=== PATIENT | male | born 1960 | race Two or more races ===

== ENCOUNTER 2017-07-26 06:03 | Inpatient (IN) | payer MEDICAID ==
[2017-07-26] VITALS (17 sets, daily range): BP systolic 112–167; BP diastolic 51–93
[~2017-07-26] VITALS: Ht 167.6 cm; Wt 72.2 kg
[2017-07-26 07:02] LABS: APPEARANCE,URINE CLEAR; BILIRUBIN, URINE NEGATIVE (NEGATIVE); COLOR,URINE PALE YELLOW; GLUCOSE, URINE (UA) NEGATIVE (NEGATIVE); KETONES,URINE NEGATIVE (NEGATIVE); LEUKOCYTE ESTERASE ,URINE NEGATIVE (NEGATIVE); NITRITE,URINE NEGATIVE (NEGATIVE); PH,URINE 5 (4.5-8.0); PROTEIN,URINE 3+ (NEGATIVE); UROBILINOGEN,URINE NORMAL MG/DL (0.0-1.0)
[2017-07-26 07:07] LABS: ANION GAP 13 mmol/L (5-15); BLOOD UREA NITROGEN 70 mg/dL (7-18); CALCIUM 8.2 MG/DL (8.5-10.1); CARBON DIOXIDE 22 MMOL/L (21-32); CHLORIDE 100 MMOL/L (98-107); CREATININE 2.9 MG/DL (0.55-1.30); INR 1.1 (0.9-1.1); POTASSIUM 3.5 MMOL/L (3.5-5.1); SODIUM 135 MMOL/L (136-145)
[2017-07-26 07:13] LABS: MEAN CORPUSCULAR VOLUME 89 FL (80-99); PLATELET COUNT 435 K/UL (150-450); RED BLOOD COUNT 2.36 M/UL (4.70-6.10); RED CELL DISTRIBUTION WIDTH 15.1 % (11.6-14.8); WHITE BLOOD COUNT 15.4 K/UL (4.8-10.8)
[2017-07-26 07:21] LABS: ALANINE AMINOTRANSFERASE 19 U/L (12-78); ALBUMIN 1.5 G/DL (3.4-5.0); ALBUMIN/GLOBULIN RATIO 0.2 (1.0-2.7); ALKALINE PHOSPHATASE 168 U/L (46-116); ASPARTATE AMINO TRANSFERASE 29 U/L (15-37); BILIRUBIN,TOTAL 0.2 MG/DL (0.2-1.0); CKMB 1.9 NG/ML (0.0-3.6); CREATINE KINASE 49 U/L (26-308)
--- NOTE | 2017-07-26 07:35 | Emergency Room Report ---
History of Present Illness General Chief Complaint: Altered Level of Consciousness Source: Patient, Medical Record Present Illness HPI This patient presents from a retirement facility. There was concern the patient was less responsive and more altered than usual. The patient has a history of CVA and is nonverbal at baseline. 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 The patient has a history of respiratory failure, diabetes, CVA, anemia, stage IV KD. There was a question this patient possibly had lost pulses prior to arrival. According to EMS, they were called to a retirement facility for no pulse. However, when he arrived the patient did have a pulse despite undergoing CPR. The patient here has had stable vital signs. There is no other history available. Allergies: Coded Allergies: No Known Allergies (Unverified , 07/26/17) Patient History Past Medical History: see triage record, DM, HTN, LA, CAD - , CVA/TIA, renal disease, other - Respiratory failure Past Surgical History: other - Trach, PEG Social History: Denies: smoking, alcohol use, drug use Reviewed Nursing Documentation: PMH: Agreed; PSxH: Agreed Nursing Documentation-PMH Past Medical History: No History, Except For Hx Hypertension: Yes Hx COPD: No - Chronic Resp. failure, Trach. dependent Hx Diabetes: Yes - Type 2 Hx Gastrointestinal Problems: Yes - Dysphagia, G-tube Hx Dialysis: No - Nephropathy, CKD Hx Cerebrovascular Accident: Yes - Left-sided deficit Review of Systems All Other Systems: limited Physical Exam Vital Signs Date Time Temp Pulse Resp B/P (MAP) Pulse Ox O2 Delivery O2 Flow Rate FiO2 07/26/17 05:58 97.3 79 25 112/93 100 Ambu-Bag 97.3 07/26/17 06:00 100 Sp02 EP Interpretation: reviewed, normal General Appearance: no apparent distress, alert, GCS 15, non-toxic Head: normocephalic, atraumatic Eyes: bilateral eye normal inspection ENT: no angioedema Neck: supple/symm/no masses, tracheotomy Respiratory: chest non-tender, lungs clear, normal breath sounds, no respiratory distress, other - On ventilator Cardiovascular #1: regular rate, rhythm, no edema Gastrointestinal: normal bowel sounds, non tender, soft, non-distended, no guarding, no rebound, other - PEG Rectal: deferred Genitourinary: penis normal Musculoskeletal: swelling - LLE 1+edema. At baseline Neurologic: sensory intact, other - Opens eyes. At baseline. Skin: warm/dry, well hydrated, other - See RN skin exam Medical Decision Making Diagnostic Impression: Primary Impression: CVA (cerebral vascular accident) Additional Impressions: Anemia Bilateral pulmonary contusion Renal insufficiency Hypoglycemia ER Course This patient has CT head findings consistent with acute CVA. He was given aspirin via GT. The patient had anemia dementia or the severity of this and this patient has never to this facility, however, the medical chart that accompanies the patient states that patient has 9 deficiency anemia. Patient also has chest x-ray findings consistent with pulmonary contusions. Per EMS, when they arrived at the [facility] the patient was undergoing CPR. I suspect any pulmonary contusions are secondary to receiving CPR prior to arrival. The patient had a normal blood pressure, heart rate and overall vital signs while here in the emergency department. The patient also became hypoglycemic with a critically low blood sugar. The patient is given D50. The patient was upgraded to the ICU. There is no evidence of arrhythmia or cardiac instability during the patient's ED course. The patient did undergo a CT of the head which shows findings consistent with an acute ischemic CVA. The patient is admitted to ICU. This patient is critically ill. This patient required complex medical decision- making, aggressive intervention, extensive laboratory workup and monitoring. Critical care time: 40 minutes. Laboratory Tests Test 07/26/17 06:20 White Blood Count 15.4 K/UL (4.8-10.8) H Red Blood Count 2.36 M/UL (4.70-6.10) L Hemoglobin 7.0 G/DL (14.2-18.0) L Hematocrit 21.0 % (42.0-52.0) L Mean Corpuscular Volume 89 FL (80-99) Mean Corpuscular Hemoglobin 29.8 PG (27.0-31.0) Mean Corpuscular Hemoglobin Concent 33.4 G/DL (32.0-36.0) Red Cell Distribution Width 15.1 % (11.6-14.8) H Platelet Count 435 K/UL (150-450) Mean Platelet Volume 5.6 FL (6.5-10.1) L Neutrophils (%) (Auto) % (45.0-75.0) Lymphocytes (%) (Auto) % (20.0-45.0) Monocytes (%) (Auto) % (1.0-10.0) Eosinophils (%) (Auto) % (0.0-3.0) Basophils (%) (Auto) % (0.0-2.0) Neutrophils % (Manual) Pending Lymphocytes % (Manual) Pending Platelet Estimate Pending Platelet Morphology Pending Prothrombin Time 11.5 SEC (9.30-11.50) Prothrombin Time INR 1.1 (0.9-1.1) PTT 35 SEC (23-33) H Urine Color Pale yellow Urine Appearance Clear Urine pH 5 (4.5-8.0) Urine Specific [place] 1.010 (1.005-1.035) Urine Protein 3+ (NEGATIVE) H Urine Glucose (UA) Negative (NEGATIVE) Urine Ketones Negative (NEGATIVE) Urine Occult Blood Negative (NEGATIVE) Urine Nitrite Negative (NEGATIVE) Urine Bilirubin Negative (NEGATIVE) Urine Urobilinogen Normal MG/DL (0.0-1.0) Urine Leukocyte Esterase Negative (NEGATIVE) Urine RBC 5-10 /HPF (0 - 0) H Urine WBC 5-10 /HPF (0 - 0) H Urine Squamous Epithelial Cells Occasional /LPF Urine Amorphous Sediment Few /LPF (NONE) H Urine Bacteria Few /HPF (NONE) Urine Fine Granular Casts 0-2 /LPF (NONE) H Sodium Level 135 MMOL/L (136-145) L Potassium Level 3.5 MMOL/L (3.5-5.1) Chloride Level 100 MMOL/L (98-107) Carbon Dioxide Level 22 MMOL/L (21-32) Anion Gap 13 mmol/L (5-15) Blood Urea Nitrogen 70 mg/dL (7-18) H Creatinine 2.9 MG/DL (0.55-1.30) H Estimate Glomerular Filtration Rate 22.6 mL/min (>60) Glucose Level 62 MG/DL (74-106) L Lactic Acid Level 3.70 mmol/L (0.4-2.0) H Calcium Level 8.2 MG/DL (8.5-10.1) L Total Bilirubin 0.2 MG/DL (0.2-1.0) Aspartate Amino Transferase (AST) 29 U/L (15-37) Alanine Aminotransferase (ALT) 19 U/L (12-78) Alkaline Phosphatase 168 U/L (46-116) H Total Creatine Kinase 49 U/L (26-308) Creatine Kinase MB 1.9 NG/ML (0.0-3.6) Creatine Kinase MB Relative Index 3.8 Troponin I 0.000 ng/mL (0.000-0.056) Total Protein 7.5 G/DL (6.4-8.2) Albumin 1.5 G/DL (3.4-5.0) L Globulin 6.0 g/dL Albumin/Globulin Ratio 0.2 (1.0-2.7) L EKG Diagnostic Results Rate: normal Rhythm: NSR ST Segments: no acute changes Rhythm Strip Diag. Results EP Interpretation: yes Rate: 70's Rhythm: NSR, no PVC's, no ectopy Chest X-Ray Diagnostic Results Chest X-Ray Diagnostic Results : Chest X-Ray Ordered: Yes # of Views/Limited/Complete: 1 View Indication: Other EP Interpretation: Yes Interpretation: other - Diffuse bilateral patchy opacities upper lungs. CT/MRI/US Diagnostic Results CT/MRI/US Diagnostic Results : Imaging Test Ordered: CT head Impression Findings concerning for an acute ischemic CVA. See official report. Last Vital Signs Date Time Temp Pulse Resp B/P (MAP) Pulse Ox O2 Delivery O2 Flow Rate FiO2 07/26/17 06:56 25 134/67 100 Ambu-Bag 100 07/26/17 06:05 97.3 97.3 07/26/17 06:00 77 Disposition: ADMITTED INPATIENT Condition: Critical Referrals: NICK MARCH (PCP) Heydi Estrada DO Jul 26, 2017 07:35
--- NOTE | 2017-07-26 08:07 | Diagnostic Imaging Report ---
Indication: Altered mental status Technique: Continuous helical CT scanning of the head was performed utilizing automated exposure control without intravenous contrast material. Axial and coronal reconstructions were obtained. Comparison: None CT dose: Total DLP 1449 mGycm; CTDI vol 70.5 mGy Findings: There is asymmetric hypoattenuation and loss of snadoval-white differentiation in the right insula and steen radiata concerning for infarct. No definite focus of parenchymal high attenuation is noted. There is thin high density in the interhemispheric fissure which is likely within the realm of normal. No definite extra-axial hemorrhage/collection identified. The ventricles are within normal limits for age; no evidence to suggest hydrocephalus. No cisternal effacement. Likely bilateral mastoid effusions although evaluation of the skull base is limited due to patient motion. There is air-fluid level in the right sphenoid sinus and mucoperiosteal thickening in some ethmoid air cells. IMPRESSION: Asymmetric densities involving the right insula, steen radiata and basal ganglia concerning suspicious for acute infarct. No evidence of midline shift or acute intracranial hemorrhage. Limited evaluation of the skull base to to patient motion. Likely bilateral mastoid effusions. Paranasal sinus disease. This corresponds with the statrad preliminary report. The CT scanner at [facility] is accredited by the [employer] and the scans are performed using protocols designed to limit radiation exposure to as low as reasonably achievable to attain images of sufficient resolution adequate for diagnostic evaluation.
[2017-07-26] MEDS ORDERED: HUMALOG100 UNIT/4 SUBQ (10:31)
[2017-07-26] MEDS ORDERED: FAMOTIDINE20 MG GT (10:31)
[2017-07-26] MEDS ORDERED: METFORMIN HCL850 M1 GT (10:31)
[2017-07-26] MEDS ORDERED: TRAMADOL HCL50 MG GT (10:31)
[2017-07-26] MEDS ORDERED: LOVENOX10 M4 SUBQ (10:31)
[2017-07-26] MEDS ORDERED: TRANSDERM-SCOP1.5 MG TD (10:31)
[2017-07-26] MEDS ORDERED: ACETAMINOP160 MG/51 GT (10:31)
[2017-07-26] MEDS ORDERED: HYDRALAZINE HC100 MG GT (10:31)
[2017-07-26] MEDS ORDERED: METOPROLOL TART50 M1 GT (10:31)
[2017-07-26] MEDS ORDERED: RENA-VITE TABL0.8 M1 GT (10:31)
[2017-07-26] MEDS ORDERED: NORVASC10 MG ORAL (10:31)
[2017-07-26] MEDS ORDERED: CATAPRES TTS-1 PATCH TDERMAL (10:31)
[2017-07-26] MEDS ORDERED: LANTUS SOL100 UNIT/1 SUBQ (10:31)
[2017-07-26] MEDS ORDERED: Miralax 17gm pkt ORAL PRN (10:45)
[2017-07-26] MEDS ORDERED: Morphine Sulfate 4mg/ml Inj IVP PRN (10:45)
[2017-07-26] MEDS ORDERED: Albuterol/Ipratropium 3ml neb HHN PRN (10:45)
[2017-07-26] MEDS ORDERED: LORazepam Inj 2mg/ml 1ml IV PRN (10:45)
--- NOTE | 2017-07-26 11:04 | Pulmonolgy Critical Care Note ---
Critical Care - Asmt/Plan Problems: (1) Pneumonia (2) Acute encephalopathy (3) Cardiac arrest (4) Acute and chronic respiratory failure (5) Diabetes mellitus (6) History of CVA (cerebrovascular accident) (7) CVA (cerebral vascular accident) Respiratory: monitor respiratory rate, adjust FIO2, CXR Cardiac: continue to monitor HR/BP Renal: F/U I&O Gastrointestinal: continue feedings/current rate, hold feedings Endocrine: check TSH Hematologic: monitor H/H Neurologic: PRN Morphine Affect: PRN ativan Prophylaxis: Protonix, Heparin Notes Reviewed: cardio Discussed with: nurses, consultants, case aideonline marketing manager - Objective Last 24 Hour Vital Signs Date Time Temp Pulse Resp B/P (MAP) Pulse Ox O2 Delivery O2 Flow Rate FiO2 07/26/17 10:16 100.0 07/26/17 10:14 98.7 67 17 142/70 100 Mechanical Ventilator 100 98.7 07/26/17 10:10 97.3 17 133/77 100 Ambu-Bag 100 97.3 07/26/17 09:45 97.3 17 133/77 100 Ambu-Bag 100 97.3 07/26/17 09:11 63 17 100 07/26/17 07:29 65 16 100 07/26/17 06:56 25 134/67 100 Ambu-Bag 100 07/26/17 06:05 97.3 25 112/93 100 Ambu-Bag 97.3 07/26/17 06:00 77 24 100 07/26/17 05:58 97.3 79 25 112/93 100 Ambu-Bag 97.3 Status: awake Condition: critical HEENT: atraumatic Lungs: clear Heart: HR/BP stable Abdomen: soft, non-tender, feeding tube Accucheck: 143 Critical Care - Subjective ROS Limited/Unobtainable: Yes ICU Day: 1 Interval Events: 56 year old male with hx of DM, HTN, DC, CAD, CVA/TIA, tracheostomy and ventilator dependent, renal disease presented from a detention facility. There was a question that he had lost pulses prior to arrival. However, when he arrived the patient did have a pulse despite undergoing CPR. Pt is admitted to ICu for further evaluation. FI02: 100 Vent Support Breath Rate: 16 Vent Support Mode: AC Vent Tidal Volume: 550 Sputum Amount: Small PEEP: 5.0 PIP: 26 I&O: Intake and Output 07/25/17 07/26/17 19:00 07:00 Output Total 600 ml Balance -600 ml Output Urine Total 600 ml # Voids 1 # Bowel Movements 1 CXR: extensive RUL infiltrate Labs: Laboratory Tests Test 07/26/17 06:20 07/26/17 07:55 07/26/17 10:45 White Blood Count 15.4 K/UL (4.8-10.8) H Red Blood Count 2.36 M/UL (4.70-6.10) L Hemoglobin 7.0 G/DL (14.2-18.0) L Hematocrit 21.0 % (42.0-52.0) L Mean Corpuscular Volume 89 FL (80-99) Mean Corpuscular Hemoglobin 29.8 PG (27.0-31.0) Mean Corpuscular Hemoglobin Concent 33.4 G/DL (32.0-36.0) Red Cell Distribution Width 15.1 % (11.6-14.8) H Platelet Count 435 K/UL (150-450) Mean Platelet Volume 5.6 FL (6.5-10.1) L Neutrophils (%) (Auto) % (45.0-75.0) Lymphocytes (%) (Auto) % (20.0-45.0) Monocytes (%) (Auto) % (1.0-10.0) Eosinophils (%) (Auto) % (0.0-3.0) Basophils (%) (Auto) % (0.0-2.0) Differential Total Cells Counted 100 Neutrophils % (Manual) 77 % (45-75) H Lymphocytes % (Manual) 12 % (20-45) L Monocytes % (Manual) 7 % (1-10) Eosinophils % (Manual) 1 % (0-3) Basophils % (Manual) 3 % (0-2) H Band Neutrophils 0 % (0-8) Platelet Estimate Adequate Platelet Morphology Normal Hypochromasia 3+ Anisocytosis 1+ Prothrombin Time 11.5 SEC (9.30-11.50) Prothromb Time International Ratio 1.1 (0.9-1.1) Activated Partial Thromboplast Time 35 SEC (23-33) H Urine Color Pale yellow Urine Appearance Clear Urine pH 5 (4.5-8.0) Urine Specific [place] 1.010 (1.005-1.035) Urine Protein 3+ (NEGATIVE) H Urine Glucose (UA) Negative (NEGATIVE) Urine Ketones Negative (NEGATIVE) Urine Occult Blood Negative (NEGATIVE) Urine Nitrite Negative (NEGATIVE) Urine Bilirubin Negative (NEGATIVE) Urine Urobilinogen Normal MG/DL (0.0-1.0) Urine Leukocyte Esterase Negative (NEGATIVE) Urine RBC 5-10 /HPF (0 - 0) H Urine WBC 5-10 /HPF (0 - 0) H Urine Squamous Epithelial Cells Occasional /LPF Urine Amorphous Sediment Few /LPF (NONE) H Urine Bacteria Few /HPF (NONE) Urine Fine Granular Casts 0-2 /LPF (NONE) H Sodium Level 135 MMOL/L (136-145) L Potassium Level 3.5 MMOL/L (3.5-5.1) Chloride Level 100 MMOL/L (98-107) Carbon Dioxide Level 22 MMOL/L (21-32) Anion Gap 13 mmol/L (5-15) Blood Urea Nitrogen 70 mg/dL (7-18) H Creatinine 2.9 MG/DL (0.55-1.30) H Estimat Glomerular Filtration Rate 22.6 mL/min (>60) Glucose Level 62 MG/DL (74-106) L Lactic Acid Level 3.70 mmol/L (0.4-2.0) H 1.80 mmol/L (0.66-2.22) Calcium Level 8.2 MG/DL (8.5-10.1) L Total Bilirubin 0.2 MG/DL (0.2-1.0) Aspartate Amino Transf (AST/SGOT) 29 U/L (15-37) Alanine Aminotransferase (ALT/SGPT) 19 U/L (12-78) Alkaline Phosphatase 168 U/L (46-116) H Total Creatine Kinase 49 U/L (26-308) Creatine Kinase MB 1.9 NG/ML (0.0-3.6) Creatine Kinase MB Relative Index 3.8 Troponin I 0.000 ng/mL (0.000-0.056) Total Protein 7.5 G/DL (6.4-8.2) Albumin 1.5 G/DL (3.4-5.0) L Globulin 6.0 g/dL Albumin/Globulin Ratio 0.2 (1.0-2.7) L Arterial Blood pH 7.460 (7.350-7.450) Arterial Blood Partial Pressure CO2 34.0 mmHg (35.0-45.0) L Arterial Blood Partial Pressure O2 447.3 mmHg (75.0-100.0) H Arterial Blood HCO3 23.6 mmol/L (22.0-26.0) Arterial Blood Oxygen Saturation 99.5 % (92.0-98.0) H Arterial Blood Base Excess -0.1 Jaquan Test Positive Siva Quinteros MD Jul 26, 2017 11:04
[2017-07-26 12:19] LABS: APPEARANCE,URINE SLIGHTLY CLOUDY; BILIRUBIN, URINE NEGATIVE (NEGATIVE); COLOR,URINE PALE YELLOW; GLUCOSE, URINE (UA) NEGATIVE (NEGATIVE); KETONES,URINE NEGATIVE (NEGATIVE); LEUKOCYTE ESTERASE ,URINE NEGATIVE (NEGATIVE); NITRITE,URINE NEGATIVE (NEGATIVE); PH,URINE 5 (4.5-8.0); PROTEIN,URINE 4+ (NEGATIVE); UROBILINOGEN,URINE NORMAL MG/DL (0.0-1.0)
--- NOTE | 2017-07-26 12:19 | History & Physical ---
History and Physical History & Physicial Dictated for Int Med[facility] ICU no. [id number]. Thaddeus Diaz MD Jul 26, 2017 12:19
--- NOTE | 2017-07-26 12:25 | Cardiology Report ---
APPROVED REPORT EKG Measurement Heart [id number] Normal sinus rhythm Possible Left atrial enlargement Junctional ST depression, probably normal Prolonged QT Abnormal ECG
[2017-07-26] MEDS: NovoLOG Insulin Flexpen SUBQ SCH ×3 (12:55→21:00)
[2017-07-26] MEDS ORDERED: Vancomycin 1.5 GM/D5W 250ML IVPB ONE (13:00)
--- NOTE | 2017-07-26 13:26 | Diagnostic Imaging Report ---
Indication: Altered mental status Technique: XRAY Chest 1v Comparison: None Findings: Gastrostomy tube in place. There is bilateral interstitial opacification/edema and patchy bilateral airspace opacities involving the right upper lung and left midlung. There is no pleural effusion. No pneumothorax. Heart is enlarged. Mediastinal contours appear sharp. There are degenerative changes in the spine. No acute osseous abnormality seen. Impression: Cardiomegaly with bilateral interstitial and patchy airspace opacities. Findings may be related to CHF/pulmonary edema however superimposed pneumonia not entirely excluded. Clinical correlation and follow-up exam recommended. Tracheostomy tube in place.
[2017-07-26] MEDS: Cefepime HCl 1 GM in D5W 110 ML IVPB SCH (16:09)
--- NOTE | 2017-07-26 17:15 | History and Physical Report ---
DATE OF ADMISSION: 07/26/2017 CHIEF COMPLAINT: The patient is a 56-year-old male with a history of chronic respiratory failure and vent dependence who presents with chief complaint of altered mental status. HISTORY OF PRESENT ILLNESS: The patient is a resident of [facility]. The patient is nonverbal at baseline. The patient has a history of cerebrovascular accident. According to staff at [facility], the patient became increasingly altered yesterday, 07/25/2017. The patient was transferred to [facility]. The patient is admitted for altered mental status to rule out acute cerebrovascular accident. REVIEW OF SYSTEMS: Unable to assess secondary to the patient's mental status. PAST MEDICAL HISTORY: Significant for, 1. Respiratory failure, chronic vent dependence. 2. Dysphagia. 3. Hypertension. 4. Type 2 diabetes number. 5. History of hemorrhagic stroke. 6. Diabetic nephropathy. 7. Left hemiparesis. 8. Chronic renal failure. 9. Iron deficiency anemia. PAST SURGICAL HISTORY: Significant for, 1. Tracheostomy. 2. Gastrostomy tube placement. CURRENT MEDICATIONS: 1. Amlodipine 10 mg per G-tube daily. 2. Hydralazine 100 mg per G-tube 3 times daily. 3. Metoprolol 50 mg per G-tube twice daily. 4. Multivitamin per G-tube daily. 5. Scopolamine patch applied every 72 hours. 6. Pepcid 20 mg per G-tube daily. 7. Metformin 850 mg per G-tube twice daily. 8. Lovenox 40 mg subcutaneously daily. 9. Clonidine patch 0.2 mg applied every 72 hours. 10. Tramadol 50 mg per G-tube q.4 hours as needed pain. 11. Humalog sliding scale. ALLERGIES: No known drug allergies. SOCIAL HISTORY: The patient is . The patient denies tobacco or alcohol use. PHYSICAL EXAMINATION: VITAL SIGNS: Temperature 97.3, respirations 17, pulse 67, blood pressure 133/77. GENERAL APPEARANCE: A well-developed, well-nourished, male, who was intubated and sedated. HEENT: Eyes, pupils are equal and responsive to light and accommodation. Extraocular movements are intact. NECK: Supple without lymphadenopathy. There is a tracheostomy tube present. CARDIOVASCULAR: Regular rhythm rate. S1, S2 normal without murmurs, rubs, or gallops. ABDOMEN: Soft, nontender, and nondistended. Positive bowel sounds. No evidence of hepatosplenomegaly. Currently, no rebound or guarding noted. There is presence of a G-tube placement noted. LUNGS: Coarse breath sounds bilaterally without wheezes or rales. RECTAL/GENITAL: Not performed. NEUROLOGIC: The patient has a left flaccid hemiparesis. LABORATORY STUDIES: WBC 15.4, hemoglobin 7.0, hematocrit 21.0, platelets 435,000. Sodium 135, potassium 3.5, chloride 100, CO2 22, BUN 70, creatinine 2.9, glucose 62. CT scan of the brain revealed asymmetric densities in the right insula, steen radiata, and basal ganglia concerning for acute infarct. ASSESSMENT: This is a 56-year-old male with, 1. Altered mental status. 2. Acute cerebrovascular accident. 3. Altered mental status. 4. Chronic respiratory failure. 5. Vent dependence. 6. Tracheostomy care number. 7. Dysphagia. 8. History of hemorrhagic stroke. 9. Hypertension. 10. Diabetes type 2. 11. Renal failure. 12. Left hemiparesis. 13. Anemia of iron deficiency. TREATMENT: 1. Altered mental status. This is probably secondary to acute stroke as above. A Neurology consultation has been obtained with Dr. Maldonado. We will follow recommendations of Neurology. 2. Chronic respiratory failure/vent dependence. A Pulmonary consultation has been obtained with Dr. Siva Quinteros. 3. Tracheostomy care. 4. Dysphagia. The patient is status post G-tube placement. Await tube feedings with Glucerna. 5. Hemorrhagic stroke, history of. 6. Hypertension. Continue amlodipine and hydralazine as above. 7. Diabetes type 2. A NovoLog sliding scale has been instituted. 8. Acute on chronic renal failure. A Nephrology consultation has been obtained with Dr. Huang. 9. Left hemiparesis. 10. Iron deficiency anemia. Thaddeus Diaz M.D. DR: DOLORES JOB#: [id number] CC:
--- NOTE | 2017-07-26 17:48 | Consultation ---
History of Present Illness General Date patient seen: Jul 26, 2017 Chief Complaint: Altered Level of Consciousness Present Illness HPI 56 y/o M with hx of DM2, HTN, PA, CAD, anemia, CVA/TIA/hemorrhagic stroke w/ L side hemiparesis, CKD IV, resp failure Trach/vent dependant, dysphagia s/p PEG, non verbal, SNF resident presents to ED on 07/26 with altered mental status ( less responsive than usual). There was question that patient had possibly lost pulses prior to arrival. Upon arrival EMS was found to have pulse. CT head showed new infarct Allergies: Coded Allergies: No Known Allergies (Unverified , 07/26/17) Medication History Scheduled Amlodipine Besylate (Norvasc), 10 MG ORAL DAILY, (Reported) Clonidine (Catapres-Tts 1), 1 PATCH TDERMAL ONCE A WEEK, (Reported) Enoxaparin* (Lovenox*), 40 MG SUBQ DAILY, (Reported) Famotidine (Famotidine), 20 MG GT DAILY, (Reported) Folic Acid/Vitamin B Comp W-C (Maribell-Chemo Tablet), 0.8 MG GT DAILY, (Reported) Hydralazine Hcl* (Hydralazine Hcl*), 100 MG GT EVERY 8 HOURS, (Reported) Insulin Glargine (Lantus), 15 SUBQ BEDTIME, (Reported) Insulin Lispro (Humalog), 0 SUBQ Q6HR, (Reported) Metformin Hcl* (Metformin Hcl*), 850 MG GT Q12HR, (Reported) Metoprolol Tartrate* (Metoprolol Tartrate*), 50 MG GT EVERY 12 HOURS, (Reported) Scopolamine (Transderm-Scop), 1.5 MG TD Q72H, (Reported) Scheduled PRN Acetaminophen* (Acetaminophen*), 320 MG GT Q4H PRN for Mild Pain/Temp > 100.5, ( Reported) Tramadol Hcl* (Ultram*), 50 MG GT Q4HR PRN for For Pain, (Reported) Patient History Healthcare decision maker Resuscitation status Full Code Advanced Directive on File Yes Patient History Narrative PMhx: as above Shx: The patient is . The patient denies tobacco or alcohol use. Fhx: non contributory Review of Systems All Other Systems: negative except mentioned in HPI Physical Exam Physical Exam Narrative GENERAL APPEARANCE: A well-developed, well-nourished, male, who was intubated and sedated. HEENT: Eyes, pupils are equal and responsive to light and accommodation. Extraocular movements are intact. NECK: Supple without lymphadenopathy. There is a tracheostomy tube present. CARDIOVASCULAR: Regular rhythm rate. S1, S2 normal without murmurs, rubs, or gallops. ABDOMEN: Soft, nontender, and nondistended. Positive bowel sounds. No evidence of hepatosplenomegaly. Currently, no rebound or guarding noted. There is presence of a G-tube placement noted. LUNGS: Coarse breath sounds bilaterally without wheezes or rales. NEUROLOGIC: The patient has a left flaccid hemiparesis. Last 24 Hour Vital Signs Date Time Temp Pulse Resp B/P (MAP) Pulse Ox O2 Delivery O2 Flow Rate FiO2 07/26/17 17:20 80 17 30 07/26/17 17:00 84 16 157/73 98 Mechanical Ventilator 30 07/26/17 16:00 73 07/26/17 16:00 97.5 76 17 146/67 100 Mechanical Ventilator 30 97.5 07/26/17 15:00 30 07/26/17 15:00 76 16 153/70 98 Mechanical Ventilator 30 07/26/17 14:36 72 15 30 07/26/17 14:00 79 16 167/74 98 Mechanical Ventilator 35 07/26/17 13:15 35 07/26/17 13:12 75 16 35 18 13:00 66 16 139/59 100 Mechanical Ventilator 50 07/26/17 12:00 67 07/26/17 12:00 98.0 66 17 132/56 100 Mechanical Ventilator 50 98.0 07/26/17 11:24 66 17 50 18 11:00 67 16 137/64 100 Mechanical Ventilator 50 07/26/17 10:50 50 18 10:16 100 18 10:14 98.7 67 17 142/70 100 Mechanical Ventilator 100 98.7 07/26/17 10:10 97.3 17 133/77 100 Ambu-Bag 100 97.3 07/26/17 10:03 74 18 09:45 97.3 17 133/77 100 Ambu-Bag 100 97.3 07/26/17 09:11 63 17 100 07/26/17 07:29 65 16 100 07/26/17 06:56 25 134/67 100 Ambu-Bag 100 07/26/17 06:05 97.3 25 112/93 100 Ambu-Bag 97.3 07/26/17 06:00 77 24 100 07/26/17 05:58 97.3 79 25 112/93 100 Ambu-Bag 97.3 Intake and Output 07/25/17 07/26/17 19:00 07:00 Output Total 600 ml Balance -600 ml Output Urine Total 600 ml # Voids 1 # Bowel Movements 1 Laboratory Tests Test 07/26/17 06:20 07/26/17 07:55 07/26/17 10:05 07/26/17 10:45 White Blood Count 15.4 K/UL (4.8-10.8) H Red Blood Count 2.36 M/UL (4.70-6.10) L Hemoglobin 7.0 G/DL (14.2-18.0) L Hematocrit 21.0 % (42.0-52.0) L Mean Corpuscular Volume 89 FL (80-99) Mean Corpuscular Hemoglobin 29.8 PG (27.0-31.0) Mean Corpuscular Hemoglobin Concent 33.4 G/DL (32.0-36.0) Red Cell Distribution Width 15.1 % (11.6-14.8) H Platelet Count 435 K/UL (150-450) Mean Platelet Volume 5.6 FL (6.5-10.1) L Neutrophils (%) (Auto) % (45.0-75.0) Lymphocytes (%) (Auto) % (20.0-45.0) Monocytes (%) (Auto) % (1.0-10.0) Eosinophils (%) (Auto) % (0.0-3.0) Basophils (%) (Auto) % (0.0-2.0) Differential Total Cells Counted 100 Neutrophils % (Manual) 77 % (45-75) H Lymphocytes % (Manual) 12 % (20-45) L Monocytes % (Manual) 7 % (1-10) Eosinophils % (Manual) 1 % (0-3) Basophils % (Manual) 3 % (0-2) H Band Neutrophils 0 % (0-8) Platelet Estimate Adequate Platelet Morphology Normal Hypochromasia 3+ Anisocytosis 1+ Prothrombin Time 11.5 SEC (9.30-11.50) Prothromb Time International Ratio 1.1 (0.9-1.1) Activated Partial Thromboplast Time 35 SEC (23-33) H Urine Color Pale yellow Pale yellow Urine Appearance Clear Slightly cloudy Urine pH 5 (4.5-8.0) 5 (4.5-8.0) Urine Specific [place] 1.010 (1.005-1.035) 1.010 (1.005-1.035) Urine Protein 3+ (NEGATIVE) H 4+ (NEGATIVE) H Urine Glucose (UA) Negative (NEGATIVE) Negative (NEGATIVE) Urine Ketones Negative (NEGATIVE) Negative (NEGATIVE) Urine Occult Blood Negative (NEGATIVE) 2+ (NEGATIVE) H Urine Nitrite Negative (NEGATIVE) Negative (NEGATIVE) Urine Bilirubin Negative (NEGATIVE) Negative (NEGATIVE) Urine Urobilinogen Normal MG/DL (0.0-1.0) Normal MG/DL (0.0-1.0) Urine Leukocyte Esterase Negative (NEGATIVE) Negative (NEGATIVE) Urine RBC 5-10 /HPF (0 - 0) H 2-4 /HPF (0 - 0) H Urine WBC 5-10 /HPF (0 - 0) H 2-4 /HPF (0 - 0) Urine Squamous Epithelial Cells Occasional /LPF Few /LPF (NONE/OCC) Urine Amorphous Sediment Few /LPF (NONE) H Few /LPF (NONE) H Urine Bacteria Few /HPF (NONE) Few /HPF (NONE) Urine Fine Granular Casts 0-2 /LPF (NONE) H Sodium Level 135 MMOL/L (136-145) L Potassium Level 3.5 MMOL/L (3.5-5.1) Chloride Level 100 MMOL/L (98-107) Carbon Dioxide Level 22 MMOL/L (21-32) Anion Gap 13 mmol/L (5-15) Blood Urea Nitrogen 70 mg/dL (7-18) H Creatinine 2.9 MG/DL (0.55-1.30) H Estimat Glomerular Filtration Rate 22.6 mL/min (>60) Glucose Level 62 MG/DL (74-106) L Lactic Acid Level 3.70 mmol/L (0.4-2.0) H 1.80 mmol/L (0.66-2.22) Uric Acid 9.5 MG/DL (2.6-7.2) H Calcium Level 8.2 MG/DL (8.5-10.1) L Total Bilirubin 0.2 MG/DL (0.2-1.0) Aspartate Amino Transf (AST/SGOT) 29 U/L (15-37) Alanine Aminotransferase (ALT/SGPT) 19 U/L (12-78) Alkaline Phosphatase 168 U/L (46-116) H Total Creatine Kinase 49 U/L (26-308) Creatine Kinase MB 1.9 NG/ML (0.0-3.6) Creatine Kinase MB Relative Index 3.8 Troponin I 0.000 ng/mL (0.000-0.056) Total Protein 7.5 G/DL (6.4-8.2) Albumin 1.5 G/DL (3.4-5.0) L Globulin 6.0 g/dL Albumin/Globulin Ratio 0.2 (1.0-2.7) L Urine Eosinophils None seen Urine Random Sodium 20 mmol/L (20-110) Urine Potassium Timed 10 mmol/L (12-62) L Stool Occult Blood Negative (NEGATIVE) Arterial Blood pH 7.460 (7.350-7.450) Arterial Blood Partial Pressure CO2 34.0 mmHg (35.0-45.0) L Arterial Blood Partial Pressure O2 447.3 mmHg (75.0-100.0) H Arterial Blood HCO3 23.6 mmol/L (22.0-26.0) Arterial Blood Oxygen Saturation 99.5 % (92.0-98.0) H Arterial Blood Base Excess -0.1 Jaquan Test Positive Height (Feet): 5 Height (Inches): 6.00 Weight (Pounds): 157 Medications Current Medications Medications (Trade) Dose Ordered Sig/Johnathan Route PRN Reason Start Time Stop Time Status Last Admin Dose Admin Acetaminophen (Tylenol) 650 mg Q4H PRN ORAL FEVER 07/26/17 10:45 08/25/17 10:44 Albuterol/ Ipratropium (Albuterol/ Ipratropium) 3 ml Q4H PRN HHN Shortness of Breath 07/26/17 10:45 07/31/17 10:44 Amlodipine Besylate (Norvasc) 10 mg DAILY ORAL 07/27/17 09:00 08/26/17 08:59 Cefepime HCl 1 gm/ Dextrose 110 ml @ 220 mls/hr Q24H IVPB 07/26/17 15:00 08/02/17 14:59 07/26/17 16:09 Clonidine HCl (Catapres TTS-1) 1 patch ONCE A WEEK TDERMAL 08/01/17 09:00 08/31/17 08:59 Dextrose (Dextrose 50%) 25 ml STAT PRN IV Hypoglycemia 07/26/17 10:45 08/25/17 10:44 Dextrose (Dextrose 50%) 50 ml STAT PRN IV Hypoglycemia 07/26/17 11:45 08/25/17 11:44 07/26/17 13:06 Heparin Sodium (Porcine) (Heparin 5000 units/ml) 5,000 units EVERY 12 HOURS SUBQ 07/26/17 21:00 08/25/17 20:59 Insulin Aspart (NovoLOG) BEFORE MEALS AND HS SUBQ 07/26/17 11:30 08/25/17 11:29 Lorazepam (Ativan 2mg/ml 1ml) 2 mg Q2H PRN IV For Anxiety 07/26/17 10:45 08/02/17 10:44 Metoprolol Tartrate (Lopressor) 50 mg EVERY 12 HOURS GT 07/26/17 21:00 08/25/17 20:59 Morphine Sulfate (Morphine Sulfate) 4 mg Q4H PRN IVP Severe Pain (Pain Scale 7-10) 07/26/17 10:45 08/02/17 10:44 Ondansetron HCl (Zofran) 4 mg Q6H PRN IVP Nausea & Vomiting 07/26/17 10:45 08/25/17 10:44 Pantoprazole (Protonix) 40 mg DAILY IV 07/27/17 09:00 08/26/17 08:59 Polyethylene Glycol (Miralax) 17 gm DAILYPRN PRN ORAL Constipation 07/26/17 10:45 08/25/17 10:44 Vancomycin HCl (Vanco rx to dose) 1 ea DAILY PRN MISC PER RX PROTOCOL 07/26/17 12:00 08/25/17 11:59 Assessment/Plan Assessment/Plan Abx: IV Vancomcin 07/26- Cefepime 07/26- Assessment: Acute CVA -CT head: asymmetric densities in the right insula, steen radiata, and basal ganglia concerning for acute infarct. Probable PNA -CXR: Cardiomegaly with bilateral interstitial and patchy airspace opacities.Findings may be related to CHF/pulmonary edema however superimposed pneumonia not entirely excluded. Leukocytosis -no fever -u/a wbc 5-10; repeat neg Lactic acidosis, SP DM2 HTN PA/CAD anemia CVA/TIA/hemorrhagic stroke w/ L side hemiparesis CKD IV resp failure Trach/vent dependant dysphagia s/p PEG non verbal SNF resident Plan: -Continue empiric IV Vancomycin and Cefepime pending cultures -f/u cx -Monitor CBC/BMP, temperatures -aspiration precautions -Trach/peg care Thank you for this consultation. Will continue to monitor off abx. Discussed with GABRIEL. Jessica Estrella M.D. Jul 26, 2017 17:48
--- NOTE | 2017-07-26 18:35 | Consultation ---
History of Present Illness General Chief Complaint: Altered Level of Consciousness Present Illness HPI Patient from [facility]. Pt was found by RNs unresponsive and w/out a pulse. Per EMS, RNs stated that the pt's level of consciousness had been less than his normal baseline. Compressions and BVM were initiated by RNs @ [facility]. EMS cont. Compressions and BVM and achieved ROSC. Patient is obtunded, flaccid extremities. No distress noted, placed on mechanical ventilator with setting of AC 16, TV:550, FiO2:100%, PEEP 5 He has a history of DM, HTN, RI, CAD, CVA/TIA, tracheostomy and ventilator dependent, renal disease chronic. Patient is non verbal. CT scan concerning for Asymmetric densities involving the right insula, steen radiata and basal ganglia concerning suspicious for acute infarct. No evidence of midline shift or acute intracranial hemorrhage. Allergies: Coded Allergies: No Known Allergies (Unverified , 07/26/17) Medication History Scheduled Amlodipine Besylate (Norvasc), 10 MG ORAL DAILY, (Reported) Clonidine (Catapres-Tts 1), 1 PATCH TDERMAL ONCE A WEEK, (Reported) Enoxaparin* (Lovenox*), 40 MG SUBQ DAILY, (Reported) Famotidine (Famotidine), 20 MG GT DAILY, (Reported) Folic Acid/Vitamin B Comp W-C (Maribell-Chemo Tablet), 0.8 MG GT DAILY, (Reported) Hydralazine Hcl* (Hydralazine Hcl*), 100 MG GT EVERY 8 HOURS, (Reported) Insulin Glargine (Lantus), 15 SUBQ BEDTIME, (Reported) Insulin Lispro (Humalog), 0 SUBQ Q6HR, (Reported) Metformin Hcl* (Metformin Hcl*), 850 MG GT Q12HR, (Reported) Metoprolol Tartrate* (Metoprolol Tartrate*), 50 MG GT EVERY 12 HOURS, (Reported) Scopolamine (Transderm-Scop), 1.5 MG TD Q72H, (Reported) Scheduled PRN Acetaminophen* (Acetaminophen*), 320 MG GT Q4H PRN for Mild Pain/Temp > 100.5, ( Reported) Tramadol Hcl* (Ultram*), 50 MG GT Q4HR PRN for For Pain, (Reported) Patient History Healthcare decision maker Resuscitation status Full Code Advanced Directive on File Yes Review of Systems Constitutional: Reports: weakness Eye: Reports: no symptoms Respiratory: Reports: shortness of breath Cardiovascular: Reports: no symptoms Gastrointestinal: Reports: no symptoms Musculoskeletal: Reports: muscle pain, muscle stiffness Skin: Reports: no symptoms Psychiatric: Reports: no symptoms Neurological: Reports: focal weakness, syncope, dizziness Endocrine: Reports: no symptoms Hematologic/Lymphatic: Reports: no symptoms Physical Exam General Appearance: mild distress Lines, tubes and drains: trach HEENT: normocephalic, atraumatic Neck: non-tender Respiratory/Chest: crackles/rales Cardiovascular/Chest: normal peripheral pulses Abdomen: normal bowel sounds Extremities: normal range of motion Skin Exam: normal pigmentation 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 normal Last 24 Hour Vital Signs Date Time Temp Pulse Resp B/P (MAP) Pulse Ox O2 Delivery O2 Flow Rate FiO2 07/26/17 17:20 80 17 30 07/26/17 17:00 84 16 157/73 98 Mechanical Ventilator 30 07/26/17 16:00 73 07/26/17 16:00 97.5 76 17 146/67 100 Mechanical Ventilator 30 97.5 07/26/17 15:00 30 07/26/17 15:00 76 16 153/70 98 Mechanical Ventilator 30 07/26/17 14:36 72 15 30 07/26/17 14:00 79 16 167/74 98 Mechanical Ventilator 35 07/26/17 13:15 35 07/26/17 13:12 75 16 35 07/26/17 13:00 66 16 139/59 100 Mechanical Ventilator 50 07/26/17 12:00 67 07/26/17 12:00 98.0 66 17 132/56 100 Mechanical Ventilator 50 98.0 07/26/17 11:24 66 17 50 07/26/17 11:00 67 16 137/64 100 Mechanical Ventilator 50 07/26/17 10:50 50 07/26/17 10:16 100 07/26/17 10:14 98.7 67 17 142/70 100 Mechanical Ventilator 100 98.7 07/26/17 10:10 97.3 17 133/77 100 Ambu-Bag 100 97.3 07/26/17 10:03 74 07/26/17 09:45 97.3 17 133/77 100 Ambu-Bag 100 97.3 07/26/17 09:11 63 17 100 07/26/17 07:29 65 16 100 07/26/17 06:56 25 134/67 100 Ambu-Bag 100 07/26/17 06:05 97.3 25 112/93 100 Ambu-Bag 97.3 07/26/17 06:00 77 24 100 07/26/17 05:58 97.3 79 25 112/93 100 Ambu-Bag 97.3 Intake and Output 07/25/17 07/26/17 19:00 07:00 Output Total 600 ml Balance -600 ml Output Urine Total 600 ml # Voids 1 # Bowel Movements 1 Laboratory Tests Test 07/26/17 06:20 07/26/17 07:55 07/26/17 10:05 07/26/17 10:45 White Blood Count 15.4 K/UL (4.8-10.8) H Red Blood Count 2.36 M/UL (4.70-6.10) L Hemoglobin 7.0 G/DL (14.2-18.0) L Hematocrit 21.0 % (42.0-52.0) L Mean Corpuscular Volume 89 FL (80-99) Mean Corpuscular Hemoglobin 29.8 PG (27.0-31.0) Mean Corpuscular Hemoglobin Concent 33.4 G/DL (32.0-36.0) Red Cell Distribution Width 15.1 % (11.6-14.8) H Platelet Count 435 K/UL (150-450) Mean Platelet Volume 5.6 FL (6.5-10.1) L Neutrophils (%) (Auto) % (45.0-75.0) Lymphocytes (%) (Auto) % (20.0-45.0) Monocytes (%) (Auto) % (1.0-10.0) Eosinophils (%) (Auto) % (0.0-3.0) Basophils (%) (Auto) % (0.0-2.0) Differential Total Cells Counted 100 Neutrophils % (Manual) 77 % (45-75) H Lymphocytes % (Manual) 12 % (20-45) L Monocytes % (Manual) 7 % (1-10) Eosinophils % (Manual) 1 % (0-3) Basophils % (Manual) 3 % (0-2) H Band Neutrophils 0 % (0-8) Platelet Estimate Adequate Platelet Morphology Normal Hypochromasia 3+ Anisocytosis 1+ Prothrombin Time 11.5 SEC (9.30-11.50) Prothromb Time International Ratio 1.1 (0.9-1.1) Activated Partial Thromboplast Time 35 SEC (23-33) H Urine Color Pale yellow Pale yellow Urine Appearance Clear Slightly cloudy Urine pH 5 (4.5-8.0) 5 (4.5-8.0) Urine Specific [place] 1.010 (1.005-1.035) 1.010 (1.005-1.035) Urine Protein 3+ (NEGATIVE) H 4+ (NEGATIVE) H Urine Glucose (UA) Negative (NEGATIVE) Negative (NEGATIVE) Urine Ketones Negative (NEGATIVE) Negative (NEGATIVE) Urine Occult Blood Negative (NEGATIVE) 2+ (NEGATIVE) H Urine Nitrite Negative (NEGATIVE) Negative (NEGATIVE) Urine Bilirubin Negative (NEGATIVE) Negative (NEGATIVE) Urine Urobilinogen Normal MG/DL (0.0-1.0) Normal MG/DL (0.0-1.0) Urine Leukocyte Esterase Negative (NEGATIVE) Negative (NEGATIVE) Urine RBC 5-10 /HPF (0 - 0) H 2-4 /HPF (0 - 0) H Urine WBC 5-10 /HPF (0 - 0) H 2-4 /HPF (0 - 0) Urine Squamous Epithelial Cells Occasional /LPF Few /LPF (NONE/OCC) Urine Amorphous Sediment Few /LPF (NONE) H Few /LPF (NONE) H Urine Bacteria Few /HPF (NONE) Few /HPF (NONE) Urine Fine Granular Casts 0-2 /LPF (NONE) H Sodium Level 135 MMOL/L (136-145) L Potassium Level 3.5 MMOL/L (3.5-5.1) Chloride Level 100 MMOL/L (98-107) Carbon Dioxide Level 22 MMOL/L (21-32) Anion Gap 13 mmol/L (5-15) Blood Urea Nitrogen 70 mg/dL (7-18) H Creatinine 2.9 MG/DL (0.55-1.30) H Estimat Glomerular Filtration Rate 22.6 mL/min (>60) Glucose Level 62 MG/DL (74-106) L Lactic Acid Level 3.70 mmol/L (0.4-2.0) H 1.80 mmol/L (0.66-2.22) Uric Acid 9.5 MG/DL (2.6-7.2) H Calcium Level 8.2 MG/DL (8.5-10.1) L Total Bilirubin 0.2 MG/DL (0.2-1.0) Aspartate Amino Transf (AST/SGOT) 29 U/L (15-37) Alanine Aminotransferase (ALT/SGPT) 19 U/L (12-78) Alkaline Phosphatase 168 U/L (46-116) H Total Creatine Kinase 49 U/L (26-308) Creatine Kinase MB 1.9 NG/ML (0.0-3.6) Creatine Kinase MB Relative Index 3.8 Troponin I 0.000 ng/mL (0.000-0.056) Total Protein 7.5 G/DL (6.4-8.2) Albumin 1.5 G/DL (3.4-5.0) L Globulin 6.0 g/dL Albumin/Globulin Ratio 0.2 (1.0-2.7) L Urine Eosinophils None seen Urine Random Sodium 20 mmol/L (20-110) Urine Potassium Timed 10 mmol/L (12-62) L Stool Occult Blood Negative (NEGATIVE) Arterial Blood pH 7.460 (7.350-7.450) Arterial Blood Partial Pressure CO2 34.0 mmHg (35.0-45.0) L Arterial Blood Partial Pressure O2 447.3 mmHg (75.0-100.0) H Arterial Blood HCO3 23.6 mmol/L (22.0-26.0) Arterial Blood Oxygen Saturation 99.5 % (92.0-98.0) H Arterial Blood Base Excess -0.1 Jaquan Test Positive Height (Feet): 5 Height (Inches): 6.00 Weight (Pounds): 157 Medications Current Medications Medications (Trade) Dose Ordered Sig/Johnathan Route PRN Reason Start Time Stop Time Status Last Admin Dose Admin Acetaminophen (Tylenol) 650 mg Q4H PRN ORAL FEVER 07/26/17 10:45 08/25/17 10:44 Albuterol/ Ipratropium (Albuterol/ Ipratropium) 3 ml Q4H PRN HHN Shortness of Breath 07/26/17 10:45 07/31/17 10:44 Amlodipine Besylate (Norvasc) 10 mg DAILY ORAL 07/27/17 09:00 08/26/17 08:59 Cefepime HCl 1 gm/ Dextrose 110 ml @ 220 mls/hr Q24H IVPB 07/26/17 15:00 08/02/17 14:59 07/26/17 16:09 Clonidine HCl (Catapres TTS-1) 1 patch ONCE A WEEK TDERMAL 08/01/17 09:00 08/31/17 08:59 Dextrose (Dextrose 50%) 25 ml STAT PRN IV Hypoglycemia 07/26/17 10:45 08/25/17 10:44 Dextrose (Dextrose 50%) 50 ml STAT PRN IV Hypoglycemia 07/26/17 11:45 08/25/17 11:44 07/26/17 13:06 Heparin Sodium (Porcine) (Heparin 5000 units/ml) 5,000 units EVERY 12 HOURS SUBQ 07/26/17 21:00 08/25/17 20:59 Insulin Aspart (NovoLOG) BEFORE MEALS AND HS SUBQ 07/26/17 11:30 08/25/17 11:29 Lorazepam (Ativan 2mg/ml 1ml) 2 mg Q2H PRN IV For Anxiety 07/26/17 10:45 08/02/17 10:44 Metoprolol Tartrate (Lopressor) 50 mg EVERY 12 HOURS GT 07/26/17 21:00 08/25/17 20:59 Morphine Sulfate (Morphine Sulfate) 4 mg Q4H PRN IVP Severe Pain (Pain Scale 7-10) 07/26/17 10:45 08/02/17 10:44 Ondansetron HCl (Zofran) 4 mg Q6H PRN IVP Nausea & Vomiting 07/26/17 10:45 08/25/17 10:44 Pantoprazole (Protonix) 40 mg DAILY IV 07/27/17 09:00 08/26/17 08:59 Polyethylene Glycol (Miralax) 17 gm DAILYPRN PRN ORAL Constipation 07/26/17 10:45 08/25/17 10:44 Vancomycin HCl (Vanco rx to dose) 1 ea DAILY PRN MISC PER RX PROTOCOL 07/26/17 12:00 08/25/17 11:59 Assessment/Plan Status: stable Assessment/Plan -TTE to evaluate LV function -IV abx due to pulmonary infiltrates vs CHF -Continue BP medications -Patient will need an ischemia evaluation due to multiple cardiac risk factors and possible VT/loss of pulses albeit less likely due to negative troponin -CTA with infarct, obtain carotid US -Plavix -Statin -Transfuse PRBC Renny Joy M.D. Jul 26, 2017 18:35
[2017-07-26] MEDS: Metoprolol Tartrate 50mg tab GT SCH (22:03)
[2017-07-26] MEDS: Heparin 5000 units/ml inj SUBQ SCH (22:04)
[2017-07-27] VITALS (24 sets, daily range): BP systolic 140–172; BP diastolic 66–81
[2017-07-27 06:31] LABS: HEMATOCRIT 22.9 % (42.0-52.0); HEMOGLOBIN 7.6 G/DL (14.2-18.0); MEAN CORPUSCULAR VOLUME 88 FL (80-99); PLATELET COUNT 422 K/UL (150-450); RED BLOOD COUNT 2.59 M/UL (4.70-6.10); RED CELL DISTRIBUTION WIDTH 14.8 % (11.6-14.8); WHITE BLOOD COUNT 13.8 K/UL (4.8-10.8)
[2017-07-27 06:37] LABS: ALBUMIN 1.3 G/DL (3.4-5.0); ANION GAP 10 mmol/L (5-15); BLOOD UREA NITROGEN 61 mg/dL (7-18); CARBON DIOXIDE 24 MMOL/L (21-32); CHLORIDE 104 MMOL/L (98-107); CREATININE 2.8 MG/DL (0.55-1.30); PHOSPHORUS 3.5 MG/DL (2.5-4.9); POTASSIUM 2.9 MMOL/L (3.5-5.1); SODIUM 138 MMOL/L (136-145)
[2017-07-27 06:39] LABS: LACTATE DEHYDROGENASE 231 U/L (81-234)
[2017-07-27 06:41] LABS: INR 1.1 (0.9-1.1)
[2017-07-27] MEDS: NovoLOG Insulin Flexpen SUBQ SCH ×4 (06:43→20:44)
[2017-07-27 07:23] LABS: % IRON SATURATION 75 % (15-50); IRON 63 ug/dL (50-175); TOTAL IRON BINDING CAPACITY 84 ug/dL (250-450)
[2017-07-27] MEDS: Pantoprazole Inj IV SCH (09:41)
[2017-07-27] MEDS: Metoprolol Tartrate 50mg tab GT SCH ×2 (09:41→20:43)
[2017-07-27] MEDS: Heparin 5000 units/ml inj SUBQ SCH ×2 (09:42→20:44)
--- NOTE | 2017-07-27 10:40 | Pulmonolgy Critical Care Note ---
Critical Care - Asmt/Plan Problems: (1) Pneumonia (2) Acute encephalopathy (3) Cardiac arrest (4) Acute and chronic respiratory failure (5) Diabetes mellitus (6) History of CVA (cerebrovascular accident) (7) CVA (cerebral vascular accident) Respiratory: monitor respiratory rate, adjust FIO2, CXR Cardiac: continue to monitor HR/BP Renal: F/U I&O, keep IV fluid, check electrolytes Infectious Disease: check cultures Gastrointestinal: continue feedings/current rate Endocrine: monitor blood sugar Hematologic: monitor H/H, transfuse if hgb<8.5 Neurologic: PRN Ativan, PRN Morphine, keep patient comfortable Disposition: keep in ICU Notes 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: 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, 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, ID Discussed with: nurses, consultants, bilingual case managerbiofuels operations manager - Objective Last 24 Hour Vital Signs Date Time Temp Pulse Resp B/P (MAP) Pulse Ox O2 Delivery O2 Flow Rate FiO2 07/27/17 10:00 99.9 75 18 158/73 99 Mechanical Ventilator 30 99.9 07/27/17 09:41 86 159/71 07/27/17 09:41 85 159/71 07/27/17 09:25 100 16 30 07/27/17 09:00 72 18 159/71 99 Mechanical Ventilator 30 07/27/17 08:00 100.2 84 18 152/72 100 Mechanical Ventilator 30 100.2 07/27/17 08:00 83 07/27/17 08:00 30 07/27/17 07:30 100 21 30 07/27/17 07:00 86 19 160/69 98 Mechanical Ventilator 30 07/27/17 06:00 82 18 159/68 99 Mechanical Ventilator 30 07/27/17 05:09 98 29 30 07/27/17 05:00 82 19 155/69 98 Mechanical Ventilator 30 07/27/17 04:00 84 07/27/17 04:00 98.8 84 20 159/67 99 Mechanical Ventilator 30 98.8 07/27/17 04:00 30 07/27/17 03:20 90 21 30 07/27/17 03:00 82 18 154/68 98 Mechanical Ventilator 30 07/27/17 02:00 82 19 154/66 98 Mechanical Ventilator 30 07/27/17 01:26 90 29 30 07/27/17 01:00 84 20 140/74 98 Mechanical Ventilator 30 07/27/17 00:00 30 6/19/18 00:00 85 07/27/17 00:00 97.9 85 19 157/68 98 Mechanical Ventilator 30 97.9 18 23:27 91 30 30 18 23:00 83 18 154/66 99 Mechanical Ventilator 30 18 22:03 94 154/70 07/26/17 22:00 89 19 154/70 99 Mechanical Ventilator 30 07/26/17 21:00 95 22 160/74 99 Mechanical Ventilator 30 07/26/17 20:53 87 20 30 07/26/17 20:00 98.2 85 19 162/72 98 Mechanical Ventilator 30 98.2 07/26/17 20:00 85 07/26/17 20:00 30 07/26/17 19:02 83 17 30 07/26/17 19:00 80 16 162/54 98 Mechanical Ventilator 30 07/26/17 18:00 81 16 164/51 98 Mechanical Ventilator 30 07/26/17 17:20 80 17 30 07/26/17 17:00 84 16 157/73 98 Mechanical Ventilator 30 07/26/17 16:00 73 07/26/17 16:00 97.5 76 17 146/67 100 Mechanical Ventilator 30 97.5 07/26/17 15:00 30 07/26/17 15:00 76 16 153/70 98 Mechanical Ventilator 30 07/26/17 14:36 72 15 30 07/26/17 14:00 79 16 167/74 98 Mechanical Ventilator 35 07/26/17 13:15 35 07/26/17 13:12 75 16 35 18 13:00 66 16 139/59 100 Mechanical Ventilator 50 07/26/17 12:00 67 07/26/17 12:00 98.0 66 17 132/56 100 Mechanical Ventilator 50 98.0 07/26/17 11:24 66 17 50 18 11:00 67 16 137/64 100 Mechanical Ventilator 50 07/26/17 10:50 50 Status: awake Condition: critical HEENT: atraumatic Neck: full ROM Lungs: rales, rhonchi Heart: HR/BP stable Abdomen: soft, non-tender, feeding tube Extremities: edema Micro: Microbiology Date/Time Source Procedure Growth Status 07/26/17 10:44 Bronchial Washings Not Specified Gram Stain Pending Resulted 07/26/17 10:44 Bronchial Aspirate Culture - Preliminary Gram Negative Bacillus 1 Resulted 07/26/17 10:05 Stool Clostridium difficile Toxin Assay - Final Complete 07/26/17 06:30 Rectum Unverified Accucheck: 123 Critical Care - Subjective ROS Limited/Unobtainable: Yes ICU Day: 2 Intubation Day: 2 Condition: critical EKG Rhythm: Sinus Rhythm FI02: 30 Vent Support Breath Rate: 16 Vent Support Mode: AC Vent Tidal Volume: 600 Sputum Amount: Small PEEP: 5.0 PIP: 25 Tube Feeding Amount: 30 I&O: Intake and Output 07/26/17 07/27/17 19:00 07:00 Intake Total 590 ml 410 ml Output Total 330 ml 445 ml Balance 260 ml -35 ml Intake Free Water 50 ml 50 ml IV Total 360 ml Tube Feeding 180 ml 360 ml Output Urine Total 330 ml 445 ml # Bowel Movements 1 2 CXR: extensive infiltrate, trach in good position Labs: Laboratory Tests Test 07/26/17 10:45 07/27/17 05:30 Arterial Blood pH 7.460 (7.350-7.450) Arterial Blood Partial Pressure CO2 34.0 mmHg (35.0-45.0) L Arterial Blood Partial Pressure O2 447.3 mmHg (75.0-100.0) H Arterial Blood HCO3 23.6 mmol/L (22.0-26.0) Arterial Blood Oxygen Saturation 99.5 % (92.0-98.0) H Arterial Blood Base Excess -0.1 Jaquan Test Positive White Blood Count 13.8 K/UL (4.8-10.8) H Red Blood Count 2.59 M/UL (4.70-6.10) L Hemoglobin 7.6 G/DL (14.2-18.0) L Hematocrit 22.9 % (42.0-52.0) L Mean Corpuscular Volume 88 FL (80-99) Mean Corpuscular Hemoglobin 29.4 PG (27.0-31.0) Mean Corpuscular Hemoglobin Concent 33.2 G/DL (32.0-36.0) Red Cell Distribution Width 14.8 % (11.6-14.8) Platelet Count 422 K/UL (150-450) Mean Platelet Volume 5.5 FL (6.5-10.1) L Neutrophils (%) (Auto) % (45.0-75.0) Lymphocytes (%) (Auto) % (20.0-45.0) Monocytes (%) (Auto) % (1.0-10.0) Eosinophils (%) (Auto) % (0.0-3.0) Basophils (%) (Auto) % (0.0-2.0) Differential Total Cells Counted 100 Neutrophils % (Manual) 79 % (45-75) H Lymphocytes % (Manual) 10 % (20-45) L Monocytes % (Manual) 6 % (1-10) Eosinophils % (Manual) 2 % (0-3) Basophils % (Manual) 0 % (0-2) Band Neutrophils 3 % (0-8) Platelet Estimate Increased H Platelet Morphology Normal Hypochromasia 1+ Anisocytosis 1+ Erythrocyte Sedimentation Rate 125 MM/HR (0-20) H Reticulocyte Count 2.4 % (0.0-2.0) H Prothrombin Time 11.8 SEC (9.30-11.50) H Prothromb Time International Ratio 1.1 (0.9-1.1) Activated Partial Thromboplast Time 34 SEC (23-33) H Sodium Level 138 MMOL/L (136-145) Potassium Level 2.9 MMOL/L (3.5-5.1) L Chloride Level 104 MMOL/L (98-107) Carbon Dioxide Level 24 MMOL/L (21-32) Anion Gap 10 mmol/L (5-15) Blood Urea Nitrogen 61 mg/dL (7-18) H Creatinine 2.8 MG/DL (0.55-1.30) H Estimat Glomerular Filtration Rate 23.6 mL/min (>60) Glucose Level 115 MG/DL (74-106) H Calcium Level 8.0 MG/DL (8.5-10.1) L Phosphorus Level 3.5 MG/DL (2.5-4.9) Iron Level 63 ug/dL (50-175) Total Iron Binding Capacity 84 ug/dL (250-450) L Percent Iron Saturation 75 % (15-50) H Unsaturated Iron Binding 21 ug/dL (112-346) L Lactate Dehydrogenase 231 U/L (81-234) Albumin 1.3 G/DL (3.4-5.0) L Carcinoembryonic Antigen Pending Vitamin B12 Level 622 PG/ML (193-986) Folate 37.5 NG/ML (8.6-58.9) Random Vancomycin Level 18.0 ug/mL Siva Quinteros MD Jul 27, 2017 10:40
--- NOTE | 2017-07-27 10:47 | Consultation ---
Consult Note Consult Note asked to eval for renal failure- This patient presents from a retirement facility. There was concern the patient was less responsive and more altered than usual. The patient has a history of CVA and is nonverbal at baseline. 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 The patient has a history of respiratory failure, diabetes, CVA, anemia, stage IV KD. There was a question this patient possibly had lost pulses prior to arrival. According to EMS, they were called to a retirement facility for no pulse. However, when he arrived the patient did have a pulse despite undergoing CPR. The patient here has had stable vital signs. There is no other history available. Past Medical History: see triage record, DM, HTN, CO, CAD - , CVA/TIA, renal disease, other - Respiratory failure Past Surgical History: other - Trach, PEG Past Medical History: No History, Except For Hx Hypertension: Yes Hx COPD: No - Chronic Resp. failure, Trach. dependent Hx Diabetes: Yes - Type 2 Hx Gastrointestinal Problems: Yes - Dysphagia, G-tube Hx Dialysis: No - Nephropathy, CKD Hx Cerebrovascular Accident: Yes - Left-sided deficit examined- discussed with RN data reviewed Assessment/Plan Renal failure likely Pre renal super imposed on renal Severe HypoAlbuminemia Sever Anemia Chronic vent / Trach. has PEG HypoKalemia 4+ Proteinuria Hypoglycemia HTN pulm support transfuse K IV Monitor renal parameters 24 H urine protein FRED VEGA Jul 27, 2017 10:47
--- NOTE | 2017-07-27 10:53 | Infectious Diseases Prog Note ---
Assessment/Plan Assessment/Plan Abx: IV Vancomcin 07/26- Cefepime 07/26- Assessment: Acute CVA -CT head: asymmetric densities in the right insula, steen radiata, and basal ganglia concerning for acute infarct. Probable PNA -CXR: Cardiomegaly with bilateral interstitial and patchy airspace opacities.Findings may be related to CHF/pulmonary edema however superimposed pneumonia not entirely excluded. -sp cx GNR Leukocytosis, improving -no fever -u/a wbc 5-10; repeat neg -Cdiff neg Lactic acidosis, SP DM2 HTN [place]/CAD anemia CVA/TIA/hemorrhagic stroke w/ L side hemiparesis CKD IV resp failure Trach/vent dependant dysphagia s/p PEG non verbal SNF resident Plan: -Continue empiric IV Vancomycin and Cefepime #2 pending cultures -may d/c IV Vancomycin in the next 24hrs if no gram positive isolated -f/u cx -Monitor CBC/BMP, temperatures -aspiration precautions -Trach/peg care Thank you for this consultation. Will continue to monitor off abx. Discussed with RN. Subjective Allergies: Coded Allergies: No Known Allergies (Unverified , 07/26/17) Subjective Tm 100.2 leukocytosis improving Fio2 30% Objective Vital Signs Last 24 Hour Vital Signs Date Time Temp Pulse Resp B/P (MAP) Pulse Ox O2 Delivery O2 Flow Rate FiO2 07/27/17 10:00 99.9 75 18 158/73 99 Mechanical Ventilator 30 99.9 07/27/17 09:41 86 159/71 07/27/17 09:41 85 159/71 07/27/17 09:25 100 16 30 07/27/17 09:00 72 18 159/71 99 Mechanical Ventilator 30 07/27/17 08:00 100.2 84 18 152/72 100 Mechanical Ventilator 30 100.2 07/27/17 08:00 83 07/27/17 08:00 30 07/27/17 07:30 100 21 30 07/27/17 07:00 86 19 160/69 98 Mechanical Ventilator 30 07/27/17 06:00 82 18 159/68 99 Mechanical Ventilator 30 07/27/17 05:09 98 29 30 07/27/17 05:00 82 19 155/69 98 Mechanical Ventilator 30 07/27/17 04:00 84 07/27/17 04:00 98.8 84 20 159/67 99 Mechanical Ventilator 30 98.8 6/19/18 04:00 30 6/19/18 03:20 90 21 30 6/19/18 03:00 82 18 154/68 98 Mechanical Ventilator 30 6/19/18 02:00 82 19 154/66 98 Mechanical Ventilator 30 6/19/18 01:26 90 29 30 6/19/18 01:00 84 20 140/74 98 Mechanical Ventilator 30 6/19/18 00:00 30 6/19/18 00:00 85 6/19/18 00:00 97.9 85 19 157/68 98 Mechanical Ventilator 30 97.9 6/18/18 23:27 91 30 30 6/18/18 23:00 83 18 154/66 99 Mechanical Ventilator 30 6/18/18 22:03 94 154/70 6/18/18 22:00 89 19 154/70 99 Mechanical Ventilator 30 6/18/18 21:00 95 22 160/74 99 Mechanical Ventilator 30 6/18/18 20:53 87 20 30 6/18/18 20:00 98.2 85 19 162/72 98 Mechanical Ventilator 30 98.2 6/18/18 20:00 85 6/18/18 20:00 30 6/18/18 19:02 83 17 30 6/18/18 19:00 80 16 162/54 98 Mechanical Ventilator 30 6/18/18 18:00 81 16 164/51 98 Mechanical Ventilator 30 6/18/18 17:20 80 17 30 6/18/18 17:00 84 16 157/73 98 Mechanical Ventilator 30 6/18/18 16:00 73 6/18/18 16:00 97.5 76 17 146/67 100 Mechanical Ventilator 30 97.5 6/18/18 15:00 30 6/18/18 15:00 76 16 153/70 98 Mechanical Ventilator 30 6/18/18 14:36 72 15 30 6/18/18 14:00 79 16 167/74 98 Mechanical Ventilator 35 6/18/18 13:15 35 6/18/18 13:12 75 16 35 6/18/18 13:00 66 16 139/59 100 Mechanical Ventilator 50 6/18/18 12:00 67 6/18/18 12:00 98.0 66 17 132/56 100 Mechanical Ventilator 50 98.0 6/18/18 11:24 66 17 50 6/18/18 11:00 67 16 137/64 100 Mechanical Ventilator 50 07/26/17 10:50 50 Height (Feet): 5 Height (Inches): 6.00 Weight (Pounds): 153 Objective GENERAL APPEARANCE: A well-developed, well-nourished, male, who was intubated and sedated. HEENT: Eyes, pupils are equal and responsive to light and accommodation. Extraocular movements are intact. NECK: Supple without lymphadenopathy. There is a tracheostomy tube present. CARDIOVASCULAR: Regular rhythm rate. S1, S2 normal without murmurs, rubs, or gallops. ABDOMEN: Soft, nontender, and nondistended. Positive bowel sounds. No evidence of hepatosplenomegaly. Currently, no rebound or guarding noted. There is presence of a G-tube placement noted. LUNGS: Coarse breath sounds bilaterally without wheezes or rales. NEUROLOGIC: The patient has a left flaccid hemiparesis. Microbiology Date/Time Source Procedure Growth Status 07/26/17 10:44 Bronchial Washings Not Specified Gram Stain Pending Resulted 07/26/17 10:44 Bronchial Aspirate Culture - Preliminary Gram Negative Bacillus 1 Resulted 07/26/17 10:05 Stool Clostridium difficile Toxin Assay - Final Complete 07/26/17 06:30 Rectum Unverified Laboratory Tests Test 07/27/17 05:30 White Blood Count 13.8 K/UL (4.8-10.8) H Red Blood Count 2.59 M/UL (4.70-6.10) L Hemoglobin 7.6 G/DL (14.2-18.0) L Hematocrit 22.9 % (42.0-52.0) L Mean Corpuscular Volume 88 FL (80-99) Mean Corpuscular Hemoglobin 29.4 PG (27.0-31.0) Mean Corpuscular Hemoglobin Concent 33.2 G/DL (32.0-36.0) Red Cell Distribution Width 14.8 % (11.6-14.8) Platelet Count 422 K/UL (150-450) Mean Platelet Volume 5.5 FL (6.5-10.1) L Neutrophils (%) (Auto) % (45.0-75.0) Lymphocytes (%) (Auto) % (20.0-45.0) Monocytes (%) (Auto) % (1.0-10.0) Eosinophils (%) (Auto) % (0.0-3.0) Basophils (%) (Auto) % (0.0-2.0) Differential Total Cells Counted 100 Neutrophils % (Manual) 79 % (45-75) H Lymphocytes % (Manual) 10 % (20-45) L Monocytes % (Manual) 6 % (1-10) Eosinophils % (Manual) 2 % (0-3) Basophils % (Manual) 0 % (0-2) Band Neutrophils 3 % (0-8) Platelet Estimate Increased H Platelet Morphology Normal Hypochromasia 1+ Anisocytosis 1+ Erythrocyte Sedimentation Rate 125 MM/HR (0-20) H Reticulocyte Count 2.4 % (0.0-2.0) H Prothrombin Time 11.8 SEC (9.30-11.50) H Prothromb Time International Ratio 1.1 (0.9-1.1) Activated Partial Thromboplast Time 34 SEC (23-33) H Sodium Level 138 MMOL/L (136-145) Potassium Level 2.9 MMOL/L (3.5-5.1) L Chloride Level 104 MMOL/L (98-107) Carbon Dioxide Level 24 MMOL/L (21-32) Anion Gap 10 mmol/L (5-15) Blood Urea Nitrogen 61 mg/dL (7-18) H Creatinine 2.8 MG/DL (0.55-1.30) H Estimat Glomerular Filtration Rate 23.6 mL/min (>60) Glucose Level 115 MG/DL (74-106) H Calcium Level 8.0 MG/DL (8.5-10.1) L Phosphorus Level 3.5 MG/DL (2.5-4.9) Iron Level 63 ug/dL (50-175) Total Iron Binding Capacity 84 ug/dL (250-450) L Percent Iron Saturation 75 % (15-50) H Unsaturated Iron Binding 21 ug/dL (112-346) L Lactate Dehydrogenase 231 U/L (81-234) C-Reactive Protein, Quantitative Pending Albumin 1.3 G/DL (3.4-5.0) L Carcinoembryonic Antigen Pending Vitamin B12 Level 622 PG/ML (193-986) Folate 37.5 NG/ML (8.6-58.9) Random Vancomycin Level 18.0 ug/mL Current Medications Medications (Trade) Dose Ordered Sig/Johnathan Route PRN Reason Start Time Stop Time Status Last Admin Dose Admin Acetaminophen (Tylenol) 650 mg Q4H PRN ORAL FEVER 07/26/17 10:45 08/25/17 10:44 Albuterol/ Ipratropium (Albuterol/ Ipratropium) 3 ml Q4H PRN HHN Shortness of Breath 07/26/17 10:45 07/31/17 10:44 Amlodipine Besylate (Norvasc) 10 mg DAILY GT 07/28/17 09:00 08/26/17 08:59 UNV Cefepime HCl 1 gm/ Dextrose 110 ml @ 220 mls/hr Q24H IVPB 07/26/17 15:00 08/02/17 14:59 07/26/17 16:09 Clonidine HCl (Catapres TTS-1) 1 patch ONCE A WEEK TDERMAL 08/01/17 09:00 08/31/17 08:59 Dextrose (Dextrose 50%) 25 ml STAT PRN IV Hypoglycemia 07/26/17 10:45 08/25/17 10:44 Dextrose (Dextrose 50%) 50 ml STAT PRN IV Hypoglycemia 07/26/17 11:45 08/25/17 11:44 07/26/17 13:06 Heparin Sodium (Porcine) (Heparin 5000 units/ml) 5,000 units EVERY 12 HOURS SUBQ 07/26/17 21:00 08/25/17 20:59 07/27/17 09:42 Insulin Aspart (NovoLOG) BEFORE MEALS AND HS SUBQ 07/26/17 11:30 08/25/17 11:29 07/27/17 06:43 Lorazepam (Ativan 2mg/ml 1ml) 2 mg Q2H PRN IV For Anxiety 07/26/17 10:45 08/02/17 10:44 Metoprolol Tartrate (Lopressor) 50 mg EVERY 12 HOURS GT 07/26/17 21:00 08/25/17 20:59 07/27/17 09:41 Morphine Sulfate (Morphine Sulfate) 4 mg Q4H PRN IVP Severe Pain (Pain Scale 7-10) 07/26/17 10:45 08/02/17 10:44 Ondansetron HCl (Zofran) 4 mg Q6H PRN IVP Nausea & Vomiting 6/18/18 10:45 08/25/17 10:44 Pantoprazole (Protonix) 40 mg DAILY IV 07/27/17 09:00 08/26/17 08:59 07/27/17 09:41 Polyethylene Glycol (Miralax) 17 gm DAILYPRN PRN ORAL Constipation 07/26/17 10:45 08/25/17 10:44 Potassium Chloride 100 ml @ 100 mls/hr Q1HR IVPB 07/27/17 11:00 07/27/17 14:59 UNV Vancomycin HCl (Vanco rx to dose) 1 ea DAILY PRN MISC PER RX PROTOCOL 07/26/17 12:00 08/25/17 11:59 Jessica Estrella M.D. Jul 27, 2017 10:53
--- NOTE | 2017-07-27 11:44 | Cardiology Progress Note ---
Assessment/Plan Status: stable Assessment/Plan -TTE reviewed, no wall motion abnormalities, normal LV function, moderate AR - stable -IV abx due to pulmonary infiltrates and positive culture -Continue BP medications - permissive hypertension -Defer cardiac cath at this time, patients conditions likely from pulmonary infection as opposed to pulseless v tachy -CTA with infarct - neuro consult, repeat CT in 1 week -Plavix -Statin Subjective Cardiovascular: Reports: no symptoms Respiratory: Reports: no symptoms Gastrointestinal/Abdominal: Reports: no symptoms Genitourinary: Reports: no symptoms Subjective No acute events, stable on vent, responsive to stimuli Vitals stable, feeds at goal, no residuals Blood culture positive for gram negative rods Objective Last 24 Hour Vital Signs Date Time Temp Pulse Resp B/P (MAP) Pulse Ox O2 Delivery O2 Flow Rate FiO2 07/27/17 11:00 76 18 157/80 99 Mechanical Ventilator 30 07/27/17 10:42 97 16 30 07/27/17 10:00 99.9 75 18 158/73 99 Mechanical Ventilator 30 99.9 07/27/17 09:41 86 159/71 07/27/17 09:41 85 159/71 07/27/17 09:25 100 16 30 07/27/17 09:00 72 18 159/71 99 Mechanical Ventilator 30 07/27/17 08:00 100.2 84 18 152/72 100 Mechanical Ventilator 30 100.2 07/27/17 08:00 83 07/27/17 08:00 30 07/27/17 07:30 100 21 30 07/27/17 07:00 86 19 160/69 98 Mechanical Ventilator 30 07/27/17 06:00 82 18 159/68 99 Mechanical Ventilator 30 07/27/17 05:09 98 29 30 07/27/17 05:00 82 19 155/69 98 Mechanical Ventilator 30 07/27/17 04:00 84 07/27/17 04:00 98.8 84 20 159/67 99 Mechanical Ventilator 30 98.8 07/27/17 04:00 30 07/27/17 03:20 90 21 30 07/27/17 03:00 82 18 154/68 98 Mechanical Ventilator 30 07/27/17 02:00 82 19 154/66 98 Mechanical Ventilator 30 07/27/17 01:26 90 29 30 07/27/17 01:00 84 20 140/74 98 Mechanical Ventilator 30 6/19/18 00:00 30 18 00:00 85 18 00:00 97.9 85 19 157/68 98 Mechanical Ventilator 30 97.9 18 23:27 91 30 30 18 23:00 83 18 154/66 99 Mechanical Ventilator 30 18 22:03 94 154/70 [id number] 22:00 89 19 154/70 99 Mechanical Ventilator 30 07/26/17 21:00 95 22 160/74 99 Mechanical Ventilator 30 18 20:53 87 20 30 07/26/17 20:00 98.2 85 19 162/72 98 Mechanical Ventilator 30 98.2 07/26/17 20:00 85 07/26/17 20:00 30 07/26/17 19:02 83 17 30 07/26/17 19:00 80 16 162/54 98 Mechanical Ventilator 30 07/26/17 18:00 81 16 164/51 98 Mechanical Ventilator 30 07/26/17 17:20 80 17 30 07/26/17 17:00 84 16 157/73 98 Mechanical Ventilator 30 07/26/17 16:00 73 07/26/17 16:00 97.5 76 17 146/67 100 Mechanical Ventilator 30 97.5 07/26/17 15:00 30 07/26/17 15:00 76 16 153/70 98 Mechanical Ventilator 30 07/26/17 14:36 72 15 30 07/26/17 14:00 79 16 167/74 98 Mechanical Ventilator 35 18 13:15 35 18 13:12 75 16 35 18 13:00 66 16 139/59 100 Mechanical Ventilator 50 07/26/17 12:00 67 18 12:00 98.0 66 17 132/56 100 Mechanical Ventilator 50 98.0 General Appearance: no apparent distress, on vent EENT: PERRL/EOMI Neck: non-tender Rhythm: NSR Cardiovascular: normal peripheral pulses Respiratory/Chest: decreased breath sounds Abdomen: normal bowel sounds Extremities: normal range of motion Neurologic: motor weakness Intake and Output 07/26/17 07/27/17 19:00 07:00 Intake Total 590 ml 410 ml Output Total 330 ml 445 ml Balance 260 ml -35 ml Intake Free Water 50 ml 50 ml IV Total 360 ml Tube Feeding 180 ml 360 ml Output Urine Total 330 ml 445 ml # Bowel Movements 1 2 Laboratory Tests Test 07/27/17 05:30 White Blood Count 13.8 K/UL (4.8-10.8) H Red Blood Count 2.59 M/UL (4.70-6.10) L Hemoglobin 7.6 G/DL (14.2-18.0) L Hematocrit 22.9 % (42.0-52.0) L Mean Corpuscular Volume 88 FL (80-99) Mean Corpuscular Hemoglobin 29.4 PG (27.0-31.0) Mean Corpuscular Hemoglobin Concent 33.2 G/DL (32.0-36.0) Red Cell Distribution Width 14.8 % (11.6-14.8) Platelet Count 422 K/UL (150-450) Mean Platelet Volume 5.5 FL (6.5-10.1) L Neutrophils (%) (Auto) % (45.0-75.0) Lymphocytes (%) (Auto) % (20.0-45.0) Monocytes (%) (Auto) % (1.0-10.0) Eosinophils (%) (Auto) % (0.0-3.0) Basophils (%) (Auto) % (0.0-2.0) Differential Total Cells Counted 100 Neutrophils % (Manual) 79 % (45-75) H Lymphocytes % (Manual) 10 % (20-45) L Monocytes % (Manual) 6 % (1-10) Eosinophils % (Manual) 2 % (0-3) Basophils % (Manual) 0 % (0-2) Band Neutrophils 3 % (0-8) Platelet Estimate Increased H Platelet Morphology Normal Hypochromasia 1+ Anisocytosis 1+ Erythrocyte Sedimentation Rate 125 MM/HR (0-20) H Reticulocyte Count 2.4 % (0.0-2.0) H Prothrombin Time 11.8 SEC (9.30-11.50) H Prothromb Time International Ratio 1.1 (0.9-1.1) Activated Partial Thromboplast Time 34 SEC (23-33) H Sodium Level 138 MMOL/L (136-145) Potassium Level 2.9 MMOL/L (3.5-5.1) L Chloride Level 104 MMOL/L (98-107) Carbon Dioxide Level 24 MMOL/L (21-32) Anion Gap 10 mmol/L (5-15) Blood Urea Nitrogen 61 mg/dL (7-18) H Creatinine 2.8 MG/DL (0.55-1.30) H Estimat Glomerular Filtration Rate 23.6 mL/min (>60) Glucose Level 115 MG/DL (74-106) H Calcium Level 8.0 MG/DL (8.5-10.1) L Phosphorus Level 3.5 MG/DL (2.5-4.9) Iron Level 63 ug/dL (50-175) Total Iron Binding Capacity 84 ug/dL (250-450) L Percent Iron Saturation 75 % (15-50) H Unsaturated Iron Binding 21 ug/dL (112-346) L Lactate Dehydrogenase 231 U/L (81-234) C-Reactive Protein, Quantitative 18.1 mg/dL (0.00-0.90) H Albumin 1.3 G/DL (3.4-5.0) L Carcinoembryonic Antigen Pending Vitamin B12 Level 622 PG/ML (193-986) Folate 37.5 NG/ML (8.6-58.9) Random Vancomycin Level 18.0 ug/mL Microbiology Date/Time Source Procedure Growth Status 07/26/17 10:44 Bronchial Washings Not Specified Gram Stain - Final Resulted 07/26/17 10:44 Bronchial Aspirate Culture - Preliminary Gram Negative Bacillus 1 Resulted 07/26/17 10:05 Stool Clostridium difficile Toxin Assay - Final Complete 07/26/17 06:30 Rectum Unverified Renny Joy M.D. Jul 27, 2017 11:44
[2017-07-27] MEDS ORDERED: Vancomycin 1gm/D5W 275ml IVPB ONE ×2 (15:30)
[2017-07-27] MEDS: Cefepime HCl 1 GM in D5W 110 ML IVPB SCH (15:34)
--- NOTE | 2017-07-27 17:07 | Internal Med Progress Note ---
Subjective Date of Service: Jul 27, 2017 Physician Name Thaddeus Diaz Attending Physician Timothy Hills MD Current Medications Medications (Trade) Dose Ordered Sig/Johnathan Route PRN Reason Start Time Stop Time Status Last Admin Dose Admin Acetaminophen (Tylenol) 650 mg Q4H PRN ORAL FEVER 07/26/17 10:45 08/25/17 10:44 Albuterol/ Ipratropium (Albuterol/ Ipratropium) 3 ml Q4H PRN HHN Shortness of Breath 07/26/17 10:45 07/31/17 10:44 Amlodipine Besylate (Norvasc) 10 mg DAILY GT 07/28/17 09:00 08/26/17 08:59 Cefepime HCl 1 gm/ Dextrose 110 ml @ 220 mls/hr Q24H IVPB 07/26/17 15:00 08/02/17 14:59 07/27/17 15:34 Clonidine HCl (Catapres TTS-1) 1 patch ONCE A WEEK TDERMAL 08/01/17 09:00 08/31/17 08:59 Dextrose (Dextrose 50%) 25 ml STAT PRN IV Hypoglycemia 07/26/17 10:45 08/25/17 10:44 Dextrose (Dextrose 50%) 50 ml STAT PRN IV Hypoglycemia 07/26/17 11:45 08/25/17 11:44 07/26/17 13:06 Heparin Sodium (Porcine) (Heparin 5000 units/ml) 5,000 units EVERY 12 HOURS SUBQ 07/26/17 21:00 08/25/17 20:59 07/27/17 09:42 Insulin Aspart (NovoLOG) BEFORE MEALS AND HS SUBQ 07/26/17 11:30 08/25/17 11:29 07/27/17 11:21 Lorazepam (Ativan 2mg/ml 1ml) 2 mg Q2H PRN IV For Anxiety 07/26/17 10:45 08/02/17 10:44 Metoprolol Tartrate (Lopressor) 50 mg EVERY 12 HOURS GT 07/26/17 21:00 08/25/17 20:59 07/27/17 09:41 Morphine Sulfate (Morphine Sulfate) 4 mg Q4H PRN IVP Severe Pain (Pain Scale 7-10) 07/26/17 10:45 08/02/17 10:44 Ondansetron HCl (Zofran) 4 mg Q6H PRN IVP Nausea & Vomiting 07/26/17 10:45 08/25/17 10:44 Pantoprazole (Protonix) 40 mg DAILY IV 07/27/17 09:00 08/26/17 08:59 07/27/17 09:41 Polyethylene Glycol (Miralax) 17 gm DAILYPRN PRN ORAL Constipation 07/26/17 10:45 08/25/17 10:44 Vancomycin HCl (Vanco rx to dose) 1 ea DAILY PRN MISC PER RX PROTOCOL 07/26/17 12:00 08/25/17 11:59 Vancomycin HCl 1 gm/Dextrose 275 ml @ 183.708 mls/hr ONCE ONCE IVPB 07/27/17 15:30 07/27/17 16:59 07/27/17 16:00 Allergies: Coded Allergies: No Known Allergies (Unverified , 07/26/17) ROS Limited/Unobtainable: Yes Subjective 56 YO M admitted with altered mental status. Now pneumonia and acute cerebral vascular accident. Cover for Int Med-Dr Hills. ICU Objective Last Vital Signs Date Time Temp Pulse Resp B/P (MAP) Pulse Ox O2 Delivery O2 Flow Rate FiO2 07/27/17 16:00 98.5 79 17 164/75 100 Mechanical Ventilator 30 98.5 07/26/17 10:16 General Appearance: WD/WN, alert, moderate distress EENT: PERRL/EOMI, normal ENT inspection Neck: non-tender, normal alignment, supple Cardiovascular: normal peripheral pulses, normal rate, regular rhythm, no gallop/murmur, no JVD Respiratory/Chest: respiratory distress, crackles/rales, rhonchi - bilaterally , expiratory wheezing Abdomen: normal bowel sounds, non tender, soft, no organomegaly, no mass Extremities: normal range of motion Neurologic: roll wrapper II-XII grossly normal, no motor/sensory deficits Skin: normal pigmentation, warm/dry Laboratory Tests Test 07/27/17 05:30 White Blood Count 13.8 K/UL (4.8-10.8) H Red Blood Count 2.59 M/UL (4.70-6.10) L Hemoglobin 7.6 G/DL (14.2-18.0) L Hematocrit 22.9 % (42.0-52.0) L Mean Corpuscular Volume 88 FL (80-99) Mean Corpuscular Hemoglobin 29.4 PG (27.0-31.0) Mean Corpuscular Hemoglobin Concent 33.2 G/DL (32.0-36.0) Red Cell Distribution Width 14.8 % (11.6-14.8) Platelet Count 422 K/UL (150-450) Mean Platelet Volume 5.5 FL (6.5-10.1) L Neutrophils (%) (Auto) % (45.0-75.0) Lymphocytes (%) (Auto) % (20.0-45.0) Monocytes (%) (Auto) % (1.0-10.0) Eosinophils (%) (Auto) % (0.0-3.0) Basophils (%) (Auto) % (0.0-2.0) Differential Total Cells Counted 100 Neutrophils % (Manual) 79 % (45-75) H Lymphocytes % (Manual) 10 % (20-45) L Monocytes % (Manual) 6 % (1-10) Eosinophils % (Manual) 2 % (0-3) Basophils % (Manual) 0 % (0-2) Band Neutrophils 3 % (0-8) Other Cell Type Platelet Estimate Increased H Platelet Morphology Normal Hypochromasia 1+ Anisocytosis 1+ Erythrocyte Sedimentation Rate 125 MM/HR (0-20) H Reticulocyte Count 2.4 % (0.0-2.0) H Prothrombin Time 11.8 SEC (9.30-11.50) H Prothromb Time International Ratio 1.1 (0.9-1.1) Activated Partial Thromboplast Time 34 SEC (23-33) H Sodium Level 138 MMOL/L (136-145) Potassium Level 2.9 MMOL/L (3.5-5.1) L Chloride Level 104 MMOL/L (98-107) Carbon Dioxide Level 24 MMOL/L (21-32) Anion Gap 10 mmol/L (5-15) Blood Urea Nitrogen 61 mg/dL (7-18) H Creatinine 2.8 MG/DL (0.55-1.30) H Estimat Glomerular Filtration Rate 23.6 mL/min (>60) Glucose Level 115 MG/DL (74-106) H Calcium Level 8.0 MG/DL (8.5-10.1) L Phosphorus Level 3.5 MG/DL (2.5-4.9) Iron Level 63 ug/dL (50-175) Total Iron Binding Capacity 84 ug/dL (250-450) L Percent Iron Saturation 75 % (15-50) H Unsaturated Iron Binding 21 ug/dL (112-346) L Lactate Dehydrogenase 231 U/L (81-234) C-Reactive Protein, Quantitative 18.1 mg/dL (0.00-0.90) H Albumin 1.3 G/DL (3.4-5.0) L Carcinoembryonic Antigen Pending Vitamin B12 Level 622 PG/ML (193-986) Folate 37.5 NG/ML (8.6-58.9) Random Vancomycin Level 18.0 ug/mL Microbiology Date/Time Source Procedure Growth Status 07/26/17 10:44 Bronchial Washings Not Specified Gram Stain - Final Resulted 07/26/17 10:44 Bronchial Aspirate Culture - Preliminary Gram Negative Bacillus 1 Resulted 07/26/17 10:05 Stool Clostridium difficile Toxin Assay - Final Complete 07/26/17 06:30 Rectum Unverified Intake and Output 07/26/17 07/27/17 19:00 07:00 Intake Total 590 ml 410 ml Output Total 330 ml 445 ml Balance 260 ml -35 ml Intake Free Water 50 ml 50 ml IV Total 360 ml Tube Feeding 180 ml 360 ml Output Urine Total 330 ml 445 ml # Bowel Movements 1 2 Assessment/Plan Problem List: (1) Tracheostomy care (2) Ventilator dependence Assessment & Plan: See pulmonary recs. (3) Dysphagia (4) Hemorrhagic stroke (5) HTN (hypertension) Assessment & Plan: Continue norvasc and lopressor (6) Diabetes mellitus type II, controlled Assessment & Plan: Continue novolog sliding scale. (7) Renal failure (8) Left hemiparesis (9) Iron deficiency anemia (10) Altered mental status (11) Pneumonia Assessment & Plan: Bilateral. Continue vanco and cefepime per ID (12) CVA (cerebral vascular accident) Assessment & Plan: Acute basal ganglia (13) Acute and chronic respiratory failure (14) Acute encephalopathy (15) Chronic respiratory failure Status: not improved Thaddeus Diaz MD Jul 27, 2017 17:07
--- NOTE | 2017-07-27 18:58 | Cardiology Report ---
APPROVED REPORT EXAM: Two-dimensional and M-mode echocardiogram with Doppler and color Doppler. INDICATION Left ventricular function M-Mode DIMENSIONS IVSd1.2 (0.7-1.1cm)Left Atrium (MM)4.1 (1.6-4.0cm) LVDd4.8 (3.5-5.6cm)Aortic Root3.0 (2.0-3.7cm) PWd1.2 (0.7-1.1cm)Aortic Cusp Exc.2.0 (1.5-2.0cm) LVDs3.1 (2.5-4.0cm) PWs1.9 cm Normal left ventricular chamber size, systolic function and wall motion. Left ventricular ejection fraction estimated to be 55-60%. Mild - moderate left ventricular hypertrophy. No evidence of pericardial or pleural effusion. Right cardiac chamber sizes are within normal limits. Mild left atrial enlargement by 2D. Focal aortic valve sclerosis with adequate cusp excursion. Thickened mitral valve leaflets with normal excursion. Mild mitral annulus and aortic root calcification. Pulmonic valve not well visualized. Normal tricuspid valve structure. IVC is not obtainable. A color flow and spectral Doppler study was performed and revealed: No aortic regurgitation. Moderate mitral regurgitation. Mitral inflow velocities indicates possible pseudo normalization pattern implying significant left ventricular diastolic dysfunction. Trace tricuspid regurgitation. Tricuspid systolic velocities suggests peak right ventricular systolic pressure of 36 mmHg Consistent with mild pulmonary hypertension. Pulmonic regurgitation present.
[2017-07-27] MEDS ORDERED: Vancomycin 1 GM in D5W 275 ML IV SCH (23:00)
[2017-07-28] VITALS (15 sets, daily range): BP systolic 136–177; BP diastolic 59–90
[2017-07-28 05:24] LABS: BASOPHILS % (AUTO) 0.6 % (0.0-2.0); HEMATOCRIT 24.1 % (42.0-52.0); LYMPHOCYTES % (AUTO) 13.4 % (20.0-45.0); MEAN CORPUSCULAR VOLUME 89 FL (80-99); MONOCYTES % (AUTO) 5.3 % (1.0-10.0); NEUTROPHILS % (AUTO) 76.7 % (45.0-75.0); PLATELET COUNT 451 K/UL (150-450); RED BLOOD COUNT 2.72 M/UL (4.70-6.10); RED CELL DISTRIBUTION WIDTH 15.2 % (11.6-14.8); WHITE BLOOD COUNT 14.5 K/UL (4.8-10.8)
[2017-07-28] MEDS: NovoLOG Insulin Flexpen SUBQ SCH ×4 (05:39→20:49)
[2017-07-28 05:52] LABS: CREATINE KINASE 24 U/L (26-308); GAMMA GLUTAMYL TRANSPEPTIDASE 142 U/L (5-85)
[2017-07-28 05:55] LABS: ALANINE AMINOTRANSFERASE 15 U/L (12-78); ALBUMIN 1.4 G/DL (3.4-5.0); ALBUMIN/GLOBULIN RATIO 0.2 (1.0-2.7); ALKALINE PHOSPHATASE 151 U/L (46-116); ANION GAP 8 mmol/L (5-15); ASPARTATE AMINO TRANSFERASE 18 U/L (15-37); BILIRUBIN,TOTAL 0.3 MG/DL (0.2-1.0); BLOOD UREA NITROGEN 53 mg/dL (7-18); CALCIUM 7.9 MG/DL (8.5-10.1); CARBON DIOXIDE 24 MMOL/L (21-32); CHLORIDE 106 MMOL/L (98-107); CHOLESTEROL 83 MG/DL (< 200); CREATININE 2.5 MG/DL (0.55-1.30); HDL CHOLESTEROL 20 MG/DL (40-60); PHOSPHORUS 3.4 MG/DL (2.5-4.9); POTASSIUM 3.5 MMOL/L (3.5-5.1); SODIUM 138 MMOL/L (136-145); TRIGLYCERIDES 136 MG/DL (30-150)
[2017-07-28] MEDS: Metoprolol Tartrate 50mg tab GT SCH ×2 (08:43→20:47)
[2017-07-28] MEDS: Pantoprazole Inj IV SCH (08:44)
[2017-07-28] MEDS: Heparin 5000 units/ml inj SUBQ SCH ×2 (08:50→20:51)
--- NOTE | 2017-07-28 10:23 | Diagnostic Imaging Report ---
Indication: Dyspnea Technique: One view of the chest Comparison: 07/26/2017 Findings: Stable satisfactory position of tracheostomy. Extensive bilateral diffuse interstitial and airspace disease persists, appears slightly worse, with denser consolidation on the left and more widespread consolidation on the right. The heart remains enlarged. Impression: Over 2 days, interim worsening of bilateral diffuse interstitial and airspace infiltrates versus edema
--- NOTE | 2017-07-28 10:56 | Pulmonolgy Critical Care Note ---
Critical Care - Asmt/Plan Problems: (1) Pneumonia (2) Acute encephalopathy (3) Cardiac arrest (4) Acute and chronic respiratory failure (5) Diabetes mellitus (6) History of CVA (cerebrovascular accident) (7) CVA (cerebral vascular accident) Respiratory: monitor respiratory rate, adjust FIO2, CXR Cardiac: continue pressors, continue to monitor HR/BP Renal: F/U I&O Infectious Disease: continue antibiotics Gastrointestinal: continue feedings/current rate Endocrine: monitor blood sugar, check HgA1C, continue sliding scale insulin Hematologic: transfuse if hgb<8.5 Neurologic: PRN Ativan, PRN Morphine, keep patient comfortable Affect: PRN ativan Prophylaxis: Protonix Notes Reviewed: cardio, 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, consultants, family service caseworkernetwork operations manager - Objective Last 24 Hour Vital Signs Date Time Temp Pulse Resp B/P (MAP) Pulse Ox O2 Delivery O2 Flow Rate FiO2 07/28/17 10:00 72 20 148/70 99 Mechanical Ventilator 30 07/28/17 09:09 82 16 30 07/28/17 09:00 75 20 166/75 99 Mechanical Ventilator 30 07/28/17 08:44 75 166/75 07/28/17 08:43 75 166/75 07/28/17 08:00 82 07/28/17 08:00 82 19 165/76 99 Mechanical Ventilator 30 07/28/17 08:00 30 07/28/17 07:30 98.5 81 19 160/76 99 Mechanical Ventilator 30 98.5 07/28/17 06:31 79 16 30 07/28/17 06:00 80 19 160/73 99 Mechanical Ventilator 30 07/28/17 05:10 81 18 30 07/28/17 05:00 81 18 173/79 100 Mechanical Ventilator 30 07/28/17 04:00 30 07/28/17 04:00 77 07/28/17 04:00 98.7 77 19 166/79 99 Mechanical Ventilator 30 98.7 07/28/17 03:25 76 19 30 07/28/17 03:00 77 19 166/75 98 Mechanical Ventilator 30 07/28/17 02:00 68 17 155/66 98 Mechanical Ventilator 30 07/28/17 01:06 73 18 30 07/28/17 01:00 73 18 167/73 97 Mechanical Ventilator 30 07/28/17 00:00 66 6/20/18 00:00 98.8 66 16 136/90 98 Mechanical Ventilator 30 98.8 07/28/17 00:00 30 18 23:25 66 16 30 07/27/17 23:00 66 16 145/68 97 Mechanical Ventilator 30 07/27/17 22:00 74 20 157/77 97 Mechanical Ventilator 30 07/27/17 21:19 77 20 30 18 21:00 82 20 167/78 98 Mechanical Ventilator 30 07/27/17 20:43 83 168/79 07/27/17 20:00 99.0 83 19 168/79 98 Mechanical Ventilator 30 99.0 07/27/17 20:00 83 07/27/17 20:00 30 07/27/17 19:27 81 22 30 07/27/17 19:00 82 22 165/77 96 Mechanical Ventilator 30 07/27/17 18:00 82 22 156/78 97 Mechanical Ventilator 30 07/27/17 17:00 82 17 172/81 100 Mechanical Ventilator 30 07/27/17 16:33 83 20 30 07/27/17 16:00 98.5 79 17 164/75 100 Mechanical Ventilator 30 98.5 07/27/17 16:00 30 07/27/17 16:00 79 07/27/17 15:00 80 17 162/77 100 Mechanical Ventilator 30 07/27/17 14:31 77 19 30 07/27/17 14:00 76 17 155/76 97 Mechanical Ventilator 30 07/27/17 13:00 80 18 154/71 97 Mechanical Ventilator 30 07/27/17 12:44 78 16 30 07/27/17 12:00 98.2 74 18 156/75 99 Mechanical Ventilator 30 98.2 07/27/17 12:00 30 07/27/17 12:00 75 07/27/17 11:00 76 18 157/80 99 Mechanical Ventilator 30 Status: awake Condition: critical HEENT: atraumatic, normocephalic Neck: full ROM Lungs: clear Heart: HR/BP stable Abdomen: soft, non-tender Extremities: no C/C/E Micro: Microbiology Date/Time Source Procedure Growth Status 07/26/17 06:20 Blood Blood Culture - Preliminary NO GROWTH AFTER 24 HOURS Resulted 07/26/17 06:05 Blood Blood Culture - Preliminary NO GROWTH AFTER 24 HOURS Resulted 07/26/17 10:44 Bronchial Washings Not Specified Gram Stain - Final Resulted 07/26/17 10:44 Bronchial Aspirate Culture - Preliminary Gram Negative Bacillus 1 Gram Negative Bacillus 2 Resulted 07/26/17 06:30 Nasal Nares MRSA Culture - Final NO METHICILLIN RESISTANT STAPH AUREUS... Complete 07/26/17 10:05 Stool Clostridium difficile Toxin Assay - Final Complete 07/26/17 06:30 Rectum VRE Culture - Final Enterococcus Faecium - Vre Complete Accucheck: 135 Critical Care - Subjective ROS Limited/Unobtainable: Yes Condition: critical EKG Rhythm: Sinus Rhythm FI02: 30 Vent Support Breath Rate: 16 Vent Support Mode: AC Vent Tidal Volume: 600 Sputum Amount: Small PEEP: 5.0 PIP: 26 Tube Feeding Amount: 40 I&O: Intake and Output 07/27/17 07/28/17 19:00 07:00 Intake Total 1223.708 ml 330 ml Output Total 845 ml 790 ml Balance 378.708 ml -460 ml Intake Free Water 100 ml IV Total 703.708 ml Tube Feeding 360 ml 330 ml Other 60 ml Output Urine Total 845 ml 790 ml # Bowel Movements 1 CXR: extensive infiltrate Labs: Laboratory Tests Test 07/28/17 03:56 07/28/17 07:00 White Blood Count 14.5 K/UL (4.8-10.8) H Red Blood Count 2.72 M/UL (4.70-6.10) L Hemoglobin 8.0 G/DL (14.2-18.0) L Hematocrit 24.1 % (42.0-52.0) L Mean Corpuscular Volume 89 FL (80-99) Mean Corpuscular Hemoglobin 29.5 PG (27.0-31.0) Mean Corpuscular Hemoglobin Concent 33.3 G/DL (32.0-36.0) Red Cell Distribution Width 15.2 % (11.6-14.8) H Platelet Count 451 K/UL (150-450) H Mean Platelet Volume 5.8 FL (6.5-10.1) L Neutrophils (%) (Auto) 76.7 % (45.0-75.0) H Lymphocytes (%) (Auto) 13.4 % (20.0-45.0) L Monocytes (%) (Auto) 5.3 % (1.0-10.0) Eosinophils (%) (Auto) 4.0 % (0.0-3.0) H Basophils (%) (Auto) 0.6 % (0.0-2.0) Sodium Level 138 MMOL/L (136-145) Potassium Level 3.5 MMOL/L (3.5-5.1) Chloride Level 106 MMOL/L (98-107) Carbon Dioxide Level 24 MMOL/L (21-32) Anion Gap 8 mmol/L (5-15) Blood Urea Nitrogen 53 mg/dL (7-18) H Creatinine 2.5 MG/DL (0.55-1.30) H Estimat Glomerular Filtration Rate 26.8 mL/min (>60) Glucose Level 115 MG/DL (74-106) H Hemoglobin A1c 5.2 % (4.3-6.0) Lactic Acid Level 0.90 mmol/L (0.4-2.0) Uric Acid 8.1 MG/DL (2.6-7.2) H Calcium Level 7.9 MG/DL (8.5-10.1) L Phosphorus Level 3.4 MG/DL (2.5-4.9) Magnesium Level 2.5 MG/DL (1.8-2.4) H Total Bilirubin 0.3 MG/DL (0.2-1.0) Gamma Glutamyl Transpeptidase 142 U/L (5-85) H Aspartate Amino Transf (AST/SGOT) 18 U/L (15-37) Alanine Aminotransferase (ALT/SGPT) 15 U/L (12-78) Alkaline Phosphatase 151 U/L (46-116) H Total Creatine Kinase 24 U/L (26-308) L Troponin I 0.000 ng/mL (0.000-0.056) Pro-B-Type Natriuretic Peptide 04373 pg/mL (0-125) H Total Protein 7.2 G/DL (6.4-8.2) Albumin 1.4 G/DL (3.4-5.0) L Globulin 5.8 g/dL Albumin/Globulin Ratio 0.2 (1.0-2.7) L Triglycerides Level 136 MG/DL (30-150) Cholesterol Level 83 MG/DL (< 200) LDL Cholesterol 51 mg/dL (<100) HDL Cholesterol 20 MG/DL (40-60) L Cholesterol/HDL Ratio 4.2 (3.3-4.4) Lipase 172 U/L (73-393) Thyroid Stimulating Hormone (TSH) 1.102 uiU/mL (0.358-3.740) Arterial Blood pH 7.573 (7.350-7.450) Arterial Blood Partial Pressure CO2 26.7 mmHg (35.0-45.0) L Arterial Blood Partial Pressure O2 69.1 mmHg (75.0-100.0) L Arterial Blood HCO3 24.1 mmol/L (22.0-26.0) Arterial Blood Oxygen Saturation 95.4 % (92.0-98.0) Arterial Blood Base Excess 2.4 Jaquan Test Positive Siva Quinteros MD Jul 28, 2017 10:56
[2017-07-28] MEDS ORDERED: Albuterol/Ipratropium 3ml neb HHN PRN (12:30)
[2017-07-28] MEDS ORDERED: Miralax 17gm pkt ORAL PRN (12:30)
--- NOTE | 2017-07-28 12:33 | Internal Med Progress Note ---
Subjective Date of Service: Jul 28, 2017 Physician Name EmilyThaddeus Attending Physician Timothy Hills MD Current Medications Medications (Trade) Dose Ordered Sig/Johnathan Route PRN Reason Start Time Stop Time Status Last Admin Dose Admin Acetaminophen (Tylenol) 650 mg Q4H PRN ORAL FEVER 07/28/17 12:30 08/25/17 12:29 Albuterol/ Ipratropium (Albuterol/ Ipratropium) 3 ml Q4H PRN HHN Shortness of Breath 07/28/17 12:30 07/31/17 12:29 Amlodipine Besylate (Norvasc) 10 mg DAILY GT 07/29/17 09:00 08/27/17 08:59 Cefepime HCl 1 gm/ Dextrose 110 ml @ 220 mls/hr Q24H IVPB 07/28/17 15:00 08/02/17 14:59 Clonidine HCl (Catapres TTS-1) 1 patch ONCE A WEEK TDERMAL 08/01/17 09:00 08/31/17 08:59 Dextrose (Dextrose 50%) 25 ml STAT PRN IV Hypoglycemia 07/28/17 12:30 08/27/17 12:29 Dextrose (Dextrose 50%) 50 ml STAT PRN IV Hypoglycemia 07/28/17 12:30 08/27/17 12:29 Heparin Sodium (Porcine) (Heparin 5000 units/ml) 5,000 units EVERY 12 HOURS SUBQ 07/28/17 21:00 08/25/17 20:59 Insulin Aspart (NovoLOG) BEFORE MEALS AND HS SUBQ 07/28/17 16:30 08/25/17 11:29 Lorazepam (Ativan 2mg/ml 1ml) 2 mg Q2H PRN IV For Anxiety 07/28/17 12:45 08/02/17 10:44 Metoprolol Tartrate (Lopressor) 50 mg EVERY 12 HOURS GT 07/28/17 21:00 08/25/17 20:59 Morphine Sulfate (Morphine Sulfate) 4 mg Q4H PRN IVP Severe Pain (Pain Scale 7-10) 07/28/17 14:45 08/02/17 10:44 Ondansetron HCl (Zofran) 4 mg Q6H PRN IVP Nausea & Vomiting 07/28/17 12:30 08/25/17 12:29 Pantoprazole (Protonix) 40 mg DAILY IV 07/29/17 09:00 08/26/17 08:59 Polyethylene Glycol (Miralax) 17 gm DAILYPRN PRN ORAL Constipation 07/28/17 12:30 08/27/17 12:29 Vancomycin HCl (Vanco rx to dose) 1 ea DAILY PRN MISC PER RX PROTOCOL 07/29/17 09:00 08/25/17 11:59 Allergies: Coded Allergies: No Known Allergies (Unverified , 07/26/17) ROS Limited/Unobtainable: Yes Subjective 56 YO M admitted with altered mental status. Now pneumonia and acute cerebral vascular accident. Cover for Int Med-Dr Hills. ICU Objective Last Vital Signs Date Time Temp Pulse Resp B/P (MAP) Pulse Ox O2 Delivery O2 Flow Rate FiO2 07/28/17 11:26 80 16 30 07/28/17 11:00 156/74 99 Mechanical Ventilator 07/28/17 07:30 98.5 98.5 07/26/17 10:16 Laboratory Tests Test 07/28/17 03:56 07/28/17 07:00 White Blood Count 14.5 K/UL (4.8-10.8) H Red Blood Count 2.72 M/UL (4.70-6.10) L Hemoglobin 8.0 G/DL (14.2-18.0) L Hematocrit 24.1 % (42.0-52.0) L Mean Corpuscular Volume 89 FL (80-99) Mean Corpuscular Hemoglobin 29.5 PG (27.0-31.0) Mean Corpuscular Hemoglobin Concent 33.3 G/DL (32.0-36.0) Red Cell Distribution Width 15.2 % (11.6-14.8) H Platelet Count 451 K/UL (150-450) H Mean Platelet Volume 5.8 FL (6.5-10.1) L Neutrophils (%) (Auto) 76.7 % (45.0-75.0) H Lymphocytes (%) (Auto) 13.4 % (20.0-45.0) L Monocytes (%) (Auto) 5.3 % (1.0-10.0) Eosinophils (%) (Auto) 4.0 % (0.0-3.0) H Basophils (%) (Auto) 0.6 % (0.0-2.0) Sodium Level 138 MMOL/L (136-145) Potassium Level 3.5 MMOL/L (3.5-5.1) Chloride Level 106 MMOL/L (98-107) Carbon Dioxide Level 24 MMOL/L (21-32) Anion Gap 8 mmol/L (5-15) Blood Urea Nitrogen 53 mg/dL (7-18) H Creatinine 2.5 MG/DL (0.55-1.30) H Estimat Glomerular Filtration Rate 26.8 mL/min (>60) Glucose Level 115 MG/DL (74-106) H Hemoglobin A1c 5.2 % (4.3-6.0) Lactic Acid Level 0.90 mmol/L (0.4-2.0) Uric Acid 8.1 MG/DL (2.6-7.2) H Calcium Level 7.9 MG/DL (8.5-10.1) L Phosphorus Level 3.4 MG/DL (2.5-4.9) Magnesium Level 2.5 MG/DL (1.8-2.4) H Total Bilirubin 0.3 MG/DL (0.2-1.0) Gamma Glutamyl Transpeptidase 142 U/L (5-85) H Aspartate Amino Transf (AST/SGOT) 18 U/L (15-37) Alanine Aminotransferase (ALT/SGPT) 15 U/L (12-78) Alkaline Phosphatase 151 U/L (46-116) H Total Creatine Kinase 24 U/L (26-308) L Troponin I 0.000 ng/mL (0.000-0.056) Pro-B-Type Natriuretic Peptide 37487 pg/mL (0-125) H Total Protein 7.2 G/DL (6.4-8.2) Albumin 1.4 G/DL (3.4-5.0) L Globulin 5.8 g/dL Albumin/Globulin Ratio 0.2 (1.0-2.7) L Triglycerides Level 136 MG/DL (30-150) Cholesterol Level 83 MG/DL (< 200) LDL Cholesterol 51 mg/dL (<100) HDL Cholesterol 20 MG/DL (40-60) L Cholesterol/HDL Ratio 4.2 (3.3-4.4) Lipase 172 U/L (73-393) Thyroid Stimulating Hormone (TSH) 1.102 uiU/mL (0.358-3.740) Arterial Blood pH 7.573 (7.350-7.450) Arterial Blood Partial Pressure CO2 26.7 mmHg (35.0-45.0) L Arterial Blood Partial Pressure O2 69.1 mmHg (75.0-100.0) L Arterial Blood HCO3 24.1 mmol/L (22.0-26.0) Arterial Blood Oxygen Saturation 95.4 % (92.0-98.0) Arterial Blood Base Excess 2.4 Jaquan Test Positive Microbiology Date/Time Source Procedure Growth Status 07/26/17 06:20 Blood Blood Culture - Preliminary NO GROWTH AFTER 24 HOURS Resulted 07/26/17 06:05 Blood Blood Culture - Preliminary NO GROWTH AFTER 24 HOURS Resulted 07/26/17 10:44 Bronchial Washings Not Specified Gram Stain - Final Resulted 07/26/17 10:44 Bronchial Aspirate Culture - Preliminary Gram Negative Bacillus 1 Gram Negative Bacillus 2 Resulted 07/26/17 06:30 Nasal Nares MRSA Culture - Final NO METHICILLIN RESISTANT STAPH AUREUS... Complete 07/26/17 10:05 Stool Clostridium difficile Toxin Assay - Final Complete 07/26/17 06:30 Rectum VRE Culture - Final Enterococcus Faecium - Vre Complete Intake and Output 07/27/17 07/28/17 19:00 07:00 Intake Total 1223.708 ml 330 ml Output Total 845 ml 790 ml Balance 378.708 ml -460 ml Intake Free Water 100 ml IV Total 703.708 ml Tube Feeding 360 ml 330 ml Other 60 ml Output Urine Total 845 ml 790 ml # Bowel Movements 1 Objective General Appearance: WD/WN, alert, moderate distress EENT: PERRL/EOMI, normal ENT inspection Neck: non-tender, normal alignment, supple Cardiovascular: normal peripheral pulses, normal rate, regular rhythm, no gallop/murmur, no JVD Respiratory/Chest: Tracheostomy; mech vent; respiratory distress, crackles/ rales, rhonchi - bilaterally, expiratory wheezing Abdomen: normal bowel sounds, non tender, soft, no organomegaly, no mass Extremities: normal range of motion Neurologic: solar project manager II-XII grossly normal, no motor/sensory deficits Skin: normal pigmentation, warm/dry Assessment/Plan Problem List: (1) Tracheostomy care (2) Ventilator dependence Assessment & Plan: See pulmonary recs. (3) Dysphagia (4) Hemorrhagic stroke (5) HTN (hypertension) Assessment & Plan: Continue norvasc and lopressor (6) Diabetes mellitus type II, controlled Assessment & Plan: Continue novolog sliding scale. (7) Renal failure (8) Left hemiparesis (9) Iron deficiency anemia (10) Altered mental status (11) Pneumonia Assessment & Plan: Bilateral. Continue vanco and cefepime per ID (12) CVA (cerebral vascular accident) Assessment & Plan: Acute basal ganglia (13) Acute and chronic respiratory failure (14) Acute encephalopathy (15) Chronic respiratory failure Status: not improved Thaddeus Diaz MD Jul 28, 2017 12:33
--- NOTE | 2017-07-28 13:31 | Cardiology Progress Note ---
Assessment/Plan Status: stable, progressing, tolerating diet Assessment/Plan -TTE reviewed, no wall motion abnormalities, normal LV function, moderate AR - stable -IV abx due to pulmonary infiltrates and positive culture - concerning for worsening CXR albeit clinically stable -Continue BP medications - permissive hypertension -Defer cardiac cath at this time, patients conditions likely from pulmonary infection as opposed to pulseless v tachy -CTA with infarct - neuro consult, repeat CT in 1 week -Plavix -Statin Subjective Cardiovascular: Reports: no symptoms Respiratory: Reports: no symptoms Gastrointestinal/Abdominal: Reports: no symptoms Subjective No acute events, stable on vent, responsive to stimuli Vitals stable, feeds at goal, no residuals Blood culture positive for gram negative rods patient transferred to [facility] c/o abdominal pain, KUB pending CXR Over 2 days, interim worsening of bilateral diffuse interstitial and airspace infiltrates versus edema Objective Last 24 Hour Vital Signs Date Time Temp Pulse Resp B/P (MAP) Pulse Ox O2 Delivery O2 Flow Rate FiO2 07/28/17 13:24 84 20 30 07/28/17 12:00 68 07/28/17 12:00 30 07/28/17 12:00 98.7 69 20 164/72 99 Mechanical Ventilator 30 98.7 07/28/17 11:26 80 16 30 07/28/17 11:00 67 20 156/74 99 Mechanical Ventilator 30 07/28/17 10:00 72 20 148/70 99 Mechanical Ventilator 30 07/28/17 09:09 82 16 30 07/28/17 09:00 75 20 166/75 99 Mechanical Ventilator 30 07/28/17 08:44 75 166/75 07/28/17 08:43 75 166/75 07/28/17 08:00 82 07/28/17 08:00 82 19 165/76 99 Mechanical Ventilator 30 07/28/17 08:00 30 07/28/17 07:30 98.5 81 19 160/76 99 Mechanical Ventilator 30 98.5 07/28/17 06:31 79 16 30 07/28/17 06:00 80 19 160/73 99 Mechanical Ventilator 30 07/28/17 05:10 81 18 30 07/28/17 05:00 81 18 173/79 100 Mechanical Ventilator 30 07/28/17 04:00 30 07/28/17 04:00 77 07/28/17 04:00 98.7 77 19 166/79 99 Mechanical Ventilator 30 98.7 18 03:25 76 19 30 18 03:00 77 19 166/75 98 Mechanical Ventilator 30 18 02:00 68 17 155/66 98 Mechanical Ventilator 30 18 01:06 73 18 30 18 01:00 73 18 167/73 97 Mechanical Ventilator 30 07/28/17 00:00 66 07/28/17 00:00 98.8 66 16 136/90 98 Mechanical Ventilator 30 98.8 07/28/17 00:00 30 18 23:25 66 16 30 07/27/17 23:00 66 16 145/68 97 Mechanical Ventilator 30 07/27/17 22:00 74 20 157/77 97 Mechanical Ventilator 30 07/27/17 21:19 77 20 30 07/27/17 21:00 82 20 167/78 98 Mechanical Ventilator 30 07/27/17 20:43 83 168/79 07/27/17 20:00 99.0 83 19 168/79 98 Mechanical Ventilator 30 99.0 07/27/17 20:00 83 07/27/17 20:00 30 07/27/17 19:27 81 22 30 07/27/17 19:00 82 22 165/77 96 Mechanical Ventilator 30 07/27/17 18:00 82 22 156/78 97 Mechanical Ventilator 30 07/27/17 17:00 82 17 172/81 100 Mechanical Ventilator 30 07/27/17 16:33 83 20 30 07/27/17 16:00 98.5 79 17 164/75 100 Mechanical Ventilator 30 98.5 07/27/17 16:00 30 07/27/17 16:00 79 07/27/17 15:00 80 17 162/77 100 Mechanical Ventilator 30 07/27/17 14:31 77 19 30 18 14:00 76 17 155/76 97 Mechanical Ventilator 30 General Appearance: no apparent distress, on vent EENT: PERRL/EOMI Neck: non-tender Rhythm: NSR Cardiovascular: normal rate Respiratory/Chest: lungs clear Abdomen: normal bowel sounds, distended, tender Extremities: normal range of motion Neurologic: alert Intake and Output 18 07/28/17 19:00 07:00 Intake Total 1223.708 ml 330 ml Output Total 845 ml 790 ml Balance 378.708 ml -460 ml Intake Free Water 100 ml IV Total 703.708 ml Tube Feeding 360 ml 330 ml Other 60 ml Output Urine Total 845 ml 790 ml # Bowel Movements 1 Laboratory Tests Test 07/28/17 03:56 07/28/17 07:00 07/28/17 12:00 White Blood Count 14.5 K/UL (4.8-10.8) H Red Blood Count 2.72 M/UL (4.70-6.10) L Hemoglobin 8.0 G/DL (14.2-18.0) L Hematocrit 24.1 % (42.0-52.0) L Mean Corpuscular Volume 89 FL (80-99) Mean Corpuscular Hemoglobin 29.5 PG (27.0-31.0) Mean Corpuscular Hemoglobin Concent 33.3 G/DL (32.0-36.0) Red Cell Distribution Width 15.2 % (11.6-14.8) H Platelet Count 451 K/UL (150-450) H Mean Platelet Volume 5.8 FL (6.5-10.1) L Neutrophils (%) (Auto) 76.7 % (45.0-75.0) H Lymphocytes (%) (Auto) 13.4 % (20.0-45.0) L Monocytes (%) (Auto) 5.3 % (1.0-10.0) Eosinophils (%) (Auto) 4.0 % (0.0-3.0) H Basophils (%) (Auto) 0.6 % (0.0-2.0) Sodium Level 138 MMOL/L (136-145) Potassium Level 3.5 MMOL/L (3.5-5.1) Chloride Level 106 MMOL/L (98-107) Carbon Dioxide Level 24 MMOL/L (21-32) Anion Gap 8 mmol/L (5-15) Blood Urea Nitrogen 53 mg/dL (7-18) H Creatinine 2.5 MG/DL (0.55-1.30) H Estimat Glomerular Filtration Rate 26.8 mL/min (>60) Glucose Level 115 MG/DL (74-106) H Hemoglobin A1c 5.2 % (4.3-6.0) Lactic Acid Level 0.90 mmol/L (0.4-2.0) Uric Acid 8.1 MG/DL (2.6-7.2) H Calcium Level 7.9 MG/DL (8.5-10.1) L Phosphorus Level 3.4 MG/DL (2.5-4.9) Magnesium Level 2.5 MG/DL (1.8-2.4) H Total Bilirubin 0.3 MG/DL (0.2-1.0) Gamma Glutamyl Transpeptidase 142 U/L (5-85) H Aspartate Amino Transf (AST/SGOT) 18 U/L (15-37) Alanine Aminotransferase (ALT/SGPT) 15 U/L (12-78) Alkaline Phosphatase 151 U/L (46-116) H Total Creatine Kinase 24 U/L (26-308) L Troponin I 0.000 ng/mL (0.000-0.056) Pro-B-Type Natriuretic Peptide 32520 pg/mL (0-125) H Total Protein 7.2 G/DL (6.4-8.2) Albumin 1.4 G/DL (3.4-5.0) L Globulin 5.8 g/dL Albumin/Globulin Ratio 0.2 (1.0-2.7) L Triglycerides Level 136 MG/DL (30-150) Cholesterol Level 83 MG/DL (< 200) LDL Cholesterol 51 mg/dL (<100) HDL Cholesterol 20 MG/DL (40-60) L Cholesterol/HDL Ratio 4.2 (3.3-4.4) Lipase 172 U/L (73-393) Thyroid Stimulating Hormone (TSH) 1.102 uiU/mL (0.358-3.740) Arterial Blood pH 7.573 (7.350-7.450) Arterial Blood Partial Pressure CO2 26.7 mmHg (35.0-45.0) L Arterial Blood Partial Pressure O2 69.1 mmHg (75.0-100.0) L Arterial Blood HCO3 24.1 mmol/L (22.0-26.0) Arterial Blood Oxygen Saturation 95.4 % (92.0-98.0) Arterial Blood Base Excess 2.4 Jaquan Test Positive Urine Collection Time 24 HRS Urine Total Volume 2000 ML Urine Total Protein mg/dL 273 mg/dL Urine Total Protein 24 Hour 5460.0 mg/24hr (< 150) H Microbiology Date/Time Source Procedure Growth Status 07/26/17 06:20 Blood Blood Culture - Preliminary NO GROWTH AFTER 24 HOURS Resulted 07/26/17 06:05 Blood Blood Culture - Preliminary NO GROWTH AFTER 24 HOURS Resulted 07/26/17 10:44 Bronchial Washings Not Specified Gram Stain - Final Resulted 07/26/17 10:44 Bronchial Aspirate Culture - Preliminary Gram Negative Bacillus 1 Gram Negative Bacillus 2 Resulted 07/26/17 06:30 Nasal Nares MRSA Culture - Final NO METHICILLIN RESISTANT STAPH AUREUS... Complete 07/26/17 10:05 Stool Clostridium difficile Toxin Assay - Final Complete 07/26/17 06:30 Rectum VRE Culture - Final Enterococcus Faecium - Vre Complete Renny Joy M.D. Jul 28, 2017 13:31
--- NOTE | 2017-07-28 13:45 | Nephrology Progress Note ---
Assessment/Plan Problem List: (1) Acute on chronic renal failure (2) Anemia (3) Hypoglycemia (4) Chronic respiratory failure (5) History of CVA (cerebrovascular accident) Assessment Renal failure likely Pre renal super imposed on renal Severe HypoAlbuminemia Sever Anemia Chronic vent / Trach. has PEG HypoKalemia 4+ Proteinuria Hypoglycemia HTN Plan pulm support transfuse K IV Monitor renal parameters 24 H urine protein Subjective ROS Limited/Unobtainable: Yes Objective Objective Last 24 Hour Vital Signs Date Time Temp Pulse Resp B/P (MAP) Pulse Ox O2 Delivery O2 Flow Rate FiO2 07/28/17 13:24 84 20 30 07/28/17 12:00 68 07/28/17 12:00 30 07/28/17 12:00 98.7 69 20 164/72 99 Mechanical Ventilator 30 98.7 07/28/17 11:26 80 16 30 07/28/17 11:00 67 20 156/74 99 Mechanical Ventilator 30 07/28/17 10:00 72 20 148/70 99 Mechanical Ventilator 30 07/28/17 09:09 82 16 30 07/28/17 09:00 75 20 166/75 99 Mechanical Ventilator 30 07/28/17 08:44 75 166/75 07/28/17 08:43 75 166/75 07/28/17 08:00 82 07/28/17 08:00 82 19 165/76 99 Mechanical Ventilator 30 07/28/17 08:00 30 07/28/17 07:30 98.5 81 19 160/76 99 Mechanical Ventilator 30 98.5 07/28/17 06:31 79 16 30 07/28/17 06:00 80 19 160/73 99 Mechanical Ventilator 30 07/28/17 05:10 81 18 30 07/28/17 05:00 81 18 173/79 100 Mechanical Ventilator 30 07/28/17 04:00 30 07/28/17 04:00 77 07/28/17 04:00 98.7 77 19 166/79 99 Mechanical Ventilator 30 98.7 07/28/17 03:25 76 19 30 07/28/17 03:00 77 19 166/75 98 Mechanical Ventilator 30 07/28/17 02:00 68 17 155/66 98 Mechanical Ventilator 30 07/28/17 01:06 73 18 30 07/28/17 01:00 73 18 167/73 97 Mechanical Ventilator 30 07/28/17 00:00 66 6/20/18 00:00 98.8 66 16 136/90 98 Mechanical Ventilator 30 98.8 07/28/17 00:00 30 07/27/17 23:25 66 16 30 07/27/17 23:00 66 16 145/68 97 Mechanical Ventilator 30 07/27/17 22:00 74 20 157/77 97 Mechanical Ventilator 30 07/27/17 21:19 77 20 30 07/27/17 21:00 82 20 167/78 98 Mechanical Ventilator 30 07/27/17 20:43 83 168/79 07/27/17 20:00 99.0 83 19 168/79 98 Mechanical Ventilator 30 99.0 07/27/17 20:00 83 07/27/17 20:00 30 07/27/17 19:27 81 22 30 07/27/17 19:00 82 22 165/77 96 Mechanical Ventilator 30 07/27/17 18:00 82 22 156/78 97 Mechanical Ventilator 30 07/27/17 17:00 82 17 172/81 100 Mechanical Ventilator 30 07/27/17 16:33 83 20 30 07/27/17 16:00 98.5 79 17 164/75 100 Mechanical Ventilator 30 98.5 07/27/17 16:00 30 07/27/17 16:00 79 07/27/17 15:00 80 17 162/77 100 Mechanical Ventilator 30 07/27/17 14:31 77 19 30 07/27/17 14:00 76 17 155/76 97 Mechanical Ventilator 30 Intake and Output 07/27/17 07/28/17 19:00 07:00 Intake Total 1223.708 ml 330 ml Output Total 845 ml 790 ml Balance 378.708 ml -460 ml Intake Free Water 100 ml IV Total 703.708 ml Tube Feeding 360 ml 330 ml Other 60 ml Output Urine Total 845 ml 790 ml # Bowel Movements 1 Laboratory Tests 07/28/17 03:56: White Blood Count 14.5H, Red Blood Count 2.72L, Hemoglobin 8.0L, Hematocrit 24.1L, Mean Corpuscular Volume 89, Mean Corpuscular Hemoglobin 29.5, Mean Corpuscular Hemoglobin Concent 33.3, Red Cell Distribution Width 15.2H, Platelet Count 451H, Mean Platelet Volume 5.8L, Neutrophils (%) (Auto) 76.7H, Lymphocytes (%) (Auto) 13.4L, Monocytes (%) (Auto) 5.3, Eosinophils (%) (Auto) 4.0H, Basophils (%) (Auto) 0.6, Sodium Level 138, Potassium Level 3.5, Chloride Level 106, Carbon Dioxide Level 24, Anion Gap 8, Blood Urea Nitrogen 53H, Creatinine 2.5H, Estimat Glomerular Filtration Rate 26.8, Glucose Level 115H, Hemoglobin A1c 5.2, Lactic Acid Level 0.90, Uric Acid 8.1H, Calcium Level 7.9L, Phosphorus Level 3.4, Magnesium Level 2.5H, Total Bilirubin 0.3, Gamma Glutamyl Transpeptidase 142H, Aspartate Amino Transf (AST/SGOT) 18, Alanine Aminotransferase (ALT/SGPT) 15, Alkaline Phosphatase 151H, Total Creatine Kinase 24L, Troponin I 0.000, Pro-B-Type Natriuretic Peptide 92290E, Total Protein 7.2, Albumin 1.4L, Globulin 5.8, Albumin/Globulin Ratio 0.2L, Triglycerides Level 136, Cholesterol Level 83, LDL Cholesterol 51, HDL Cholesterol 20L, Cholesterol/HDL Ratio 4.2, Lipase 172, Thyroid Stimulating Hormone (TSH) 1.102 07/28/17 07:00: Arterial Blood pH 7.573*H, Arterial Blood Partial Pressure CO2 26.7L, Arterial Blood Partial Pressure O2 69.1L, Arterial Blood HCO3 24.1, Arterial Blood Oxygen Saturation 95.4, Arterial Blood Base Excess 2.4, Jaquan Test Positive 07/28/17 12:00: Urine Collection Time 24, Urine Total Volume 2000, Urine Total Protein mg/dL 273 , Urine Total Protein 24 Hour 5460.0H Height (Feet): 5 Height (Inches): 6.00 Weight (Pounds): 154 General Appearance: no apparent distress, lethargic Cardiovascular: normal rate Respiratory/Chest: decreased breath sounds Abdomen: distended FRED VEGA Jul 28, 2017 13:45
--- NOTE | 2017-07-28 14:48 | Diagnostic Imaging Report ---
Indication: Abdominal pain Technique: Supine view of the abdomen Comparison: none Findings: There is a gastrostomy. Bowel gas pattern is unremarkable. No unusual masses or calcifications Impression: No acute process
[2017-07-28] MEDS ORDERED: Cefepime HCl 1 GM in D5W 110 ML IVPB SCH (15:00)
--- NOTE | 2017-07-28 15:36 | Infectious Diseases Prog Note ---
Assessment/Plan Assessment/Plan Assessment: Acute CVA -CT head: asymmetric densities in the right insula, steen radiata, and basal ganglia concerning for acute infarct. Probable PNA- worsening- r/o MDRO, r/o legionella, r/o S. maltophila -CXR 07/28: Over 2 days, interim worsening of bilateral diffuse interstitial and airspace infiltrates versus edema -CXR: Cardiomegaly with bilateral interstitial and patchy airspace opacities.Findings may be related to CHF/pulmonary edema however superimposed pneumonia not entirely excluded. -sp cx GNR #1, #2 Leukocytosis, persistent -no fever -u/a wbc 5-10; repeat neg -Cdiff neg Lactic acidosis, SP DM2 HTN UT/CAD anemia CVA/TIA/hemorrhagic stroke w/ L side hemiparesis CKD IV resp failure Trach/vent dependant dysphagia s/p PEG non verbal SNF resident Plan: -d/c empiric IV Vancomycin #3 -Switch Cefepime #3 to Meropenem and Levaquin pending cultures -f/u cx -Monitor CBC/BMP, temperatures -aspiration precautions -Trach/peg care -legionella ag urine Thank you for this consultation. Will continue to monitor off abx. Discussed with RN. Subjective Allergies: Coded Allergies: No Known Allergies (Unverified , 07/26/17) Subjective afebrile in 24hrs leukocytosis persists Fio2 30% sp cx GNR 1,2 Objective Vital Signs Last 24 Hour Vital Signs Date Time Temp Pulse Resp B/P (MAP) Pulse Ox O2 Delivery O2 Flow Rate FiO2 07/28/17 13:24 84 20 30 07/28/17 12:00 68 07/28/17 12:00 30 07/28/17 12:00 98.7 69 20 164/72 99 Mechanical Ventilator 30 98.7 07/28/17 11:26 80 16 30 07/28/17 11:00 67 20 156/74 99 Mechanical Ventilator 30 07/28/17 10:00 72 20 148/70 99 Mechanical Ventilator 30 07/28/17 09:09 82 16 30 07/28/17 09:00 75 20 166/75 99 Mechanical Ventilator 30 07/28/17 08:44 75 166/75 07/28/17 08:43 75 166/75 07/28/17 08:00 82 07/28/17 08:00 82 19 165/76 99 Mechanical Ventilator 30 07/28/17 08:00 30 07/28/17 07:30 98.5 81 19 160/76 99 Mechanical Ventilator 30 98.5 07/28/17 06:31 79 16 30 07/28/17 06:00 80 19 160/73 99 Mechanical Ventilator 30 18 05:10 81 18 30 07/28/17 05:00 81 18 173/79 100 Mechanical Ventilator 30 07/28/17 04:00 30 07/28/17 04:00 77 07/28/17 04:00 98.7 77 19 166/79 99 Mechanical Ventilator 30 98.7 07/28/17 03:25 76 19 30 07/28/17 03:00 77 19 166/75 98 Mechanical Ventilator 30 07/28/17 02:00 68 17 155/66 98 Mechanical Ventilator 30 07/28/17 01:06 73 18 30 07/28/17 01:00 73 18 167/73 97 Mechanical Ventilator 30 07/28/17 00:00 66 07/28/17 00:00 98.8 66 16 136/90 98 Mechanical Ventilator 30 98.8 07/28/17 00:00 30 07/27/17 23:25 66 16 30 07/27/17 23:00 66 16 145/68 97 Mechanical Ventilator 30 07/27/17 22:00 74 20 157/77 97 Mechanical Ventilator 30 07/27/17 21:19 77 20 30 07/27/17 21:00 82 20 167/78 98 Mechanical Ventilator 30 18 20:43 83 168/79 18 20:00 99.0 83 19 168/79 98 Mechanical Ventilator 30 99.0 07/27/17 20:00 83 1918 20:00 30 18 19:27 81 22 30 18 19:00 82 22 165/77 96 Mechanical Ventilator 30 18 18:00 82 22 156/78 97 Mechanical Ventilator 30 18 17:00 82 17 172/81 100 Mechanical Ventilator 30 18 16:33 83 20 30 618 16:00 98.5 79 17 164/75 100 Mechanical Ventilator 30 98.5 18 16:00 30 18 16:00 79 Height (Feet): 5 Height (Inches): 6.00 Weight (Pounds): 154 Objective GENERAL APPEARANCE: A well-developed, well-nourished, male, who was intubated and sedated. HEENT: Eyes, pupils are equal and responsive to light and accommodation. Extraocular movements are intact. NECK: Supple without lymphadenopathy. There is a tracheostomy tube present. CARDIOVASCULAR: Regular rhythm rate. S1, S2 normal without murmurs, rubs, or gallops. ABDOMEN: Soft, nontender, and nondistended. Positive bowel sounds. No evidence of hepatosplenomegaly. Currently, no rebound or guarding noted. There is presence of a G-tube placement noted. LUNGS: Coarse breath sounds bilaterally without wheezes or rales. NEUROLOGIC: The patient has a left flaccid hemiparesis. Microbiology Date/Time Source Procedure Growth Status 07/26/17 06:20 Blood Blood Culture - Preliminary NO GROWTH AFTER 24 HOURS Resulted 07/26/17 06:05 Blood Blood Culture - Preliminary NO GROWTH AFTER 24 HOURS Resulted 07/26/17 10:44 Bronchial Washings Not Specified Gram Stain - Final Resulted 07/26/17 10:44 Bronchial Aspirate Culture - Preliminary Gram Negative Bacillus 1 Gram Negative Bacillus 2 Resulted 07/26/17 06:30 Nasal Nares MRSA Culture - Final NO METHICILLIN RESISTANT STAPH AUREUS... Complete 07/26/17 10:05 Stool Clostridium difficile Toxin Assay - Final Complete 07/26/17 06:30 Rectum VRE Culture - Final Enterococcus Faecium - Vre Complete Laboratory Tests Test 07/28/17 03:56 07/28/17 07:00 07/28/17 12:00 White Blood Count 14.5 K/UL (4.8-10.8) H Red Blood Count 2.72 M/UL (4.70-6.10) L Hemoglobin 8.0 G/DL (14.2-18.0) L Hematocrit 24.1 % (42.0-52.0) L Mean Corpuscular Volume 89 FL (80-99) Mean Corpuscular Hemoglobin 29.5 PG (27.0-31.0) Mean Corpuscular Hemoglobin Concent 33.3 G/DL (32.0-36.0) Red Cell Distribution Width 15.2 % (11.6-14.8) H Platelet Count 451 K/UL (150-450) H Mean Platelet Volume 5.8 FL (6.5-10.1) L Neutrophils (%) (Auto) 76.7 % (45.0-75.0) H Lymphocytes (%) (Auto) 13.4 % (20.0-45.0) L Monocytes (%) (Auto) 5.3 % (1.0-10.0) Eosinophils (%) (Auto) 4.0 % (0.0-3.0) H Basophils (%) (Auto) 0.6 % (0.0-2.0) Sodium Level 138 MMOL/L (136-145) Potassium Level 3.5 MMOL/L (3.5-5.1) Chloride Level 106 MMOL/L (98-107) Carbon Dioxide Level 24 MMOL/L (21-32) Anion Gap 8 mmol/L (5-15) Blood Urea Nitrogen 53 mg/dL (7-18) H Creatinine 2.5 MG/DL (0.55-1.30) H Estimat Glomerular Filtration Rate 26.8 mL/min (>60) Glucose Level 115 MG/DL (74-106) H Hemoglobin A1c 5.2 % (4.3-6.0) Lactic Acid Level 0.90 mmol/L (0.4-2.0) Uric Acid 8.1 MG/DL (2.6-7.2) H Calcium Level 7.9 MG/DL (8.5-10.1) L Phosphorus Level 3.4 MG/DL (2.5-4.9) Magnesium Level 2.5 MG/DL (1.8-2.4) H Total Bilirubin 0.3 MG/DL (0.2-1.0) Gamma Glutamyl Transpeptidase 142 U/L (5-85) H Aspartate Amino Transf (AST/SGOT) 18 U/L (15-37) Alanine Aminotransferase (ALT/SGPT) 15 U/L (12-78) Alkaline Phosphatase 151 U/L (46-116) H Total Creatine Kinase 24 U/L (26-308) L Troponin I 0.000 ng/mL (0.000-0.056) Pro-B-Type Natriuretic Peptide 84492 pg/mL (0-125) H Total Protein 7.2 G/DL (6.4-8.2) Albumin 1.4 G/DL (3.4-5.0) L Globulin 5.8 g/dL Albumin/Globulin Ratio 0.2 (1.0-2.7) L Triglycerides Level 136 MG/DL (30-150) Cholesterol Level 83 MG/DL (< 200) LDL Cholesterol 51 mg/dL (<100) HDL Cholesterol 20 MG/DL (40-60) L Cholesterol/HDL Ratio 4.2 (3.3-4.4) Lipase 172 U/L (73-393) Thyroid Stimulating Hormone (TSH) 1.102 uiU/mL (0.358-3.740) Arterial Blood pH 7.573 (7.350-7.450) Arterial Blood Partial Pressure CO2 26.7 mmHg (35.0-45.0) L Arterial Blood Partial Pressure O2 69.1 mmHg (75.0-100.0) L Arterial Blood HCO3 24.1 mmol/L (22.0-26.0) Arterial Blood Oxygen Saturation 95.4 % (92.0-98.0) Arterial Blood Base Excess 2.4 Jaquan Test Positive Urine Collection Time 24 HRS Urine Total Volume 2000 ML Urine Total Protein mg/dL 273 mg/dL Urine Total Protein 24 Hour 5460.0 mg/24hr (< 150) H Current Medications Medications (Trade) Dose Ordered Sig/Johnathan Route PRN Reason Start Time Stop Time Status Last Admin Dose Admin Acetaminophen (Tylenol) 650 mg Q4H PRN ORAL FEVER 07/28/17 12:30 08/25/17 12:29 Albuterol/ Ipratropium (Albuterol/ Ipratropium) 3 ml Q4H PRN HHN Shortness of Breath 07/28/17 12:30 07/31/17 12:29 Amlodipine Besylate (Norvasc) 10 mg DAILY GT 07/29/17 09:00 08/27/17 08:59 Cefepime HCl 1 gm/ Dextrose 110 ml @ 220 mls/hr Q24H IVPB 07/28/17 15:00 08/02/17 14:59 07/28/17 14:35 Clonidine HCl (Catapres TTS-1) 1 patch ONCE A WEEK TDERMAL 08/01/17 09:00 08/31/17 08:59 Clonidine HCl (Catapres Tab) 0.1 mg Q4H PRN ORAL For High Blood Pressure 07/28/17 12:45 08/27/17 12:44 Dextrose (Dextrose 50%) 25 ml STAT PRN IV Hypoglycemia 07/28/17 12:30 08/27/17 12:29 Dextrose (Dextrose 50%) 50 ml STAT PRN IV Hypoglycemia 07/28/17 12:30 08/27/17 12:29 Heparin Sodium (Porcine) (Heparin 5000 units/ml) 5,000 units EVERY 12 HOURS SUBQ 07/28/17 21:00 08/25/17 20:59 Insulin Aspart (NovoLOG) BEFORE MEALS AND HS SUBQ 07/28/17 16:30 08/25/17 11:29 Lorazepam (Ativan 2mg/ml 1ml) 2 mg Q2H PRN IV For Anxiety 07/28/17 12:45 08/02/17 10:44 Metoprolol Tartrate (Lopressor) 50 mg EVERY 12 HOURS GT 07/28/17 21:00 08/25/17 20:59 Morphine Sulfate (Morphine Sulfate) 4 mg Q4H PRN IVP Severe Pain (Pain Scale 7-10) 07/28/17 14:45 08/02/17 10:44 Ondansetron HCl (Zofran) 4 mg Q6H PRN IVP Nausea & Vomiting 07/28/17 12:30 08/25/17 12:29 Pantoprazole (Protonix) 40 mg DAILY IV 07/29/17 09:00 08/26/17 08:59 Polyethylene Glycol (Miralax) 17 gm DAILYPRN PRN ORAL Constipation 07/28/17 12:30 08/27/17 12:29 Vancomycin HCl (Vanco rx to dose) 1 ea DAILY PRN MISC PER RX PROTOCOL 07/29/17 09:00 08/25/17 11:59 Jessica Estrella M.D. Jul 28, 2017 15:36
--- NOTE | 2017-07-28 15:57 | GI Initial Consult Note ---
History of Present Illness General Date patient seen: Jul 28, 2017 Time patient seen: 15:51 Reason for Hospitalization: Altered Level of Consciousness Referring physician: ZEKE YUN Reason for Consultation: ABDOMINAL PAIN Present Illness HPI This patient presents from a custodial facility. There was concern the patient was less responsive and more altered than usual. The patient has a history of CVA and is nonverbal at baseline. 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 The patient has a history of respiratory failure, diabetes, CVA, anemia, stage IV KD. There was a question this patient possibly had lost pulses prior to arrival. According to EMS, they were called to a custodial facility for no pulse. However, when he arrived the patient did have a pulse despite undergoing CPR. The patient here has had stable vital signs. There is no other history available. GI consulted for abdominal pain. ROS limited, non verbal, seen awake alert NAD with no active s/sx of N/V/D. Family at bedside. Denied any abdominal pain at this time. KUB reviewed shows no acute process. GT assessed, C/D/I with no noted leakage or erythema. Labs show normocytic normochromic anemia, renal insufficiency leukocytosis and hypoalbuminemia. No reports of diarrhea at this time. Home Meds Reported Medications Insulin Lispro (HUMALOG) 100 Unit/1 Ml Cartridge, 0 SUBQ Q6HR, #1 UNITS 0 Refills 07/26/17 Insulin Glargine (LANTUS) 100 Unit/1 Ml Insuln.pen, 15 SUBQ BEDTIME, #1 EA 0 Refills 07/26/17 Acetaminophen* (ACETAMINOPHEN*) 160 Mg/5 Ml Liquid, 320 MG GT Q4H PRN for Mild Pain/Temp > 100.5, ML 07/26/17 Tramadol Hcl* (ULTRAM*) 50 Mg Tablet, 50 MG GT Q4HR PRN for For Pain, #30 TAB 0 Refills 07/26/17 Clonidine (Catapres-Tts 1) 1 Each Patch.tdwk, 1 PATCH TDERMAL ONCE A WEEK, PATCH 07/26/17 Enoxaparin* (LOVENOX*) 40 Mg/0.4 Ml Inj, 40 MG SUBQ DAILY 07/26/17 Metformin Hcl* (METFORMIN HCL*) 850 Mg Tablet, 850 MG GT Q12HR, TAB 07/26/17 Famotidine (FAMOTIDINE) 20 Mg Tablet, 20 MG GT DAILY, #30 TAB 0 Refills 07/26/17 Scopolamine (Transderm-Scop) 1 Each Patch.td.3, 1.5 MG TD Q72H, PATCH 07/26/17 Folic Acid/Vitamin B Comp W-C (RAFA-MONICA TABLET) 0.8 Mg Tablet, 0.8 MG GT DAILY , TAB 07/26/17 Metoprolol Tartrate* (METOPROLOL TARTRATE*) 50 Mg Tablet, 50 MG GT EVERY 12 HOURS, TAB 07/26/17 Hydralazine Hcl* (HYDRALAZINE HCL*) 100 Mg Tablet, 100 MG GT EVERY 8 HOURS, TAB 07/26/17 Amlodipine Besylate (Norvasc) 10 Mg Tablet, 10 MG ORAL DAILY, TAB 07/26/17 Med list reviewed/reconciled: Yes Allergies: Coded Allergies: No Known Allergies (Unverified , 07/26/17) Patient History Limited by: medical condition History Provided By: Family Member, Medical Record PMH Narrative Past Medical History: see triage record, DM, HTN, [place], CAD - , CVA/TIA, renal disease, other - Respiratory failure Past Surgical History: other - Trach, PEG Social History: Denies: smoking, alcohol use, drug use Reviewed Nursing Documentation: PMH: Agreed; PSxH: Agreed Nursing Documentation-PM Past Medical History: No History, Except For Hx Hypertension: Yes Hx COPD: No - Chronic Resp. failure, Trach. dependent Hx Diabetes: Yes - Type 2 Hx Gastrointestinal Problems: Yes - Dysphagia, G-tube Hx Dialysis: No - Nephropathy, CKD Hx Cerebrovascular Accident: Yes - Left-sided deficit Social History: Denies: smoking, alcohol use, drug use, other Review of Systems All Other Systems: limited Physical Exam Vital Signs Date Time Temp Pulse Resp B/P (MAP) Pulse Ox O2 Delivery O2 Flow Rate FiO2 07/26/17 05:58 97.3 79 25 112/93 100 Ambu-Bag 97.3 07/26/17 06:00 100 07/26/17 10:16 Sp02 EP Interpretation: reviewed, normal Labs Laboratory Tests Test 07/28/17 03:56 07/28/17 07:00 07/28/17 12:00 White Blood Count 14.5 K/UL (4.8-10.8) H Red Blood Count 2.72 M/UL (4.70-6.10) L Hemoglobin 8.0 G/DL (14.2-18.0) L Hematocrit 24.1 % (42.0-52.0) L Mean Corpuscular Volume 89 FL (80-99) Mean Corpuscular Hemoglobin 29.5 PG (27.0-31.0) Mean Corpuscular Hemoglobin Concent 33.3 G/DL (32.0-36.0) Red Cell Distribution Width 15.2 % (11.6-14.8) H Platelet Count 451 K/UL (150-450) H Mean Platelet Volume 5.8 FL (6.5-10.1) L Neutrophils (%) (Auto) 76.7 % (45.0-75.0) H Lymphocytes (%) (Auto) 13.4 % (20.0-45.0) L Monocytes (%) (Auto) 5.3 % (1.0-10.0) Eosinophils (%) (Auto) 4.0 % (0.0-3.0) H Basophils (%) (Auto) 0.6 % (0.0-2.0) Sodium Level 138 MMOL/L (136-145) Potassium Level 3.5 MMOL/L (3.5-5.1) Chloride Level 106 MMOL/L (98-107) Carbon Dioxide Level 24 MMOL/L (21-32) Anion Gap 8 mmol/L (5-15) Blood Urea Nitrogen 53 mg/dL (7-18) H Creatinine 2.5 MG/DL (0.55-1.30) H Estimat Glomerular Filtration Rate 26.8 mL/min (>60) Glucose Level 115 MG/DL (74-106) H Hemoglobin A1c 5.2 % (4.3-6.0) Lactic Acid Level 0.90 mmol/L (0.4-2.0) Uric Acid 8.1 MG/DL (2.6-7.2) H Calcium Level 7.9 MG/DL (8.5-10.1) L Phosphorus Level 3.4 MG/DL (2.5-4.9) Magnesium Level 2.5 MG/DL (1.8-2.4) H Total Bilirubin 0.3 MG/DL (0.2-1.0) Gamma Glutamyl Transpeptidase 142 U/L (5-85) H Aspartate Amino Transf (AST/SGOT) 18 U/L (15-37) Alanine Aminotransferase (ALT/SGPT) 15 U/L (12-78) Alkaline Phosphatase 151 U/L (46-116) H Total Creatine Kinase 24 U/L (26-308) L Troponin I 0.000 ng/mL (0.000-0.056) Pro-B-Type Natriuretic Peptide 14951 pg/mL (0-125) H Total Protein 7.2 G/DL (6.4-8.2) Albumin 1.4 G/DL (3.4-5.0) L Globulin 5.8 g/dL Albumin/Globulin Ratio 0.2 (1.0-2.7) L Triglycerides Level 136 MG/DL (30-150) Cholesterol Level 83 MG/DL (< 200) LDL Cholesterol 51 mg/dL (<100) HDL Cholesterol 20 MG/DL (40-60) L Cholesterol/HDL Ratio 4.2 (3.3-4.4) Lipase 172 U/L (73-393) Thyroid Stimulating Hormone (TSH) 1.102 uiU/mL (0.358-3.740) Arterial Blood pH 7.573 (7.350-7.450) Arterial Blood Partial Pressure CO2 26.7 mmHg (35.0-45.0) L Arterial Blood Partial Pressure O2 69.1 mmHg (75.0-100.0) L Arterial Blood HCO3 24.1 mmol/L (22.0-26.0) Arterial Blood Oxygen Saturation 95.4 % (92.0-98.0) Arterial Blood Base Excess 2.4 Jaquan Test Positive Urine Collection Time 24 HRS Urine Total Volume 2000 ML Urine Total Protein mg/dL 273 mg/dL Urine Total Protein 24 Hour 5460.0 mg/24hr (< 150) H General Appearance: well appearing, no apparent distress, alert, other - non verbal Head: normocephalic EENT: PERRL/EOMI, normal ENT inspection Neck: supple Respiratory: normal breath sounds, no respiratory distress, other - trach to vent Cardiovascular: normal rate Gastrointestinal: normal inspection, non tender, soft, normal bowel sounds, non -distended, gt - c/d/i Rectal: deferred Genitourinary: deferred Musculoskeletal: normal inspection, back normal Neurologic: alert, responsive Skin: normal inspection, normal color, no rash, warm/dry, palpation normal, well hydrated Lymphatic: normal inspection, no adenopathy Current Medications Current Medications Medications (Trade) Dose Ordered Sig/Johnathan Route PRN Reason Start Time Stop Time Status Last Admin Dose Admin Acetaminophen (Tylenol) 650 mg Q4H PRN ORAL FEVER 07/28/17 12:30 08/25/17 12:29 Albuterol/ Ipratropium (Albuterol/ Ipratropium) 3 ml Q4H PRN HHN Shortness of Breath 07/28/17 12:30 07/31/17 12:29 Amlodipine Besylate (Norvasc) 10 mg DAILY GT 07/29/17 09:00 08/27/17 08:59 Clonidine HCl (Catapres TTS-1) 1 patch ONCE A WEEK TDERMAL 08/01/17 09:00 08/31/17 08:59 Clonidine HCl (Catapres Tab) 0.1 mg Q4H PRN ORAL For High Blood Pressure 07/28/17 12:45 08/27/17 12:44 Dextrose (Dextrose 50%) 25 ml STAT PRN IV Hypoglycemia 07/28/17 12:30 08/27/17 12:29 Dextrose (Dextrose 50%) 50 ml STAT PRN IV Hypoglycemia 07/28/17 12:30 08/27/17 12:29 Heparin Sodium (Porcine) (Heparin 5000 units/ml) 5,000 units EVERY 12 HOURS SUBQ 07/28/17 21:00 08/25/17 20:59 Insulin Aspart (NovoLOG) BEFORE MEALS AND HS SUBQ 07/28/17 16:30 08/25/17 11:29 Levofloxacin (Levaquin) 750 mg EVERY OTHER DAY ONCE ORAL 07/28/17 15:30 07/28/17 15:31 UNV Lorazepam (Ativan 2mg/ml 1ml) 2 mg Q2H PRN IV For Anxiety 07/28/17 12:45 08/02/17 10:44 Meropenem 1000 mg/ Sodium Chloride 55 ml @ 110 mls/hr EVERY 12 HOURS IVPB 07/28/17 15:30 08/02/17 15:29 UNV Metoprolol Tartrate (Lopressor) 50 mg EVERY 12 HOURS GT 07/28/17 21:00 08/25/17 20:59 Morphine Sulfate (Morphine Sulfate) 4 mg Q4H PRN IVP Severe Pain (Pain Scale 7-10) 07/28/17 14:45 08/02/17 10:44 Ondansetron HCl (Zofran) 4 mg Q6H PRN IVP Nausea & Vomiting 07/28/17 12:30 08/25/17 12:29 Pantoprazole (Protonix) 40 mg DAILY IV 07/29/17 09:00 08/26/17 08:59 Polyethylene Glycol (Miralax) 17 gm DAILYPRN PRN ORAL Constipation 07/28/17 12:30 08/27/17 12:29 GI: Plan Problems: (1) Abdominal pain (2) Anemia (3) Iron deficiency anemia (4) Renal failure (5) Dysphagia Plan KUB reviewed >> no acute process anemia work up reviewed >> most likely 2/2 to chronic disease OB stool negative GT dependent >> fu GTFs per RD some abdominal bloating supportive care at this time simethicone prn for abdominal gas pain turn q2 hours to promote GI motility prn transfusions bowel regime ppi abx per ID fu labs Discussed with Dr. Edouard. Thank you for this patient referral, we will follow. The patient was seen and examined at bedside and all new and available data was reviewed in the patients chart. I agree with the above findings, impression and plan. (Patient seen earlier today. Signature stamp does not reflect patient encounter time.). - MD Muna PhoenixBanner Desert Medical CenterViviPrudencio ROTATIONAL MOULDING OPERATOR Jul 28, 2017 15:57
[2017-07-28] MEDS ORDERED: Simethicone 80mg tab GT PRN (16:00)
[2017-07-28] MEDS: Meropenem 1 GM in NS 55 ML IVPB SCH (17:24)
[2017-07-28] MEDS: Docusate 100mg/10ml Liq GT SCH (17:24)
[2017-07-28] MEDS: Vancomycin oral 125mg/2.5ml ORAL SCH (20:46)
[2017-07-28] MEDS: Miralax 17gm pkt ORAL SCH (20:47)
[2017-07-28] MEDS: LORazepam Inj 2mg/ml 1ml IV PRN (21:20)
[2017-07-29] VITALS: BP 208/89
[2017-07-29] MEDS: LORazepam Inj 2mg/ml 1ml IV PRN ×3 (00:32→21:44)
[2017-07-29 04:00] VITALS: BP 181/97
[2017-07-29 04:17] LABS: BASOPHILS % (AUTO) 0.6 % (0.0-2.0); EOSINOPHILS % (AUTO) 3.8 % (0.0-3.0); HEMATOCRIT 24.5 % (42.0-52.0); HEMOGLOBIN 8.2 G/DL (14.2-18.0); LYMPHOCYTES % (AUTO) 8.7 % (20.0-45.0); MEAN CORPUSCULAR VOLUME 89 FL (80-99); MONOCYTES % (AUTO) 5.6 % (1.0-10.0); NEUTROPHILS % (AUTO) 81.3 % (45.0-75.0); PLATELET COUNT 471 K/UL (150-450); RED BLOOD COUNT 2.75 M/UL (4.70-6.10); RED CELL DISTRIBUTION WIDTH 15.4 % (11.6-14.8); WHITE BLOOD COUNT 15.3 K/UL (4.8-10.8)
[2017-07-29 04:42] LABS: ALANINE AMINOTRANSFERASE 16 U/L (12-78); ALBUMIN 1.5 G/DL (3.4-5.0); ALBUMIN/GLOBULIN RATIO 0.3 (1.0-2.7); ALKALINE PHOSPHATASE 148 U/L (46-116); ANION GAP 9 mmol/L (5-15); ASPARTATE AMINO TRANSFERASE 17 U/L (15-37); BILIRUBIN,TOTAL 0.3 MG/DL (0.2-1.0); BLOOD UREA NITROGEN 41 mg/dL (7-18); CALCIUM 7.9 MG/DL (8.5-10.1); CARBON DIOXIDE 24 MMOL/L (21-32); CHLORIDE 107 MMOL/L (98-107); CREATININE 2.3 MG/DL (0.55-1.30); PHOSPHORUS 3.4 MG/DL (2.5-4.9); POTASSIUM 4.1 MMOL/L (3.5-5.1); SODIUM 140 MMOL/L (136-145)
[2017-07-29] MEDS: Meropenem 1 GM in NS 55 ML IVPB SCH ×2 (05:55→16:54)
[2017-07-29] MEDS: NovoLOG Insulin Flexpen SUBQ SCH ×4 (05:58→21:53)
[2017-07-29 08:00] VITALS: BP 178/97
[2017-07-29] MEDS: Pantoprazole Inj IV SCH (08:29)
[2017-07-29] MEDS: Vancomycin oral 125mg/2.5ml ORAL SCH ×2 (08:29→12:49)
[2017-07-29] MEDS: Metoprolol Tartrate 50mg tab GT SCH ×2 (08:29→21:45)
[2017-07-29] MEDS: Docusate 100mg/10ml Liq GT SCH ×2 (08:29→17:02)
[2017-07-29] MEDS: Heparin 5000 units/ml inj SUBQ SCH ×2 (08:31→21:53)
--- NOTE | 2017-07-29 10:01 | Pulmonolgy Critical Care Note ---
Critical Care - Asmt/Plan Problems: (1) MDR Acinetobacter baumannii infection (2) Pneumonia (3) Acute encephalopathy (4) Cardiac arrest (5) Acute and chronic respiratory failure (6) Diabetes mellitus (7) History of CVA (cerebrovascular accident) (8) CVA (cerebral vascular accident) Respiratory: monitor respiratory rate, adjust FIO2, CXR Cardiac: continue to monitor HR/BP Renal: F/U I&O, keep IV fluid, check electrolytes Infectious Disease: check cultures Gastrointestinal: continue feedings/current rate, hold feedings Hematologic: monitor H/H, transfuse if hgb<8.5 Neurologic: PRN Ativan, PRN Morphine, keep patient comfortable Prophylaxis: Protonix Notes Reviewed: cardio, renal, ID Discussed with: nurses, consultants, case briefermanager mechanical maintenance - Objective Last 24 Hour Vital Signs Date Time Temp Pulse Resp B/P (MAP) Pulse Ox O2 Delivery O2 Flow Rate FiO2 07/29/17 08:29 83 178/97 07/29/17 08:29 83 178/97 07/29/17 08:00 30 07/29/17 08:00 80 07/29/17 08:00 98.4 83 16 178/97 99 Mechanical Ventilator 30 98.4 07/29/17 06:35 80 23 30 07/29/17 05:55 181/97 07/29/17 05:13 82 21 30 07/29/17 04:00 30 07/29/17 04:00 76 07/29/17 04:00 98.4 80 20 181/97 98 Mechanical Ventilator 30 98.4 07/29/17 03:23 77 20 30 07/29/17 01:25 75 23 30 07/29/17 00:32 208/89 07/29/17 00:00 78 07/29/17 00:00 98.9 80 32 208/89 96 Mechanical Ventilator 30 98.9 07/29/17 00:00 30 07/28/17 23:03 75 26 30 07/28/17 20:47 79 177/59 07/28/17 20:37 79 20 30 07/28/17 20:00 82 07/28/17 20:00 30 07/28/17 20:00 97.9 79 21 177/59 100 Mechanical Ventilator 30 97.9 07/28/17 19:25 77 24 30 07/28/17 16:34 82 16 30 07/28/17 16:30 98.7 81 20 142/72 99 Mechanical Ventilator 30 98.7 07/28/17 16:00 30 07/28/17 16:00 79 07/28/17 15:12 81 18 30 07/28/17 13:24 84 20 30 07/28/17 12:00 68 07/28/17 12:00 30 07/28/17 12:00 98.7 69 20 164/72 99 Mechanical Ventilator 30 98.7 07/28/17 11:26 80 16 30 07/28/17 11:00 67 20 156/74 99 Mechanical Ventilator 30 07/28/17 10:00 72 20 148/70 99 Mechanical Ventilator 30 Status: obtunded Condition: critical HEENT: atraumatic Lungs: chest wall tender Heart: HR/BP stable Abdomen: feeding tube Extremities: no C/C/E, edema Micro: Microbiology Date/Time Source Procedure Growth Status 07/26/17 10:44 Bronchial Washings Not Specified Gram Stain - Final Resulted 07/26/17 10:44 Bronchial Aspirate Culture - Preliminary A.baumanii Complx - Mdr Enterobacter Aerogenes Resulted 07/26/17 10:05 Stool Clostridium difficile Toxin Assay - Final Complete Accucheck: 165 Critical Care - Subjective ROS Limited/Unobtainable: Yes Condition: critical FI02: 30 Vent Support Breath Rate: 16 Vent Support Mode: AC Vent Tidal Volume: 600 Sputum Amount: Moderate PEEP: 5.0 PIP: 26 Tube Feeding Amount: 50 I&O: Intake and Output 07/28/17 07/29/17 19:00 07:00 Intake Total 1100 ml 700 ml Output Total 830 ml 1250 ml Balance 270 ml -550 ml Intake Free Water 150 ml 150 ml IV Total 330 ml Tube Feeding 620 ml 550 ml Output Urine Total 830 ml 1250 ml # Bowel Movements 5 2 CXR: extensive infiltrate Labs: Laboratory Tests Test 07/28/17 12:00 07/29/17 03:40 Urine Collection Time 24 HRS Urine Total Volume 2000 ML Urine Total Protein mg/dL 273 mg/dL Urine Total Protein 24 Hour 5460.0 mg/24hr (< 150) H White Blood Count 15.3 K/UL (4.8-10.8) H Red Blood Count 2.75 M/UL (4.70-6.10) L Hemoglobin 8.2 G/DL (14.2-18.0) L Hematocrit 24.5 % (42.0-52.0) L Mean Corpuscular Volume 89 FL (80-99) Mean Corpuscular Hemoglobin 30.0 PG (27.0-31.0) Mean Corpuscular Hemoglobin Concent 33.6 G/DL (32.0-36.0) Red Cell Distribution Width 15.4 % (11.6-14.8) H Platelet Count 471 K/UL (150-450) H Mean Platelet Volume 5.2 FL (6.5-10.1) L Neutrophils (%) (Auto) 81.3 % (45.0-75.0) H Lymphocytes (%) (Auto) 8.7 % (20.0-45.0) L Monocytes (%) (Auto) 5.6 % (1.0-10.0) Eosinophils (%) (Auto) 3.8 % (0.0-3.0) H Basophils (%) (Auto) 0.6 % (0.0-2.0) Sodium Level 140 MMOL/L (136-145) Potassium Level 4.1 MMOL/L (3.5-5.1) Chloride Level 107 MMOL/L (98-107) Carbon Dioxide Level 24 MMOL/L (21-32) Anion Gap 9 mmol/L (5-15) Blood Urea Nitrogen 41 mg/dL (7-18) H Creatinine 2.3 MG/DL (0.55-1.30) H Estimat Glomerular Filtration Rate 29.6 mL/min (>60) Glucose Level 166 MG/DL (74-106) H Calcium Level 7.9 MG/DL (8.5-10.1) L Phosphorus Level 3.4 MG/DL (2.5-4.9) Magnesium Level 2.4 MG/DL (1.8-2.4) Total Bilirubin 0.3 MG/DL (0.2-1.0) Aspartate Amino Transf (AST/SGOT) 17 U/L (15-37) Alanine Aminotransferase (ALT/SGPT) 16 U/L (12-78) Alkaline Phosphatase 148 U/L (46-116) H Total Protein 7.3 G/DL (6.4-8.2) Albumin 1.5 G/DL (3.4-5.0) L Globulin 5.8 g/dL Albumin/Globulin Ratio 0.3 (1.0-2.7) L Siva Quinteros MD Jul 29, 2017 10:01
--- NOTE | 2017-07-29 10:59 | GI Progress Note ---
Assessment/Plan Problems: (1) Abdominal pain ICD Codes: R10.9 - Unspecified abdominal pain SNOMED: 49951965 (2) Hypoglycemia ICD Codes: E16.2 - Hypoglycemia, unspecified SNOMED: 535994664 (3) Anemia ICD Codes: D64.9 - Anemia, unspecified SNOMED: 289552941 (4) Dysphagia ICD Codes: R13.10 - Dysphagia, unspecified SNOMED: 63717900, 659782026 (5) Diabetes mellitus ICD Codes: E11.9 - Type 2 diabetes mellitus without complications SNOMED: 61917713 Status: unchanged Status Narrative Discussed with Dr. Edouard. Assessment/Plan KUB reviewed >> no acute process anemia work up reviewed >> most likely 2/2 to chronic disease OB stool negative GT dependent some abdominal bloating supportive care at this time simethicone prn for abdominal gas pain GTFs per RD turn q2 hours to promote GI motility prn transfusions bowel regime ppi abx per ID fu labs The patient was seen and examined at bedside and all new and available data was reviewed in the patients chart. I agree with the above findings, impression and plan. (Patient seen earlier today. Signature stamp does not reflect patient encounter time.). - David Edouard MD Subjective Subjective limited Objective Last 24 Hour Vital Signs Date Time Temp Pulse Resp B/P (MAP) Pulse Ox O2 Delivery O2 Flow Rate FiO2 07/29/17 08:29 83 178/97 07/29/17 08:29 83 178/97 07/29/17 08:00 30 07/29/17 08:00 80 07/29/17 08:00 98.4 83 16 178/97 99 Mechanical Ventilator 30 98.4 07/29/17 06:35 80 23 30 07/29/17 05:55 181/97 07/29/17 05:13 82 21 30 07/29/17 04:00 30 07/29/17 04:00 76 07/29/17 04:00 98.4 80 20 181/97 98 Mechanical Ventilator 30 98.4 07/29/17 03:23 77 20 30 07/29/17 01:25 75 23 30 07/29/17 00:32 208/89 07/29/17 00:00 78 07/29/17 00:00 98.9 80 32 208/89 96 Mechanical Ventilator 30 98.9 07/29/17 00:00 30 07/28/17 23:03 75 26 30 07/28/17 20:47 79 177/59 07/28/17 20:37 79 20 30 07/28/17 20:00 82 07/28/17 20:00 30 07/28/17 20:00 97.9 79 21 177/59 100 Mechanical Ventilator 30 97.9 07/28/17 19:25 77 24 30 07/28/17 16:34 82 16 30 07/28/17 16:30 98.7 81 20 142/72 99 Mechanical Ventilator 30 98.7 07/28/17 16:00 30 07/28/17 16:00 79 07/28/17 15:12 81 18 30 07/28/17 13:24 84 20 30 07/28/17 12:00 68 07/28/17 12:00 30 07/28/17 12:00 98.7 69 20 164/72 99 Mechanical Ventilator 30 98.7 07/28/17 11:26 80 16 30 07/28/17 11:00 67 20 156/74 99 Mechanical Ventilator 30 Intake and Output 07/28/17 07/29/17 19:00 07:00 Intake Total 1100 ml 700 ml Output Total 830 ml 1250 ml Balance 270 ml -550 ml Intake Free Water 150 ml 150 ml IV Total 330 ml Tube Feeding 620 ml 550 ml Output Urine Total 830 ml 1250 ml # Bowel Movements 5 2 Laboratory Tests Test 07/28/17 12:00 07/29/17 03:40 Urine Collection Time 24 HRS Urine Total Volume 2000 ML Urine Total Protein mg/dL 273 mg/dL Urine Total Protein 24 Hour 5460.0 mg/24hr (< 150) H White Blood Count 15.3 K/UL (4.8-10.8) H Red Blood Count 2.75 M/UL (4.70-6.10) L Hemoglobin 8.2 G/DL (14.2-18.0) L Hematocrit 24.5 % (42.0-52.0) L Mean Corpuscular Volume 89 FL (80-99) Mean Corpuscular Hemoglobin 30.0 PG (27.0-31.0) Mean Corpuscular Hemoglobin Concent 33.6 G/DL (32.0-36.0) Red Cell Distribution Width 15.4 % (11.6-14.8) H Platelet Count 471 K/UL (150-450) H Mean Platelet Volume 5.2 FL (6.5-10.1) L Neutrophils (%) (Auto) 81.3 % (45.0-75.0) H Lymphocytes (%) (Auto) 8.7 % (20.0-45.0) L Monocytes (%) (Auto) 5.6 % (1.0-10.0) Eosinophils (%) (Auto) 3.8 % (0.0-3.0) H Basophils (%) (Auto) 0.6 % (0.0-2.0) Sodium Level 140 MMOL/L (136-145) Potassium Level 4.1 MMOL/L (3.5-5.1) Chloride Level 107 MMOL/L (98-107) Carbon Dioxide Level 24 MMOL/L (21-32) Anion Gap 9 mmol/L (5-15) Blood Urea Nitrogen 41 mg/dL (7-18) H Creatinine 2.3 MG/DL (0.55-1.30) H Estimat Glomerular Filtration Rate 29.6 mL/min (>60) Glucose Level 166 MG/DL (74-106) H Calcium Level 7.9 MG/DL (8.5-10.1) L Phosphorus Level 3.4 MG/DL (2.5-4.9) Magnesium Level 2.4 MG/DL (1.8-2.4) Total Bilirubin 0.3 MG/DL (0.2-1.0) Aspartate Amino Transf (AST/SGOT) 17 U/L (15-37) Alanine Aminotransferase (ALT/SGPT) 16 U/L (12-78) Alkaline Phosphatase 148 U/L (46-116) H Total Protein 7.3 G/DL (6.4-8.2) Albumin 1.5 G/DL (3.4-5.0) L Globulin 5.8 g/dL Albumin/Globulin Ratio 0.3 (1.0-2.7) L Height (Feet): 5 Height (Inches): 6.00 Weight (Pounds): 164 General Appearance: WD/WN, no apparent distress, alert Cardiovascular: normal rate Respiratory/Chest: normal breath sounds, no respiratory distress Abdominal Exam: normal bowel sounds, non tender, soft, GT site - c/d/i Extremities: non-tender Erasto Toro NP Jul 29, 2017 10:59
--- NOTE | 2017-07-29 11:39 | Infectious Diseases Prog Note ---
Assessment/Plan Assessment/Plan Assessment: Acute CVA -CT head: asymmetric densities in the right insula, steen radiata, and basal ganglia concerning for acute infarct. Probable MDRO PNA- worsening- r/o legionella -CXR 07/28: Over 2 days, interim worsening of bilateral diffuse interstitial and airspace infiltrates versus edema -CXR: Cardiomegaly with bilateral interstitial and patchy airspace opacities.Findings may be related to CHF/pulmonary edema however superimposed pneumonia not entirely excluded. -sp cx GNR MDR A. baumanni (I Levo, otherwise R); E. aerogenes probable AMP c (S cefepime, Meropenem, Genta) Leukocytosis, persistent -no fever -u/a wbc 5-10; repeat neg -Cdiff neg Lactic acidosis, SP DM2 HTN CA/CAD anemia CVA/TIA/hemorrhagic stroke w/ L side hemiparesis CKD IV resp failure Trach/vent dependant dysphagia s/p PEG non verbal SNF resident Plan: -Continue empiric Meropenem and Levaquin #2 (abx d#4) for PNA, and add INH Colistin for MDR ABC -set up sensi for Tigecyline, Colistin, Polymixin B and Minocycline for MDR ABC -07/28 SP IV Vancomycin #3, Cefepime #3 -f/u cx -Monitor CBC/BMP, temperatures -aspiration precautions -Trach/peg care -f/u legionella ag urine Thank you for this consultation. Will continue to monitor off abx. Discussed with RN. Subjective Allergies: Coded Allergies: No Known Allergies (Unverified , 07/26/17) Subjective afebrile in 48hrs leukocytosis persists Fio2 30% Objective Vital Signs Last 24 Hour Vital Signs Date Time Temp Pulse Resp B/P (MAP) Pulse Ox O2 Delivery O2 Flow Rate FiO2 07/29/17 08:29 83 178/97 07/29/17 08:29 83 178/97 07/29/17 08:00 30 07/29/17 08:00 80 07/29/17 08:00 98.4 83 16 178/97 99 Mechanical Ventilator 30 98.4 07/29/17 06:35 80 23 30 07/29/17 05:55 181/97 07/29/17 05:13 82 21 30 07/29/17 04:00 30 07/29/17 04:00 76 07/29/17 04:00 98.4 80 20 181/97 98 Mechanical Ventilator 30 98.4 07/29/17 03:23 77 20 30 07/29/17 01:25 75 23 30 07/29/17 00:32 208/89 07/29/17 00:00 78 07/29/17 00:00 98.9 80 32 208/89 96 Mechanical Ventilator 30 98.9 07/29/17 00:00 30 07/28/17 23:03 75 26 30 07/28/17 20:47 79 177/59 07/28/17 20:37 79 20 30 07/28/17 20:00 82 07/28/17 20:00 30 07/28/17 20:00 97.9 79 21 177/59 100 Mechanical Ventilator 30 97.9 07/28/17 19:25 77 24 30 07/28/17 16:34 82 16 30 07/28/17 16:30 98.7 81 20 142/72 99 Mechanical Ventilator 30 98.7 07/28/17 16:00 30 07/28/17 16:00 79 07/28/17 15:12 81 18 30 07/28/17 13:24 84 20 30 07/28/17 12:00 68 07/28/17 12:00 30 07/28/17 12:00 98.7 69 20 164/72 99 Mechanical Ventilator 30 98.7 Height (Feet): 5 Height (Inches): 6.00 Weight (Pounds): 164 Objective GENERAL APPEARANCE: A well-developed, well-nourished, male, who was intubated and sedated. HEENT: Eyes, pupils are equal and responsive to light and accommodation. Extraocular movements are intact. NECK: Supple without lymphadenopathy. There is a tracheostomy tube present. CARDIOVASCULAR: Regular rhythm rate. S1, S2 normal without murmurs, rubs, or gallops. ABDOMEN: Soft, nontender, and nondistended. Positive bowel sounds. No evidence of hepatosplenomegaly. Currently, no rebound or guarding noted. There is presence of a G-tube placement noted. LUNGS: Coarse breath sounds bilaterally without wheezes or rales. NEUROLOGIC: The patient has a left flaccid hemiparesis. Laboratory Tests Test 07/28/17 12:00 07/29/17 03:40 Urine Collection Time 24 HRS Urine Total Volume 2000 ML Urine Total Protein mg/dL 273 mg/dL Urine Total Protein 24 Hour 5460.0 mg/24hr (< 150) H White Blood Count 15.3 K/UL (4.8-10.8) H Red Blood Count 2.75 M/UL (4.70-6.10) L Hemoglobin 8.2 G/DL (14.2-18.0) L Hematocrit 24.5 % (42.0-52.0) L Mean Corpuscular Volume 89 FL (80-99) Mean Corpuscular Hemoglobin 30.0 PG (27.0-31.0) Mean Corpuscular Hemoglobin Concent 33.6 G/DL (32.0-36.0) Red Cell Distribution Width 15.4 % (11.6-14.8) H Platelet Count 471 K/UL (150-450) H Mean Platelet Volume 5.2 FL (6.5-10.1) L Neutrophils (%) (Auto) 81.3 % (45.0-75.0) H Lymphocytes (%) (Auto) 8.7 % (20.0-45.0) L Monocytes (%) (Auto) 5.6 % (1.0-10.0) Eosinophils (%) (Auto) 3.8 % (0.0-3.0) H Basophils (%) (Auto) 0.6 % (0.0-2.0) Sodium Level 140 MMOL/L (136-145) Potassium Level 4.1 MMOL/L (3.5-5.1) Chloride Level 107 MMOL/L (98-107) Carbon Dioxide Level 24 MMOL/L (21-32) Anion Gap 9 mmol/L (5-15) Blood Urea Nitrogen 41 mg/dL (7-18) H Creatinine 2.3 MG/DL (0.55-1.30) H Estimat Glomerular Filtration Rate 29.6 mL/min (>60) Glucose Level 166 MG/DL (74-106) H Calcium Level 7.9 MG/DL (8.5-10.1) L Phosphorus Level 3.4 MG/DL (2.5-4.9) Magnesium Level 2.4 MG/DL (1.8-2.4) Total Bilirubin 0.3 MG/DL (0.2-1.0) Aspartate Amino Transf (AST/SGOT) 17 U/L (15-37) Alanine Aminotransferase (ALT/SGPT) 16 U/L (12-78) Alkaline Phosphatase 148 U/L (46-116) H Total Protein 7.3 G/DL (6.4-8.2) Albumin 1.5 G/DL (3.4-5.0) L Globulin 5.8 g/dL Albumin/Globulin Ratio 0.3 (1.0-2.7) L Current Medications Medications (Trade) Dose Ordered Sig/Johnathan Route PRN Reason Start Time Stop Time Status Last Admin Dose Admin Acetaminophen (Tylenol) 650 mg Q4H PRN ORAL FEVER 07/28/17 12:30 08/25/17 12:29 Albuterol/ Ipratropium (Albuterol/ Ipratropium) 3 ml Q4H PRN HHN Shortness of Breath 07/28/17 12:30 07/31/17 12:29 Amlodipine Besylate (Norvasc) 10 mg DAILY GT 07/29/17 09:00 08/27/17 08:59 07/29/17 08:29 Clonidine HCl (Catapres TTS-1) 1 patch ONCE A WEEK TDERMAL 08/01/17 09:00 08/31/17 08:59 Clonidine HCl (Catapres Tab) 0.1 mg Q4H PRN ORAL For High Blood Pressure 07/28/17 12:45 08/27/17 12:44 07/29/17 05:55 Dextrose (Dextrose 50%) 25 ml STAT PRN IV Hypoglycemia 07/28/17 12:30 08/27/17 12:29 Dextrose (Dextrose 50%) 50 ml STAT PRN IV Hypoglycemia 07/28/17 12:30 08/27/17 12:29 Docusate Sodium (Colace) 100 mg TWICE A DAY GT 07/28/17 18:00 08/27/17 17:59 Heparin Sodium (Porcine) (Heparin 5000 units/ml) 5,000 units EVERY 12 HOURS SUBQ 07/28/17 21:00 08/25/17 20:59 07/29/17 08:31 Insulin Aspart (NovoLOG) BEFORE MEALS AND HS SUBQ 07/28/17 16:30 08/25/17 11:29 07/29/17 05:58 Levofloxacin (Levaquin) 750 mg Q48H ORAL 07/28/17 17:00 08/04/17 16:59 07/28/17 17:24 Lorazepam (Ativan 2mg/ml 1ml) 2 mg Q2H PRN IV For Anxiety 07/28/17 12:45 08/02/17 10:44 07/29/17 00:32 Meropenem 1 gm/ Sodium Chloride 55 ml @ 110 mls/hr Q12H IVPB 07/28/17 17:00 08/02/17 16:59 07/29/17 05:55 Metoprolol Tartrate (Lopressor) 50 mg EVERY 12 HOURS GT 07/28/17 21:00 08/25/17 20:59 07/29/17 08:29 Morphine Sulfate (Morphine Sulfate) 4 mg Q4H PRN IVP Severe Pain (Pain Scale 7-10) 07/28/17 14:45 08/02/17 10:44 Ondansetron HCl (Zofran) 4 mg Q6H PRN IVP Nausea & Vomiting 07/28/17 12:30 08/25/17 12:29 Pantoprazole (Protonix) 40 mg DAILY IV 07/29/17 09:00 08/26/17 08:59 07/29/17 08:29 Polyethylene Glycol (Miralax) 17 gm BEDTIME ORAL 07/28/17 21:00 08/27/17 20:59 Polyethylene Glycol (Miralax) 17 gm DAILYPRN PRN ORAL Constipation 07/28/17 12:30 08/27/17 12:29 Simethicone (Mylicon) 80 mg QIDPRN PRN GT GAS PAIN 07/28/17 16:00 08/27/17 15:59 Vancomycin HCl (Vancomycin) 125 mg FOUR TIMES A DAY ORAL 07/28/17 21:00 08/04/17 20:59 07/29/17 08:29 Jessica Estrella M.D. Jul 29, 2017 11:39
[2017-07-29 12:00] VITALS: BP 160/89
[2017-07-29 16:00] VITALS: BP 158/87
[2017-07-29] MEDS ORDERED: HydrALAZINE 25mg tab GT SCH (16:17)
--- NOTE | 2017-07-29 16:18 | Nephrology Progress Note ---
Assessment/Plan Problem List: (1) Acute on chronic renal failure (2) Anemia (3) Hypoglycemia (4) Chronic respiratory failure (5) History of CVA (cerebrovascular accident) (6) Accelerated hypertension (7) Nephrotic syndrome Assessment Renal failure Cr lower 2.9 to 2.3 Nephrotic syndrom likely Pre renal super imposed on renal Severe HypoAlbuminemia Sever Anemia Chronic vent / Trach. has PEG HypoKalemia 4+ Proteinuria Hypoglycemia HTN Plan add epogen Add Hydralazine pulm support transfuse K IV Monitor renal parameters 24 H urine protein 5.4 gr protein Subjective ROS Limited/Unobtainable: Yes Constitutional: Reports: malaise, weakness Objective Objective Last 24 Hour Vital Signs Date Time Temp Pulse Resp B/P (MAP) Pulse Ox O2 Delivery O2 Flow Rate FiO2 07/29/17 14:50 74 17 30 07/29/17 12:35 76 21 30 07/29/17 12:00 30 07/29/17 12:00 98.5 84 18 160/89 100 Mechanical Ventilator 30 98.5 07/29/17 12:00 84 07/29/17 10:35 77 22 30 07/29/17 09:00 79 18 30 07/29/17 08:29 83 178/97 07/29/17 08:29 83 178/97 07/29/17 08:00 30 07/29/17 08:00 80 07/29/17 08:00 98.4 83 16 178/97 99 Mechanical Ventilator 30 98.4 07/29/17 06:35 80 23 30 07/29/17 05:55 181/97 07/29/17 05:13 82 21 30 07/29/17 04:00 30 07/29/17 04:00 76 07/29/17 04:00 98.4 80 20 181/97 98 Mechanical Ventilator 30 98.4 07/29/17 03:23 77 20 30 07/29/17 01:25 75 23 30 07/29/17 00:32 208/89 07/29/17 00:00 78 07/29/17 00:00 98.9 80 32 208/89 96 Mechanical Ventilator 30 98.9 07/29/17 00:00 30 07/28/17 23:03 75 26 30 07/28/17 20:47 79 177/59 07/28/17 20:37 79 20 30 07/28/17 20:00 82 6/20/18 20:00 30 07/28/17 20:00 97.9 79 21 177/59 100 Mechanical Ventilator 30 97.9 07/28/17 19:25 77 24 30 07/28/17 16:34 82 16 30 07/28/17 16:30 98.7 81 20 142/72 99 Mechanical Ventilator 30 98.7 Intake and Output 07/28/17 07/29/17 19:00 07:00 Intake Total 1100 ml 700 ml Output Total 830 ml 1250 ml Balance 270 ml -550 ml Intake Free Water 150 ml 150 ml IV Total 330 ml Tube Feeding 620 ml 550 ml Output Urine Total 830 ml 1250 ml # Bowel Movements 5 2 Laboratory Tests 07/29/17 03:40: White Blood Count 15.3H, Red Blood Count 2.75L, Hemoglobin 8.2L, Hematocrit 24.5L, Mean Corpuscular Volume 89, Mean Corpuscular Hemoglobin 30.0, Mean Corpuscular Hemoglobin Concent 33.6, Red Cell Distribution Width 15.4H, Platelet Count 471H, Mean Platelet Volume 5.2L, Neutrophils (%) (Auto) 81.3H, Lymphocytes (%) (Auto) 8.7L, Monocytes (%) (Auto) 5.6, Eosinophils (%) (Auto) 3.8H, Basophils (%) (Auto) 0.6, Sodium Level 140, Potassium Level 4.1, Chloride Level 107, Carbon Dioxide Level 24, Anion Gap 9, Blood Urea Nitrogen 41H, Creatinine 2.3H, Estimat Glomerular Filtration Rate 29.6, Glucose Level 166H, Calcium Level 7.9L, Phosphorus Level 3.4, Magnesium Level 2.4, Total Bilirubin 0.3, Aspartate Amino Transf (AST/SGOT) 17, Alanine Aminotransferase (ALT/SGPT) 16, Alkaline Phosphatase 148H, Total Protein 7.3, Albumin 1.5L, Globulin 5.8, Albumin/Globulin Ratio 0.3L Height (Feet): 5 Height (Inches): 6.00 Weight (Pounds): 164 EENT: other - trach Neck: limited range of motion Respiratory/Chest: decreased breath sounds Abdomen: distended FRED VEGA Jul 29, 2017 16:18
--- NOTE | 2017-07-29 16:20 | Internal Med Progress Note ---
Subjective Date of Service: Jul 29, 2017 Physician Name Diaz,Thaddeus Attending Physician Timothy Hills MD Current Medications Medications (Trade) Dose Ordered Sig/Johnathan Route PRN Reason Start Time Stop Time Status Last Admin Dose Admin Acetaminophen (Tylenol) 650 mg Q4H PRN ORAL FEVER 07/28/17 12:30 08/25/17 12:29 Albuterol/ Ipratropium (Albuterol/ Ipratropium) 3 ml Q4H PRN HHN Shortness of Breath 07/28/17 12:30 07/31/17 12:29 Amlodipine Besylate (Norvasc) 10 mg DAILY GT 07/29/17 09:00 08/27/17 08:59 07/29/17 08:29 Clonidine HCl (Catapres TTS-1) 1 patch ONCE A WEEK TDERMAL 08/01/17 09:00 08/31/17 08:59 Clonidine HCl (Catapres Tab) 0.1 mg Q4H PRN ORAL For High Blood Pressure 07/28/17 12:45 08/27/17 12:44 07/29/17 05:55 Colistimethate Sodium (Colistin *inhalation use only*) 150 mg Q12HR@10,22 INH 07/29/17 22:00 08/05/17 21:59 Dextrose (Dextrose 50%) 25 ml STAT PRN IV Hypoglycemia 07/28/17 12:30 08/27/17 12:29 Dextrose (Dextrose 50%) 50 ml STAT PRN IV Hypoglycemia 07/28/17 12:30 08/27/17 12:29 Docusate Sodium (Colace) 100 mg TWICE A DAY GT 07/28/17 18:00 08/27/17 17:59 Epoetin Kaiden (Procrit (for non ESRD use)) 5,000 units MON-WED-WED SUBQ 07/30/17 21:00 08/29/17 20:59 Heparin Sodium (Porcine) (Heparin 5000 units/ml) 5,000 units EVERY 12 HOURS SUBQ 07/28/17 21:00 08/25/17 20:59 07/29/17 08:31 Hydralazine HCl (Apresoline) 25 mg ONCE GT 07/29/17 16:17 07/29/17 17:30 Hydralazine HCl (Apresoline) 25 mg Q8HR GT 07/29/17 22:00 08/28/17 21:59 Insulin Aspart (NovoLOG) BEFORE MEALS AND HS SUBQ 07/28/17 16:30 08/25/17 11:29 07/29/17 11:36 Levofloxacin (Levaquin) 750 mg Q48H ORAL 07/28/17 17:00 08/04/17 16:59 07/28/17 17:24 Lorazepam (Ativan 2mg/ml 1ml) 2 mg Q2H PRN IV For Anxiety 07/28/17 12:45 08/02/17 10:44 07/29/17 12:49 Meropenem 1 gm/ Sodium Chloride 55 ml @ 110 mls/hr Q12H IVPB 07/28/17 17:00 08/02/17 16:59 07/29/17 05:55 Metoprolol Tartrate (Lopressor) 50 mg EVERY 12 HOURS GT 07/28/17 21:00 08/25/17 20:59 07/29/17 08:29 Morphine Sulfate (Morphine Sulfate) 4 mg Q4H PRN IVP Severe Pain (Pain Scale 7-10) 07/28/17 14:45 08/02/17 10:44 Ondansetron HCl (Zofran) 4 mg Q6H PRN IVP Nausea & Vomiting 07/28/17 12:30 08/25/17 12:29 Pantoprazole (Protonix) 40 mg DAILY IV 07/29/17 09:00 08/26/17 08:59 07/29/17 08:29 Polyethylene Glycol (Miralax) 17 gm BEDTIME ORAL 07/28/17 21:00 08/27/17 20:59 Polyethylene Glycol (Miralax) 17 gm DAILYPRN PRN ORAL Constipation 07/28/17 12:30 08/27/17 12:29 Simethicone (Mylicon) 80 mg QIDPRN PRN GT GAS PAIN 07/28/17 16:00 08/27/17 15:59 Allergies: Coded Allergies: No Known Allergies (Unverified , 07/26/17) ROS Limited/Unobtainable: Yes Subjective 56 YO M admitted with altered mental status. Now pneumonia and acute cerebral vascular accident. Cover for Int Med-Dr Hills. KENDY Objective Last Vital Signs Date Time Temp Pulse Resp B/P (MAP) Pulse Ox O2 Delivery O2 Flow Rate FiO2 6/21/18 14:50 74 17 30 07/29/17 12:00 98.5 160/89 100 Mechanical Ventilator 98.5 07/26/17 10:16 Laboratory Tests Test 07/29/17 03:40 White Blood Count 15.3 K/UL (4.8-10.8) H Red Blood Count 2.75 M/UL (4.70-6.10) L Hemoglobin 8.2 G/DL (14.2-18.0) L Hematocrit 24.5 % (42.0-52.0) L Mean Corpuscular Volume 89 FL (80-99) Mean Corpuscular Hemoglobin 30.0 PG (27.0-31.0) Mean Corpuscular Hemoglobin Concent 33.6 G/DL (32.0-36.0) Red Cell Distribution Width 15.4 % (11.6-14.8) H Platelet Count 471 K/UL (150-450) H Mean Platelet Volume 5.2 FL (6.5-10.1) L Neutrophils (%) (Auto) 81.3 % (45.0-75.0) H Lymphocytes (%) (Auto) 8.7 % (20.0-45.0) L Monocytes (%) (Auto) 5.6 % (1.0-10.0) Eosinophils (%) (Auto) 3.8 % (0.0-3.0) H Basophils (%) (Auto) 0.6 % (0.0-2.0) Sodium Level 140 MMOL/L (136-145) Potassium Level 4.1 MMOL/L (3.5-5.1) Chloride Level 107 MMOL/L (98-107) Carbon Dioxide Level 24 MMOL/L (21-32) Anion Gap 9 mmol/L (5-15) Blood Urea Nitrogen 41 mg/dL (7-18) H Creatinine 2.3 MG/DL (0.55-1.30) H Estimat Glomerular Filtration Rate 29.6 mL/min (>60) Glucose Level 166 MG/DL (74-106) H Calcium Level 7.9 MG/DL (8.5-10.1) L Phosphorus Level 3.4 MG/DL (2.5-4.9) Magnesium Level 2.4 MG/DL (1.8-2.4) Total Bilirubin 0.3 MG/DL (0.2-1.0) Aspartate Amino Transf (AST/SGOT) 17 U/L (15-37) Alanine Aminotransferase (ALT/SGPT) 16 U/L (12-78) Alkaline Phosphatase 148 U/L (46-116) H Total Protein 7.3 G/DL (6.4-8.2) Albumin 1.5 G/DL (3.4-5.0) L Globulin 5.8 g/dL Albumin/Globulin Ratio 0.3 (1.0-2.7) L Intake and Output 07/28/17 07/29/17 19:00 07:00 Intake Total 1100 ml 700 ml Output Total 830 ml 1250 ml Balance 270 ml -550 ml Intake Free Water 150 ml 150 ml IV Total 330 ml Tube Feeding 620 ml 550 ml Output Urine Total 830 ml 1250 ml # Bowel Movements 5 2 Objective General Appearance: WD/WN, alert, moderate distress EENT: PERRL/EOMI, normal ENT inspection Neck: non-tender, normal alignment, supple Cardiovascular: normal peripheral pulses, normal rate, regular rhythm, no gallop/murmur, no JVD Respiratory/Chest: Tracheostomy; mech vent; respiratory distress, crackles/ rales, rhonchi - bilaterally, expiratory wheezing Abdomen: normal bowel sounds, non tender, soft, no organomegaly, no mass Extremities: normal range of motion Neurologic: mold clamper II-XII grossly normal, no motor/sensory deficits Skin: normal pigmentation, warm/dry Assessment/Plan Problem List: (1) Tracheostomy care (2) Ventilator dependence Assessment & Plan: See pulmonary recs. (3) Dysphagia (4) Hemorrhagic stroke (5) HTN (hypertension) Assessment & Plan: Continue norvasc and lopressor (6) Diabetes mellitus type II, controlled Assessment & Plan: Continue novolog sliding scale. (7) Renal failure (8) Left hemiparesis (9) Iron deficiency anemia (10) Altered mental status (11) Pneumonia Assessment & Plan: Bilateral. Continue vanco and cefepime per ID (12) CVA (cerebral vascular accident) Assessment & Plan: Acute basal ganglia (13) Acute and chronic respiratory failure (14) Acute encephalopathy (15) Chronic respiratory failure Status: not improved Thaddeus Diaz MD Jul 29, 2017 16:20
--- NOTE | 2017-07-29 17:57 | Cardiology Progress Note ---
Assessment/Plan Status: progressing Assessment/Plan -TTE reviewed, no wall motion abnormalities, normal LV function, moderate AR - stable -IV abx due to pulmonary infiltrates and positive culture - concerning for worsening CXR albeit clinically stable, wbc persistently elevated -Continue BP medications - hydralazine added -Defer cardiac cath at this time, patients conditions likely from pulmonary infection as opposed to pulseless v tachy -CTA with infarct - neuro consult, repeat CT in 1 week -Plavix -Statin Subjective Cardiovascular: Reports: no symptoms Respiratory: Reports: no symptoms Gastrointestinal/Abdominal: Reports: no symptoms Genitourinary: Reports: no symptoms Subjective No acute events, stable on vent, responsive to stimuli Mild abdominal bloating Vitals stable, feeds at goal, no residuals Blood culture positive for gram negative rods, WBC still elevated Objective Last 24 Hour Vital Signs Date Time Temp Pulse Resp B/P (MAP) Pulse Ox O2 Delivery O2 Flow Rate FiO2 07/29/17 17:00 77 20 30 07/29/17 16:53 158/87 07/29/17 16:00 73 07/29/17 16:00 30 07/29/17 16:00 97.7 76 20 158/87 99 Mechanical Ventilator 30 97.7 07/29/17 14:50 74 17 30 07/29/17 12:35 76 21 30 07/29/17 12:00 30 07/29/17 12:00 98.5 84 18 160/89 100 Mechanical Ventilator 30 98.5 07/29/17 12:00 84 07/29/17 10:35 77 22 30 07/29/17 09:00 79 18 30 07/29/17 08:29 83 178/97 07/29/17 08:29 83 178/97 07/29/17 08:00 30 07/29/17 08:00 80 07/29/17 08:00 98.4 83 16 178/97 99 Mechanical Ventilator 30 98.4 07/29/17 06:35 80 23 30 07/29/17 05:55 181/97 07/29/17 05:13 82 21 30 07/29/17 04:00 30 07/29/17 04:00 76 07/29/17 04:00 98.4 80 20 181/97 98 Mechanical Ventilator 30 98.4 07/29/17 03:23 77 20 30 07/29/17 01:25 75 23 30 07/29/17 00:32 208/89 07/29/17 00:00 78 07/29/17 00:00 98.9 80 32 208/89 96 Mechanical Ventilator 30 98.9 07/29/17 00:00 30 07/28/17 23:03 75 26 30 07/28/17 20:47 79 177/59 07/28/17 20:37 79 20 30 07/28/17 20:00 82 07/28/17 20:00 30 07/28/17 20:00 97.9 79 21 177/59 100 Mechanical Ventilator 30 97.9 07/28/17 19:25 77 24 30 General Appearance: no apparent distress EENT: PERRL/EOMI Neck: normal alignment Rhythm: SB Cardiovascular: normal peripheral pulses Respiratory/Chest: lungs clear Abdomen: non tender Extremities: normal range of motion Neurologic: worksite wellness practitioner II-XII grossly normal Intake and Output 07/28/17 07/29/17 19:00 07:00 Intake Total 1100 ml 750 ml Output Total 830 ml 1250 ml Balance 270 ml -500 ml Intake Free Water 150 ml 150 ml IV Total 330 ml Tube Feeding 620 ml 600 ml Output Urine Total 830 ml 1250 ml # Bowel Movements 5 2 Laboratory Tests Test 07/29/17 03:40 White Blood Count 15.3 K/UL (4.8-10.8) H Red Blood Count 2.75 M/UL (4.70-6.10) L Hemoglobin 8.2 G/DL (14.2-18.0) L Hematocrit 24.5 % (42.0-52.0) L Mean Corpuscular Volume 89 FL (80-99) Mean Corpuscular Hemoglobin 30.0 PG (27.0-31.0) Mean Corpuscular Hemoglobin Concent 33.6 G/DL (32.0-36.0) Red Cell Distribution Width 15.4 % (11.6-14.8) H Platelet Count 471 K/UL (150-450) H Mean Platelet Volume 5.2 FL (6.5-10.1) L Neutrophils (%) (Auto) 81.3 % (45.0-75.0) H Lymphocytes (%) (Auto) 8.7 % (20.0-45.0) L Monocytes (%) (Auto) 5.6 % (1.0-10.0) Eosinophils (%) (Auto) 3.8 % (0.0-3.0) H Basophils (%) (Auto) 0.6 % (0.0-2.0) Sodium Level 140 MMOL/L (136-145) Potassium Level 4.1 MMOL/L (3.5-5.1) Chloride Level 107 MMOL/L (98-107) Carbon Dioxide Level 24 MMOL/L (21-32) Anion Gap 9 mmol/L (5-15) Blood Urea Nitrogen 41 mg/dL (7-18) H Creatinine 2.3 MG/DL (0.55-1.30) H Estimat Glomerular Filtration Rate 29.6 mL/min (>60) Glucose Level 166 MG/DL (74-106) H Calcium Level 7.9 MG/DL (8.5-10.1) L Phosphorus Level 3.4 MG/DL (2.5-4.9) Magnesium Level 2.4 MG/DL (1.8-2.4) Total Bilirubin 0.3 MG/DL (0.2-1.0) Aspartate Amino Transf (AST/SGOT) 17 U/L (15-37) Alanine Aminotransferase (ALT/SGPT) 16 U/L (12-78) Alkaline Phosphatase 148 U/L (46-116) H Total Protein 7.3 G/DL (6.4-8.2) Albumin 1.5 G/DL (3.4-5.0) L Globulin 5.8 g/dL Albumin/Globulin Ratio 0.3 (1.0-2.7) L Renny Joy M.D. Jul 29, 2017 17:57
[2017-07-29 20:00] VITALS: BP 164/95
[2017-07-29] MEDS: Miralax 17gm pkt ORAL SCH (21:00)
[2017-07-29] MEDS: HydrALAZINE 25mg tab GT SCH (21:45)
[2017-07-30] VITALS: BP 145/72
[2017-07-30] MEDS: Colistin for inhalation INH SCH ×3 (00:50→21:12)
[2017-07-30] MEDS: LORazepam Inj 2mg/ml 1ml IV PRN (01:54)
[2017-07-30 04:41] VITALS: BP 187/88
[2017-07-30] MEDS: Meropenem 1 GM in NS 55 ML IVPB SCH ×2 (04:54→17:53)
[2017-07-30] MEDS: Morphine Sulfate 4mg/ml Inj IVP PRN ×2 (04:55→23:52)
[2017-07-30] MEDS: HydrALAZINE 25mg tab GT SCH ×3 (05:30→21:35)
[2017-07-30 05:32] LABS: BASOPHILS % (AUTO) 0.4 % (0.0-2.0); EOSINOPHILS % (AUTO) 3.6 % (0.0-3.0); HEMATOCRIT 25.9 % (42.0-52.0); HEMOGLOBIN 8.4 G/DL (14.2-18.0); LYMPHOCYTES % (AUTO) 10.2 % (20.0-45.0); MEAN CORPUSCULAR VOLUME 89 FL (80-99); MONOCYTES % (AUTO) 4.6 % (1.0-10.0); NEUTROPHILS % (AUTO) 81.3 % (45.0-75.0); PLATELET COUNT 494 K/UL (150-450); RED CELL DISTRIBUTION WIDTH 15.2 % (11.6-14.8); WHITE BLOOD COUNT 16.2 K/UL (4.8-10.8)
[2017-07-30 05:56] LABS: ALANINE AMINOTRANSFERASE 11 U/L (12-78); ALBUMIN 1.5 G/DL (3.4-5.0); ALBUMIN/GLOBULIN RATIO 0.3 (1.0-2.7); ALKALINE PHOSPHATASE 133 U/L (46-116); ANION GAP 8 mmol/L (5-15); ASPARTATE AMINO TRANSFERASE 15 U/L (15-37); BILIRUBIN,TOTAL 0.4 MG/DL (0.2-1.0); BLOOD UREA NITROGEN 35 mg/dL (7-18); CARBON DIOXIDE 25 MMOL/L (21-32); CHLORIDE 110 MMOL/L (98-107); CREATININE 2.1 MG/DL (0.55-1.30); PHOSPHORUS 3.7 MG/DL (2.5-4.9); POTASSIUM 4.2 MMOL/L (3.5-5.1); SODIUM 143 MMOL/L (136-145)
[2017-07-30] MEDS: NovoLOG Insulin Flexpen SUBQ SCH ×4 (06:30→23:56)
[2017-07-30 08:00] VITALS: BP 176/90
[2017-07-30] MEDS: Pantoprazole Inj IV SCH (09:19)
[2017-07-30] MEDS: Docusate 100mg/10ml Liq GT SCH ×2 (09:19→17:53)
[2017-07-30] MEDS: Heparin 5000 units/ml inj SUBQ SCH ×2 (09:25→21:44)
[2017-07-30] MEDS: Metoprolol Tartrate 50mg tab GT SCH ×2 (09:26→21:34)
--- NOTE | 2017-07-30 09:57 | Diagnostic Imaging Report ---
Indication: Dyspnea Technique: One view of the chest Comparison: 07/28/2017 Findings: Previously demonstrated diffuse interstitial and airspace consolidation appears somewhat improved although still extensive. Tracheostomy remains. The heart is enlarged. Impression: Improved but still extensive bilateral diffuse interstitial and airspace infiltrates versus edema, over 2 days
--- NOTE | 2017-07-30 10:29 | Pulmonolgy Critical Care Note ---
Critical Care - Asmt/Plan Problems: (1) MDR Acinetobacter baumannii infection (2) Pneumonia (3) Acute encephalopathy (4) Cardiac arrest (5) Acute and chronic respiratory failure (6) Diabetes mellitus (7) History of CVA (cerebrovascular accident) (8) CVA (cerebral vascular accident) Respiratory: monitor respiratory rate, adjust FIO2, CXR Cardiac: continue to monitor HR/BP Renal: F/U I&O Infectious Disease: check cultures Gastrointestinal: continue feedings/current rate, hold feedings Endocrine: check TSH Hematologic: transfuse if hgb<8.5 Neurologic: PRN Morphine, keep patient comfortable Prophylaxis: Protonix 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, 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 Discussed with: consultants, case management specialistmanager family - Objective Last 24 Hour Vital Signs Date Time Temp Pulse Resp B/P (MAP) Pulse Ox O2 Delivery O2 Flow Rate FiO2 07/30/17 09:27 72 176/90 07/30/17 09:26 72 176/90 07/30/17 09:11 66 21 30 07/30/17 08:00 98.0 72 20 176/90 98 Mechanical Ventilator 30 98.0 07/30/17 06:52 68 18 30 07/30/17 05:30 155/72 07/30/17 05:25 98.0 07/30/17 05:03 72 18 30 07/30/17 04:55 98.0 07/30/17 04:54 187/88 07/30/17 04:41 98.0 80 21 187/88 100 Mechanical Ventilator 30 98.0 07/30/17 04:00 78 07/30/17 04:00 30 07/30/17 02:34 80 22 30 07/30/17 01:09 72 16 100 Mechanical Ventilator 30 07/30/17 00:51 74 20 98 Mechanical Ventilator 30 07/30/17 00:50 74 20 30 07/30/17 00:00 30 07/30/17 00:00 98.0 75 19 145/72 100 Mechanical Ventilator 30 98.0 07/29/17 23:20 73 28 30 07/29/17 21:45 164/95 07/29/17 21:45 89 164/95 07/29/17 20:38 78 18 30 07/29/17 20:00 78 07/29/17 20:00 98.0 89 18 164/95 99 Mechanical Ventilator 30 98.0 07/29/17 19:23 80 19 30 07/29/17 17:00 77 20 30 07/29/17 16:53 158/87 07/29/17 16:00 73 07/29/17 16:00 30 07/29/17 16:00 97.7 76 20 158/87 99 Mechanical Ventilator 30 97.7 07/29/17 14:50 74 17 30 07/29/17 12:35 76 21 30 07/29/17 12:00 30 07/29/17 12:00 98.5 84 18 160/89 100 Mechanical Ventilator 30 98.5 07/29/17 12:00 84 07/29/17 10:35 77 22 30 Status: sedated Condition: critical HEENT: atraumatic Neck: full ROM Lungs: clear Heart: HR/BP stable Abdomen: soft, non-tender, feeding tube Extremities: no C/C/E Micro: Microbiology Date/Time Source Procedure Growth Status 07/29/17 03:00 Stool Stool Culture - Preliminary NORMAL FECAL SHERON. Resulted Accucheck: 110 Critical Care - Subjective ROS Limited/Unobtainable: Yes Condition: critical EKG Rhythm: Sinus Rhythm FI02: 30 Vent Support Breath Rate: 16 Vent Support Mode: AC Vent Tidal Volume: 600 Sputum Amount: Small PEEP: 5.0 PIP: 34 Tube Feeding Amount: 50 I&O: Intake and Output 07/29/17 07/30/17 19:00 07:00 Intake Total 730 ml 875 ml Output Total 900 ml 1100 ml Balance -170 ml -225 ml Intake Free Water 150 ml IV Total 55 ml 55 ml Tube Feeding 600 ml 550 ml Other 75 ml 120 ml Output Urine Total 900 ml 1100 ml # Bowel Movements 2 4 Labs: Laboratory Tests Test 07/30/17 04:24 White Blood Count 16.2 K/UL (4.8-10.8) H Red Blood Count 2.90 M/UL (4.70-6.10) L Hemoglobin 8.4 G/DL (14.2-18.0) L Hematocrit 25.9 % (42.0-52.0) L Mean Corpuscular Volume 89 FL (80-99) Mean Corpuscular Hemoglobin 29.1 PG (27.0-31.0) Mean Corpuscular Hemoglobin Concent 32.5 G/DL (32.0-36.0) Red Cell Distribution Width 15.2 % (11.6-14.8) H Platelet Count 494 K/UL (150-450) H Mean Platelet Volume 5.4 FL (6.5-10.1) L Neutrophils (%) (Auto) 81.3 % (45.0-75.0) H Lymphocytes (%) (Auto) 10.2 % (20.0-45.0) L Monocytes (%) (Auto) 4.6 % (1.0-10.0) Eosinophils (%) (Auto) 3.6 % (0.0-3.0) H Basophils (%) (Auto) 0.4 % (0.0-2.0) Sodium Level 143 MMOL/L (136-145) Potassium Level 4.2 MMOL/L (3.5-5.1) Chloride Level 110 MMOL/L (98-107) H Carbon Dioxide Level 25 MMOL/L (21-32) Anion Gap 8 mmol/L (5-15) Blood Urea Nitrogen 35 mg/dL (7-18) H Creatinine 2.1 MG/DL (0.55-1.30) H Estimat Glomerular Filtration Rate 32.8 mL/min (>60) Glucose Level 118 MG/DL (74-106) H Calcium Level 8.0 MG/DL (8.5-10.1) L Phosphorus Level 3.7 MG/DL (2.5-4.9) Magnesium Level 2.2 MG/DL (1.8-2.4) Total Bilirubin 0.4 MG/DL (0.2-1.0) Aspartate Amino Transf (AST/SGOT) 15 U/L (15-37) Alanine Aminotransferase (ALT/SGPT) 11 U/L (12-78) L Alkaline Phosphatase 133 U/L (46-116) H Total Protein 7.3 G/DL (6.4-8.2) Albumin 1.5 G/DL (3.4-5.0) L Globulin 5.8 g/dL Albumin/Globulin Ratio 0.3 (1.0-2.7) L Siva Quinteros MD Jul 30, 2017 10:29
--- NOTE | 2017-07-30 10:45 | GI Progress Note ---
Assessment/Plan Problems: (1) Abdominal pain ICD Codes: R10.9 - Unspecified abdominal pain SNOMED: 89880467 (2) Hypoglycemia ICD Codes: E16.2 - Hypoglycemia, unspecified SNOMED: 981624735 (3) Anemia ICD Codes: D64.9 - Anemia, unspecified SNOMED: 331917234 (4) Dysphagia ICD Codes: R13.10 - Dysphagia, unspecified SNOMED: 54149560, 824343989 (5) Diabetes mellitus ICD Codes: E11.9 - Type 2 diabetes mellitus without complications SNOMED: 06117763 Status: unchanged Status Narrative Discussed with Dr. Edouard. Assessment/Plan KUB reviewed >> no acute process anemia work up reviewed >> most likely 2/2 to chronic disease OB stool negative GT dependent some abdominal bloating cdiff negative stool culture supportive care at this time simethicone prn for abdominal gas pain GTFs per RD turn q2 hours to promote GI motility prn transfusions bowel regime ppi abx per ID fu labs The patient was seen and examined at bedside and all new and available data was reviewed in the patients chart. I agree with the above findings, impression and plan. (Patient seen earlier today. Signature stamp does not reflect patient encounter time.). - David Edouard MD Subjective Subjective limited Objective Last 24 Hour Vital Signs Date Time Temp Pulse Resp B/P (MAP) Pulse Ox O2 Delivery O2 Flow Rate FiO2 07/30/17 09:27 72 176/90 07/30/17 09:26 72 176/90 07/30/17 09:11 66 21 30 07/30/17 08:00 98.0 72 20 176/90 98 Mechanical Ventilator 30 98.0 07/30/17 06:52 68 18 30 07/30/17 05:30 155/72 07/30/17 05:25 98.0 07/30/17 05:03 72 18 30 07/30/17 04:55 98.0 07/30/17 04:54 187/88 07/30/17 04:41 98.0 80 21 187/88 100 Mechanical Ventilator 30 98.0 07/30/17 04:00 78 07/30/17 04:00 30 07/30/17 02:34 80 22 30 07/30/17 01:09 72 16 100 Mechanical Ventilator 30 07/30/17 00:51 74 20 98 Mechanical Ventilator 30 07/30/17 00:50 74 20 30 07/30/17 00:00 30 07/30/17 00:00 98.0 75 19 145/72 100 Mechanical Ventilator 30 98.0 07/29/17 23:20 73 28 30 07/29/17 21:45 164/95 07/29/17 21:45 89 164/95 07/29/17 20:38 78 18 30 07/29/17 20:00 78 07/29/17 20:00 98.0 89 18 164/95 99 Mechanical Ventilator 30 98.0 07/29/17 19:23 80 19 30 07/29/17 17:00 77 20 30 07/29/17 16:53 158/87 07/29/17 16:00 73 07/29/17 16:00 30 07/29/17 16:00 97.7 76 20 158/87 99 Mechanical Ventilator 30 97.7 07/29/17 14:50 74 17 30 07/29/17 12:35 76 21 30 07/29/17 12:00 30 07/29/17 12:00 98.5 84 18 160/89 100 Mechanical Ventilator 30 98.5 07/29/17 12:00 84 Intake and Output 07/29/17 07/30/17 19:00 07:00 Intake Total 730 ml 875 ml Output Total 900 ml 1100 ml Balance -170 ml -225 ml Intake Free Water 150 ml IV Total 55 ml 55 ml Tube Feeding 600 ml 550 ml Other 75 ml 120 ml Output Urine Total 900 ml 1100 ml # Bowel Movements 2 4 Laboratory Tests Test 07/30/17 04:24 White Blood Count 16.2 K/UL (4.8-10.8) H Red Blood Count 2.90 M/UL (4.70-6.10) L Hemoglobin 8.4 G/DL (14.2-18.0) L Hematocrit 25.9 % (42.0-52.0) L Mean Corpuscular Volume 89 FL (80-99) Mean Corpuscular Hemoglobin 29.1 PG (27.0-31.0) Mean Corpuscular Hemoglobin Concent 32.5 G/DL (32.0-36.0) Red Cell Distribution Width 15.2 % (11.6-14.8) H Platelet Count 494 K/UL (150-450) H Mean Platelet Volume 5.4 FL (6.5-10.1) L Neutrophils (%) (Auto) 81.3 % (45.0-75.0) H Lymphocytes (%) (Auto) 10.2 % (20.0-45.0) L Monocytes (%) (Auto) 4.6 % (1.0-10.0) Eosinophils (%) (Auto) 3.6 % (0.0-3.0) H Basophils (%) (Auto) 0.4 % (0.0-2.0) Sodium Level 143 MMOL/L (136-145) Potassium Level 4.2 MMOL/L (3.5-5.1) Chloride Level 110 MMOL/L (98-107) H Carbon Dioxide Level 25 MMOL/L (21-32) Anion Gap 8 mmol/L (5-15) Blood Urea Nitrogen 35 mg/dL (7-18) H Creatinine 2.1 MG/DL (0.55-1.30) H Estimat Glomerular Filtration Rate 32.8 mL/min (>60) Glucose Level 118 MG/DL (74-106) H Calcium Level 8.0 MG/DL (8.5-10.1) L Phosphorus Level 3.7 MG/DL (2.5-4.9) Magnesium Level 2.2 MG/DL (1.8-2.4) Total Bilirubin 0.4 MG/DL (0.2-1.0) Aspartate Amino Transf (AST/SGOT) 15 U/L (15-37) Alanine Aminotransferase (ALT/SGPT) 11 U/L (12-78) L Alkaline Phosphatase 133 U/L (46-116) H Total Protein 7.3 G/DL (6.4-8.2) Albumin 1.5 G/DL (3.4-5.0) L Globulin 5.8 g/dL Albumin/Globulin Ratio 0.3 (1.0-2.7) L Height (Feet): 5 Height (Inches): 6.00 Weight (Pounds): 164 General Appearance: no apparent distress Cardiovascular: normal rate Respiratory/Chest: normal breath sounds, no respiratory distress Abdominal Exam: normal bowel sounds, non tender, soft, GT site Extremities: non-tender Erasto Toro SOFTWARE CONFIGURATION ENGINEER Jul 30, 2017 10:45
--- NOTE | 2017-07-30 11:58 | Nephrology Progress Note ---
Assessment/Plan Problem List: (1) Acute on chronic renal failure (2) Anemia (3) Hypoglycemia (4) Chronic respiratory failure (5) History of CVA (cerebrovascular accident) (6) Accelerated hypertension (7) Nephrotic syndrome Assessment Renal failure Cr lower 2.9 to 2.1 Nephrotic syndrom likely Pre renal super imposed on renal Severe HypoAlbuminemia Sever Anemia Chronic vent / Trach. has PEG HypoKalemia 4+ Proteinuria Hypoglycemia HTN Plan add epogen Add Hydralazine pulm support transfuse K IV Monitor renal parameters 24 H urine protein 5.4 gr protein Subjective ROS Limited/Unobtainable: Yes Objective Objective Last 24 Hour Vital Signs Date Time Temp Pulse Resp B/P (MAP) Pulse Ox O2 Delivery O2 Flow Rate FiO2 07/30/17 10:49 66 17 98 Mechanical Ventilator 30 07/30/17 10:47 66 17 30 07/30/17 09:27 72 176/90 07/30/17 09:26 72 176/90 07/30/17 09:11 66 21 30 07/30/17 08:00 68 07/30/17 08:00 98.0 72 20 176/90 98 Mechanical Ventilator 30 98.0 07/30/17 08:00 30 07/30/17 06:52 68 18 30 07/30/17 05:30 155/72 07/30/17 05:25 98.0 07/30/17 05:03 72 18 30 07/30/17 04:55 98.0 07/30/17 04:54 187/88 07/30/17 04:41 98.0 80 21 187/88 100 Mechanical Ventilator 30 98.0 07/30/17 04:00 78 07/30/17 04:00 30 07/30/17 02:34 80 22 30 07/30/17 01:09 72 16 100 Mechanical Ventilator 30 07/30/17 00:51 74 20 98 Mechanical Ventilator 30 07/30/17 00:50 74 20 30 07/30/17 00:00 30 07/30/17 00:00 98.0 75 19 145/72 100 Mechanical Ventilator 30 98.0 07/29/17 23:20 73 28 30 07/29/17 21:45 164/95 07/29/17 21:45 89 164/95 07/29/17 20:38 78 18 30 07/29/17 20:00 78 07/29/17 20:00 98.0 89 18 164/95 99 Mechanical Ventilator 30 98.0 07/29/17 19:23 80 19 30 07/29/17 17:00 77 20 30 07/29/17 16:53 158/87 07/29/17 16:00 73 07/29/17 16:00 30 07/29/17 16:00 97.7 76 20 158/87 99 Mechanical Ventilator 30 97.7 07/29/17 14:50 74 17 30 07/29/17 12:35 76 21 30 07/29/17 12:00 30 07/29/17 12:00 98.5 84 18 160/89 100 Mechanical Ventilator 30 98.5 07/29/17 12:00 84 Intake and Output 07/29/17 07/30/17 19:00 07:00 Intake Total 730 ml 875 ml Output Total 900 ml 1100 ml Balance -170 ml -225 ml Intake Free Water 150 ml IV Total 55 ml 55 ml Tube Feeding 600 ml 550 ml Other 75 ml 120 ml Output Urine Total 900 ml 1100 ml # Bowel Movements 2 4 Laboratory Tests 07/30/17 04:24: White Blood Count 16.2H, Red Blood Count 2.90L, Hemoglobin 8.4L, Hematocrit 25.9L, Mean Corpuscular Volume 89, Mean Corpuscular Hemoglobin 29.1, Mean Corpuscular Hemoglobin Concent 32.5, Red Cell Distribution Width 15.2H, Platelet Count 494H, Mean Platelet Volume 5.4L, Neutrophils (%) (Auto) 81.3H, Lymphocytes (%) (Auto) 10.2L, Monocytes (%) (Auto) 4.6, Eosinophils (%) (Auto) 3.6H, Basophils (%) (Auto) 0.4, Sodium Level 143, Potassium Level 4.2, Chloride Level 110H, Carbon Dioxide Level 25, Anion Gap 8, Blood Urea Nitrogen 35H, Creatinine 2.1H, Estimat Glomerular Filtration Rate 32.8, Glucose Level 118H, Calcium Level 8.0L, Phosphorus Level 3.7, Magnesium Level 2.2, Total Bilirubin 0.4, Aspartate Amino Transf (AST/SGOT) 15, Alanine Aminotransferase (ALT/SGPT) 11L, Alkaline Phosphatase 133H, Total Protein 7.3, Albumin 1.5L, Globulin 5.8, Albumin/Globulin Ratio 0.3L Height (Feet): 5 Height (Inches): 6.00 Weight (Pounds): 164 General Appearance: no apparent distress Respiratory/Chest: decreased breath sounds Abdomen: distended FRED VEGA Jul 30, 2017 11:58
[2017-07-30 12:00] VITALS: BP 162/84
--- NOTE | 2017-07-30 12:40 | Infectious Diseases Prog Note ---
Assessment/Plan Assessment/Plan Assessment: Acute CVA -CT head: asymmetric densities in the right insula, steen radiata, and basal ganglia concerning for acute infarct. Probable MDRO PNA- worsening- r/o legionella -CXR 07/30:Improved but still extensive bilateral diffuse interstitial and airspace infiltrates versus edema, over 2 days -CXR 07/28: Over 2 days, interim worsening of bilateral diffuse interstitial and airspace infiltrates versus edema -CXR: Cardiomegaly with bilateral interstitial and patchy airspace opacities.Findings may be related to CHF/pulmonary edema however superimposed pneumonia not entirely excluded. -sp cx GNR MDR A. baumanni (I Levo, Minocycline; S Colistin, Polymixin B and Tygeclcine); E. aerogenes probable AMP c (S cefepime, Meropenem, Genta) Leukocytosis, worsening likely 2ry to MDRO -no fever -u/a wbc 5-10; repeat neg -Cdiff neg Lactic acidosis, SP DM2 HTN PA/CAD anemia CVA/TIA/hemorrhagic stroke w/ L side hemiparesis CKD IV resp failure Trach/vent dependant dysphagia s/p PEG non verbal SNF resident Plan: -Continue empiric Meropenem and Levaquin #3 (abx d#6) for PNA, INH Colistin # 2 and add IV Tigecycline for MDR ABC -07/28 SP IV Vancomycin #3, Cefepime #3 -u/a w/ reflex -f/u cx -Monitor CBC/BMP, temperatures -aspiration precautions -Trach/peg care -f/u legionella ag urine (has not been collected yet) Thank you for this consultation. Will continue to monitor along with you. Discussed with RN and lab staff. Subjective Allergies: Coded Allergies: No Known Allergies (Unverified , 07/26/17) Subjective afebrile in 72 hrs leukocytosis increasing Fio2 30% Objective Vital Signs Last 24 Hour Vital Signs Date Time Temp Pulse Resp B/P (MAP) Pulse Ox O2 Delivery O2 Flow Rate FiO2 07/30/17 12:00 98.6 68 20 162/84 98 Mechanical Ventilator 30 98.6 07/30/17 12:00 30 07/30/17 10:59 66 17 100 Mechanical Ventilator 30 07/30/17 10:49 66 17 98 Mechanical Ventilator 30 07/30/17 10:47 66 17 30 07/30/17 09:27 72 176/90 07/30/17 09:26 72 176/90 07/30/17 09:11 66 21 30 07/30/17 08:00 68 07/30/17 08:00 98.0 72 20 176/90 98 Mechanical Ventilator 30 98.0 07/30/17 08:00 30 07/30/17 06:52 68 18 30 07/30/17 05:30 155/72 07/30/17 05:25 98.0 07/30/17 05:03 72 18 30 07/30/17 04:55 98.0 07/30/17 04:54 187/88 07/30/17 04:41 98.0 80 21 187/88 100 Mechanical Ventilator 30 98.0 07/30/17 04:00 78 07/30/17 04:00 30 07/30/17 02:34 80 22 30 07/30/17 01:09 72 16 100 Mechanical Ventilator 30 07/30/17 00:51 74 20 98 Mechanical Ventilator 30 07/30/17 00:50 74 20 30 07/30/17 00:00 30 07/30/17 00:00 98.0 75 19 145/72 100 Mechanical Ventilator 30 98.0 07/29/17 23:20 73 28 30 07/29/17 21:45 164/95 07/29/17 21:45 89 164/95 07/29/17 20:38 78 18 30 07/29/17 20:00 78 07/29/17 20:00 98.0 89 18 164/95 99 Mechanical Ventilator 30 98.0 07/29/17 19:23 80 19 30 07/29/17 17:00 77 20 30 07/29/17 16:53 158/87 07/29/17 16:00 73 07/29/17 16:00 30 07/29/17 16:00 97.7 76 20 158/87 99 Mechanical Ventilator 30 97.7 07/29/17 14:50 74 17 30 07/29/17 12:35 76 21 30 Height (Feet): 5 Height (Inches): 6.00 Weight (Pounds): 164 Objective GENERAL APPEARANCE: A well-developed, well-nourished, male, who was intubated and sedated. HEENT: Eyes, pupils are equal and responsive to light and accommodation. Extraocular movements are intact. NECK: Supple without lymphadenopathy. There is a tracheostomy tube present. CARDIOVASCULAR: Regular rhythm rate. S1, S2 normal without murmurs, rubs, or gallops. ABDOMEN: Soft, nontender, and nondistended. Positive bowel sounds. No evidence of hepatosplenomegaly. Currently, no rebound or guarding noted. There is presence of a G-tube placement noted. LUNGS: Coarse breath sounds bilaterally without wheezes or rales. NEUROLOGIC: The patient has a left flaccid hemiparesis. Microbiology Date/Time Source Procedure Growth Status 07/29/17 03:00 Stool Stool Culture - Preliminary NORMAL FECAL SHERON. Resulted Laboratory Tests Test 07/30/17 04:24 White Blood Count 16.2 K/UL (4.8-10.8) H Red Blood Count 2.90 M/UL (4.70-6.10) L Hemoglobin 8.4 G/DL (14.2-18.0) L Hematocrit 25.9 % (42.0-52.0) L Mean Corpuscular Volume 89 FL (80-99) Mean Corpuscular Hemoglobin 29.1 PG (27.0-31.0) Mean Corpuscular Hemoglobin Concent 32.5 G/DL (32.0-36.0) Red Cell Distribution Width 15.2 % (11.6-14.8) H Platelet Count 494 K/UL (150-450) H Mean Platelet Volume 5.4 FL (6.5-10.1) L Neutrophils (%) (Auto) 81.3 % (45.0-75.0) H Lymphocytes (%) (Auto) 10.2 % (20.0-45.0) L Monocytes (%) (Auto) 4.6 % (1.0-10.0) Eosinophils (%) (Auto) 3.6 % (0.0-3.0) H Basophils (%) (Auto) 0.4 % (0.0-2.0) Sodium Level 143 MMOL/L (136-145) Potassium Level 4.2 MMOL/L (3.5-5.1) Chloride Level 110 MMOL/L (98-107) H Carbon Dioxide Level 25 MMOL/L (21-32) Anion Gap 8 mmol/L (5-15) Blood Urea Nitrogen 35 mg/dL (7-18) H Creatinine 2.1 MG/DL (0.55-1.30) H Estimat Glomerular Filtration Rate 32.8 mL/min (>60) Glucose Level 118 MG/DL (74-106) H Calcium Level 8.0 MG/DL (8.5-10.1) L Phosphorus Level 3.7 MG/DL (2.5-4.9) Magnesium Level 2.2 MG/DL (1.8-2.4) Total Bilirubin 0.4 MG/DL (0.2-1.0) Aspartate Amino Transf (AST/SGOT) 15 U/L (15-37) Alanine Aminotransferase (ALT/SGPT) 11 U/L (12-78) L Alkaline Phosphatase 133 U/L (46-116) H Total Protein 7.3 G/DL (6.4-8.2) Albumin 1.5 G/DL (3.4-5.0) L Globulin 5.8 g/dL Albumin/Globulin Ratio 0.3 (1.0-2.7) L Current Medications Medications (Trade) Dose Ordered Sig/Johnathan Route PRN Reason Start Time Stop Time Status Last Admin Dose Admin Acetaminophen (Tylenol) 650 mg Q4H PRN ORAL FEVER 07/28/17 12:30 08/25/17 12:29 Albuterol/ Ipratropium (Albuterol/ Ipratropium) 3 ml Q4H PRN HHN Shortness of Breath 07/28/17 12:30 07/31/17 12:29 Amlodipine Besylate (Norvasc) 10 mg DAILY GT 07/29/17 09:00 08/27/17 08:59 07/30/17 09:27 Clonidine HCl (Catapres TTS-1) 1 patch ONCE A WEEK TDERMAL 08/01/17 09:00 08/31/17 08:59 Clonidine HCl (Catapres Tab) 0.1 mg Q4H PRN ORAL For High Blood Pressure 07/28/17 12:45 08/27/17 12:44 07/30/17 04:54 Colistimethate Sodium (Colistin *inhalation use only*) 150 mg Q12HR@10,22 INH 07/29/17 22:00 08/05/17 21:59 07/30/17 10:47 Dextrose (Dextrose 50%) 25 ml STAT PRN IV Hypoglycemia 07/28/17 12:30 08/27/17 12:29 Dextrose (Dextrose 50%) 50 ml STAT PRN IV Hypoglycemia 07/28/17 12:30 08/27/17 12:29 Docusate Sodium (Colace) 100 mg TWICE A DAY GT 07/28/17 18:00 08/27/17 17:59 07/30/17 09:19 Epoetin Kaiden (Procrit (for non ESRD use)) 5,000 units WED-WED-WED SUBQ 07/30/17 21:00 08/29/17 20:59 Heparin Sodium (Porcine) (Heparin 5000 units/ml) 5,000 units EVERY 12 HOURS SUBQ 07/28/17 21:00 08/25/17 20:59 07/30/17 09:25 Hydralazine HCl (Apresoline) 25 mg Q8HR GT 07/29/17 22:00 08/28/17 21:59 07/30/17 05:30 Insulin Aspart (NovoLOG) BEFORE MEALS AND HS SUBQ 07/28/17 16:30 08/25/17 11:29 07/30/17 12:20 Levofloxacin (Levaquin) 750 mg Q48H ORAL 07/28/17 17:00 08/04/17 16:59 07/28/17 17:24 Lorazepam (Ativan 2mg/ml 1ml) 2 mg Q2H PRN IV For Anxiety 07/28/17 12:45 08/02/17 10:44 07/30/17 01:54 Meropenem 1 gm/ Sodium Chloride 55 ml @ 110 mls/hr Q12H IVPB 07/28/17 17:00 08/02/17 16:59 07/30/17 04:54 Metoprolol Tartrate (Lopressor) 50 mg EVERY 12 HOURS GT 07/28/17 21:00 08/25/17 20:59 07/30/17 09:26 Morphine Sulfate (Morphine Sulfate) 4 mg Q4H PRN IVP Severe Pain (Pain Scale 7-10) 07/28/17 14:45 08/02/17 10:44 07/30/17 04:55 Ondansetron HCl (Zofran) 4 mg Q6H PRN IVP Nausea & Vomiting 07/28/17 12:30 08/25/17 12:29 Pantoprazole (Protonix) 40 mg DAILY IV 07/29/17 09:00 08/26/17 08:59 07/30/17 09:19 Polyethylene Glycol (Miralax) 17 gm BEDTIME ORAL 07/28/17 21:00 08/27/17 20:59 Polyethylene Glycol (Miralax) 17 gm DAILYPRN PRN ORAL Constipation 07/28/17 12:30 08/27/17 12:29 Simethicone (Mylicon) 80 mg QIDPRN PRN GT GAS PAIN 07/28/17 16:00 08/27/17 15:59 Jessica Estrella M.D. Jul 30, 2017 12:40
[2017-07-30] MEDS ORDERED: Tigecycline 100 MG in D5W 110 ML IVPB ONE (14:00)
[2017-07-30 16:00] VITALS: BP 155/80
--- NOTE | 2017-07-30 16:40 | Cardiology Progress Note ---
Assessment/Plan Assessment/Plan -TTE reviewed, no wall motion abnormalities, normal LV function, moderate AR - stable -IV abx due to pulmonary infiltrates and positive culture - concerning for worsening CXR albeit clinically stable, wbc persistently elevated -Continue BP medications - hydralazine added -Defer cardiac cath at this time, patients conditions likely from pulmonary infection as opposed to pulseless v tachy -CTA with infarct - neuro consult, repeat CT in 1 week -Plavix -Statin Subjective Cardiovascular: Reports: no symptoms Respiratory: Reports: no symptoms Gastrointestinal/Abdominal: Reports: no symptoms Genitourinary: Reports: no symptoms Subjective No acute events, stable on vent, responsive to stimuli Vitals stable, feeds at goal, no residuals Blood culture positive for gram negative rods, WBC still elevated Mild anemia Creatinine improved Objective Last 24 Hour Vital Signs Date Time Temp Pulse Resp B/P (MAP) Pulse Ox O2 Delivery O2 Flow Rate FiO2 07/30/17 16:04 30 07/30/17 14:56 75 19 30 07/30/17 14:14 162/84 07/30/17 13:24 74 22 30 07/30/17 12:00 66 07/30/17 12:00 98.6 68 20 162/84 98 Mechanical Ventilator 30 98.6 07/30/17 12:00 30 07/30/17 10:59 66 17 100 Mechanical Ventilator 30 07/30/17 10:49 66 17 98 Mechanical Ventilator 30 07/30/17 10:47 66 17 30 07/30/17 09:27 72 176/90 07/30/17 09:26 72 176/90 07/30/17 09:11 66 21 30 07/30/17 08:00 68 07/30/17 08:00 98.0 72 20 176/90 98 Mechanical Ventilator 30 98.0 07/30/17 08:00 30 07/30/17 06:52 68 18 30 07/30/17 05:30 155/72 07/30/17 05:25 98.0 07/30/17 05:03 72 18 30 07/30/17 04:55 98.0 07/30/17 04:54 187/88 07/30/17 04:41 98.0 80 21 187/88 100 Mechanical Ventilator 30 98.0 07/30/17 04:00 78 07/30/17 04:00 30 6/22/18 02:34 80 22 30 07/30/17 01:09 72 16 100 Mechanical Ventilator 30 07/30/17 00:51 74 20 98 Mechanical Ventilator 30 07/30/17 00:50 74 20 30 07/30/17 00:00 30 07/30/17 00:00 98.0 75 19 145/72 100 Mechanical Ventilator 30 98.0 07/29/17 23:20 73 28 30 07/29/17 21:45 164/95 07/29/17 21:45 89 164/95 07/29/17 20:38 78 18 30 07/29/17 20:00 78 07/29/17 20:00 98.0 89 18 164/95 99 Mechanical Ventilator 30 98.0 07/29/17 19:23 80 19 30 07/29/17 17:00 77 20 30 07/29/17 16:53 158/87 General Appearance: no apparent distress EENT: PERRL/EOMI Neck: non-tender Rhythm: NSR Cardiovascular: normal rate Respiratory/Chest: chest wall non-tender Abdomen: normal bowel sounds Extremities: normal range of motion 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 Intake and Output 07/29/17 07/30/17 19:00 07:00 Intake Total 730 ml 905 ml Output Total 900 ml 1100 ml Balance -170 ml -195 ml Intake Free Water 150 ml IV Total 55 ml 55 ml Tube Feeding 600 ml 580 ml Other 75 ml 120 ml Output Urine Total 900 ml 1100 ml # Bowel Movements 2 4 Laboratory Tests Test 07/30/17 04:24 White Blood Count 16.2 K/UL (4.8-10.8) H Red Blood Count 2.90 M/UL (4.70-6.10) L Hemoglobin 8.4 G/DL (14.2-18.0) L Hematocrit 25.9 % (42.0-52.0) L Mean Corpuscular Volume 89 FL (80-99) Mean Corpuscular Hemoglobin 29.1 PG (27.0-31.0) Mean Corpuscular Hemoglobin Concent 32.5 G/DL (32.0-36.0) Red Cell Distribution Width 15.2 % (11.6-14.8) H Platelet Count 494 K/UL (150-450) H Mean Platelet Volume 5.4 FL (6.5-10.1) L Neutrophils (%) (Auto) 81.3 % (45.0-75.0) H Lymphocytes (%) (Auto) 10.2 % (20.0-45.0) L Monocytes (%) (Auto) 4.6 % (1.0-10.0) Eosinophils (%) (Auto) 3.6 % (0.0-3.0) H Basophils (%) (Auto) 0.4 % (0.0-2.0) Sodium Level 143 MMOL/L (136-145) Potassium Level 4.2 MMOL/L (3.5-5.1) Chloride Level 110 MMOL/L (98-107) H Carbon Dioxide Level 25 MMOL/L (21-32) Anion Gap 8 mmol/L (5-15) Blood Urea Nitrogen 35 mg/dL (7-18) H Creatinine 2.1 MG/DL (0.55-1.30) H Estimat Glomerular Filtration Rate 32.8 mL/min (>60) Glucose Level 118 MG/DL (74-106) H Calcium Level 8.0 MG/DL (8.5-10.1) L Phosphorus Level 3.7 MG/DL (2.5-4.9) Magnesium Level 2.2 MG/DL (1.8-2.4) Total Bilirubin 0.4 MG/DL (0.2-1.0) Aspartate Amino Transf (AST/SGOT) 15 U/L (15-37) Alanine Aminotransferase (ALT/SGPT) 11 U/L (12-78) L Alkaline Phosphatase 133 U/L (46-116) H Total Protein 7.3 G/DL (6.4-8.2) Albumin 1.5 G/DL (3.4-5.0) L Globulin 5.8 g/dL Albumin/Globulin Ratio 0.3 (1.0-2.7) L Microbiology Date/Time Source Procedure Growth Status 07/29/17 12:40 Sputum Gram Stain - Final Resulted 07/29/17 12:40 Sputum Sputum Culture Pending Resulted 07/29/17 03:00 Stool Stool Culture - Preliminary NORMAL FECAL SHERON. Resulted Renny Joy M.D. Jul 30, 2017 16:40
--- NOTE | 2017-07-30 19:06 | Internal Med Progress Note ---
Subjective Date of Service: Jul 30, 2017 Physician Name Thaddeus Diaz Attending Physician Timothy Hills MD Current Medications Medications (Trade) Dose Ordered Sig/Johnathan Route PRN Reason Start Time Stop Time Status Last Admin Dose Admin Acetaminophen (Tylenol) 650 mg Q4H PRN ORAL FEVER 07/28/17 12:30 08/25/17 12:29 Albuterol/ Ipratropium (Albuterol/ Ipratropium) 3 ml Q4H PRN HHN Shortness of Breath 07/28/17 12:30 07/31/17 12:29 Amlodipine Besylate (Norvasc) 10 mg DAILY GT 07/29/17 09:00 08/27/17 08:59 07/30/17 09:27 Clonidine HCl (Catapres TTS-1) 1 patch ONCE A WEEK TDERMAL 08/01/17 09:00 08/31/17 08:59 Clonidine HCl (Catapres Tab) 0.1 mg Q4H PRN ORAL For High Blood Pressure 07/28/17 12:45 08/27/17 12:44 07/30/17 04:54 Colistimethate Sodium (Colistin *inhalation use only*) 150 mg Q12HR@10,22 INH 07/29/17 22:00 08/05/17 21:59 07/30/17 10:47 Dextrose (Dextrose 50%) 25 ml STAT PRN IV Hypoglycemia 07/28/17 12:30 08/27/17 12:29 Dextrose (Dextrose 50%) 50 ml STAT PRN IV Hypoglycemia 07/28/17 12:30 08/27/17 12:29 Docusate Sodium (Colace) 100 mg TWICE A DAY GT 07/28/17 18:00 08/27/17 17:59 07/30/17 17:53 Epoetin Kaiden (Procrit (for non ESRD use)) 5,000 units MON-WED-FRI SUBQ 07/30/17 21:00 08/29/17 20:59 Heparin Sodium (Porcine) (Heparin 5000 units/ml) 5,000 units EVERY 12 HOURS SUBQ 07/28/17 21:00 08/25/17 20:59 07/30/17 09:25 Hydralazine HCl (Apresoline) 25 mg Q8HR GT 07/29/17 22:00 08/28/17 21:59 07/30/17 14:14 Insulin Aspart (NovoLOG) BEFORE MEALS AND HS SUBQ 07/28/17 16:30 08/25/17 11:29 07/30/17 17:55 Levofloxacin (Levaquin) 750 mg Q48H ORAL 07/28/17 17:00 08/04/17 16:59 07/30/17 17:53 Lorazepam (Ativan 2mg/ml 1ml) 2 mg Q2H PRN IV For Anxiety 07/28/17 12:45 08/02/17 10:44 07/30/17 01:54 Meropenem 1 gm/ Sodium Chloride 55 ml @ 110 mls/hr Q12H IVPB 07/28/17 17:00 08/02/17 16:59 07/30/17 17:53 Metoprolol Tartrate (Lopressor) 50 mg EVERY 12 HOURS GT 07/28/17 21:00 08/25/17 20:59 07/30/17 09:26 Morphine Sulfate (Morphine Sulfate) 4 mg Q4H PRN IVP Severe Pain (Pain Scale 7-10) 07/28/17 14:45 08/02/17 10:44 07/30/17 04:55 Ondansetron HCl (Zofran) 4 mg Q6H PRN IVP Nausea & Vomiting 07/28/17 12:30 08/25/17 12:29 Pantoprazole (Protonix) 40 mg DAILY IV 07/29/17 09:00 08/26/17 08:59 07/30/17 09:19 Polyethylene Glycol (Miralax) 17 gm BEDTIME ORAL 07/28/17 21:00 08/27/17 20:59 Polyethylene Glycol (Miralax) 17 gm DAILYPRN PRN ORAL Constipation 07/28/17 12:30 08/27/17 12:29 Simethicone (Mylicon) 80 mg QIDPRN PRN GT GAS PAIN 07/28/17 16:00 08/27/17 15:59 Tigecycline 50 mg/ Dextrose 110 ml @ 220 mls/hr Q12H IVPB 07/31/17 02:00 08/07/17 01:59 Allergies: Coded Allergies: No Known Allergies (Unverified , 07/26/17) ROS Limited/Unobtainable: Yes Subjective 56 YO M admitted with altered mental status. Now pneumonia and acute cerebral vascular accident. Cover for Int Med-Dr Hills. KENDY Objective Last Vital Signs Date Time Temp Pulse Resp B/P (MAP) Pulse Ox O2 Delivery O2 Flow Rate FiO2 07/30/17 17:24 71 16 30 07/30/17 16:00 98.2 155/80 98 Mechanical Ventilator 98.2 07/26/17 10:16 Laboratory Tests Test 07/30/17 04:24 White Blood Count 16.2 K/UL (4.8-10.8) H Red Blood Count 2.90 M/UL (4.70-6.10) L Hemoglobin 8.4 G/DL (14.2-18.0) L Hematocrit 25.9 % (42.0-52.0) L Mean Corpuscular Volume 89 FL (80-99) Mean Corpuscular Hemoglobin 29.1 PG (27.0-31.0) Mean Corpuscular Hemoglobin Concent 32.5 G/DL (32.0-36.0) Red Cell Distribution Width 15.2 % (11.6-14.8) H Platelet Count 494 K/UL (150-450) H Mean Platelet Volume 5.4 FL (6.5-10.1) L Neutrophils (%) (Auto) 81.3 % (45.0-75.0) H Lymphocytes (%) (Auto) 10.2 % (20.0-45.0) L Monocytes (%) (Auto) 4.6 % (1.0-10.0) Eosinophils (%) (Auto) 3.6 % (0.0-3.0) H Basophils (%) (Auto) 0.4 % (0.0-2.0) Sodium Level 143 MMOL/L (136-145) Potassium Level 4.2 MMOL/L (3.5-5.1) Chloride Level 110 MMOL/L (98-107) H Carbon Dioxide Level 25 MMOL/L (21-32) Anion Gap 8 mmol/L (5-15) Blood Urea Nitrogen 35 mg/dL (7-18) H Creatinine 2.1 MG/DL (0.55-1.30) H Estimat Glomerular Filtration Rate 32.8 mL/min (>60) Glucose Level 118 MG/DL (74-106) H Calcium Level 8.0 MG/DL (8.5-10.1) L Phosphorus Level 3.7 MG/DL (2.5-4.9) Magnesium Level 2.2 MG/DL (1.8-2.4) Total Bilirubin 0.4 MG/DL (0.2-1.0) Aspartate Amino Transf (AST/SGOT) 15 U/L (15-37) Alanine Aminotransferase (ALT/SGPT) 11 U/L (12-78) L Alkaline Phosphatase 133 U/L (46-116) H Total Protein 7.3 G/DL (6.4-8.2) Albumin 1.5 G/DL (3.4-5.0) L Globulin 5.8 g/dL Albumin/Globulin Ratio 0.3 (1.0-2.7) L Microbiology Date/Time Source Procedure Growth Status 07/29/17 12:40 Sputum Gram Stain - Final Resulted 07/29/17 12:40 Sputum Sputum Culture Pending Resulted 07/29/17 03:00 Stool Stool Culture - Preliminary NORMAL FECAL SHERON. Resulted Intake and Output 07/29/17 07/30/17 19:00 07:00 Intake Total 730 ml 905 ml Output Total 900 ml 1100 ml Balance -170 ml -195 ml Intake Free Water 150 ml IV Total 55 ml 55 ml Tube Feeding 600 ml 580 ml Other 75 ml 120 ml Output Urine Total 900 ml 1100 ml # Bowel Movements 2 4 Objective General Appearance: WD/WN, alert, moderate distress EENT: PERRL/EOMI, normal ENT inspection Neck: non-tender, normal alignment, supple Cardiovascular: normal peripheral pulses, normal rate, regular rhythm, no gallop/murmur, no JVD Respiratory/Chest: Tracheostomy; mech vent; respiratory distress, crackles/ rales, rhonchi - bilaterally, expiratory wheezing Abdomen: normal bowel sounds, non tender, soft, no organomegaly, no mass Extremities: normal range of motion 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 (3) Dysphagia (4) Hemorrhagic stroke (5) HTN (hypertension) Assessment & Plan: Continue norvasc and lopressor (6) Diabetes mellitus type II, controlled Assessment & Plan: Continue novolog sliding scale. (7) Renal failure (8) Left hemiparesis (9) Iron deficiency anemia (10) Altered mental status (11) Pneumonia Assessment & Plan: Bilateral. Continue vanco, meropenem and inh colistin per ID (12) CVA (cerebral vascular accident) Assessment & Plan: Acute basal ganglia (13) Acute and chronic respiratory failure (14) Acute encephalopathy (15) Chronic respiratory failure Status: not improved Thaddeus Diaz MD Jul 30, 2017 19:06
[2017-07-30 20:00] VITALS: BP 154/90
[2017-07-30] MEDS: Miralax 17gm pkt ORAL SCH (21:00)
[2017-07-30] MEDS: Epogen (for non ESRD use) SUBQ SCH (21:35)
[2017-07-31] VITALS (7 sets, daily range): BP systolic 151–182; BP diastolic 79–104
[2017-07-31] MEDS: Tigecycline 50 MG in D5W 110 ML IVPB SCH ×2 (02:28→14:45)
[2017-07-31] MEDS: Morphine Sulfate 4mg/ml Inj IVP PRN ×2 (04:12→20:12)
[2017-07-31 04:28] LABS: ANION GAP 8 mmol/L (5-15); BLOOD UREA NITROGEN 39 mg/dL (7-18); CALCIUM 8.1 MG/DL (8.5-10.1); CARBON DIOXIDE 24 MMOL/L (21-32); CHLORIDE 109 MMOL/L (98-107); CREATININE 2.1 MG/DL (0.55-1.30); POTASSIUM 5.1 MMOL/L (3.5-5.1); SODIUM 141 MMOL/L (136-145)
[2017-07-31 04:29] LABS: BASOPHILS % (AUTO) 0.6 % (0.0-2.0); EOSINOPHILS % (AUTO) 4.1 % (0.0-3.0); HEMATOCRIT 26.4 % (42.0-52.0); HEMOGLOBIN 8.6 G/DL (14.2-18.0); LYMPHOCYTES % (AUTO) 13.8 % (20.0-45.0); MEAN CORPUSCULAR VOLUME 91 FL (80-99); MONOCYTES % (AUTO) 4.9 % (1.0-10.0); NEUTROPHILS % (AUTO) 76.7 % (45.0-75.0); PLATELET COUNT 494 K/UL (150-450); RED CELL DISTRIBUTION WIDTH 16.1 % (11.6-14.8); WHITE BLOOD COUNT 13.2 K/UL (4.8-10.8)
[2017-07-31] MEDS: Meropenem 1 GM in NS 55 ML IVPB SCH ×2 (05:00→17:14)
[2017-07-31] MEDS: NovoLOG Insulin Flexpen SUBQ SCH ×3 (06:00→17:14)
[2017-07-31] MEDS: HydrALAZINE 25mg tab GT SCH ×3 (06:02→21:50)
[2017-07-31] MEDS: Metoprolol Tartrate 50mg tab GT SCH ×2 (09:07→20:11)
[2017-07-31] MEDS: Docusate 100mg/10ml Liq GT SCH ×2 (09:08→17:13)
[2017-07-31] MEDS: Pantoprazole Inj IV SCH (09:08)
[2017-07-31] MEDS: Heparin 5000 units/ml inj SUBQ SCH ×2 (09:09→20:13)
--- NOTE | 2017-07-31 09:41 | General Progress Note ---
Assessment/Plan Problem List: (1) Abdominal pain ICD Codes: R10.9 - Unspecified abdominal pain SNOMED: 65118425 (2) Anemia ICD Codes: D64.9 - Anemia, unspecified SNOMED: 773778280 (3) Tracheostomy care ICD Codes: Z43.0 - Encounter for attention to tracheostomy SNOMED: 581486262 (4) Left hemiparesis ICD Codes: G81.94 - Hemiplegia, unspecified affecting left nondominant side SNOMED: 090527790 (5) Diabetes mellitus type II, controlled ICD Codes: E11.9 - Type 2 diabetes mellitus without complications SNOMED: 33251037 (6) HTN (hypertension) ICD Codes: I10 - Essential (primary) hypertension SNOMED: 92107590 (7) Iron deficiency anemia ICD Codes: D50.9 - Iron deficiency anemia, unspecified SNOMED: 49729630 Assessment/Plan KUB reviewed >> no acute process anemia work up reviewed >> most likely 2/2 to chronic disease OB stool negative GT dependent some abdominal bloating cdiff negative stool culture supportive care at this time simethicone prn for abdominal gas pain GTFs per RD turn q2 hours to promote GI motility prn transfusions bowel regime ppi abx per ID fu labs Subjective ROS Limited/Unobtainable: No Allergies: Coded Allergies: No Known Allergies (Unverified , 07/26/17) Objective Last 24 Hour Vital Signs Date Time Temp Pulse Resp B/P (MAP) Pulse Ox O2 Delivery O2 Flow Rate FiO2 07/31/17 09:07 80 154/84 07/31/17 09:07 80 154/84 07/31/17 08:55 68 17 30 07/31/17 08:00 69 07/31/17 08:00 97.9 80 18 154/84 100 Mechanical Ventilator 30 97.9 07/31/17 08:00 30 07/31/17 07:20 66 18 30 07/31/17 06:02 156/87 07/31/17 04:55 78 16 30 07/31/17 04:00 30 07/31/17 04:00 99.1 72 18 156/87 98 Mechanical Ventilator 30 99.1 07/31/17 04:00 73 07/31/17 02:45 78 16 30 07/31/17 01:00 76 16 30 07/31/17 00:05 30 07/31/17 00:00 98.2 77 23 157/104 99 Mechanical Ventilator 30 98.2 07/31/17 00:00 77 07/30/17 22:55 78 16 30 07/30/17 21:35 154/90 07/30/17 21:34 79 17 100 Mechanical Ventilator 30 07/30/17 21:34 76 154/90 07/30/17 21:14 80 16 98 Mechanical Ventilator 30 07/30/17 21:14 76 16 30 07/30/17 20:00 98.1 80 21 154/90 99 Mechanical Ventilator 30 98.1 07/30/17 20:00 73 07/30/17 20:00 30 07/30/17 18:45 73 16 30 07/30/17 17:24 71 16 30 07/30/17 16:04 30 07/30/17 16:00 98.2 75 20 155/80 98 Mechanical Ventilator 30 98.2 07/30/17 16:00 67 07/30/17 14:56 75 19 30 07/30/17 14:14 162/84 07/30/17 13:24 74 22 30 07/30/17 12:00 66 07/30/17 12:00 98.6 68 20 162/84 98 Mechanical Ventilator 30 98.6 07/30/17 12:00 30 07/30/17 10:59 66 17 100 Mechanical Ventilator 30 07/30/17 10:49 66 17 98 Mechanical Ventilator 30 07/30/17 10:47 66 17 30 Intake and Output 07/30/17 07/31/17 19:00 07:00 Intake Total 770 ml 750 ml Output Total 101 ml 1100 ml Balance 669 ml -350 ml Intake Free Water 200 ml 200 ml IV Total 220 ml Tube Feeding 330 ml 330 ml Other 240 ml Output Urine Total 100 ml 1100 ml Stool Total 1 ml # Bowel Movements 1 Laboratory Tests 07/30/17 13:00: Urine Legionella Antigen [Pending] 07/31/17 03:50: White Blood Count 13.2H, Red Blood Count 2.90L, Hemoglobin 8.6L, Hematocrit 26.4L, Mean Corpuscular Volume 91, Mean Corpuscular Hemoglobin 29.6, Mean Corpuscular Hemoglobin Concent 32.4, Red Cell Distribution Width 16.1H, Platelet Count 494H, Mean Platelet Volume 5.4L, Neutrophils (%) (Auto) 76.7H, Lymphocytes (%) (Auto) 13.8L, Monocytes (%) (Auto) 4.9, Eosinophils (%) (Auto) 4.1H, Basophils (%) (Auto) 0.6, Sodium Level 141, Potassium Level 5.1, Chloride Level 109H, Carbon Dioxide Level 24, Anion Gap 8, Blood Urea Nitrogen 39H, Creatinine 2.1H, Estimat Glomerular Filtration Rate 32.8, Glucose Level 106, Calcium Level 8.1L Height (Feet): 5 Height (Inches): 6.00 Weight (Pounds): 164 General Appearance: no apparent distress EENT: normal ENT inspection Neck: supple Cardiovascular: normal rate Respiratory/Chest: decreased breath sounds Abdomen: normal bowel sounds, non tender, soft Extremities: non-tender David Edouard MD Jul 31, 2017 09:41
--- NOTE | 2017-07-31 09:56 | Nephrology Progress Note ---
Assessment/Plan Problem List: (1) Acute on chronic renal failure (2) Anemia (3) Hypoglycemia (4) Chronic respiratory failure (5) History of CVA (cerebrovascular accident) (6) Accelerated hypertension (7) Nephrotic syndrome Assessment WBCs lowering Renal failure Cr lower 2.9 to 2.1 Nephrotic syndrom likely Pre renal super imposed on renal Severe HypoAlbuminemia Sever Anemia Chronic vent / Trach. has PEG HypoKalemia 4+ Proteinuria Hypoglycemia HTN Plan add epogen Add Hydralazine pulm support transfuse K IV Monitor renal parameters 24 H urine protein 5.4 gr protein Subjective ROS Limited/Unobtainable: Yes Objective Objective Last 24 Hour Vital Signs Date Time Temp Pulse Resp B/P (MAP) Pulse Ox O2 Delivery O2 Flow Rate FiO2 07/31/17 09:07 80 154/84 07/31/17 09:07 80 154/84 07/31/17 08:55 68 17 30 07/31/17 08:00 69 07/31/17 08:00 97.9 80 18 154/84 100 Mechanical Ventilator 30 97.9 07/31/17 08:00 30 07/31/17 07:20 66 18 30 07/31/17 06:02 156/87 07/31/17 04:55 78 16 30 07/31/17 04:00 30 07/31/17 04:00 99.1 72 18 156/87 98 Mechanical Ventilator 30 99.1 07/31/17 04:00 73 07/31/17 02:45 78 16 30 07/31/17 01:00 76 16 30 07/31/17 00:05 30 07/31/17 00:00 98.2 77 23 157/104 99 Mechanical Ventilator 30 98.2 07/31/17 00:00 77 07/30/17 22:55 78 16 30 07/30/17 21:35 154/90 07/30/17 21:34 79 17 100 Mechanical Ventilator 30 07/30/17 21:34 76 154/90 07/30/17 21:14 80 16 98 Mechanical Ventilator 30 07/30/17 21:14 76 16 30 07/30/17 20:00 98.1 80 21 154/90 99 Mechanical Ventilator 30 98.1 07/30/17 20:00 73 07/30/17 20:00 30 07/30/17 18:45 73 16 30 07/30/17 17:24 71 16 30 07/30/17 16:04 30 07/30/17 16:00 98.2 75 20 155/80 98 Mechanical Ventilator 30 98.2 07/30/17 16:00 67 07/30/17 14:56 75 19 30 07/30/17 14:14 162/84 07/30/17 13:24 74 22 30 07/30/17 12:00 66 07/30/17 12:00 98.6 68 20 162/84 98 Mechanical Ventilator 30 98.6 07/30/17 12:00 30 07/30/17 10:59 66 17 100 Mechanical Ventilator 30 07/30/17 10:49 66 17 98 Mechanical Ventilator 30 07/30/17 10:47 66 17 30 Intake and Output 07/30/17 07/31/17 19:00 07:00 Intake Total 770 ml 750 ml Output Total 101 ml 1100 ml Balance 669 ml -350 ml Intake Free Water 200 ml 200 ml IV Total 220 ml Tube Feeding 330 ml 330 ml Other 240 ml Output Urine Total 100 ml 1100 ml Stool Total 1 ml # Bowel Movements 1 Laboratory Tests 07/30/17 13:00: Urine Legionella Antigen [Pending] 07/31/17 03:50: White Blood Count 13.2H, Red Blood Count 2.90L, Hemoglobin 8.6L, Hematocrit 26.4L, Mean Corpuscular Volume 91, Mean Corpuscular Hemoglobin 29.6, Mean Corpuscular Hemoglobin Concent 32.4, Red Cell Distribution Width 16.1H, Platelet Count 494H, Mean Platelet Volume 5.4L, Neutrophils (%) (Auto) 76.7H, Lymphocytes (%) (Auto) 13.8L, Monocytes (%) (Auto) 4.9, Eosinophils (%) (Auto) 4.1H, Basophils (%) (Auto) 0.6, Sodium Level 141, Potassium Level 5.1, Chloride Level 109H, Carbon Dioxide Level 24, Anion Gap 8, Blood Urea Nitrogen 39H, Creatinine 2.1H, Estimat Glomerular Filtration Rate 32.8, Glucose Level 106, Calcium Level 8.1L Height (Feet): 5 Height (Inches): 6.00 Weight (Pounds): 164 General Appearance: no apparent distress Cardiovascular: normal rate Respiratory/Chest: decreased breath sounds Abdomen: distended FRED VEGA 23, 2018 09:56
[2017-07-31] MEDS: Colistin for inhalation INH SCH ×2 (10:06→21:20)
[2017-07-31] MEDS ORDERED: Tubing IV Secondary IV ONE ×2 (10:52→11:21)
[2017-07-31] MEDS ORDERED: NS 275ml ONE (11:21)
--- NOTE | 2017-07-31 12:26 | Pulmonolgy Critical Care Note ---
Critical Care - Asmt/Plan Problems: (1) MDR Acinetobacter baumannii infection (2) Pneumonia (3) Acute encephalopathy (4) Cardiac arrest (5) Acute and chronic respiratory failure (6) Diabetes mellitus (7) History of CVA (cerebrovascular accident) (8) CVA (cerebral vascular accident) Respiratory: monitor respiratory rate, adjust FIO2, CXR Cardiac: continue to monitor HR/BP Renal: F/U I&O Infectious Disease: check cultures Gastrointestinal: continue feedings/current rate Endocrine: monitor blood sugar, check HgA1C Hematologic: monitor H/H Neurologic: PRN Ativan Disposition: keep in ICU Notes Reviewed: cardio, renal Discussed with: consultants, 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 - Objective Last 24 Hour Vital Signs Date Time Temp Pulse Resp B/P (MAP) Pulse Ox O2 Delivery O2 Flow Rate FiO2 07/31/17 12:00 30 07/31/17 11:52 97.8 67 16 151/79 98 Mechanical Ventilator 30 97.8 07/31/17 10:47 65 16 30 07/31/17 10:20 65 17 98 Mechanical Ventilator 30 07/31/17 10:07 68 22 97 Mechanical Ventilator 30 07/31/17 09:07 80 154/84 07/31/17 09:07 80 154/84 07/31/17 08:55 68 17 30 07/31/17 08:00 69 07/31/17 08:00 97.9 80 18 154/84 100 Mechanical Ventilator 30 97.9 07/31/17 08:00 30 07/31/17 07:20 66 18 30 07/31/17 06:02 156/87 07/31/17 04:55 78 16 30 07/31/17 04:00 30 07/31/17 04:00 99.1 72 18 156/87 98 Mechanical Ventilator 30 99.1 07/31/17 04:00 73 07/31/17 02:45 78 16 30 07/31/17 01:00 76 16 30 07/31/17 00:05 30 07/31/17 00:00 98.2 77 23 157/104 99 Mechanical Ventilator 30 98.2 07/31/17 00:00 77 07/30/17 22:55 78 16 30 07/30/17 21:35 154/90 07/30/17 21:34 79 17 100 Mechanical Ventilator 30 07/30/17 21:34 76 154/90 07/30/17 21:14 80 16 98 Mechanical Ventilator 30 07/30/17 21:14 76 16 30 07/30/17 20:00 98.1 80 21 154/90 99 Mechanical Ventilator 30 98.1 07/30/17 20:00 73 07/30/17 20:00 30 07/30/17 18:45 73 16 30 07/30/17 17:24 71 16 30 07/30/17 16:04 30 07/30/17 16:00 98.2 75 20 155/80 98 Mechanical Ventilator 30 98.2 07/30/17 16:00 67 07/30/17 14:56 75 19 30 07/30/17 14:14 162/84 07/30/17 13:24 74 22 30 Status: somnolent Condition: critical HEENT: atraumatic Neck: full ROM Lungs: clear Heart: HR/BP stable Abdomen: soft, non-tender, feeding tube Extremities: no C/C/E Micro: Microbiology Date/Time Source Procedure Growth Status 07/29/17 12:40 Sputum Gram Stain - Final Resulted 07/29/17 12:40 Sputum Culture - Preliminary Gram Negative Leon Resulted 07/29/17 03:00 Stool Stool Culture - Final NO SALMONELLA,SHIGELLA,OR CAMPYLOBACT... Complete Accucheck: 106 Critical Care - Subjective ROS Limited/Unobtainable: Yes Condition: critical EKG Rhythm: Sinus Bradycardia FI02: 30 Vent Support Breath Rate: 16 Vent Support Mode: AC Vent Tidal Volume: 600 Sputum Amount: Scant PEEP: 5.0 PIP: 29 Tube Feeding Amount: 45 I&O: Intake and Output 07/30/17 07/31/17 19:00 07:00 Intake Total 770 ml 750 ml Output Total 101 ml 1100 ml Balance 669 ml -350 ml Intake Free Water 200 ml 200 ml IV Total 220 ml Tube Feeding 330 ml 330 ml Other 240 ml Output Urine Total 100 ml 1100 ml Stool Total 1 ml # Bowel Movements 1 Labs: Laboratory Tests Test 07/30/17 13:00 07/31/17 03:50 Urine Legionella Antigen Pending White Blood Count 13.2 K/UL (4.8-10.8) H Red Blood Count 2.90 M/UL (4.70-6.10) L Hemoglobin 8.6 G/DL (14.2-18.0) L Hematocrit 26.4 % (42.0-52.0) L Mean Corpuscular Volume 91 FL (80-99) Mean Corpuscular Hemoglobin 29.6 PG (27.0-31.0) Mean Corpuscular Hemoglobin Concent 32.4 G/DL (32.0-36.0) Red Cell Distribution Width 16.1 % (11.6-14.8) H Platelet Count 494 K/UL (150-450) H Mean Platelet Volume 5.4 FL (6.5-10.1) L Neutrophils (%) (Auto) 76.7 % (45.0-75.0) H Lymphocytes (%) (Auto) 13.8 % (20.0-45.0) L Monocytes (%) (Auto) 4.9 % (1.0-10.0) Eosinophils (%) (Auto) 4.1 % (0.0-3.0) H Basophils (%) (Auto) 0.6 % (0.0-2.0) Sodium Level 141 MMOL/L (136-145) Potassium Level 5.1 MMOL/L (3.5-5.1) Chloride Level 109 MMOL/L (98-107) H Carbon Dioxide Level 24 MMOL/L (21-32) Anion Gap 8 mmol/L (5-15) Blood Urea Nitrogen 39 mg/dL (7-18) H Creatinine 2.1 MG/DL (0.55-1.30) H Estimat Glomerular Filtration Rate 32.8 mL/min (>60) Glucose Level 106 MG/DL (74-106) Calcium Level 8.1 MG/DL (8.5-10.1) L Siva Quinteros MD Jul 31, 2017 12:26
--- NOTE | 2017-07-31 13:20 | Cardiology Progress Note ---
Assessment/Plan Status: doing well, stable Assessment/Plan -TTE reviewed, no wall motion abnormalities, normal LV function, moderate AR - stable -IV abx due to pulmonary infiltrates and positive culture - concerning for worsening CXR albeit clinically stable, wbc persistently elevated -Continue BP medications - hydralazine added -Defer cardiac cath at this time, patients conditions likely from pulmonary infection as opposed to pulseless v tachy -CTA with infarct - neuro consult, repeat CT in 1 week -Plavix -Statin -Placement Subjective Cardiovascular: Reports: no symptoms Respiratory: Reports: no symptoms Gastrointestinal/Abdominal: Reports: no symptoms Genitourinary: Reports: no symptoms Subjective No acute events, stable on vent, responsive to stimuli Vitals stable, feeds at goal, no residuals Blood culture positive for gram negative rods, WBC coming down Mild anemia Creatinine improved Objective Last 24 Hour Vital Signs Date Time Temp Pulse Resp B/P (MAP) Pulse Ox O2 Delivery O2 Flow Rate FiO2 07/31/17 13:01 70 18 30 07/31/17 12:00 30 07/31/17 12:00 68 07/31/17 11:52 97.8 67 16 151/79 98 Mechanical Ventilator 30 97.8 07/31/17 10:47 65 16 30 07/31/17 10:20 65 17 98 Mechanical Ventilator 30 07/31/17 10:07 68 22 97 Mechanical Ventilator 30 07/31/17 09:07 80 154/84 07/31/17 09:07 80 154/84 07/31/17 08:55 68 17 30 07/31/17 08:00 69 07/31/17 08:00 97.9 80 18 154/84 100 Mechanical Ventilator 30 97.9 07/31/17 08:00 30 07/31/17 07:20 66 18 30 07/31/17 06:02 156/87 07/31/17 04:55 78 16 30 07/31/17 04:00 30 07/31/17 04:00 99.1 72 18 156/87 98 Mechanical Ventilator 30 99.1 07/31/17 04:00 73 07/31/17 02:45 78 16 30 07/31/17 01:00 76 16 30 07/31/17 00:05 30 07/31/17 00:00 98.2 77 23 157/104 99 Mechanical Ventilator 30 98.2 07/31/17 00:00 77 07/30/17 22:55 78 16 30 07/30/17 21:35 154/90 07/30/17 21:34 79 17 100 Mechanical Ventilator 30 07/30/17 21:34 76 154/90 07/30/17 21:14 80 16 98 Mechanical Ventilator 30 07/30/17 21:14 76 16 30 07/30/17 20:00 98.1 80 21 154/90 99 Mechanical Ventilator 30 98.1 07/30/17 20:00 73 07/30/17 20:00 30 07/30/17 18:45 73 16 30 07/30/17 17:24 71 16 30 07/30/17 16:04 30 07/30/17 16:00 98.2 75 20 155/80 98 Mechanical Ventilator 30 98.2 07/30/17 16:00 67 07/30/17 14:56 75 19 30 07/30/17 14:14 162/84 07/30/17 13:24 74 22 30 General Appearance: no apparent distress EENT: PERRL/EOMI Neck: non-tender Rhythm: NSR Cardiovascular: normal peripheral pulses Respiratory/Chest: chest wall non-tender Abdomen: normal bowel sounds Extremities: normal range of motion 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 Intake and Output 07/30/17 07/31/17 19:00 07:00 Intake Total 770 ml 750 ml Output Total 101 ml 1100 ml Balance 669 ml -350 ml Intake Free Water 200 ml 200 ml IV Total 220 ml Tube Feeding 330 ml 330 ml Other 240 ml Output Urine Total 100 ml 1100 ml Stool Total 1 ml # Bowel Movements 1 Laboratory Tests Test 07/31/17 03:50 White Blood Count 13.2 K/UL (4.8-10.8) H Red Blood Count 2.90 M/UL (4.70-6.10) L Hemoglobin 8.6 G/DL (14.2-18.0) L Hematocrit 26.4 % (42.0-52.0) L Mean Corpuscular Volume 91 FL (80-99) Mean Corpuscular Hemoglobin 29.6 PG (27.0-31.0) Mean Corpuscular Hemoglobin Concent 32.4 G/DL (32.0-36.0) Red Cell Distribution Width 16.1 % (11.6-14.8) H Platelet Count 494 K/UL (150-450) H Mean Platelet Volume 5.4 FL (6.5-10.1) L Neutrophils (%) (Auto) 76.7 % (45.0-75.0) H Lymphocytes (%) (Auto) 13.8 % (20.0-45.0) L Monocytes (%) (Auto) 4.9 % (1.0-10.0) Eosinophils (%) (Auto) 4.1 % (0.0-3.0) H Basophils (%) (Auto) 0.6 % (0.0-2.0) Sodium Level 141 MMOL/L (136-145) Potassium Level 5.1 MMOL/L (3.5-5.1) Chloride Level 109 MMOL/L (98-107) H Carbon Dioxide Level 24 MMOL/L (21-32) Anion Gap 8 mmol/L (5-15) Blood Urea Nitrogen 39 mg/dL (7-18) H Creatinine 2.1 MG/DL (0.55-1.30) H Estimat Glomerular Filtration Rate 32.8 mL/min (>60) Glucose Level 106 MG/DL (74-106) Calcium Level 8.1 MG/DL (8.5-10.1) L Microbiology Date/Time Source Procedure Growth Status 07/29/17 12:40 Sputum Gram Stain - Final Resulted 07/29/17 12:40 Sputum Culture - Preliminary Gram Negative Leon Resulted 07/29/17 03:00 Stool Stool Culture - Final NO SALMONELLA,SHIGELLA,OR CAMPYLOBACT... Complete FilsoRenny todd M.D. Jul 31, 2017 13:20
--- NOTE | 2017-07-31 15:42 | Infectious Diseases Prog Note ---
Assessment/Plan Assessment/Plan Assessment: Probable MDRO PNA- worsening- r/o legionella 07/29 Scx: GNR -CXR 07/30:Improved but still extensive bilateral diffuse interstitial and airspace infiltrates versus edema, over 2 days -CXR 07/28: Over 2 days, interim worsening of bilateral diffuse interstitial and airspace infiltrates versus edema -CXR: Cardiomegaly with bilateral interstitial and patchy airspace opacities.Findings may be related to CHF/pulmonary edema however superimposed pneumonia not entirely excluded. -sp cx GNR MDR A. baumanni (I Levo, Minocycline; S Colistin, Polymixin B and Tygeclcine); E. aerogenes probable AMP c (S cefepime, Meropenem, Genta) Leukocytosis, improving -no fever -u/a wbc 5-10; repeat neg -Cdiff neg Lactic acidosis, SP Acute CVA -CT head: asymmetric densities in the right insula, steen radiata, and basal ganglia concerning for acute infarct. DM2 HTN WI/CAD anemia CVA/TIA/hemorrhagic stroke w/ L side hemiparesis CKD IV, Cr imprivng resp failure Trach/vent dependant dysphagia s/p PEG non verbal SNF resident Plan: -Continue empiric Meropenem and Levaquin # 4 (abx d# 7 ) for PNA, INH Colistin # 3 and IV Tigecycline d # 2 for MDR ABC -07/28 SP IV Vancomycin #3, Cefepime #3 -u/a w/ reflex -f/u cx -Monitor CBC/BMP, temperatures -aspiration precautions -Trach/peg care -f/u legionella ag urine (has not been collected yet) Subjective Allergies: Coded Allergies: No Known Allergies (Unverified , 07/26/17) Subjective Aferbile Objective Vital Signs Last 24 Hour Vital Signs Date Time Temp Pulse Resp B/P (MAP) Pulse Ox O2 Delivery O2 Flow Rate FiO2 07/31/17 14:44 151/79 07/31/17 14:38 67 16 30 07/31/17 13:01 70 18 30 07/31/17 12:00 30 07/31/17 12:00 68 07/31/17 11:52 97.8 67 16 151/79 98 Mechanical Ventilator 30 97.8 07/31/17 10:47 65 16 30 07/31/17 10:20 65 17 98 Mechanical Ventilator 30 07/31/17 10:07 68 22 97 Mechanical Ventilator 30 07/31/17 09:07 80 154/84 07/31/17 09:07 80 154/84 07/31/17 08:55 68 17 30 07/31/17 08:00 69 07/31/17 08:00 97.9 80 18 154/84 100 Mechanical Ventilator 30 97.9 07/31/17 08:00 30 07/31/17 07:20 66 18 30 07/31/17 06:02 156/87 07/31/17 04:55 78 16 30 07/31/17 04:00 30 07/31/17 04:00 99.1 72 18 156/87 98 Mechanical Ventilator 30 99.1 07/31/17 04:00 73 07/31/17 02:45 78 16 30 07/31/17 01:00 76 16 30 07/31/17 00:05 30 07/31/17 00:00 98.2 77 23 157/104 99 Mechanical Ventilator 30 98.2 07/31/17 00:00 77 07/30/17 22:55 78 16 30 07/30/17 21:35 154/90 07/30/17 21:34 79 17 100 Mechanical Ventilator 30 07/30/17 21:34 76 154/90 07/30/17 21:14 80 16 98 Mechanical Ventilator 30 07/30/17 21:14 76 16 30 07/30/17 20:00 98.1 80 21 154/90 99 Mechanical Ventilator 30 98.1 07/30/17 20:00 73 07/30/17 20:00 30 07/30/17 18:45 73 16 30 07/30/17 17:24 71 16 30 07/30/17 16:04 30 07/30/17 16:00 98.2 75 20 155/80 98 Mechanical Ventilator 30 98.2 07/30/17 16:00 67 Height (Feet): 5 Height (Inches): 6.00 Weight (Pounds): 164 HEENT: anicteric Respiratory/Chest: normal breath sounds Cardiovascular: regularly irregular Abdomen: no organomegaly Microbiology Date/Time Source Procedure Growth Status 07/29/17 12:40 Sputum Gram Stain - Final Resulted 07/29/17 12:40 Sputum Culture - Preliminary Gram Negative Leon Resulted 07/29/17 03:00 Stool Stool Culture - Final NO SALMONELLA,SHIGELLA,OR CAMPYLOBACT... Complete Laboratory Tests Test 07/31/17 03:50 White Blood Count 13.2 K/UL (4.8-10.8) H Red Blood Count 2.90 M/UL (4.70-6.10) L Hemoglobin 8.6 G/DL (14.2-18.0) L Hematocrit 26.4 % (42.0-52.0) L Mean Corpuscular Volume 91 FL (80-99) Mean Corpuscular Hemoglobin 29.6 PG (27.0-31.0) Mean Corpuscular Hemoglobin Concent 32.4 G/DL (32.0-36.0) Red Cell Distribution Width 16.1 % (11.6-14.8) H Platelet Count 494 K/UL (150-450) H Mean Platelet Volume 5.4 FL (6.5-10.1) L Neutrophils (%) (Auto) 76.7 % (45.0-75.0) H Lymphocytes (%) (Auto) 13.8 % (20.0-45.0) L Monocytes (%) (Auto) 4.9 % (1.0-10.0) Eosinophils (%) (Auto) 4.1 % (0.0-3.0) H Basophils (%) (Auto) 0.6 % (0.0-2.0) Sodium Level 141 MMOL/L (136-145) Potassium Level 5.1 MMOL/L (3.5-5.1) Chloride Level 109 MMOL/L (98-107) H Carbon Dioxide Level 24 MMOL/L (21-32) Anion Gap 8 mmol/L (5-15) Blood Urea Nitrogen 39 mg/dL (7-18) H Creatinine 2.1 MG/DL (0.55-1.30) H Estimat Glomerular Filtration Rate 32.8 mL/min (>60) Glucose Level 106 MG/DL (74-106) Calcium Level 8.1 MG/DL (8.5-10.1) L Current Medications Medications (Trade) Dose Ordered Sig/Johnathan Route PRN Reason Start Time Stop Time Status Last Admin Dose Admin Acetaminophen (Tylenol) 650 mg Q4H PRN ORAL FEVER 07/28/17 12:30 08/25/17 12:29 Amlodipine Besylate (Norvasc) 10 mg DAILY GT 07/29/17 09:00 08/27/17 08:59 07/31/17 09:07 Clonidine HCl (Catapres TTS-1) 1 patch ONCE A WEEK TDERMAL 08/01/17 09:00 08/31/17 08:59 Clonidine HCl (Catapres Tab) 0.1 mg Q4H PRN ORAL For High Blood Pressure 07/28/17 12:45 08/27/17 12:44 07/30/17 04:54 Colistimethate Sodium (Colistin *inhalation use only*) 150 mg Q12HR@, INH 07/29/17 22:00 08/05/17 21:59 07/31/17 10:06 Dextrose (Dextrose 50%) 25 ml STAT PRN IV Hypoglycemia 07/28/17 12:30 08/27/17 12:29 Dextrose (Dextrose 50%) 50 ml STAT PRN IV Hypoglycemia 07/28/17 12:30 08/27/17 12:29 Docusate Sodium (Colace) 100 mg TWICE A DAY GT 07/28/17 18:00 08/27/17 17:59 07/31/17 09:08 Epoetin Kaiden (Procrit (for non ESRD use)) 5,000 units WED-WED-WED SUBQ 07/30/17 21:00 08/29/17 20:59 07/30/17 21:35 Heparin Sodium (Porcine) (Heparin 5000 units/ml) 5,000 units EVERY 12 HOURS SUBQ 07/28/17 21:00 08/25/17 20:59 07/31/17 09:09 Hydralazine HCl (Apresoline) 25 mg Q8HR GT 07/29/17 22:00 08/28/17 21:59 07/31/17 14:44 Insulin Aspart (NovoLOG) EVERY 6 HOURS SUBQ 07/31/17 00:00 08/30/17 00:00 Levofloxacin (Levaquin) 750 mg Q48H ORAL 07/28/17 17:00 08/04/17 16:59 07/30/17 17:53 Lorazepam (Ativan 2mg/ml 1ml) 2 mg Q2H PRN IV For Anxiety 07/28/17 12:45 08/02/17 10:44 07/30/17 01:54 Meropenem 1 gm/ Sodium Chloride 55 ml @ 110 mls/hr Q12H IVPB 07/28/17 17:00 08/02/17 16:59 07/31/17 05:00 Metoprolol Tartrate (Lopressor) 50 mg EVERY 12 HOURS GT 07/28/17 21:00 08/25/17 20:59 07/31/17 09:07 Morphine Sulfate (Morphine Sulfate) 4 mg Q4H PRN IVP Severe Pain (Pain Scale 7-10) 07/28/17 14:45 08/02/17 10:44 07/31/17 04:12 Ondansetron HCl (Zofran) 4 mg Q6H PRN IVP Nausea & Vomiting 07/28/17 12:30 08/25/17 12:29 Pantoprazole (Protonix) 40 mg DAILY IV 07/29/17 09:00 08/26/17 08:59 07/31/17 09:08 Polyethylene Glycol (Miralax) 17 gm BEDTIME ORAL 07/28/17 21:00 08/27/17 20:59 Polyethylene Glycol (Miralax) 17 gm DAILYPRN PRN ORAL Constipation 07/28/17 12:30 08/27/17 12:29 Simethicone (Mylicon) 80 mg QIDPRN PRN GT GAS PAIN 07/28/17 16:00 08/27/17 15:59 Tigecycline 50 mg/ Dextrose 110 ml @ 220 mls/hr Q12H IVPB 07/31/17 02:00 08/07/17 01:59 07/31/17 14:45 Doe Burt MD Jul 31, 2017 15:42
--- NOTE | 2017-07-31 16:58 | Internal Med Progress Note ---
Subjective Date of Service: Jul 31, 2017 Physician Name Diaz,Thaddeus Attending Physician Timothy Hills MD Current Medications Medications (Trade) Dose Ordered Sig/Johnathan Route PRN Reason Start Time Stop Time Status Last Admin Dose Admin Acetaminophen (Tylenol) 650 mg Q4H PRN ORAL FEVER 07/28/17 12:30 08/25/17 12:29 Amlodipine Besylate (Norvasc) 10 mg DAILY GT 07/29/17 09:00 08/27/17 08:59 07/31/17 09:07 Clonidine HCl (Catapres TTS-1) 1 patch ONCE A WEEK TDERMAL 08/01/17 09:00 08/31/17 08:59 Clonidine HCl (Catapres Tab) 0.1 mg Q4H PRN ORAL For High Blood Pressure 07/28/17 12:45 08/27/17 12:44 07/30/17 04:54 Colistimethate Sodium (Colistin *inhalation use only*) 150 mg Q12HR@, INH 07/29/17 22:00 08/05/17 21:59 07/31/17 10:06 Dextrose (Dextrose 50%) 25 ml STAT PRN IV Hypoglycemia 07/28/17 12:30 08/27/17 12:29 Dextrose (Dextrose 50%) 50 ml STAT PRN IV Hypoglycemia 07/28/17 12:30 08/27/17 12:29 Docusate Sodium (Colace) 100 mg TWICE A DAY GT 07/28/17 18:00 08/27/17 17:59 07/31/17 09:08 Epoetin Kaiden (Procrit (for non ESRD use)) 5,000 units WED-WED-WED SUBQ 07/30/17 21:00 08/29/17 20:59 07/30/17 21:35 Heparin Sodium (Porcine) (Heparin 5000 units/ml) 5,000 units EVERY 12 HOURS SUBQ 07/28/17 21:00 08/25/17 20:59 07/31/17 09:09 Hydralazine HCl (Apresoline) 25 mg Q8HR GT 07/29/17 22:00 08/28/17 21:59 07/31/17 14:44 Insulin Aspart (NovoLOG) EVERY 6 HOURS SUBQ 07/31/17 00:00 08/30/17 00:00 Levofloxacin (Levaquin) 750 mg Q48H ORAL 07/28/17 17:00 08/04/17 16:59 07/30/17 17:53 Lorazepam (Ativan 2mg/ml 1ml) 2 mg Q2H PRN IV For Anxiety 07/28/17 12:45 08/02/17 10:44 07/30/17 01:54 Meropenem 1 gm/ Sodium Chloride 55 ml @ 110 mls/hr Q12H IVPB 07/28/17 17:00 08/02/17 16:59 07/31/17 05:00 Metoprolol Tartrate (Lopressor) 50 mg EVERY 12 HOURS GT 07/28/17 21:00 08/25/17 20:59 07/31/17 09:07 Morphine Sulfate (Morphine Sulfate) 4 mg Q4H PRN IVP Severe Pain (Pain Scale 7-10) 07/28/17 14:45 08/02/17 10:44 07/31/17 04:12 Ondansetron HCl (Zofran) 4 mg Q6H PRN IVP Nausea & Vomiting 07/28/17 12:30 08/25/17 12:29 Pantoprazole (Protonix) 40 mg DAILY IV 07/29/17 09:00 08/26/17 08:59 07/31/17 09:08 Polyethylene Glycol (Miralax) 17 gm BEDTIME ORAL 07/28/17 21:00 08/27/17 20:59 Polyethylene Glycol (Miralax) 17 gm DAILYPRN PRN ORAL Constipation 07/28/17 12:30 08/27/17 12:29 Simethicone (Mylicon) 80 mg QIDPRN PRN GT GAS PAIN 07/28/17 16:00 08/27/17 15:59 Tigecycline 50 mg/ Dextrose 110 ml @ 220 mls/hr Q12H IVPB 07/31/17 02:00 08/07/17 01:59 07/31/17 14:45 Allergies: Coded Allergies: No Known Allergies (Unverified , 07/26/17) ROS Limited/Unobtainable: Yes Subjective 56 YO M admitted with altered mental status. Now pneumonia and acute cerebral vascular accident. Cover for Int Med-Dr Hills. KENDY Objective Last Vital Signs Date Time Temp Pulse Resp B/P (MAP) Pulse Ox O2 Delivery O2 Flow Rate FiO2 07/31/17 16:00 30 07/31/17 16:00 97.7 70 18 153/84 98 Mechanical Ventilator 97.7 07/26/17 10:16 Laboratory Tests Test 07/31/17 03:50 White Blood Count 13.2 K/UL (4.8-10.8) H Red Blood Count 2.90 M/UL (4.70-6.10) L Hemoglobin 8.6 G/DL (14.2-18.0) L Hematocrit 26.4 % (42.0-52.0) L Mean Corpuscular Volume 91 FL (80-99) Mean Corpuscular Hemoglobin 29.6 PG (27.0-31.0) Mean Corpuscular Hemoglobin Concent 32.4 G/DL (32.0-36.0) Red Cell Distribution Width 16.1 % (11.6-14.8) H Platelet Count 494 K/UL (150-450) H Mean Platelet Volume 5.4 FL (6.5-10.1) L Neutrophils (%) (Auto) 76.7 % (45.0-75.0) H Lymphocytes (%) (Auto) 13.8 % (20.0-45.0) L Monocytes (%) (Auto) 4.9 % (1.0-10.0) Eosinophils (%) (Auto) 4.1 % (0.0-3.0) H Basophils (%) (Auto) 0.6 % (0.0-2.0) Sodium Level 141 MMOL/L (136-145) Potassium Level 5.1 MMOL/L (3.5-5.1) Chloride Level 109 MMOL/L (98-107) H Carbon Dioxide Level 24 MMOL/L (21-32) Anion Gap 8 mmol/L (5-15) Blood Urea Nitrogen 39 mg/dL (7-18) H Creatinine 2.1 MG/DL (0.55-1.30) H Estimat Glomerular Filtration Rate 32.8 mL/min (>60) Glucose Level 106 MG/DL (74-106) Calcium Level 8.1 MG/DL (8.5-10.1) L Microbiology Date/Time Source Procedure Growth Status 07/29/17 12:40 Sputum Gram Stain - Final Resulted 07/29/17 12:40 Sputum Culture - Preliminary Gram Negative Leon Resulted 07/29/17 03:00 Stool Stool Culture - Final NO SALMONELLA,SHIGELLA,OR CAMPYLOBACT... Complete Intake and Output 07/30/17 07/31/17 19:00 07:00 Intake Total 770 ml 750 ml Output Total 101 ml 1100 ml Balance 669 ml -350 ml Intake Free Water 200 ml 200 ml IV Total 220 ml Tube Feeding 330 ml 330 ml Other 240 ml Output Urine Total 100 ml 1100 ml Stool Total 1 ml # Bowel Movements 1 Objective General Appearance: WD/WN, alert, moderate distress EENT: PERRL/EOMI, normal ENT inspection Neck: non-tender, normal alignment, supple Cardiovascular: normal peripheral pulses, normal rate, regular rhythm, no gallop/murmur, no JVD Respiratory/Chest: Tracheostomy; mech vent; respiratory distress, crackles/ rales, rhonchi - bilaterally, expiratory wheezing Abdomen: normal bowel sounds, non tender, soft, no organomegaly, no mass Extremities: normal range of motion Neurologic: compounding scaler II-XII grossly normal, no motor/sensory deficits Skin: normal pigmentation, warm/dry Assessment/Plan Problem List: (1) Tracheostomy care (2) Ventilator dependence Assessment & Plan: See pulmonary recs. (3) Dysphagia (4) Hemorrhagic stroke (5) HTN (hypertension) Assessment & Plan: Continue norvasc and lopressor (6) Diabetes mellitus type II, controlled Assessment & Plan: Continue novolog sliding scale. (7) Renal failure (8) Left hemiparesis (9) Iron deficiency anemia (10) Altered mental status (11) Pneumonia Assessment & Plan: Bilateral. Continue vanco, meropenem and inh colistin per ID (12) CVA (cerebral vascular accident) Assessment & Plan: Acute basal ganglia (13) Acute and chronic respiratory failure (14) Acute encephalopathy (15) Chronic respiratory failure Status: not improved Thaddeus Diaz MD Jul 31, 2017 16:58
[2017-07-31] MEDS: Miralax 17gm pkt ORAL SCH ×2 (21:00→21:50)
[2017-08-01] VITALS: BP 182/93
[2017-08-01] MEDS: LORazepam Inj 2mg/ml 1ml IV PRN (00:03)
[2017-08-01] MEDS: Tigecycline 50 MG in D5W 110 ML IVPB SCH ×2 (02:00→14:21)
[2017-08-01 04:00] VITALS: BP 159/93
[2017-08-01 04:20] LABS: BASOPHILS % (AUTO) 0.5 % (0.0-2.0); EOSINOPHILS % (AUTO) 5.2 % (0.0-3.0); HEMATOCRIT 25.8 % (42.0-52.0); HEMOGLOBIN 8.4 G/DL (14.2-18.0); LYMPHOCYTES % (AUTO) 15.6 % (20.0-45.0); MEAN CORPUSCULAR VOLUME 92 FL (80-99); MONOCYTES % (AUTO) 6.3 % (1.0-10.0); NEUTROPHILS % (AUTO) 72.4 % (45.0-75.0); PLATELET COUNT 461 K/UL (150-450); RED BLOOD COUNT 2.81 M/UL (4.70-6.10); RED CELL DISTRIBUTION WIDTH 15.8 % (11.6-14.8); WHITE BLOOD COUNT 11.6 K/UL (4.8-10.8)
[2017-08-01 04:46] LABS: ALANINE AMINOTRANSFERASE 15 U/L (12-78); ALBUMIN 1.5 G/DL (3.4-5.0); ALBUMIN/GLOBULIN RATIO 0.3 (1.0-2.7); ALKALINE PHOSPHATASE 130 U/L (46-116); ANION GAP 7 mmol/L (5-15); ASPARTATE AMINO TRANSFERASE 16 U/L (15-37); BILIRUBIN,TOTAL 0.2 MG/DL (0.2-1.0); BLOOD UREA NITROGEN 48 mg/dL (7-18); CARBON DIOXIDE 23 MMOL/L (21-32); CHLORIDE 110 MMOL/L (98-107); CREATININE 2.2 MG/DL (0.55-1.30); PHOSPHORUS 5.1 MG/DL (2.5-4.9); SODIUM 140 MMOL/L (136-145)
[2017-08-01] MEDS: Meropenem 1 GM in NS 55 ML IVPB SCH ×2 (05:00→17:42)
[2017-08-01] MEDS: NovoLOG Insulin Flexpen SUBQ SCH ×4 (05:14→17:49)
[2017-08-01] MEDS: HydrALAZINE 25mg tab GT SCH (06:16)
[2017-08-01 08:00] VITALS: BP 160/77
[2017-08-01] MEDS: Colistin for inhalation INH SCH ×2 (08:34→21:28)
[2017-08-01] MEDS: Docusate 100mg/10ml Liq GT SCH ×2 (09:00→17:42)
[2017-08-01] MEDS: Metoprolol Tartrate 50mg tab GT SCH ×2 (09:07→20:58)
[2017-08-01] MEDS: Pantoprazole Inj IV SCH (09:07)
[2017-08-01] MEDS: Heparin 5000 units/ml inj SUBQ SCH ×2 (09:08→21:00)
--- NOTE | 2017-08-01 09:48 | General Progress Note ---
Assessment/Plan Problem List: (1) Abdominal pain ICD Codes: R10.9 - Unspecified abdominal pain SNOMED: 46701408 (2) Anemia ICD Codes: D64.9 - Anemia, unspecified SNOMED: 696901994 (3) Tracheostomy care ICD Codes: Z43.0 - Encounter for attention to tracheostomy SNOMED: 063774438 (4) Left hemiparesis ICD Codes: G81.94 - Hemiplegia, unspecified affecting left nondominant side SNOMED: 988732463 (5) Diabetes mellitus type II, controlled ICD Codes: E11.9 - Type 2 diabetes mellitus without complications SNOMED: 10095373 (6) HTN (hypertension) ICD Codes: I10 - Essential (primary) hypertension SNOMED: 98934904 (7) Iron deficiency anemia ICD Codes: D50.9 - Iron deficiency anemia, unspecified SNOMED: 43140221 Assessment/Plan KUB reviewed >> no acute process anemia work up reviewed >> most likely 2/2 to chronic disease OB stool negative GT dependent some abdominal bloating cdiff negative stool culture supportive care at this time simethicone prn for abdominal gas pain GTFs per RD turn q2 hours to promote GI motility prn transfusions bowel regime ppi abx per ID fu labs Subjective ROS Limited/Unobtainable: No Allergies: Coded Allergies: No Known Allergies (Unverified , 07/26/17) Objective Last 24 Hour Vital Signs Date Time Temp Pulse Resp B/P (MAP) Pulse Ox O2 Delivery O2 Flow Rate FiO2 08/01/17 09:07 63 160/77 08/01/17 09:07 63 160/77 08/01/17 09:06 160/77 08/01/17 08:42 63 17 100 Mechanical Ventilator 30 08/01/17 08:35 59 18 100 Mechanical Ventilator 30 08/01/17 08:33 58 18 30 08/01/17 08:00 60 08/01/17 08:00 97.5 60 16 160/77 100 Mechanical Ventilator 30 97.5 08/01/17 06:35 60 17 30 08/01/17 06:16 166/92 08/01/17 04:56 64 20 30 08/01/17 04:00 98.0 63 18 159/93 100 Mechanical Ventilator 30 98.0 08/01/17 04:00 30 08/01/17 03:36 59 08/01/17 02:56 57 18 30 08/01/17 00:42 63 17 30 08/01/17 00:03 182/93 08/01/17 00:00 72 08/01/17 00:00 98.6 68 18 182/93 100 Mechanical Ventilator 30 98.6 08/01/17 00:00 30 07/31/17 22:40 69 22 30 07/31/17 21:50 153/88 07/31/17 21:26 69 16 99 Mechanical Ventilator 30 07/31/17 21:18 67 19 99 Mechanical Ventilator 30 07/31/17 21:16 67 18 30 07/31/17 20:42 97.7 07/31/17 20:12 97.7 07/31/17 20:11 74 153/88 07/31/17 20:00 71 07/31/17 20:00 99.0 73 18 153/88 100 Mechanical Ventilator 30 99.0 07/31/17 20:00 30 07/31/17 18:40 74 22 30 07/31/17 17:05 70 20 30 07/31/17 16:00 30 07/31/17 16:00 97.7 70 18 153/84 98 Mechanical Ventilator 30 97.7 07/31/17 16:00 66 07/31/17 14:44 151/79 07/31/17 14:38 67 16 30 07/31/17 13:01 70 18 30 07/31/17 12:00 30 07/31/17 12:00 68 07/31/17 11:52 97.8 67 16 151/79 98 Mechanical Ventilator 30 97.8 07/31/17 10:47 65 16 30 07/31/17 10:20 65 17 98 Mechanical Ventilator 30 07/31/17 10:07 68 22 97 Mechanical Ventilator 30 Intake and Output 07/31/17 08/01/17 19:00 07:00 Intake Total 855 ml 655 ml Output Total 1000 ml 1300 ml Balance -145 ml -645 ml Intake Free Water 150 ml 100 ml IV Total 165 ml Tube Feeding 540 ml 495 ml Other 60 ml Output Urine Total 1000 ml 1300 ml # Bowel Movements 2 5 Laboratory Tests 08/01/17 03:35: White Blood Count 11.6H, Red Blood Count 2.81L, Hemoglobin 8.4L, Hematocrit 25.8L, Mean Corpuscular Volume 92, Mean Corpuscular Hemoglobin 29.9, Mean Corpuscular Hemoglobin Concent 32.6, Red Cell Distribution Width 15.8H, Platelet Count 461H, Mean Platelet Volume 5.2L, Neutrophils (%) (Auto) 72.4, Lymphocytes (%) (Auto) 15.6L, Monocytes (%) (Auto) 6.3, Eosinophils (%) (Auto) 5.2H, Basophils (%) (Auto) 0.5, Erythrocyte Sedimentation Rate 126H, Sodium Level 140, Potassium Level 6.0*H, Chloride Level 110H, Carbon Dioxide Level 23, Anion Gap 7, Blood Urea Nitrogen 48H, Creatinine 2.2H, Estimat Glomerular Filtration Rate 31.1, Glucose Level 93, Calcium Level 8.0L, Phosphorus Level 5.1H, Magnesium Level 2.2, Total Bilirubin 0.2, Aspartate Amino Transf (AST/SGOT ) 16, Alanine Aminotransferase (ALT/SGPT) 15, Alkaline Phosphatase 130H, C- Reactive Protein, Quantitative 6.7H, Total Protein 7.3, Albumin 1.5L, Globulin 5.8, Albumin/Globulin Ratio 0.3L 08/01/17 08:45: Potassium Level 6.2*H Height (Feet): 5 Height (Inches): 6.00 Weight (Pounds): 164 General Appearance: no apparent distress EENT: normal ENT inspection Neck: supple Cardiovascular: normal rate Respiratory/Chest: decreased breath sounds Abdomen: normal bowel sounds, non tender, soft Extremities: non-tender David Edouard MD Aug 01, 2017 09:48
[2017-08-01] MEDS ORDERED: Sodium Polystyrene Sulfonate 15gm Powder GT SCH (10:00)
--- NOTE | 2017-08-01 10:54 | Cardiology Progress Note ---
Assessment/Plan Status: stable Assessment/Plan -TTE reviewed, no wall motion abnormalities, normal LV function, moderate AR - stable -IV abx due to pulmonary infiltrates and positive culture - concerning for worsening CXR albeit clinically stable, wbc persistently elevated -Continue BP medications - hydralazine added -Defer cardiac cath at this time, patients conditions likely from pulmonary infection as opposed to pulseless v tachy -CTA with infarct - neuro consult, repeat CT in 1 week -Plavix -Statin -Placement Subjective Cardiovascular: Reports: no symptoms Respiratory: Reports: no symptoms Gastrointestinal/Abdominal: Reports: no symptoms Genitourinary: Reports: no symptoms Subjective No acute events, stable on vent, responsive to stimuli Vitals stable, feeds at goal, no residuals Blood culture positive for gram negative rods, WBC coming down Mild anemia Creatinine improved K elevated today Objective Last 24 Hour Vital Signs Date Time Temp Pulse Resp B/P (MAP) Pulse Ox O2 Delivery O2 Flow Rate FiO2 08/01/17 10:51 68 19 30 08/01/17 09:07 63 160/77 08/01/17 09:07 63 160/77 08/01/17 09:06 160/77 08/01/17 08:42 63 17 100 Mechanical Ventilator 30 08/01/17 08:35 59 18 100 Mechanical Ventilator 30 08/01/17 08:33 58 18 30 08/01/17 08:00 60 08/01/17 08:00 97.5 60 16 160/77 100 Mechanical Ventilator 30 97.5 08/01/17 06:35 60 17 30 08/01/17 06:16 166/92 08/01/17 04:56 64 20 30 08/01/17 04:00 98.0 63 18 159/93 100 Mechanical Ventilator 30 98.0 08/01/17 04:00 30 08/01/17 03:36 59 08/01/17 02:56 57 18 30 08/01/17 00:42 63 17 30 08/01/17 00:03 182/93 08/01/17 00:00 72 08/01/17 00:00 98.6 68 18 182/93 100 Mechanical Ventilator 30 98.6 08/01/17 00:00 30 07/31/17 22:40 69 22 30 07/31/17 21:50 153/88 07/31/17 21:26 69 16 99 Mechanical Ventilator 30 07/31/17 21:18 67 19 99 Mechanical Ventilator 30 07/31/17 21:16 67 18 30 07/31/17 20:42 97.7 07/31/17 20:12 97.7 07/31/17 20:11 74 153/88 07/31/17 20:00 71 07/31/17 20:00 99.0 73 18 153/88 100 Mechanical Ventilator 30 99.0 07/31/17 20:00 30 07/31/17 18:40 74 22 30 07/31/17 17:05 70 20 30 07/31/17 16:00 30 07/31/17 16:00 97.7 70 18 153/84 98 Mechanical Ventilator 30 97.7 07/31/17 16:00 66 07/31/17 14:44 151/79 07/31/17 14:38 67 16 30 07/31/17 13:01 70 18 30 07/31/17 12:00 30 07/31/17 12:00 68 07/31/17 11:52 97.8 67 16 151/79 98 Mechanical Ventilator 30 97.8 General Appearance: no apparent distress EENT: PERRL/EOMI Neck: non-tender Rhythm: NSR Cardiovascular: normal peripheral pulses Respiratory/Chest: chest wall non-tender Abdomen: normal bowel sounds 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 Intake and Output 07/31/17 08/01/17 19:00 07:00 Intake Total 855 ml 655 ml Output Total 1000 ml 1300 ml Balance -145 ml -645 ml Intake Free Water 150 ml 100 ml IV Total 165 ml Tube Feeding 540 ml 495 ml Other 60 ml Output Urine Total 1000 ml 1300 ml # Bowel Movements 2 5 Laboratory Tests Test 08/01/17 03:35 08/01/17 08:45 White Blood Count 11.6 K/UL (4.8-10.8) H Red Blood Count 2.81 M/UL (4.70-6.10) L Hemoglobin 8.4 G/DL (14.2-18.0) L Hematocrit 25.8 % (42.0-52.0) L Mean Corpuscular Volume 92 FL (80-99) Mean Corpuscular Hemoglobin 29.9 PG (27.0-31.0) Mean Corpuscular Hemoglobin Concent 32.6 G/DL (32.0-36.0) Red Cell Distribution Width 15.8 % (11.6-14.8) H Platelet Count 461 K/UL (150-450) H Mean Platelet Volume 5.2 FL (6.5-10.1) L Neutrophils (%) (Auto) 72.4 % (45.0-75.0) Lymphocytes (%) (Auto) 15.6 % (20.0-45.0) L Monocytes (%) (Auto) 6.3 % (1.0-10.0) Eosinophils (%) (Auto) 5.2 % (0.0-3.0) H Basophils (%) (Auto) 0.5 % (0.0-2.0) Erythrocyte Sedimentation Rate 126 MM/HR (0-20) H Sodium Level 140 MMOL/L (136-145) Potassium Level 6.0 MMOL/L (3.5-5.1) *H 6.2 MMOL/L (3.5-5.1) *H Chloride Level 110 MMOL/L (98-107) H Carbon Dioxide Level 23 MMOL/L (21-32) Anion Gap 7 mmol/L (5-15) Blood Urea Nitrogen 48 mg/dL (7-18) H Creatinine 2.2 MG/DL (0.55-1.30) H Estimat Glomerular Filtration Rate 31.1 mL/min (>60) Glucose Level 93 MG/DL (74-106) Calcium Level 8.0 MG/DL (8.5-10.1) L Phosphorus Level 5.1 MG/DL (2.5-4.9) H Magnesium Level 2.2 MG/DL (1.8-2.4) Total Bilirubin 0.2 MG/DL (0.2-1.0) Aspartate Amino Transf (AST/SGOT) 16 U/L (15-37) Alanine Aminotransferase (ALT/SGPT) 15 U/L (12-78) Alkaline Phosphatase 130 U/L (46-116) H C-Reactive Protein, Quantitative 6.7 mg/dL (0.00-0.90) H Total Protein 7.3 G/DL (6.4-8.2) Albumin 1.5 G/DL (3.4-5.0) L Globulin 5.8 g/dL Albumin/Globulin Ratio 0.3 (1.0-2.7) L Microbiology Date/Time Source Procedure Growth Status 07/29/17 12:40 Sputum Gram Stain - Final Resulted 07/29/17 12:40 Sputum Culture - Preliminary [email or web address] Complx - Mdr Resulted Renny Joy M.D. Aug 01, 2017 10:54
[2017-08-01 12:00] VITALS: BP 176/89
--- NOTE | 2017-08-01 12:58 | Nephrology Progress Note ---
Assessment/Plan Problem List: (1) Acute on chronic renal failure (2) Anemia (3) Hypoglycemia (4) Chronic respiratory failure (5) History of CVA (cerebrovascular accident) (6) Accelerated hypertension (7) Nephrotic syndrome Assessment WBCs lowering Renal failure Cr lower 2.9 to 2.1 Nephrotic syndrom likely Pre renal super imposed on renal Severe HypoAlbuminemia Sever Anemia Chronic vent / Trach. has PEG HypoKalemia 4+ Proteinuria Hypoglycemia HTN Plan kayexelate for high K change feeding to nepro add epogen Add Hydralazine pulm support transfuse K IV Monitor renal parameters 24 H urine protein 5.4 gr protein Subjective ROS Limited/Unobtainable: Yes Objective Objective Last 24 Hour Vital Signs Date Time Temp Pulse Resp B/P (MAP) Pulse Ox O2 Delivery O2 Flow Rate FiO2 08/01/17 12:46 65 16 30 08/01/17 12:00 30 08/01/17 12:00 65 08/01/17 10:51 68 19 30 08/01/17 09:07 63 160/77 08/01/17 09:07 63 160/77 08/01/17 09:06 160/77 08/01/17 08:42 63 17 100 Mechanical Ventilator 30 08/01/17 08:35 59 18 100 Mechanical Ventilator 30 08/01/17 08:33 58 18 30 08/01/17 08:00 60 08/01/17 08:00 97.5 60 16 160/77 100 Mechanical Ventilator 30 97.5 08/01/17 08:00 30 08/01/17 06:35 60 17 30 08/01/17 06:16 166/92 08/01/17 04:56 64 20 30 08/01/17 04:00 98.0 63 18 159/93 100 Mechanical Ventilator 30 98.0 08/01/17 04:00 30 08/01/17 03:36 59 08/01/17 02:56 57 18 30 08/01/17 00:42 63 17 30 08/01/17 00:03 182/93 08/01/17 00:00 72 08/01/17 00:00 98.6 68 18 182/93 100 Mechanical Ventilator 30 98.6 08/01/17 00:00 30 07/31/17 22:40 69 22 30 07/31/17 21:50 153/88 07/31/17 21:26 69 16 99 Mechanical Ventilator 30 07/31/17 21:18 67 19 99 Mechanical Ventilator 30 07/31/17 21:16 67 18 30 07/31/17 20:42 97.7 07/31/17 20:12 97.7 07/31/17 20:11 74 153/88 07/31/17 20:00 71 07/31/17 20:00 99.0 73 18 153/88 100 Mechanical Ventilator 30 99.0 07/31/17 20:00 30 07/31/17 18:40 74 22 30 07/31/17 17:05 70 20 30 07/31/17 16:00 30 07/31/17 16:00 97.7 70 18 153/84 98 Mechanical Ventilator 30 97.7 07/31/17 16:00 66 07/31/17 14:44 151/79 07/31/17 14:38 67 16 30 07/31/17 13:01 70 18 30 Intake and Output 07/31/17 08/01/17 19:00 07:00 Intake Total 855 ml 655 ml Output Total 1000 ml 1300 ml Balance -145 ml -645 ml Intake Free Water 150 ml 100 ml IV Total 165 ml Tube Feeding 540 ml 495 ml Other 60 ml Output Urine Total 1000 ml 1300 ml # Bowel Movements 2 5 Laboratory Tests 08/01/17 03:35: White Blood Count 11.6H, Red Blood Count 2.81L, Hemoglobin 8.4L, Hematocrit 25.8L, Mean Corpuscular Volume 92, Mean Corpuscular Hemoglobin 29.9, Mean Corpuscular Hemoglobin Concent 32.6, Red Cell Distribution Width 15.8H, Platelet Count 461H, Mean Platelet Volume 5.2L, Neutrophils (%) (Auto) 72.4, Lymphocytes (%) (Auto) 15.6L, Monocytes (%) (Auto) 6.3, Eosinophils (%) (Auto) 5.2H, Basophils (%) (Auto) 0.5, Erythrocyte Sedimentation Rate 126H, Sodium Level 140, Potassium Level 6.0*H, Chloride Level 110H, Carbon Dioxide Level 23, Anion Gap 7, Blood Urea Nitrogen 48H, Creatinine 2.2H, Estimat Glomerular Filtration Rate 31.1, Glucose Level 93, Calcium Level 8.0L, Phosphorus Level 5.1H, Magnesium Level 2.2, Total Bilirubin 0.2, Aspartate Amino Transf (AST/SGOT ) 16, Alanine Aminotransferase (ALT/SGPT) 15, Alkaline Phosphatase 130H, C- Reactive Protein, Quantitative 6.7H, Total Protein 7.3, Albumin 1.5L, Globulin 5.8, Albumin/Globulin Ratio 0.3L 08/01/17 08:45: Potassium Level 6.2*H Height (Feet): 5 Height (Inches): 6.00 Weight (Pounds): 164 General Appearance: no apparent distress Objective no change FRED VEGA Aug 01, 2017 12:58
--- NOTE | 2017-08-01 13:41 | Pulmonology Progress Note ---
Assessment/Plan Problems: (1) Acute and chronic respiratory failure (2) MDR Acinetobacter baumannii infection (3) Acute on chronic renal failure (4) Diabetes mellitus (5) HTN (hypertension) (6) History of CVA (cerebrovascular accident) Respiratory: monitor respiratory rate, adjust FIO2, CXR Cardiac: continue pressors, continue to monitor HR/BP Renal: F/U I&O Infectious Disease: check cultures Gastrointestinal: continue feedings/current rate Endocrine: check HgA1C, continue sliding scale insulin Hematologic: monitor H/H, transfuse if hgb<8.5 Neurologic: PRN Ativan, PRN Morphine, keep patient comfortable Affect: PRN ativan Prophylaxis: Heparin 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, 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, 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, 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 Subjective ROS Limited/Unobtainable: No Constitutional: Reports: no symptoms HEENT: Repors: no symptoms Respiratory: Reports: no symptoms Allergies: Coded Allergies: No Known Allergies (Unverified , 07/26/17) Objective Last 24 Hour Vital Signs Date Time Temp Pulse Resp B/P (MAP) Pulse Ox O2 Delivery O2 Flow Rate FiO2 08/01/17 13:03 176/89 08/01/17 12:46 65 16 30 08/01/17 12:00 30 08/01/17 12:00 98.1 68 20 176/89 99 Mechanical Ventilator 30 98.1 08/01/17 12:00 65 08/01/17 10:51 68 19 30 08/01/17 09:07 63 160/77 08/01/17 09:07 63 160/77 08/01/17 09:06 160/77 08/01/17 08:42 63 17 100 Mechanical Ventilator 30 08/01/17 08:35 59 18 100 Mechanical Ventilator 30 08/01/17 08:33 58 18 30 08/01/17 08:00 60 08/01/17 08:00 97.5 60 16 160/77 100 Mechanical Ventilator 30 97.5 08/01/17 08:00 30 08/01/17 06:35 60 17 30 08/01/17 06:16 166/92 08/01/17 04:56 64 20 30 08/01/17 04:00 98.0 63 18 159/93 100 Mechanical Ventilator 30 98.0 08/01/17 04:00 30 08/01/17 03:36 59 08/01/17 02:56 57 18 30 08/01/17 00:42 63 17 30 08/01/17 00:03 182/93 08/01/17 00:00 72 08/01/17 00:00 98.6 68 18 182/93 100 Mechanical Ventilator 30 98.6 08/01/17 00:00 30 07/31/17 22:40 69 22 30 07/31/17 21:50 153/88 07/31/17 21:26 69 16 99 Mechanical Ventilator 30 07/31/17 21:18 67 19 99 Mechanical Ventilator 30 07/31/17 21:16 67 18 30 07/31/17 20:42 97.7 07/31/17 20:12 97.7 07/31/17 20:11 74 153/88 07/31/17 20:00 71 07/31/17 20:00 99.0 73 18 153/88 100 Mechanical Ventilator 30 99.0 07/31/17 20:00 30 07/31/17 18:40 74 22 30 07/31/17 17:05 70 20 30 07/31/17 16:00 30 07/31/17 16:00 97.7 70 18 153/84 98 Mechanical Ventilator 30 97.7 07/31/17 16:00 66 07/31/17 14:44 151/79 07/31/17 14:38 67 16 30 Intake and Output 07/31/17 08/01/17 19:00 07:00 Intake Total 855 ml 655 ml Output Total 1000 ml 1300 ml Balance -145 ml -645 ml Intake Free Water 150 ml 100 ml IV Total 165 ml Tube Feeding 540 ml 495 ml Other 60 ml Output Urine Total 1000 ml 1300 ml # Bowel Movements 2 5 General Appearance: WD/WN HEENT: normocephalic, atraumatic Respiratory/Chest: chest wall non-tender, lungs clear Cardiovascular: normal peripheral pulses, regular rhythm Genitourinary: normal external genitalia Extremities: no cyanosis 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 Laboratory Tests 08/01/17 03:35: White Blood Count 11.6H, Red Blood Count 2.81L, Hemoglobin 8.4L, Hematocrit 25.8L, Mean Corpuscular Volume 92, Mean Corpuscular Hemoglobin 29.9, Mean Corpuscular Hemoglobin Concent 32.6, Red Cell Distribution Width 15.8H, Platelet Count 461H, Mean Platelet Volume 5.2L, Neutrophils (%) (Auto) 72.4, Lymphocytes (%) (Auto) 15.6L, Monocytes (%) (Auto) 6.3, Eosinophils (%) (Auto) 5.2H, Basophils (%) (Auto) 0.5, Erythrocyte Sedimentation Rate 126H, Sodium Level 140, Potassium Level 6.0*H, Chloride Level 110H, Carbon Dioxide Level 23, Anion Gap 7, Blood Urea Nitrogen 48H, Creatinine 2.2H, Estimat Glomerular Filtration Rate 31.1, Glucose Level 93, Calcium Level 8.0L, Phosphorus Level 5.1H, Magnesium Level 2.2, Total Bilirubin 0.2, Aspartate Amino Transf (AST/SGOT ) 16, Alanine Aminotransferase (ALT/SGPT) 15, Alkaline Phosphatase 130H, C- Reactive Protein, Quantitative 6.7H, Total Protein 7.3, Albumin 1.5L, Globulin 5.8, Albumin/Globulin Ratio 0.3L 08/01/17 08:45: Potassium Level 6.2*H Current Medications Medications (Trade) Dose Ordered Sig/Johnathan Route PRN Reason Start Time Stop Time Status Last Admin Dose Admin Acetaminophen (Tylenol) 650 mg Q4H PRN ORAL FEVER 07/28/17 12:30 08/25/17 12:29 Amlodipine Besylate (Norvasc) 10 mg DAILY GT 07/29/17 09:00 08/27/17 08:59 08/01/17 09:07 Clonidine HCl (Catapres TTS-1) 1 patch ONCE A WEEK TDERMAL 08/01/17 09:00 08/31/17 08:59 08/01/17 09:06 Clonidine HCl (Catapres Tab) 0.1 mg Q4H PRN ORAL For High Blood Pressure 07/28/17 12:45 08/27/17 12:44 08/01/17 13:03 Colistimethate Sodium (Colistin *inhalation use only*) 150 mg Q12HR@10,22 INH 07/29/17 22:00 08/05/17 21:59 08/01/17 08:34 Dextrose (Dextrose 50%) 25 ml STAT PRN IV Hypoglycemia 07/28/17 12:30 08/27/17 12:29 Dextrose (Dextrose 50%) 50 ml STAT PRN IV Hypoglycemia 07/28/17 12:30 08/27/17 12:29 Docusate Sodium (Colace) 100 mg TWICE A DAY GT 07/28/17 18:00 08/27/17 17:59 07/31/17 17:13 Epoetin Kaiden (Procrit (for non ESRD use)) 5,000 units WED-WED-WED SUBQ 07/30/17 21:00 08/29/17 20:59 07/30/17 21:35 Heparin Sodium (Porcine) (Heparin 5000 units/ml) 5,000 units EVERY 12 HOURS SUBQ 07/28/17 21:00 08/25/17 20:59 08/01/17 09:08 Hydralazine HCl (Apresoline) 50 mg Q8HR GT 08/01/17 14:00 08/31/17 13:59 Insulin Aspart (NovoLOG) EVERY 6 HOURS SUBQ 07/31/17 00:00 08/30/17 00:00 07/31/17 17:14 Levofloxacin (Levaquin) 750 mg Q48H ORAL 07/28/17 17:00 08/04/17 16:59 07/30/17 17:53 Lorazepam (Ativan 2mg/ml 1ml) 2 mg Q2H PRN IV For Anxiety 07/28/17 12:45 08/02/17 10:44 08/01/17 00:03 Meropenem 1 gm/ Sodium Chloride 55 ml @ 110 mls/hr Q12H IVPB 07/28/17 17:00 08/02/17 16:59 08/01/17 05:00 Metoprolol Tartrate (Lopressor) 50 mg EVERY 12 HOURS GT 07/28/17 21:00 08/25/17 20:59 08/01/17 09:07 Morphine Sulfate (Morphine Sulfate) 4 mg Q4H PRN IVP Severe Pain (Pain Scale 7-10) 07/28/17 14:45 08/02/17 10:44 07/31/17 20:12 Ondansetron HCl (Zofran) 4 mg Q6H PRN IVP Nausea & Vomiting 07/28/17 12:30 08/25/17 12:29 Pantoprazole (Protonix) 40 mg DAILY IV 07/29/17 09:00 08/26/17 08:59 08/01/17 09:07 Polyethylene Glycol (Miralax) 17 gm BEDTIME ORAL 07/28/17 21:00 08/27/17 20:59 07/31/17 21:50 Polyethylene Glycol (Miralax) 17 gm DAILYPRN PRN ORAL Constipation 07/28/17 12:30 08/27/17 12:29 Tigecycline 50 mg/ Dextrose 110 ml @ 220 mls/hr Q12H IVPB 07/31/17 02:00 08/07/17 01:59 08/01/17 02:00 Siva Quinteros MD Aug 01, 2017 13:41
[2017-08-01] MEDS: HydrALAZINE 50mg tab GT SCH ×2 (14:24→21:00)
[2017-08-01 16:00] VITALS: BP 156/80
--- NOTE | 2017-08-01 17:53 | Internal Med Progress Note ---
Subjective Date of Service: Aug 01, 2017 Physician Name Diaz,Thaddeus Attending Physician Timothy Hills MD Current Medications Medications (Trade) Dose Ordered Sig/Johnathan Route PRN Reason Start Time Stop Time Status Last Admin Dose Admin Acetaminophen (Tylenol) 650 mg Q4H PRN ORAL FEVER 07/28/17 12:30 08/25/17 12:29 Amlodipine Besylate (Norvasc) 10 mg DAILY GT 07/29/17 09:00 08/27/17 08:59 08/01/17 09:07 Clonidine HCl (Catapres TTS-1) 1 patch ONCE A WEEK TDERMAL 08/01/17 09:00 08/31/17 08:59 08/01/17 09:06 Clonidine HCl (Catapres Tab) 0.1 mg Q4H PRN ORAL For High Blood Pressure 07/28/17 12:45 08/27/17 12:44 08/01/17 13:03 Colistimethate Sodium (Colistin *inhalation use only*) 150 mg Q12HR@, INH 07/29/17 22:00 08/05/17 21:59 08/01/17 08:34 Dextrose (Dextrose 50%) 25 ml STAT PRN IV Hypoglycemia 07/28/17 12:30 08/27/17 12:29 Dextrose (Dextrose 50%) 50 ml STAT PRN IV Hypoglycemia 07/28/17 12:30 08/27/17 12:29 Docusate Sodium (Colace) 100 mg TWICE A DAY GT 07/28/17 18:00 08/27/17 17:59 07/31/17 17:13 Epoetin Kaiden (Procrit (for non ESRD use)) 5,000 units WED-WED-WED SUBQ 07/30/17 21:00 08/29/17 20:59 07/30/17 21:35 Heparin Sodium (Porcine) (Heparin 5000 units/ml) 5,000 units EVERY 12 HOURS SUBQ 07/28/17 21:00 08/25/17 20:59 08/01/17 09:08 Hydralazine HCl (Apresoline) 50 mg Q8HR GT 08/01/17 14:00 08/31/17 13:59 08/01/17 14:24 Insulin Aspart (NovoLOG) EVERY 6 HOURS SUBQ 07/31/17 00:00 08/30/17 00:00 07/31/17 17:14 Levofloxacin (Levaquin) 750 mg Q48H ORAL 07/28/17 17:00 08/04/17 16:59 08/01/17 17:42 Lorazepam (Ativan 2mg/ml 1ml) 2 mg Q2H PRN IV For Anxiety 07/28/17 12:45 08/02/17 10:44 08/01/17 00:03 Meropenem 1 gm/ Sodium Chloride 55 ml @ 110 mls/hr Q12H IVPB 07/28/17 17:00 08/02/17 16:59 08/01/17 17:42 Metoprolol Tartrate (Lopressor) 50 mg EVERY 12 HOURS GT 07/28/17 21:00 08/25/17 20:59 08/01/17 09:07 Morphine Sulfate (Morphine Sulfate) 4 mg Q4H PRN IVP Severe Pain (Pain Scale 7-10) 07/28/17 14:45 08/02/17 10:44 07/31/17 20:12 Ondansetron HCl (Zofran) 4 mg Q6H PRN IVP Nausea & Vomiting 07/28/17 12:30 08/25/17 12:29 Pantoprazole (Protonix) 40 mg DAILY IV 07/29/17 09:00 08/26/17 08:59 08/01/17 09:07 Polyethylene Glycol (Miralax) 17 gm BEDTIME ORAL 07/28/17 21:00 08/27/17 20:59 07/31/17 21:50 Polyethylene Glycol (Miralax) 17 gm DAILYPRN PRN ORAL Constipation 07/28/17 12:30 08/27/17 12:29 Tigecycline 50 mg/ Dextrose 110 ml @ 220 mls/hr Q12H IVPB 07/31/17 02:00 08/07/17 01:59 08/01/17 14:21 Allergies: Coded Allergies: No Known Allergies (Unverified , 07/26/17) ROS Limited/Unobtainable: Yes Subjective 56 YO M admitted with altered mental status. Now pneumonia and acute cerebral vascular accident. Cover for Int Ayden-Dr Hills. KENDY Objective Last Vital Signs Date Time Temp Pulse Resp B/P (MAP) Pulse Ox O2 Delivery O2 Flow Rate FiO2 08/01/17 16:37 64 16 30 08/01/17 16:00 98.9 156/80 100 Mechanical Ventilator 98.9 07/26/17 10:16 Laboratory Tests Test 08/01/17 03:35 08/01/17 08:45 White Blood Count 11.6 K/UL (4.8-10.8) H Red Blood Count 2.81 M/UL (4.70-6.10) L Hemoglobin 8.4 G/DL (14.2-18.0) L Hematocrit 25.8 % (42.0-52.0) L Mean Corpuscular Volume 92 FL (80-99) Mean Corpuscular Hemoglobin 29.9 PG (27.0-31.0) Mean Corpuscular Hemoglobin Concent 32.6 G/DL (32.0-36.0) Red Cell Distribution Width 15.8 % (11.6-14.8) H Platelet Count 461 K/UL (150-450) H Mean Platelet Volume 5.2 FL (6.5-10.1) L Neutrophils (%) (Auto) 72.4 % (45.0-75.0) Lymphocytes (%) (Auto) 15.6 % (20.0-45.0) L Monocytes (%) (Auto) 6.3 % (1.0-10.0) Eosinophils (%) (Auto) 5.2 % (0.0-3.0) H Basophils (%) (Auto) 0.5 % (0.0-2.0) Erythrocyte Sedimentation Rate 126 MM/HR (0-20) H Sodium Level 140 MMOL/L (136-145) Potassium Level 6.0 MMOL/L (3.5-5.1) *H 6.2 MMOL/L (3.5-5.1) *H Chloride Level 110 MMOL/L (98-107) H Carbon Dioxide Level 23 MMOL/L (21-32) Anion Gap 7 mmol/L (5-15) Blood Urea Nitrogen 48 mg/dL (7-18) H Creatinine 2.2 MG/DL (0.55-1.30) H Estimat Glomerular Filtration Rate 31.1 mL/min (>60) Glucose Level 93 MG/DL (74-106) Calcium Level 8.0 MG/DL (8.5-10.1) L Phosphorus Level 5.1 MG/DL (2.5-4.9) H Magnesium Level 2.2 MG/DL (1.8-2.4) Total Bilirubin 0.2 MG/DL (0.2-1.0) Aspartate Amino Transf (AST/SGOT) 16 U/L (15-37) Alanine Aminotransferase (ALT/SGPT) 15 U/L (12-78) Alkaline Phosphatase 130 U/L (46-116) H C-Reactive Protein, Quantitative 6.7 mg/dL (0.00-0.90) H Total Protein 7.3 G/DL (6.4-8.2) Albumin 1.5 G/DL (3.4-5.0) L Globulin 5.8 g/dL Albumin/Globulin Ratio 0.3 (1.0-2.7) L Intake and Output 07/31/17 08/01/17 19:00 07:00 Intake Total 855 ml 655 ml Output Total 1000 ml 1300 ml Balance -145 ml -645 ml Intake Free Water 150 ml 100 ml IV Total 165 ml Tube Feeding 540 ml 495 ml Other 60 ml Output Urine Total 1000 ml 1300 ml # Bowel Movements 2 5 Objective General Appearance: WD/WN, alert, moderate distress EENT: PERRL/EOMI, normal ENT inspection Neck: non-tender, normal alignment, supple Cardiovascular: normal peripheral pulses, normal rate, regular rhythm, no gallop/murmur, no JVD Respiratory/Chest: Tracheostomy; mech vent; respiratory distress, crackles/ rales, rhonchi - bilaterally, expiratory wheezing Abdomen: normal bowel sounds, non tender, soft, no organomegaly, no mass Extremities: normal range of motion 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 (3) Dysphagia (4) Hemorrhagic stroke (5) HTN (hypertension) Assessment & Plan: Continue norvasc and lopressor (6) Diabetes mellitus type II, controlled Assessment & Plan: Continue novolog sliding scale. (7) Renal failure (8) Left hemiparesis (9) Iron deficiency anemia (10) Altered mental status (11) Pneumonia Assessment & Plan: Bilateral. Continue vanco, meropenem and inh colistin per ID (12) CVA (cerebral vascular accident) Assessment & Plan: Acute basal ganglia (13) Acute and chronic respiratory failure (14) Acute encephalopathy (15) Chronic respiratory failure (16) Hyperkalemia Assessment & Plan: PRN Kayexalate-see nephrology note. Status: not improved Thaddeus Diaz MD Aug 01, 2017 17:53
[2017-08-01 20:00] VITALS: BP 109/58
[2017-08-01] MEDS: Miralax 17gm pkt ORAL SCH (20:58)
--- NOTE | 2017-08-01 22:18 | Diagnostic Imaging Report ---
APPROVED REPORT CPT Code: 54899 Present Symptoms Upper Extremity Edema: Left LEFT UPPER EXTREMITY: Venous imaging reveals patency of the internal jugular, subclavian, axillary and brachial veins. The cephalic and basilic veins are also patent. Doppler indicates normal spontaneous flow within these venous segments.
--- NOTE | 2017-08-01 22:18 | Diagnostic Imaging Report ---
APPROVED REPORT CPT Code: 70239 Present Symptoms Lower Extremity Edema: Left RIGHT LEG: Venous imaging reveals a patent deep venous system. There is no evidence of thrombus within the femoral, popliteal or tibial segments. The greater saphenous vein is also within normal limits. Doppler indicates normal spontaneous flow within these segments. LEFT LEG: Venous imaging reveals recanalized chronic thrombus in the superficial femoral vein. Large collateral vein noted anterior to the superficial femoral artery. The remainder of the deep venous system is within normal limits. There is no evidence of thrombus in the common femoral, popliteal or calf veins. The greater saphenous vein is also within normal limits. Doppler indicates normal spontaneous flow within these segments. There is no evidence of acute deep vein thrombosis.
[2017-08-02] VITALS: BP 126/75
[2017-08-02] MEDS: Tigecycline 50 MG in D5W 110 ML IVPB SCH ×2 (02:44→14:22)
[2017-08-02 04:00] VITALS: BP 134/88
[2017-08-02] MEDS: Meropenem 1 GM in NS 55 ML IVPB SCH ×2 (04:47→16:22)
[2017-08-02] MEDS: LORazepam Inj 2mg/ml 1ml IV PRN (04:47)
[2017-08-02] MEDS: HydrALAZINE 50mg tab GT SCH ×3 (05:35→22:10)
[2017-08-02 05:55] LABS: BASOPHILS % (AUTO) 0.7 % (0.0-2.0); EOSINOPHILS % (AUTO) 3.3 % (0.0-3.0); HEMOGLOBIN 9.2 G/DL (14.2-18.0); LYMPHOCYTES % (AUTO) 12.4 % (20.0-45.0); MEAN CORPUSCULAR VOLUME 91 FL (80-99); MONOCYTES % (AUTO) 5.2 % (1.0-10.0); NEUTROPHILS % (AUTO) 78.3 % (45.0-75.0); PLATELET COUNT 512 K/UL (150-450); RED BLOOD COUNT 3.09 M/UL (4.70-6.10); RED CELL DISTRIBUTION WIDTH 15.1 % (11.6-14.8)
[2017-08-02] MEDS: NovoLOG Insulin Flexpen SUBQ SCH ×4 (06:00→18:50)
[2017-08-02 06:12] LABS: ALANINE AMINOTRANSFERASE 18 U/L (12-78); ALBUMIN 1.8 G/DL (3.4-5.0); ALBUMIN/GLOBULIN RATIO 0.3 (1.0-2.7); ALKALINE PHOSPHATASE 143 U/L (46-116); ANION GAP 7 mmol/L (5-15); ASPARTATE AMINO TRANSFERASE 18 U/L (15-37); BILIRUBIN,TOTAL 0.3 MG/DL (0.2-1.0); BLOOD UREA NITROGEN 58 mg/dL (7-18); CALCIUM 8.3 MG/DL (8.5-10.1); CARBON DIOXIDE 22 MMOL/L (21-32); CHLORIDE 109 MMOL/L (98-107); CREATININE 2.3 MG/DL (0.55-1.30); SODIUM 140 MMOL/L (136-145)
[2017-08-02 08:00] VITALS: BP 125/86
[2017-08-02] MEDS ORDERED: Sodium Polystyrene Sulfonate 15gm Powder ORAL SCH (08:00)
[2017-08-02] MEDS ORDERED: Sodium Polystyrene Sulfonate 15gm Powder GT SCH (08:45)
[2017-08-02] MEDS: Colistin for inhalation INH SCH ×2 (09:14→21:07)
[2017-08-02] MEDS: Docusate 100mg/10ml Liq GT SCH ×2 (09:33→17:22)
[2017-08-02] MEDS: Metoprolol Tartrate 50mg tab GT SCH ×2 (09:34→20:23)
[2017-08-02] MEDS: Pantoprazole Inj IV SCH (09:35)
[2017-08-02] MEDS: Heparin 5000 units/ml inj SUBQ SCH ×2 (09:42→20:25)
--- NOTE | 2017-08-02 09:51 | Nephrology Progress Note ---
Assessment/Plan Problem List: (1) Acute on chronic renal failure (2) Anemia (3) Hypoglycemia (4) Chronic respiratory failure (5) History of CVA (cerebrovascular accident) (6) Accelerated hypertension (7) Nephrotic syndrome Assessment WBCs lowering Renal failure Cr lower 2.9 to 2.1 Nephrotic syndrom likely Pre renal super imposed on renal Severe HypoAlbuminemia Sever Anemia Chronic vent / Trach. has PEG HypoKalemia 4+ Proteinuria Hypoglycemia HTN Plan kayexelate for high K change feeding to nepro add epogen Add Hydralazine pulm support transfuse K IV Monitor renal parameters 24 H urine protein 5.4 gr protein Subjective ROS Limited/Unobtainable: No Constitutional: Reports: malaise Objective Objective Last 24 Hour Vital Signs Date Time Temp Pulse Resp B/P (MAP) Pulse Ox O2 Delivery O2 Flow Rate FiO2 08/02/17 09:35 67 125/86 08/02/17 09:34 67 125/86 08/02/17 09:24 66 17 100 Mechanical Ventilator 30 08/02/17 09:17 62 16 30 08/02/17 09:16 61 16 100 Mechanical Ventilator 30 08/02/17 07:25 81 23 30 08/02/17 05:35 134/88 08/02/17 05:03 79 20 30 08/02/17 04:00 30 08/02/17 04:00 98.8 85 27 134/88 100 Mechanical Ventilator 30 98.8 08/02/17 03:32 86 08/02/17 03:14 77 28 30 08/02/17 01:27 81 30 30 08/02/17 00:00 99.0 82 25 126/75 100 Mechanical Ventilator 30 99.0 08/01/17 23:54 83 08/01/17 23:27 86 26 30 08/01/17 21:29 68 17 100 Mechanical Ventilator 30 08/01/17 21:24 68 17 100 Mechanical Ventilator 30 08/01/17 21:20 69 17 30 08/01/17 21:00 109/58 08/01/17 20:58 96 109/58 08/01/17 20:01 69 08/01/17 20:00 98.1 96 24 109/58 96 Mechanical Ventilator 30 98.1 08/01/17 20:00 30 08/01/17 19:27 73 20 30 08/01/17 16:37 64 16 30 08/01/17 16:01 69 08/01/17 16:00 30 08/01/17 16:00 98.9 69 31 156/80 100 Mechanical Ventilator 30 98.9 08/01/17 14:24 174/93 08/01/17 13:03 176/89 08/01/17 12:46 65 16 30 08/01/17 12:00 30 08/01/17 12:00 98.1 68 20 176/89 99 Mechanical Ventilator 30 98.1 08/01/17 12:00 65 08/01/17 10:51 68 19 30 Intake and Output 08/01/17 08/02/17 19:00 07:00 Intake Total 925 ml 725 ml Output Total 1450 ml 1200 ml Balance -525 ml -475 ml Intake Free Water 100 ml IV Total 165 ml 165 ml Tube Feeding 440 ml 430 ml Other 320 ml 30 ml Output Urine Total 1450 ml 1200 ml # Bowel Movements 2 3 Laboratory Tests 08/02/17 04:47: White Blood Count 13.0H, Red Blood Count 3.09L, Hemoglobin 9.2L, Hematocrit 28.0L, Mean Corpuscular Volume 91, Mean Corpuscular Hemoglobin 29.9, Mean Corpuscular Hemoglobin Concent 33.0, Red Cell Distribution Width 15.1H, Platelet Count 512H, Mean Platelet Volume 5.5L, Neutrophils (%) (Auto) 78.3H, Lymphocytes (%) (Auto) 12.4L, Monocytes (%) (Auto) 5.2, Eosinophils (%) (Auto) 3.3H, Basophils (%) (Auto) 0.7, Sodium Level 140, Potassium Level 6.0*H, Chloride Level 109H, Carbon Dioxide Level 22, Anion Gap 7, Blood Urea Nitrogen 58H, Creatinine 2.3H, Estimat Glomerular Filtration Rate 29.6, Glucose Level 104 , Calcium Level 8.3L, Phosphorus Level 6.6H, Total Bilirubin 0.3, Aspartate Amino Transf (AST/SGOT) 18, Alanine Aminotransferase (ALT/SGPT) 18, Alkaline Phosphatase 143H, Pro-B-Type Natriuretic Peptide 16573P, Total Protein 7.9, Albumin 1.8L, Globulin 6.1, Albumin/Globulin Ratio 0.3L Height (Feet): 5 Height (Inches): 6.00 Weight (Pounds): 164 General Appearance: no apparent distress Objective no change FRED VEGA Aug 02, 2017 09:51
--- NOTE | 2017-08-02 10:15 | GI Progress Note ---
Assessment/Plan Problems: (1) Abdominal pain ICD Codes: R10.9 - Unspecified abdominal pain SNOMED: 01560711 (2) Hypoglycemia ICD Codes: E16.2 - Hypoglycemia, unspecified SNOMED: 702921297 (3) Anemia ICD Codes: D64.9 - Anemia, unspecified SNOMED: 488007408 (4) Dysphagia ICD Codes: R13.10 - Dysphagia, unspecified SNOMED: 25962941, 602236326 (5) Diabetes mellitus ICD Codes: E11.9 - Type 2 diabetes mellitus without complications SNOMED: 71052248 Status: unchanged Status Narrative Discussed with Dr. Edouard. Assessment/Plan KUB reviewed >> no acute process anemia work up reviewed >> most likely 2/2 to chronic disease OB stool negative GT dependent some abdominal bloating cdiff negative stool culture supportive care at this time simethicone prn for abdominal gas pain GTFs per RD turn q2 hours to promote GI motility prn transfusions bowel regime ppi abx per ID fu labs The patient was seen and examined at bedside and all new and available data was reviewed in the patients chart. I agree with the above findings, impression and plan. (Patient seen earlier today. Signature stamp does not reflect patient encounter time.). - David Edouard MD Subjective Subjective limited Objective Last 24 Hour Vital Signs Date Time Temp Pulse Resp B/P (MAP) Pulse Ox O2 Delivery O2 Flow Rate FiO2 08/02/17 09:35 67 125/86 08/02/17 09:34 67 125/86 08/02/17 09:24 66 17 100 Mechanical Ventilator 30 08/02/17 09:17 62 16 30 08/02/17 09:16 61 16 100 Mechanical Ventilator 30 08/02/17 07:25 81 23 30 08/02/17 05:35 134/88 08/02/17 05:03 79 20 30 08/02/17 04:00 30 08/02/17 04:00 98.8 85 27 134/88 100 Mechanical Ventilator 30 98.8 08/02/17 03:32 86 08/02/17 03:14 77 28 30 08/02/17 01:27 81 30 30 08/02/17 00:00 99.0 82 25 126/75 100 Mechanical Ventilator 30 99.0 08/01/17 23:54 83 6/24/18 23:27 86 26 30 08/01/17 21:29 68 17 100 Mechanical Ventilator 30 08/01/17 21:24 68 17 100 Mechanical Ventilator 30 08/01/17 21:20 69 17 30 08/01/17 21:00 109/58 08/01/17 20:58 96 109/58 08/01/17 20:01 69 08/01/17 20:00 98.1 96 24 109/58 96 Mechanical Ventilator 30 98.1 08/01/17 20:00 30 08/01/17 19:27 73 20 30 08/01/17 16:37 64 16 30 08/01/17 16:01 69 08/01/17 16:00 30 08/01/17 16:00 98.9 69 31 156/80 100 Mechanical Ventilator 30 98.9 08/01/17 14:24 174/93 08/01/17 13:03 176/89 08/01/17 12:46 65 16 30 08/01/17 12:00 30 08/01/17 12:00 98.1 68 20 176/89 99 Mechanical Ventilator 30 98.1 08/01/17 12:00 65 08/01/17 10:51 68 19 30 Intake and Output 08/01/17 08/02/17 19:00 07:00 Intake Total 925 ml 725 ml Output Total 1450 ml 1200 ml Balance -525 ml -475 ml Intake Free Water 100 ml IV Total 165 ml 165 ml Tube Feeding 440 ml 430 ml Other 320 ml 30 ml Output Urine Total 1450 ml 1200 ml # Bowel Movements 2 3 Laboratory Tests Test 08/02/17 04:47 White Blood Count 13.0 K/UL (4.8-10.8) H Red Blood Count 3.09 M/UL (4.70-6.10) L Hemoglobin 9.2 G/DL (14.2-18.0) L Hematocrit 28.0 % (42.0-52.0) L Mean Corpuscular Volume 91 FL (80-99) Mean Corpuscular Hemoglobin 29.9 PG (27.0-31.0) Mean Corpuscular Hemoglobin Concent 33.0 G/DL (32.0-36.0) Red Cell Distribution Width 15.1 % (11.6-14.8) H Platelet Count 512 K/UL (150-450) H Mean Platelet Volume 5.5 FL (6.5-10.1) L Neutrophils (%) (Auto) 78.3 % (45.0-75.0) H Lymphocytes (%) (Auto) 12.4 % (20.0-45.0) L Monocytes (%) (Auto) 5.2 % (1.0-10.0) Eosinophils (%) (Auto) 3.3 % (0.0-3.0) H Basophils (%) (Auto) 0.7 % (0.0-2.0) Sodium Level 140 MMOL/L (136-145) Potassium Level 6.0 MMOL/L (3.5-5.1) *H Chloride Level 109 MMOL/L (98-107) H Carbon Dioxide Level 22 MMOL/L (21-32) Anion Gap 7 mmol/L (5-15) Blood Urea Nitrogen 58 mg/dL (7-18) H Creatinine 2.3 MG/DL (0.55-1.30) H Estimat Glomerular Filtration Rate 29.6 mL/min (>60) Glucose Level 104 MG/DL (74-106) Calcium Level 8.3 MG/DL (8.5-10.1) L Phosphorus Level 6.6 MG/DL (2.5-4.9) H Total Bilirubin 0.3 MG/DL (0.2-1.0) Aspartate Amino Transf (AST/SGOT) 18 U/L (15-37) Alanine Aminotransferase (ALT/SGPT) 18 U/L (12-78) Alkaline Phosphatase 143 U/L (46-116) H Pro-B-Type Natriuretic Peptide 99552 pg/mL (0-125) H Total Protein 7.9 G/DL (6.4-8.2) Albumin 1.8 G/DL (3.4-5.0) L Globulin 6.1 g/dL Albumin/Globulin Ratio 0.3 (1.0-2.7) L Height (Feet): 5 Height (Inches): 6.00 Weight (Pounds): 164 General Appearance: WD/WN, no apparent distress, alert Cardiovascular: normal rate Respiratory/Chest: normal breath sounds, no respiratory distress Abdominal Exam: normal bowel sounds, non tender, soft, GT site - c/d/i Extremities: non-tender Erasto Toro LACQUER POLISHER Aug 02, 2017 10:15
--- NOTE | 2017-08-02 10:33 | Diagnostic Imaging Report ---
Indication: Dyspnea Technique: One view of the chest Comparison: 07/30/2017 Findings: There is a tracheostomy again demonstrated. There is considerable interval improvement of previously demonstrated interstitial and airspace disease, although considerable mostly interstitial disease persists. The heart is enlarged Impression: Improved but persistent bilateral infiltrates persistent edema, over 3 days
--- NOTE | 2017-08-02 11:00 | Pulmonolgy Critical Care Note ---
Critical Care - Asmt/Plan Problems: (1) MDR Acinetobacter baumannii infection (2) Pneumonia (3) Acute encephalopathy (4) Cardiac arrest (5) Acute and chronic respiratory failure (6) Diabetes mellitus (7) History of CVA (cerebrovascular accident) (8) CVA (cerebral vascular accident) Respiratory: adjust tidal volume, monitor respiratory rate, adjust FIO2, CXR Cardiac: continue to monitor HR/BP Renal: F/U I&O Infectious Disease: check cultures Gastrointestinal: continue feedings/current rate Hematologic: monitor H/H, transfuse if hgb<8.5 Neurologic: PRN Ativan, PRN Morphine, keep patient comfortable Disposition: keep in ICU 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, 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 Discussed with: nurses, consultants, manager of caseassistant branch manager - Objective Last 24 Hour Vital Signs Date Time Temp Pulse Resp B/P (MAP) Pulse Ox O2 Delivery O2 Flow Rate FiO2 08/02/17 09:35 67 125/86 08/02/17 09:34 67 125/86 08/02/17 09:24 66 17 100 Mechanical Ventilator 30 08/02/17 09:17 62 16 30 08/02/17 09:16 61 16 100 Mechanical Ventilator 30 08/02/17 07:25 81 23 30 08/02/17 05:35 134/88 08/02/17 05:03 79 20 30 08/02/17 04:00 30 08/02/17 04:00 98.8 85 27 134/88 100 Mechanical Ventilator 30 98.8 08/02/17 03:32 86 08/02/17 03:14 77 28 30 08/02/17 01:27 81 30 30 08/02/17 00:00 99.0 82 25 126/75 100 Mechanical Ventilator 30 99.0 08/01/17 23:54 83 08/01/17 23:27 86 26 30 08/01/17 21:29 68 17 100 Mechanical Ventilator 30 08/01/17 21:24 68 17 100 Mechanical Ventilator 30 08/01/17 21:20 69 17 30 08/01/17 21:00 109/58 08/01/17 20:58 96 109/58 08/01/17 20:01 69 08/01/17 20:00 98.1 96 24 109/58 96 Mechanical Ventilator 30 98.1 08/01/17 20:00 30 08/01/17 19:27 73 20 30 08/01/17 16:37 64 16 30 08/01/17 16:01 69 08/01/17 16:00 30 08/01/17 16:00 98.9 69 31 156/80 100 Mechanical Ventilator 30 98.9 08/01/17 14:24 174/93 08/01/17 13:03 176/89 08/01/17 12:46 65 16 30 08/01/17 12:00 30 08/01/17 12:00 98.1 68 20 176/89 99 Mechanical Ventilator 30 98.1 08/01/17 12:00 65 Status: awake Condition: improving HEENT: atraumatic Neck: full ROM Lungs: rales, rhonchi Heart: HR/BP stable Abdomen: soft, non-tender Extremities: no C/C/E, edema Accucheck: 93 Critical Care - Subjective ROS Limited/Unobtainable: Yes Condition: critical EKG Rhythm: Sinus Rhythm FI02: 30 Vent Support Breath Rate: 16 Vent Support Mode: AC Vent Tidal Volume: 600 Sputum Amount: Moderate PEEP: 5.0 PIP: 24 Tube Feeding Amount: 40 I&O: Intake and Output 08/01/17 08/02/17 19:00 07:00 Intake Total 925 ml 725 ml Output Total 1450 ml 1200 ml Balance -525 ml -475 ml Intake Free Water 100 ml IV Total 165 ml 165 ml Tube Feeding 440 ml 430 ml Other 320 ml 30 ml Output Urine Total 1450 ml 1200 ml # Bowel Movements 2 3 CXR: improved Labs: Laboratory Tests Test 08/02/17 04:47 White Blood Count 13.0 K/UL (4.8-10.8) H Red Blood Count 3.09 M/UL (4.70-6.10) L Hemoglobin 9.2 G/DL (14.2-18.0) L Hematocrit 28.0 % (42.0-52.0) L Mean Corpuscular Volume 91 FL (80-99) Mean Corpuscular Hemoglobin 29.9 PG (27.0-31.0) Mean Corpuscular Hemoglobin Concent 33.0 G/DL (32.0-36.0) Red Cell Distribution Width 15.1 % (11.6-14.8) H Platelet Count 512 K/UL (150-450) H Mean Platelet Volume 5.5 FL (6.5-10.1) L Neutrophils (%) (Auto) 78.3 % (45.0-75.0) H Lymphocytes (%) (Auto) 12.4 % (20.0-45.0) L Monocytes (%) (Auto) 5.2 % (1.0-10.0) Eosinophils (%) (Auto) 3.3 % (0.0-3.0) H Basophils (%) (Auto) 0.7 % (0.0-2.0) Sodium Level 140 MMOL/L (136-145) Potassium Level 6.0 MMOL/L (3.5-5.1) *H Chloride Level 109 MMOL/L (98-107) H Carbon Dioxide Level 22 MMOL/L (21-32) Anion Gap 7 mmol/L (5-15) Blood Urea Nitrogen 58 mg/dL (7-18) H Creatinine 2.3 MG/DL (0.55-1.30) H Estimat Glomerular Filtration Rate 29.6 mL/min (>60) Glucose Level 104 MG/DL (74-106) Calcium Level 8.3 MG/DL (8.5-10.1) L Phosphorus Level 6.6 MG/DL (2.5-4.9) H Total Bilirubin 0.3 MG/DL (0.2-1.0) Aspartate Amino Transf (AST/SGOT) 18 U/L (15-37) Alanine Aminotransferase (ALT/SGPT) 18 U/L (12-78) Alkaline Phosphatase 143 U/L (46-116) H Pro-B-Type Natriuretic Peptide 37249 pg/mL (0-125) H Total Protein 7.9 G/DL (6.4-8.2) Albumin 1.8 G/DL (3.4-5.0) L Globulin 6.1 g/dL Albumin/Globulin Ratio 0.3 (1.0-2.7) L Siva Quinteros MD Aug 02, 2017 11:00
[2017-08-02 12:00] VITALS: BP 160/89
--- NOTE | 2017-08-02 12:36 | Cardiology Progress Note ---
Assessment/Plan Assessment/Plan -TTE reviewed, no wall motion abnormalities, normal LV function, moderate AR - stable -IV abx due to pulmonary infiltrates and positive culture - concerning for worsening CXR albeit clinically stable, wbc persistently elevated -Continue BP medications - hydralazine added -Defer cardiac cath at this time, patients conditions likely from pulmonary infection as opposed to pulseless v tachy -CTA with infarct - neuro consult, repeat CT in 1 week -Plavix -Statin -Placement Subjective Cardiovascular: Reports: no symptoms Respiratory: Reports: no symptoms Gastrointestinal/Abdominal: Reports: no symptoms Genitourinary: Reports: no symptoms Subjective No acute events, stable on vent, responsive to stimuli Vitals stable, feeds at goal, no residuals Blood culture positive for gram negative rods, WBC coming down Mild anemia Creatinine improved Tolerating Feeds Objective Last 24 Hour Vital Signs Date Time Temp Pulse Resp B/P (MAP) Pulse Ox O2 Delivery O2 Flow Rate FiO2 08/02/17 11:29 70 23 30 08/02/17 09:35 67 125/86 08/02/17 09:34 67 125/86 08/02/17 09:24 66 17 100 Mechanical Ventilator 30 08/02/17 09:17 62 16 30 08/02/17 09:16 61 16 100 Mechanical Ventilator 30 08/02/17 07:25 81 23 30 08/02/17 05:35 134/88 08/02/17 05:03 79 20 30 08/02/17 04:00 30 08/02/17 04:00 98.8 85 27 134/88 100 Mechanical Ventilator 30 98.8 08/02/17 03:32 86 08/02/17 03:14 77 28 30 08/02/17 01:27 81 30 30 08/02/17 00:00 99.0 82 25 126/75 100 Mechanical Ventilator 30 99.0 08/01/17 23:54 83 08/01/17 23:27 86 26 30 08/01/17 21:29 68 17 100 Mechanical Ventilator 30 08/01/17 21:24 68 17 100 Mechanical Ventilator 30 08/01/17 21:20 69 17 30 08/01/17 21:00 109/58 08/01/17 20:58 96 109/58 08/01/17 20:01 69 08/01/17 20:00 98.1 96 24 109/58 96 Mechanical Ventilator 30 98.1 08/01/17 20:00 30 08/01/17 19:27 73 20 30 08/01/17 16:37 64 16 30 08/01/17 16:01 69 08/01/17 16:00 30 08/01/17 16:00 98.9 69 31 156/80 100 Mechanical Ventilator 30 98.9 08/01/17 14:24 174/93 08/01/17 13:03 176/89 08/01/17 12:46 65 16 30 Intake and Output 08/01/17 08/02/17 19:00 07:00 Intake Total 925 ml 725 ml Output Total 1450 ml 1200 ml Balance -525 ml -475 ml Intake Free Water 100 ml IV Total 165 ml 165 ml Tube Feeding 440 ml 430 ml Other 320 ml 30 ml Output Urine Total 1450 ml 1200 ml # Bowel Movements 2 3 Laboratory Tests Test 08/02/17 04:47 White Blood Count 13.0 K/UL (4.8-10.8) H Red Blood Count 3.09 M/UL (4.70-6.10) L Hemoglobin 9.2 G/DL (14.2-18.0) L Hematocrit 28.0 % (42.0-52.0) L Mean Corpuscular Volume 91 FL (80-99) Mean Corpuscular Hemoglobin 29.9 PG (27.0-31.0) Mean Corpuscular Hemoglobin Concent 33.0 G/DL (32.0-36.0) Red Cell Distribution Width 15.1 % (11.6-14.8) H Platelet Count 512 K/UL (150-450) H Mean Platelet Volume 5.5 FL (6.5-10.1) L Neutrophils (%) (Auto) 78.3 % (45.0-75.0) H Lymphocytes (%) (Auto) 12.4 % (20.0-45.0) L Monocytes (%) (Auto) 5.2 % (1.0-10.0) Eosinophils (%) (Auto) 3.3 % (0.0-3.0) H Basophils (%) (Auto) 0.7 % (0.0-2.0) Sodium Level 140 MMOL/L (136-145) Potassium Level 6.0 MMOL/L (3.5-5.1) *H Chloride Level 109 MMOL/L (98-107) H Carbon Dioxide Level 22 MMOL/L (21-32) Anion Gap 7 mmol/L (5-15) Blood Urea Nitrogen 58 mg/dL (7-18) H Creatinine 2.3 MG/DL (0.55-1.30) H Estimat Glomerular Filtration Rate 29.6 mL/min (>60) Glucose Level 104 MG/DL (74-106) Calcium Level 8.3 MG/DL (8.5-10.1) L Phosphorus Level 6.6 MG/DL (2.5-4.9) H Total Bilirubin 0.3 MG/DL (0.2-1.0) Aspartate Amino Transf (AST/SGOT) 18 U/L (15-37) Alanine Aminotransferase (ALT/SGPT) 18 U/L (12-78) Alkaline Phosphatase 143 U/L (46-116) H Pro-B-Type Natriuretic Peptide 67817 pg/mL (0-125) H Total Protein 7.9 G/DL (6.4-8.2) Albumin 1.8 G/DL (3.4-5.0) L Globulin 6.1 g/dL Albumin/Globulin Ratio 0.3 (1.0-2.7) L Renny Joy M.D. Aug 02, 2017 12:36
[2017-08-02] MEDS: Renvela 800mg Pkt NG SCH ×2 (14:20→17:22)
[2017-08-02 16:00] VITALS: BP 179/92
--- NOTE | 2017-08-02 16:56 | Infectious Diseases Prog Note ---
Assessment/Plan Assessment/Plan Assessment: Probable MDRO PNA- worsenened, now improving- r/o legionella 07/29 Scx: MDR ABC -CXR 07/30:Improved but still extensive bilateral diffuse interstitial and airspace infiltrates versus edema, over 2 days -CXR 07/28: Over 2 days, interim worsening of bilateral diffuse interstitial and airspace infiltrates versus edema -CXR: Cardiomegaly with bilateral interstitial and patchy airspace opacities.Findings may be related to CHF/pulmonary edema however superimposed pneumonia not entirely excluded. -sp cx GNR MDR A. baumanni (I Levo, Minocycline; S Colistin, Polymixin B and Tygeclcine); E. aerogenes probable AMP c (S cefepime, Meropenem, Genta) Leukocytosis, overall improved -no fever -u/a wbc 5-10; repeat neg -Cdiff neg Lactic acidosis, SP Acute CVA -CT head: asymmetric densities in the right insula, steen radiata, and basal ganglia concerning for acute infarct. DM2 HTN OK/CAD anemia CVA/TIA/hemorrhagic stroke w/ L side hemiparesis CKD IV, Cr imprivng resp failure Trach/vent dependant dysphagia s/p PEG non verbal SNF resident Plan: -Continue empiric Meropenem and Levaquin # 6 (abx d#/ ) for PNA, INH Colistin # 5/10-14 and IV Tigecycline d # 4/10-14 for MDR ABC -07/28 SP IV Vancomycin #3, Cefepime #3 -f/u cx -Monitor CBC/BMP, temperatures -aspiration precautions -Trach/peg care -f/u legionella ag urine Subjective Allergies: Coded Allergies: No Known Allergies (Unverified , 07/26/17) Subjective afebrile leukocytosis overall improved Fio2 30% Objective Vital Signs Last 24 Hour Vital Signs Date Time Temp Pulse Resp B/P (MAP) Pulse Ox O2 Delivery O2 Flow Rate FiO2 08/02/17 16:00 30 08/02/17 15:50 68 16 30 08/02/17 14:21 160/89 08/02/17 13:12 63 17 30 08/02/17 12:00 97.8 66 18 160/89 100 Mechanical Ventilator 30 97.8 08/02/17 12:00 30 08/02/17 12:00 67 08/02/17 11:29 70 23 30 08/02/17 09:35 67 125/86 08/02/17 09:34 67 125/86 08/02/17 09:24 66 17 100 Mechanical Ventilator 30 08/02/17 09:17 62 16 30 08/02/17 09:16 61 16 100 Mechanical Ventilator 30 08/02/17 08:00 30 08/02/17 08:00 69 08/02/17 08:00 98.2 67 16 125/86 100 Mechanical Ventilator 30 98.2 08/02/17 07:25 81 23 30 08/02/17 05:35 134/88 08/02/17 05:03 79 20 30 08/02/17 04:00 30 08/02/17 04:00 98.8 85 27 134/88 100 Mechanical Ventilator 30 98.8 08/02/17 03:32 86 08/02/17 03:14 77 28 30 08/02/17 01:27 81 30 30 08/02/17 00:00 99.0 82 25 126/75 100 Mechanical Ventilator 30 99.0 08/01/17 23:54 83 08/01/17 23:27 86 26 30 08/01/17 21:29 68 17 100 Mechanical Ventilator 30 08/01/17 21:24 68 17 100 Mechanical Ventilator 30 08/01/17 21:20 69 17 30 08/01/17 21:00 109/58 08/01/17 20:58 96 109/58 08/01/17 20:01 69 08/01/17 20:00 98.1 96 24 109/58 96 Mechanical Ventilator 30 98.1 08/01/17 20:00 30 08/01/17 19:27 73 20 30 Height (Feet): 5 Height (Inches): 6.00 Weight (Pounds): 164 Objective GENERAL APPEARANCE: A well-developed, well-nourished, male, who was intubated and sedated. HEENT: Eyes, pupils are equal and responsive to light and accommodation. Extraocular movements are intact. NECK: Supple without lymphadenopathy. There is a tracheostomy tube present. CARDIOVASCULAR: Regular rhythm rate. S1, S2 normal without murmurs, rubs, or gallops. ABDOMEN: Soft, nontender, and nondistended. Positive bowel sounds. No evidence of hepatosplenomegaly. Currently, no rebound or guarding noted. There is presence of a G-tube placement noted. LUNGS: Coarse breath sounds bilaterally without wheezes or rales. NEUROLOGIC: The patient has a left flaccid hemiparesis. Laboratory Tests Test 08/02/17 04:47 White Blood Count 13.0 K/UL (4.8-10.8) H Red Blood Count 3.09 M/UL (4.70-6.10) L Hemoglobin 9.2 G/DL (14.2-18.0) L Hematocrit 28.0 % (42.0-52.0) L Mean Corpuscular Volume 91 FL (80-99) Mean Corpuscular Hemoglobin 29.9 PG (27.0-31.0) Mean Corpuscular Hemoglobin Concent 33.0 G/DL (32.0-36.0) Red Cell Distribution Width 15.1 % (11.6-14.8) H Platelet Count 512 K/UL (150-450) H Mean Platelet Volume 5.5 FL (6.5-10.1) L Neutrophils (%) (Auto) 78.3 % (45.0-75.0) H Lymphocytes (%) (Auto) 12.4 % (20.0-45.0) L Monocytes (%) (Auto) 5.2 % (1.0-10.0) Eosinophils (%) (Auto) 3.3 % (0.0-3.0) H Basophils (%) (Auto) 0.7 % (0.0-2.0) Sodium Level 140 MMOL/L (136-145) Potassium Level 6.0 MMOL/L (3.5-5.1) *H Chloride Level 109 MMOL/L (98-107) H Carbon Dioxide Level 22 MMOL/L (21-32) Anion Gap 7 mmol/L (5-15) Blood Urea Nitrogen 58 mg/dL (7-18) H Creatinine 2.3 MG/DL (0.55-1.30) H Estimat Glomerular Filtration Rate 29.6 mL/min (>60) Glucose Level 104 MG/DL (74-106) Calcium Level 8.3 MG/DL (8.5-10.1) L Phosphorus Level 6.6 MG/DL (2.5-4.9) H Total Bilirubin 0.3 MG/DL (0.2-1.0) Aspartate Amino Transf (AST/SGOT) 18 U/L (15-37) Alanine Aminotransferase (ALT/SGPT) 18 U/L (12-78) Alkaline Phosphatase 143 U/L (46-116) H Pro-B-Type Natriuretic Peptide 85071 pg/mL (0-125) H Total Protein 7.9 G/DL (6.4-8.2) Albumin 1.8 G/DL (3.4-5.0) L Globulin 6.1 g/dL Albumin/Globulin Ratio 0.3 (1.0-2.7) L Current Medications Medications (Trade) Dose Ordered Sig/Johnathan Route PRN Reason Start Time Stop Time Status Last Admin Dose Admin Acetaminophen (Tylenol) 650 mg Q4H PRN ORAL FEVER 07/28/17 12:30 08/25/17 12:29 Amlodipine Besylate (Norvasc) 10 mg DAILY GT 07/29/17 09:00 08/27/17 08:59 08/02/17 09:35 Clonidine HCl (Catapres TTS-1) 1 patch ONCE A WEEK TDERMAL 08/01/17 09:00 08/31/17 08:59 08/01/17 09:06 Clonidine HCl (Catapres Tab) 0.1 mg Q4H PRN ORAL For High Blood Pressure 07/28/17 12:45 08/27/17 12:44 08/01/17 13:03 Colistimethate Sodium (Colistin *inhalation use only*) 150 mg Q12HR@10,22 INH 07/29/17 22:00 08/05/17 21:59 08/02/17 09:14 Dextrose (Dextrose 50%) 25 ml STAT PRN IV Hypoglycemia 07/28/17 12:30 08/27/17 12:29 Dextrose (Dextrose 50%) 50 ml STAT PRN IV Hypoglycemia 07/28/17 12:30 08/27/17 12:29 Docusate Sodium (Colace) 100 mg TWICE A DAY GT 07/28/17 18:00 08/27/17 17:59 08/02/17 09:33 Epoetin Kaiden (Procrit (for non ESRD use)) 5,000 units WED-WED-WED SUBQ 07/30/17 21:00 08/29/17 20:59 07/30/17 21:35 Heparin Sodium (Porcine) (Heparin 5000 units/ml) 5,000 units EVERY 12 HOURS SUBQ 07/28/17 21:00 08/25/17 20:59 08/02/17 09:42 Hydralazine HCl (Apresoline) 50 mg Q8HR GT 08/01/17 14:00 08/31/17 13:59 08/02/17 14:21 Insulin Aspart (NovoLOG) EVERY 6 HOURS SUBQ 07/31/17 00:00 08/30/17 00:00 08/02/17 11:58 Levofloxacin (Levaquin) 750 mg Q48H ORAL 07/28/17 17:00 08/04/17 16:59 08/01/17 17:42 Meropenem 1 gm/ Sodium Chloride 55 ml @ 110 mls/hr Q12H IVPB 07/28/17 17:00 08/03/17 23:59 08/02/17 16:22 Metoprolol Tartrate (Lopressor) 50 mg EVERY 12 HOURS GT 07/28/17 21:00 08/25/17 20:59 08/02/17 09:34 Ondansetron HCl (Zofran) 4 mg Q6H PRN IVP Nausea & Vomiting 07/28/17 12:30 08/25/17 12:29 Pantoprazole (Protonix) 40 mg DAILY IV 07/29/17 09:00 08/26/17 08:59 08/02/17 09:35 Polyethylene Glycol (Miralax) 17 gm BEDTIME ORAL 07/28/17 21:00 08/27/17 20:59 08/01/17 20:58 Polyethylene Glycol (Miralax) 17 gm DAILYPRN PRN ORAL Constipation 07/28/17 12:30 08/27/17 12:29 Sevelamer Carbonate (Renvela) 800 mg THREE TIMES A DAY NG 08/02/17 13:00 09/01/17 12:59 08/02/17 14:20 Tigecycline 50 mg/ Dextrose 110 ml @ 220 mls/hr Q12H IVPB 07/31/17 02:00 08/07/17 01:59 08/02/17 14:22 Jessica Estrella M.D. Aug 02, 2017 16:56
--- NOTE | 2017-08-02 18:44 | Internal Med Progress Note ---
Subjective Date of Service: Aug 02, 2017 Physician Name Diaz,Thaddeus Attending Physician Timothy Hills MD Current Medications Medications (Trade) Dose Ordered Sig/Johnathan Route PRN Reason Start Time Stop Time Status Last Admin Dose Admin Acetaminophen (Tylenol) 650 mg Q4H PRN ORAL FEVER 07/28/17 12:30 08/25/17 12:29 Amlodipine Besylate (Norvasc) 10 mg DAILY GT 07/29/17 09:00 08/27/17 08:59 08/02/17 09:35 Clonidine HCl (Catapres TTS-1) 1 patch ONCE A WEEK TDERMAL 08/01/17 09:00 08/31/17 08:59 08/01/17 09:06 Clonidine HCl (Catapres Tab) 0.1 mg Q4H PRN ORAL For High Blood Pressure 07/28/17 12:45 08/27/17 12:44 08/01/17 13:03 Colistimethate Sodium (Colistin *inhalation use only*) 150 mg Q12HR@,22 INH 07/29/17 22:00 08/05/17 21:59 08/02/17 09:14 Dextrose (Dextrose 50%) 25 ml STAT PRN IV Hypoglycemia 07/28/17 12:30 08/27/17 12:29 Dextrose (Dextrose 50%) 50 ml STAT PRN IV Hypoglycemia 07/28/17 12:30 08/27/17 12:29 Docusate Sodium (Colace) 100 mg TWICE A DAY GT 07/28/17 18:00 08/27/17 17:59 08/02/17 17:22 Epoetin Kaiden (Procrit (for non ESRD use)) 5,000 units WED-WED-WED SUBQ 07/30/17 21:00 08/29/17 20:59 07/30/17 21:35 Heparin Sodium (Porcine) (Heparin 5000 units/ml) 5,000 units EVERY 12 HOURS SUBQ 07/28/17 21:00 08/25/17 20:59 08/02/17 09:42 Hydralazine HCl (Apresoline) 50 mg Q8HR GT 08/01/17 14:00 08/31/17 13:59 08/02/17 14:21 Insulin Aspart (NovoLOG) EVERY 6 HOURS SUBQ 07/31/17 00:00 08/30/17 00:00 08/02/17 11:58 Levofloxacin (Levaquin) 750 mg Q48H ORAL 07/28/17 17:00 08/04/17 16:59 08/01/17 17:42 Meropenem 1 gm/ Sodium Chloride 55 ml @ 110 mls/hr Q12H IVPB 07/28/17 17:00 08/03/17 23:59 08/02/17 16:22 Metoprolol Tartrate (Lopressor) 50 mg EVERY 12 HOURS GT 07/28/17 21:00 08/25/17 20:59 08/02/17 09:34 Ondansetron HCl (Zofran) 4 mg Q6H PRN IVP Nausea & Vomiting 07/28/17 12:30 08/25/17 12:29 Pantoprazole (Protonix) 40 mg DAILY IV 07/29/17 09:00 08/26/17 08:59 08/02/17 09:35 Polyethylene Glycol (Miralax) 17 gm BEDTIME ORAL 07/28/17 21:00 08/27/17 20:59 08/01/17 20:58 Polyethylene Glycol (Miralax) 17 gm DAILYPRN PRN ORAL Constipation 07/28/17 12:30 08/27/17 12:29 Sevelamer Carbonate (Renvela) 800 mg THREE TIMES A DAY NG 08/02/17 13:00 09/01/17 12:59 08/02/17 17:22 Tigecycline 50 mg/ Dextrose 110 ml @ 220 mls/hr Q12H IVPB 07/31/17 02:00 08/07/17 01:59 08/02/17 14:22 Allergies: Coded Allergies: No Known Allergies (Unverified , 07/26/17) ROS Limited/Unobtainable: Yes Subjective 56 YO Vent dependent M admitted with altered mental status. Now pneumonia and acute cerebral vascular accident. Cover for Int Med-Dr Hills. KENDY Objective Last Vital Signs Date Time Temp Pulse Resp B/P (MAP) Pulse Ox O2 Delivery O2 Flow Rate FiO2 08/02/17 17:05 66 17 30 08/02/17 16:00 97.8 179/92 100 Mechanical Ventilator 97.8 07/26/17 10:16 Laboratory Tests Test 08/02/17 04:47 White Blood Count 13.0 K/UL (4.8-10.8) H Red Blood Count 3.09 M/UL (4.70-6.10) L Hemoglobin 9.2 G/DL (14.2-18.0) L Hematocrit 28.0 % (42.0-52.0) L Mean Corpuscular Volume 91 FL (80-99) Mean Corpuscular Hemoglobin 29.9 PG (27.0-31.0) Mean Corpuscular Hemoglobin Concent 33.0 G/DL (32.0-36.0) Red Cell Distribution Width 15.1 % (11.6-14.8) H Platelet Count 512 K/UL (150-450) H Mean Platelet Volume 5.5 FL (6.5-10.1) L Neutrophils (%) (Auto) 78.3 % (45.0-75.0) H Lymphocytes (%) (Auto) 12.4 % (20.0-45.0) L Monocytes (%) (Auto) 5.2 % (1.0-10.0) Eosinophils (%) (Auto) 3.3 % (0.0-3.0) H Basophils (%) (Auto) 0.7 % (0.0-2.0) Sodium Level 140 MMOL/L (136-145) Potassium Level 6.0 MMOL/L (3.5-5.1) *H Chloride Level 109 MMOL/L (98-107) H Carbon Dioxide Level 22 MMOL/L (21-32) Anion Gap 7 mmol/L (5-15) Blood Urea Nitrogen 58 mg/dL (7-18) H Creatinine 2.3 MG/DL (0.55-1.30) H Estimat Glomerular Filtration Rate 29.6 mL/min (>60) Glucose Level 104 MG/DL (74-106) Calcium Level 8.3 MG/DL (8.5-10.1) L Phosphorus Level 6.6 MG/DL (2.5-4.9) H Total Bilirubin 0.3 MG/DL (0.2-1.0) Aspartate Amino Transf (AST/SGOT) 18 U/L (15-37) Alanine Aminotransferase (ALT/SGPT) 18 U/L (12-78) Alkaline Phosphatase 143 U/L (46-116) H Pro-B-Type Natriuretic Peptide 94059 pg/mL (0-125) H Total Protein 7.9 G/DL (6.4-8.2) Albumin 1.8 G/DL (3.4-5.0) L Globulin 6.1 g/dL Albumin/Globulin Ratio 0.3 (1.0-2.7) L Intake and Output 08/01/17 08/02/17 19:00 07:00 Intake Total 925 ml 725 ml Output Total 1450 ml 1200 ml Balance -525 ml -475 ml Intake Free Water 100 ml IV Total 165 ml 165 ml Tube Feeding 440 ml 430 ml Other 320 ml 30 ml Output Urine Total 1450 ml 1200 ml # Bowel Movements 2 3 Objective General Appearance: WD/WN, alert, moderate distress EENT: PERRL/EOMI, normal ENT inspection Neck: non-tender, normal alignment, supple Cardiovascular: normal peripheral pulses, normal rate, regular rhythm, no gallop/murmur, no JVD Respiratory/Chest: Tracheostomy; mech vent; respiratory distress, crackles/ rales, rhonchi - bilaterally, expiratory wheezing Abdomen: normal bowel sounds, non tender, soft, no organomegaly, no mass Extremities: normal range of motion 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 (3) Dysphagia (4) Hemorrhagic stroke (5) HTN (hypertension) Assessment & Plan: Continue norvasc and lopressor (6) Diabetes mellitus type II, controlled Assessment & Plan: Continue novolog sliding scale. (7) Renal failure (8) Left hemiparesis (9) Iron deficiency anemia (10) Altered mental status (11) Pneumonia Assessment & Plan: Bilateral. Continue vanco, meropenem and inh colistin per ID (12) CVA (cerebral vascular accident) Assessment & Plan: Acute basal ganglia (13) Acute and chronic respiratory failure (14) Acute encephalopathy (15) Chronic respiratory failure (16) Hyperkalemia Assessment & Plan: PRN Kayexalate-see nephrology note. Status: not improved Thaddeus Diaz MD Aug 02, 2017 18:44
[2017-08-02 20:00] VITALS: BP 187/88
[2017-08-02] MEDS: Miralax 17gm pkt ORAL SCH (20:23)
[2017-08-02] MEDS: Epogen (for non ESRD use) SUBQ SCH (20:26)
[2017-08-03] VITALS: BP 160/95
[2017-08-03] MEDS: Tigecycline 50 MG in D5W 110 ML IVPB SCH ×2 (02:31→14:52)
[2017-08-03 04:00] VITALS: BP 168/97
[2017-08-03] MEDS: Meropenem 1 GM in NS 55 ML IVPB SCH ×2 (05:11→16:03)
[2017-08-03] MEDS: NovoLOG Insulin Flexpen SUBQ SCH ×5 (05:43→23:46)
[2017-08-03] MEDS: HydrALAZINE 50mg tab GT SCH ×3 (05:43→21:38)
[2017-08-03 06:08] LABS: BASOPHILS % (AUTO) 1.1 % (0.0-2.0); EOSINOPHILS % (AUTO) 3.2 % (0.0-3.0); HEMATOCRIT 27.3 % (42.0-52.0); HEMOGLOBIN 9.1 G/DL (14.2-18.0); MEAN CORPUSCULAR VOLUME 91 FL (80-99); MONOCYTES % (AUTO) 5.6 % (1.0-10.0); NEUTROPHILS % (AUTO) 74.2 % (45.0-75.0); PLATELET COUNT 444 K/UL (150-450); RED BLOOD COUNT 3.01 M/UL (4.70-6.10); RED CELL DISTRIBUTION WIDTH 15.1 % (11.6-14.8); WHITE BLOOD COUNT 11.1 K/UL (4.8-10.8)
[2017-08-03 06:40] LABS: ALANINE AMINOTRANSFERASE 18 U/L (12-78); ALBUMIN 1.7 G/DL (3.4-5.0); ALBUMIN/GLOBULIN RATIO 0.3 (1.0-2.7); ALKALINE PHOSPHATASE 142 U/L (46-116); ANION GAP 10 mmol/L (5-15); ASPARTATE AMINO TRANSFERASE 21 U/L (15-37); BILIRUBIN,TOTAL 0.4 MG/DL (0.2-1.0); BLOOD UREA NITROGEN 60 mg/dL (7-18); CALCIUM 8.5 MG/DL (8.5-10.1); CARBON DIOXIDE 21 MMOL/L (21-32); CHLORIDE 109 MMOL/L (98-107); CREATININE 2.3 MG/DL (0.55-1.30); PHOSPHORUS 5.9 MG/DL (2.5-4.9); POTASSIUM 5.7 MMOL/L (3.5-5.1); SODIUM 140 MMOL/L (136-145)
[2017-08-03 09:00] VITALS: BP 185/92
[2017-08-03] MEDS: Metoprolol Tartrate 50mg tab GT SCH ×2 (09:10→21:38)
[2017-08-03] MEDS: Renvela 800mg Pkt NG SCH ×3 (09:10→17:23)
[2017-08-03] MEDS: Pantoprazole Inj IV SCH (09:10)
[2017-08-03] MEDS: Docusate 100mg/10ml Liq GT SCH ×2 (09:10→17:23)
[2017-08-03] MEDS: Heparin 5000 units/ml inj SUBQ SCH ×2 (09:17→21:39)
[2017-08-03] MEDS: Colistin for inhalation INH SCH ×2 (09:35→22:10)
[2017-08-03] MEDS ORDERED: Sodium Polystyrene Sulfonate 15gm Powder GT SCH (09:45)
--- NOTE | 2017-08-03 09:51 | Pulmonolgy Critical Care Note ---
Critical Care - Asmt/Plan Problems: (1) MDR Acinetobacter baumannii infection (2) Pneumonia (3) Acute encephalopathy (4) Cardiac arrest (5) Acute and chronic respiratory failure (6) Diabetes mellitus (7) History of CVA (cerebrovascular accident) (8) CVA (cerebral vascular accident) Respiratory: monitor respiratory rate, adjust FIO2, CXR Cardiac: continue to monitor HR/BP Renal: F/U I&O, keep IV fluid Infectious Disease: check cultures Gastrointestinal: continue feedings/current rate Endocrine: monitor blood sugar Hematologic: monitor H/H, transfuse if hgb<8.5 Neurologic: PRN Ativan, keep patient comfortable Affect: PRN ativan Notes Reviewed: 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, 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 Discussed with: nurses, consultants, piano case makerlead generation marketing manager - Objective Last 24 Hour Vital Signs Date Time Temp Pulse Resp B/P (MAP) Pulse Ox O2 Delivery O2 Flow Rate FiO2 08/03/17 09:44 73 26 100 Mechanical Ventilator 30 08/03/17 09:30 75 18 100 Mechanical Ventilator 30 08/03/17 09:28 75 29 30 08/03/17 09:10 78 185/92 08/03/17 09:10 78 185/92 08/03/17 09:00 98.8 78 18 185/92 100 Mechanical Ventilator 30 98.8 08/03/17 08:00 30 08/03/17 07:24 75 23 30 08/03/17 05:43 168/97 08/03/17 05:01 75 24 30 08/03/17 04:00 98.0 77 24 168/97 95 Mechanical Ventilator 30 98.0 08/03/17 04:00 30 08/03/17 03:55 75 08/03/17 02:57 74 21 30 08/03/17 00:52 65 17 30 08/03/17 00:52 160/95 08/03/17 00:30 71 08/03/17 00:00 98.0 70 18 160/95 100 Mechanical Ventilator 30 98.0 08/02/17 22:58 61 16 30 08/02/17 22:10 187/88 08/02/17 21:12 58 17 100 Mechanical Ventilator 30 08/02/17 21:05 72 18 100 Mechanical Ventilator 30 08/02/17 21:00 70 36 30 08/02/17 20:23 71 167/88 08/02/17 20:00 98.5 71 35 187/88 100 Mechanical Ventilator 30 98.5 08/02/17 20:00 30 08/02/17 19:06 72 08/02/17 18:51 73 17 30 08/02/17 17:05 66 17 30 08/02/17 16:00 30 08/02/17 16:00 64 08/02/17 16:00 97.8 66 20 179/92 100 Mechanical Ventilator 30 97.8 08/02/17 15:50 68 16 30 08/02/17 14:21 160/89 08/02/17 13:12 63 17 30 08/02/17 12:00 97.8 66 18 160/89 100 Mechanical Ventilator 30 97.8 08/02/17 12:00 30 08/02/17 12:00 67 08/02/17 11:29 70 23 30 Status: awake Condition: critical HEENT: atraumatic Lungs: clear Heart: HR/BP stable Abdomen: soft, active bowel sounds Extremities: no C/C/E Accucheck: 83 Critical Care - Subjective ROS Limited/Unobtainable: Yes FI02: 30 Vent Support Breath Rate: 16 Vent Support Mode: AC Vent Tidal Volume: 600 Sputum Amount: Moderate PEEP: 5.0 PIP: 22 Tube Feeding Amount: 40 I&O: Intake and Output 08/02/17 08/03/17 19:00 07:00 Intake Total 900 ml 755 ml Output Total 1800 ml 1650 ml Balance -900 ml -895 ml Intake Free Water 100 ml 60 ml IV Total 165 ml Tube Feeding 440 ml 480 ml Other 360 ml 50 ml Output Urine Total 1800 ml 1650 ml # Bowel Movements 4 CXR: no change Labs: Laboratory Tests Test 08/03/17 05:12 White Blood Count 11.1 K/UL (4.8-10.8) H Red Blood Count 3.01 M/UL (4.70-6.10) L Hemoglobin 9.1 G/DL (14.2-18.0) L Hematocrit 27.3 % (42.0-52.0) L Mean Corpuscular Volume 91 FL (80-99) Mean Corpuscular Hemoglobin 30.1 PG (27.0-31.0) Mean Corpuscular Hemoglobin Concent 33.2 G/DL (32.0-36.0) Red Cell Distribution Width 15.1 % (11.6-14.8) H Platelet Count 444 K/UL (150-450) Mean Platelet Volume 5.5 FL (6.5-10.1) L Neutrophils (%) (Auto) 74.2 % (45.0-75.0) Lymphocytes (%) (Auto) 16.0 % (20.0-45.0) L Monocytes (%) (Auto) 5.6 % (1.0-10.0) Eosinophils (%) (Auto) 3.2 % (0.0-3.0) H Basophils (%) (Auto) 1.1 % (0.0-2.0) Sodium Level 140 MMOL/L (136-145) Potassium Level 5.7 MMOL/L (3.5-5.1) H Chloride Level 109 MMOL/L (98-107) H Carbon Dioxide Level 21 MMOL/L (21-32) Anion Gap 10 mmol/L (5-15) Blood Urea Nitrogen 60 mg/dL (7-18) H Creatinine 2.3 MG/DL (0.55-1.30) H Estimat Glomerular Filtration Rate 29.6 mL/min (>60) Glucose Level 82 MG/DL (74-106) Calcium Level 8.5 MG/DL (8.5-10.1) Phosphorus Level 5.9 MG/DL (2.5-4.9) H Magnesium Level 1.8 MG/DL (1.8-2.4) Total Bilirubin 0.4 MG/DL (0.2-1.0) Aspartate Amino Transf (AST/SGOT) 21 U/L (15-37) Alanine Aminotransferase (ALT/SGPT) 18 U/L (12-78) Alkaline Phosphatase 142 U/L (46-116) H Total Protein 7.9 G/DL (6.4-8.2) Albumin 1.7 G/DL (3.4-5.0) L Globulin 6.2 g/dL Albumin/Globulin Ratio 0.3 (1.0-2.7) L Siva Quinteros MD Aug 03, 2017 09:51
[2017-08-03] MEDS: Morphine Sulfate 2mg/ml Inj IVP PRN ×3 (10:07→22:59)
--- NOTE | 2017-08-03 10:50 | Nephrology Progress Note ---
Assessment/Plan Problem List: (1) Acute on chronic renal failure (2) Anemia (3) Hypoglycemia (4) Chronic respiratory failure (5) History of CVA (cerebrovascular accident) (6) Accelerated hypertension (7) Nephrotic syndrome Assessment WBCs lowering Renal failure Cr 2.3 Nephrotic syndrome likely Pre renal super imposed on renal Severe HypoAlbuminemia Sever Anemia Chronic vent / Trach. has PEG HypoKalemia 4+ Proteinuria Hypoglycemia HTN Plan kayexelate for high K change feeding to nepro add epogen Add Hydralazine pulm support transfuse K IV Monitor renal parameters 24 H urine protein 5.4 gr protein Subjective ROS Limited/Unobtainable: Yes Constitutional: Reports: malaise Objective Objective Last 24 Hour Vital Signs Date Time Temp Pulse Resp B/P (MAP) Pulse Ox O2 Delivery O2 Flow Rate FiO2 08/03/17 09:44 73 26 100 Mechanical Ventilator 30 08/03/17 09:30 75 18 100 Mechanical Ventilator 30 08/03/17 09:28 75 29 30 08/03/17 09:10 78 185/92 08/03/17 09:10 78 185/92 08/03/17 09:00 98.8 78 18 185/92 100 Mechanical Ventilator 30 98.8 08/03/17 08:00 30 08/03/17 07:44 67 08/03/17 07:24 75 23 30 08/03/17 05:43 168/97 08/03/17 05:01 75 24 30 08/03/17 04:00 98.0 77 24 168/97 95 Mechanical Ventilator 30 98.0 08/03/17 04:00 30 08/03/17 03:55 75 08/03/17 02:57 74 21 30 08/03/17 00:52 65 17 30 08/03/17 00:52 160/95 08/03/17 00:30 71 08/03/17 00:00 98.0 70 18 160/95 100 Mechanical Ventilator 30 98.0 08/02/17 22:58 61 16 30 08/02/17 22:10 187/88 08/02/17 21:12 58 17 100 Mechanical Ventilator 30 08/02/17 21:05 72 18 100 Mechanical Ventilator 30 08/02/17 21:00 70 36 30 08/02/17 20:23 71 167/08/02/17 20:00 98.5 71 35 187/88 100 Mechanical Ventilator 30 98.5 08/02/17 20:00 30 08/02/17 19:06 72 08/02/17 18:51 73 17 30 08/02/17 17:05 66 17 30 08/02/17 16:00 30 08/02/17 16:00 64 08/02/17 16:00 97.8 66 20 179/92 100 Mechanical Ventilator 30 97.8 08/02/17 15:50 68 16 30 08/02/17 14:21 160/89 08/02/17 13:12 63 17 30 08/02/17 12:00 97.8 66 18 160/89 100 Mechanical Ventilator 30 97.8 08/02/17 12:00 30 08/02/17 12:00 67 08/02/17 11:29 70 23 30 Intake and Output 08/02/17 08/03/17 19:00 07:00 Intake Total 900 ml 755 ml Output Total 1800 ml 1650 ml Balance -900 ml -895 ml Intake Free Water 100 ml 60 ml IV Total 165 ml Tube Feeding 440 ml 480 ml Other 360 ml 50 ml Output Urine Total 1800 ml 1650 ml # Bowel Movements 4 Laboratory Tests 08/03/17 05:12: White Blood Count 11.1H, Red Blood Count 3.01L, Hemoglobin 9.1L, Hematocrit 27.3L, Mean Corpuscular Volume 91, Mean Corpuscular Hemoglobin 30.1, Mean Corpuscular Hemoglobin Concent 33.2, Red Cell Distribution Width 15.1H, Platelet Count 444, Mean Platelet Volume 5.5L, Neutrophils (%) (Auto) 74.2, Lymphocytes (%) (Auto) 16.0L, Monocytes (%) (Auto) 5.6, Eosinophils (%) (Auto) 3.2H, Basophils (%) (Auto) 1.1, Sodium Level 140, Potassium Level 5.7H, Chloride Level 109H, Carbon Dioxide Level 21, Anion Gap 10, Blood Urea Nitrogen 60H, Creatinine 2.3H, Estimat Glomerular Filtration Rate 29.6, Glucose Level 82 , Calcium Level 8.5, Phosphorus Level 5.9H, Magnesium Level 1.8, Total Bilirubin 0.4, Aspartate Amino Transf (AST/SGOT) 21, Alanine Aminotransferase ( ALT/SGPT) 18, Alkaline Phosphatase 142H, Total Protein 7.9, Albumin 1.7L, Globulin 6.2, Albumin/Globulin Ratio 0.3L Height (Feet): 5 Height (Inches): 6.00 Weight (Pounds): 164 General Appearance: no apparent distress Respiratory/Chest: decreased breath sounds Abdomen: distended Objective no change FRED VEGA Aug 03, 2017 10:50
[2017-08-03 12:24] VITALS: BP 162/89
--- NOTE | 2017-08-03 13:31 | Infectious Diseases Prog Note ---
Assessment/Plan Assessment/Plan Assessment: Probable MDRO PNA- worsenened, now improving- r/o legionella 07/29 Scx: MDR ABC -CXR 07/30:Improved but still extensive bilateral diffuse interstitial and airspace infiltrates versus edema, over 2 days -CXR 07/28: Over 2 days, interim worsening of bilateral diffuse interstitial and airspace infiltrates versus edema -CXR: Cardiomegaly with bilateral interstitial and patchy airspace opacities.Findings may be related to CHF/pulmonary edema however superimposed pneumonia not entirely excluded. -sp cx GNR MDR A. baumanni (I Levo, Minocycline; S Colistin, Polymixin B and Tygeclcine); E. aerogenes probable AMP c (S cefepime, Meropenem, Genta) Leukocytosis, improving -no fever -u/a wbc 5-10; repeat neg -Cdiff neg Lactic acidosis, SP Acute CVA -CT head: asymmetric densities in the right insula, steen radiata, and basal ganglia concerning for acute infarct. DM2 HTN NJ/CAD anemia CVA/TIA/hemorrhagic stroke w/ L side hemiparesis CKD IV, Cr imprivng resp failure Trach/vent dependant dysphagia s/p PEG non verbal SNF resident Plan: -Continue empiric Meropenem and Levaquin # 7 (abx d#11/21 ) for PNA, INH Colistin # /-14 and IV Tigecycline d # /-14 for MDR ABC -07/28 SP IV Vancomycin #3, Cefepime #3 -f/u cx -Monitor CBC/BMP, temperatures -aspiration precautions -Trach/peg care -f/u legionella ag urine Subjective Allergies: Coded Allergies: No Known Allergies (Unverified , 07/26/17) Subjective afebrile leukocytosis overall improved Fio2 30% Objective Vital Signs Last 24 Hour Vital Signs Date Time Temp Pulse Resp B/P (MAP) Pulse Ox O2 Delivery O2 Flow Rate FiO2 08/03/17 13:09 162/89 08/03/17 13:05 70 22 30 08/03/17 12:24 98.4 68 26 162/89 99 Mechanical Ventilator 30 98.4 08/03/17 12:00 30 08/03/17 11:53 69 08/03/17 11:03 66 17 30 08/03/17 09:44 73 26 100 Mechanical Ventilator 30 08/03/17 09:30 75 18 100 Mechanical Ventilator 30 08/03/17 09:28 75 29 30 08/03/17 09:10 78 185/92 08/03/17 09:10 78 185/92 08/03/17 09:00 98.8 78 18 185/92 100 Mechanical Ventilator 30 98.8 08/03/17 08:00 30 08/03/17 07:44 67 08/03/17 07:24 75 23 30 08/03/17 05:43 168/97 08/03/17 05:01 75 24 30 08/03/17 04:00 98.0 77 24 168/97 95 Mechanical Ventilator 30 98.0 08/03/17 04:00 30 08/03/17 03:55 75 08/03/17 02:57 74 21 30 08/03/17 00:52 65 17 30 08/03/17 00:52 160/95 08/03/17 00:30 71 08/03/17 00:00 98.0 70 18 160/95 100 Mechanical Ventilator 30 98.0 08/02/17 22:58 61 16 30 08/02/17 22:10 187/88 08/02/17 21:12 58 17 100 Mechanical Ventilator 30 08/02/17 21:05 72 18 100 Mechanical Ventilator 30 08/02/17 21:00 70 36 30 08/02/17 20:23 71 167/88 08/02/17 20:00 98.5 71 35 187/88 100 Mechanical Ventilator 30 98.5 08/02/17 20:00 30 08/02/17 19:06 72 08/02/17 18:51 73 17 30 08/02/17 17:05 66 17 30 08/02/17 16:00 30 08/02/17 16:00 64 08/02/17 16:00 97.8 66 20 179/92 100 Mechanical Ventilator 30 97.8 08/02/17 15:50 68 16 30 08/02/17 14:21 160/89 Height (Feet): 5 Height (Inches): 6.00 Weight (Pounds): 164 Objective GENERAL APPEARANCE: A well-developed, well-nourished, male, who was intubated and sedated. HEENT: Eyes, pupils are equal and responsive to light and accommodation. Extraocular movements are intact. NECK: Supple without lymphadenopathy. There is a tracheostomy tube present. CARDIOVASCULAR: Regular rhythm rate. S1, S2 normal without murmurs, rubs, or gallops. ABDOMEN: Soft, nontender, and nondistended. Positive bowel sounds. No evidence of hepatosplenomegaly. Currently, no rebound or guarding noted. There is presence of a G-tube placement noted. LUNGS: Coarse breath sounds bilaterally without wheezes or rales. NEUROLOGIC: The patient has a left flaccid hemiparesis. Laboratory Tests Test 08/03/17 05:12 White Blood Count 11.1 K/UL (4.8-10.8) H Red Blood Count 3.01 M/UL (4.70-6.10) L Hemoglobin 9.1 G/DL (14.2-18.0) L Hematocrit 27.3 % (42.0-52.0) L Mean Corpuscular Volume 91 FL (80-99) Mean Corpuscular Hemoglobin 30.1 PG (27.0-31.0) Mean Corpuscular Hemoglobin Concent 33.2 G/DL (32.0-36.0) Red Cell Distribution Width 15.1 % (11.6-14.8) H Platelet Count 444 K/UL (150-450) Mean Platelet Volume 5.5 FL (6.5-10.1) L Neutrophils (%) (Auto) 74.2 % (45.0-75.0) Lymphocytes (%) (Auto) 16.0 % (20.0-45.0) L Monocytes (%) (Auto) 5.6 % (1.0-10.0) Eosinophils (%) (Auto) 3.2 % (0.0-3.0) H Basophils (%) (Auto) 1.1 % (0.0-2.0) Sodium Level 140 MMOL/L (136-145) Potassium Level 5.7 MMOL/L (3.5-5.1) H Chloride Level 109 MMOL/L (98-107) H Carbon Dioxide Level 21 MMOL/L (21-32) Anion Gap 10 mmol/L (5-15) Blood Urea Nitrogen 60 mg/dL (7-18) H Creatinine 2.3 MG/DL (0.55-1.30) H Estimat Glomerular Filtration Rate 29.6 mL/min (>60) Glucose Level 82 MG/DL (74-106) Calcium Level 8.5 MG/DL (8.5-10.1) Phosphorus Level 5.9 MG/DL (2.5-4.9) H Magnesium Level 1.8 MG/DL (1.8-2.4) Total Bilirubin 0.4 MG/DL (0.2-1.0) Aspartate Amino Transf (AST/SGOT) 21 U/L (15-37) Alanine Aminotransferase (ALT/SGPT) 18 U/L (12-78) Alkaline Phosphatase 142 U/L (46-116) H Total Protein 7.9 G/DL (6.4-8.2) Albumin 1.7 G/DL (3.4-5.0) L Globulin 6.2 g/dL Albumin/Globulin Ratio 0.3 (1.0-2.7) L Current Medications Medications (Trade) Dose Ordered Sig/Johnathan Route PRN Reason Start Time Stop Time Status Last Admin Dose Admin Acetaminophen (Tylenol) 650 mg Q4H PRN ORAL FEVER 07/28/17 12:30 08/25/17 12:29 08/02/17 20:27 Amlodipine Besylate (Norvasc) 10 mg DAILY GT 07/29/17 09:00 08/27/17 08:59 08/03/17 09:10 Clonidine HCl (Catapres TTS-1) 1 patch ONCE A WEEK TDERMAL 08/01/17 09:00 08/31/17 08:59 08/01/17 09:06 Clonidine HCl (Catapres Tab) 0.1 mg Q4H PRN ORAL For High Blood Pressure 07/28/17 12:45 08/27/17 12:44 08/03/17 00:52 Colistimethate Sodium (Colistin *inhalation use only*) 150 mg Q12HR@10,22 INH 07/29/17 22:00 08/05/17 21:59 08/03/17 09:35 Dextrose (Dextrose 50%) 25 ml STAT PRN IV Hypoglycemia 07/28/17 12:30 08/27/17 12:29 Dextrose (Dextrose 50%) 50 ml STAT PRN IV Hypoglycemia 07/28/17 12:30 08/27/17 12:29 Docusate Sodium (Colace) 100 mg TWICE A DAY GT 07/28/17 18:00 08/27/17 17:59 6/26/18 09:10 Epoetin Kaiden (Procrit (for non ESRD use)) 5,000 units WED-WED-WED SUBQ 07/30/17 21:00 08/29/17 20:59 08/02/17 20:26 Heparin Sodium (Porcine) (Heparin 5000 units/ml) 5,000 units EVERY 12 HOURS SUBQ 07/28/17 21:00 08/25/17 20:59 08/03/17 09:17 Hydralazine HCl (Apresoline) 50 mg Q8HR GT 08/01/17 14:00 08/31/17 13:59 08/03/17 13:09 Insulin Aspart (NovoLOG) EVERY 6 HOURS SUBQ 07/31/17 00:00 08/30/17 00:00 08/03/17 13:10 Levofloxacin (Levaquin) 750 mg Q48H ORAL 07/28/17 17:00 08/08/17 16:59 08/01/17 17:42 Meropenem 1 gm/ Sodium Chloride 55 ml @ 110 mls/hr Q12H IVPB 07/28/17 17:00 08/08/17 16:59 08/03/17 05:11 Metoprolol Tartrate (Lopressor) 50 mg EVERY 12 HOURS GT 07/28/17 21:00 08/25/17 20:59 08/03/17 09:10 Morphine Sulfate (Morphine Sulfate) 2 mg Q4H PRN IVP For Pain 08/03/17 10:00 08/10/17 09:59 08/03/17 10:07 Ondansetron HCl (Zofran) 4 mg Q6H PRN IVP Nausea & Vomiting 07/28/17 12:30 08/25/17 12:29 Pantoprazole (Protonix) 40 mg DAILY IV 07/29/17 09:00 08/26/17 08:59 08/03/17 09:10 Polyethylene Glycol (Miralax) 17 gm BEDTIME ORAL 07/28/17 21:00 08/27/17 20:59 08/02/17 20:23 Polyethylene Glycol (Miralax) 17 gm DAILYPRN PRN ORAL Constipation 07/28/17 12:30 08/27/17 12:29 Sevelamer Carbonate (Renvela) 1,600 mg THREE TIMES A DAY NG 08/03/17 13:00 09/01/17 12:59 08/03/17 13:09 Tigecycline 50 mg/ Dextrose 110 ml @ 220 mls/hr Q12H IVPB 07/31/17 02:00 08/07/17 01:59 08/03/17 02:31 Jessica Estrella M.D. Aug 03, 2017 13:31
--- NOTE | 2017-08-03 13:48 | GI Progress Note ---
Assessment/Plan Problems: (1) Abdominal pain ICD Codes: R10.9 - Unspecified abdominal pain SNOMED: 86416301 (2) Hypoglycemia ICD Codes: E16.2 - Hypoglycemia, unspecified SNOMED: 086549768 (3) Anemia ICD Codes: D64.9 - Anemia, unspecified SNOMED: 595480616 (4) Dysphagia ICD Codes: R13.10 - Dysphagia, unspecified SNOMED: 77058292, 308906122 (5) Diabetes mellitus ICD Codes: E11.9 - Type 2 diabetes mellitus without complications SNOMED: 85627764 Status: stable Status Narrative Discussed with Dr. Edouard. Assessment/Plan KUB reviewed >> no acute process anemia work up reviewed >> most likely 2/2 to chronic disease OB stool negative GT dependent some abdominal bloating cdiff negative stool culture supportive care at this time simethicone prn for abdominal gas pain GTFs per RD turn q2 hours to promote GI motility prn transfusions bowel regime ppi abx per ID fu labs The patient was seen and examined at bedside and all new and available data was reviewed in the patients chart. I agree with the above findings, impression and plan. (Patient seen earlier today. Signature stamp does not reflect patient encounter time.). - David Edouard MD Subjective Subjective limited Objective Last 24 Hour Vital Signs Date Time Temp Pulse Resp B/P (MAP) Pulse Ox O2 Delivery O2 Flow Rate FiO2 08/03/17 13:09 162/89 08/03/17 13:05 70 22 30 08/03/17 12:24 98.4 68 26 162/89 99 Mechanical Ventilator 30 98.4 08/03/17 12:00 30 08/03/17 11:53 69 08/03/17 11:03 66 17 30 08/03/17 09:44 73 26 100 Mechanical Ventilator 30 08/03/17 09:30 75 18 100 Mechanical Ventilator 30 08/03/17 09:28 75 29 30 08/03/17 09:10 78 185/92 08/03/17 09:10 78 185/92 08/03/17 09:00 98.8 78 18 185/92 100 Mechanical Ventilator 30 98.8 08/03/17 08:00 30 08/03/17 07:44 67 08/03/17 07:24 75 23 30 08/03/17 05:43 168/97 08/03/17 05:01 75 24 30 08/03/17 04:00 98.0 77 24 168/97 95 Mechanical Ventilator 30 98.0 08/03/17 04:00 30 08/03/17 03:55 75 08/03/17 02:57 74 21 30 08/03/17 00:52 65 17 30 08/03/17 00:52 160/95 08/03/17 00:30 71 08/03/17 00:00 98.0 70 18 160/95 100 Mechanical Ventilator 30 98.0 08/02/17 22:58 61 16 30 08/02/17 22:10 187/88 08/02/17 21:12 58 17 100 Mechanical Ventilator 30 08/02/17 21:05 72 18 100 Mechanical Ventilator 30 08/02/17 21:00 70 36 30 08/02/17 20:23 71 167/88 08/02/17 20:00 98.5 71 35 187/88 100 Mechanical Ventilator 30 98.5 08/02/17 20:00 30 08/02/17 19:06 72 08/02/17 18:51 73 17 30 08/02/17 17:05 66 17 30 08/02/17 16:00 30 08/02/17 16:00 64 08/02/17 16:00 97.8 66 20 179/92 100 Mechanical Ventilator 30 97.8 08/02/17 15:50 68 16 30 08/02/17 14:21 160/89 Intake and Output 08/02/17 08/03/17 19:00 07:00 Intake Total 900 ml 755 ml Output Total 1800 ml 1650 ml Balance -900 ml -895 ml Intake Free Water 100 ml 60 ml IV Total 165 ml Tube Feeding 440 ml 480 ml Other 360 ml 50 ml Output Urine Total 1800 ml 1650 ml # Bowel Movements 4 Laboratory Tests Test 08/03/17 05:12 White Blood Count 11.1 K/UL (4.8-10.8) H Red Blood Count 3.01 M/UL (4.70-6.10) L Hemoglobin 9.1 G/DL (14.2-18.0) L Hematocrit 27.3 % (42.0-52.0) L Mean Corpuscular Volume 91 FL (80-99) Mean Corpuscular Hemoglobin 30.1 PG (27.0-31.0) Mean Corpuscular Hemoglobin Concent 33.2 G/DL (32.0-36.0) Red Cell Distribution Width 15.1 % (11.6-14.8) H Platelet Count 444 K/UL (150-450) Mean Platelet Volume 5.5 FL (6.5-10.1) L Neutrophils (%) (Auto) 74.2 % (45.0-75.0) Lymphocytes (%) (Auto) 16.0 % (20.0-45.0) L Monocytes (%) (Auto) 5.6 % (1.0-10.0) Eosinophils (%) (Auto) 3.2 % (0.0-3.0) H Basophils (%) (Auto) 1.1 % (0.0-2.0) Sodium Level 140 MMOL/L (136-145) Potassium Level 5.7 MMOL/L (3.5-5.1) H Chloride Level 109 MMOL/L (98-107) H Carbon Dioxide Level 21 MMOL/L (21-32) Anion Gap 10 mmol/L (5-15) Blood Urea Nitrogen 60 mg/dL (7-18) H Creatinine 2.3 MG/DL (0.55-1.30) H Estimat Glomerular Filtration Rate 29.6 mL/min (>60) Glucose Level 82 MG/DL (74-106) Calcium Level 8.5 MG/DL (8.5-10.1) Phosphorus Level 5.9 MG/DL (2.5-4.9) H Magnesium Level 1.8 MG/DL (1.8-2.4) Total Bilirubin 0.4 MG/DL (0.2-1.0) Aspartate Amino Transf (AST/SGOT) 21 U/L (15-37) Alanine Aminotransferase (ALT/SGPT) 18 U/L (12-78) Alkaline Phosphatase 142 U/L (46-116) H Total Protein 7.9 G/DL (6.4-8.2) Albumin 1.7 G/DL (3.4-5.0) L Globulin 6.2 g/dL Albumin/Globulin Ratio 0.3 (1.0-2.7) L Height (Feet): 5 Height (Inches): 6.00 Weight (Pounds): 164 General Appearance: no apparent distress Cardiovascular: normal rate Respiratory/Chest: normal breath sounds, no respiratory distress Abdominal Exam: normal bowel sounds, non tender, soft, GT site - c/d/i Extremities: non-tender Erasto Toro NP Aug 03, 2017 13:48
[2017-08-03 16:00] VITALS: BP 189/88
--- NOTE | 2017-08-03 17:56 | Internal Med Progress Note ---
Subjective Date of Service: Aug 03, 2017 Physician Name Thaddeus Diaz Attending Physician Timothy Hills MD Current Medications Medications (Trade) Dose Ordered Sig/Johnathan Route PRN Reason Start Time Stop Time Status Last Admin Dose Admin Acetaminophen (Tylenol) 650 mg Q4H PRN ORAL FEVER 07/28/17 12:30 08/25/17 12:29 08/02/17 20:27 Amlodipine Besylate (Norvasc) 10 mg DAILY GT 07/29/17 09:00 08/27/17 08:59 08/03/17 09:10 Clonidine HCl (Catapres TTS-1) 1 patch ONCE A WEEK TDERMAL 08/01/17 09:00 08/31/17 08:59 08/01/17 09:06 Clonidine HCl (Catapres Tab) 0.1 mg Q4H PRN ORAL For High Blood Pressure 07/28/17 12:45 08/27/17 12:44 08/03/17 17:40 Colistimethate Sodium (Colistin *inhalation use only*) 150 mg Q12HR@ INH 07/29/17 22:00 08/05/17 21:59 08/03/17 09:35 Dextrose (Dextrose 50%) 25 ml STAT PRN IV Hypoglycemia 07/28/17 12:30 08/27/17 12:29 Dextrose (Dextrose 50%) 50 ml STAT PRN IV Hypoglycemia 07/28/17 12:30 08/27/17 12:29 Docusate Sodium (Colace) 100 mg TWICE A DAY GT 07/28/17 18:00 08/27/17 17:59 08/03/17 17:23 Epoetin Kaiden (Procrit (for non ESRD use)) 5,000 units WED-WED-WED SUBQ 07/30/17 21:00 08/29/17 20:59 08/02/17 20:26 Heparin Sodium (Porcine) (Heparin 5000 units/ml) 5,000 units EVERY 12 HOURS SUBQ 07/28/17 21:00 08/25/17 20:59 08/03/17 09:17 Hydralazine HCl (Apresoline) 50 mg Q8HR GT 08/01/17 14:00 08/31/17 13:59 08/03/17 13:09 Insulin Aspart (NovoLOG) EVERY 6 HOURS SUBQ 07/31/17 00:00 08/30/17 00:00 08/03/17 13:10 Levofloxacin (Levaquin) 750 mg Q48H ORAL 07/28/17 17:00 08/08/17 16:59 08/03/17 16:04 Meropenem 1 gm/ Sodium Chloride 55 ml @ 110 mls/hr Q12H IVPB 07/28/17 17:00 08/08/17 16:59 08/03/17 16:03 Metoprolol Tartrate (Lopressor) 50 mg EVERY 12 HOURS GT 07/28/17 21:00 08/25/17 20:59 08/03/17 09:10 Morphine Sulfate (Morphine Sulfate) 2 mg Q4H PRN IVP For Pain 08/03/17 10:00 08/10/17 09:59 08/03/17 10:07 Ondansetron HCl (Zofran) 4 mg Q6H PRN IVP Nausea & Vomiting 07/28/17 12:30 08/25/17 12:29 Pantoprazole (Protonix) 40 mg DAILY IV 07/29/17 09:00 08/26/17 08:59 08/03/17 09:10 Polyethylene Glycol (Miralax) 17 gm BEDTIME ORAL 07/28/17 21:00 08/27/17 20:59 08/02/17 20:23 Polyethylene Glycol (Miralax) 17 gm DAILYPRN PRN ORAL Constipation 07/28/17 12:30 08/27/17 12:29 Sevelamer Carbonate (Renvela) 1,600 mg THREE TIMES A DAY NG 08/03/17 13:00 09/01/17 12:59 08/03/17 17:23 Tigecycline 50 mg/ Dextrose 110 ml @ 220 mls/hr Q12H IVPB 07/31/17 02:00 08/07/17 01:59 08/03/17 14:52 Allergies: Coded Allergies: No Known Allergies (Unverified , 07/26/17) ROS Limited/Unobtainable: Yes Subjective 56 YO Vent dependent M admitted with altered mental status. Now pneumonia and acute cerebral vascular accident. Cover for Int Ayden-Dr Hills. KENDY Objective Last Vital Signs Date Time Temp Pulse Resp B/P (MAP) Pulse Ox O2 Delivery O2 Flow Rate FiO2 08/03/17 17:40 189/88 08/03/17 17:24 70 19 30 08/03/17 16:00 98.4 100 Mechanical Ventilator 98.4 07/26/17 10:16 Laboratory Tests Test 08/03/17 05:12 White Blood Count 11.1 K/UL (4.8-10.8) H Red Blood Count 3.01 M/UL (4.70-6.10) L Hemoglobin 9.1 G/DL (14.2-18.0) L Hematocrit 27.3 % (42.0-52.0) L Mean Corpuscular Volume 91 FL (80-99) Mean Corpuscular Hemoglobin 30.1 PG (27.0-31.0) Mean Corpuscular Hemoglobin Concent 33.2 G/DL (32.0-36.0) Red Cell Distribution Width 15.1 % (11.6-14.8) H Platelet Count 444 K/UL (150-450) Mean Platelet Volume 5.5 FL (6.5-10.1) L Neutrophils (%) (Auto) 74.2 % (45.0-75.0) Lymphocytes (%) (Auto) 16.0 % (20.0-45.0) L Monocytes (%) (Auto) 5.6 % (1.0-10.0) Eosinophils (%) (Auto) 3.2 % (0.0-3.0) H Basophils (%) (Auto) 1.1 % (0.0-2.0) Sodium Level 140 MMOL/L (136-145) Potassium Level 5.7 MMOL/L (3.5-5.1) H Chloride Level 109 MMOL/L (98-107) H Carbon Dioxide Level 21 MMOL/L (21-32) Anion Gap 10 mmol/L (5-15) Blood Urea Nitrogen 60 mg/dL (7-18) H Creatinine 2.3 MG/DL (0.55-1.30) H Estimat Glomerular Filtration Rate 29.6 mL/min (>60) Glucose Level 82 MG/DL (74-106) Calcium Level 8.5 MG/DL (8.5-10.1) Phosphorus Level 5.9 MG/DL (2.5-4.9) H Magnesium Level 1.8 MG/DL (1.8-2.4) Ferritin 941 NG/ML (8-388) H Total Bilirubin 0.4 MG/DL (0.2-1.0) Aspartate Amino Transf (AST/SGOT) 21 U/L (15-37) Alanine Aminotransferase (ALT/SGPT) 18 U/L (12-78) Alkaline Phosphatase 142 U/L (46-116) H Total Protein 7.9 G/DL (6.4-8.2) Albumin 1.7 G/DL (3.4-5.0) L Globulin 6.2 g/dL Albumin/Globulin Ratio 0.3 (1.0-2.7) L Intake and Output 08/02/17 08/03/17 19:00 07:00 Intake Total 900 ml 755 ml Output Total 1800 ml 1650 ml Balance -900 ml -895 ml Intake Free Water 100 ml 60 ml IV Total 165 ml Tube Feeding 440 ml 480 ml Other 360 ml 50 ml Output Urine Total 1800 ml 1650 ml # Bowel Movements 4 Objective General Appearance: WD/WN, alert, moderate distress EENT: PERRL/EOMI, normal ENT inspection Neck: non-tender, normal alignment, supple Cardiovascular: normal peripheral pulses, normal rate, regular rhythm, no gallop/murmur, no JVD Respiratory/Chest: Tracheostomy; mech vent; respiratory distress, crackles/ rales, rhonchi - bilaterally, expiratory wheezing Abdomen: normal bowel sounds, non tender, soft, no organomegaly, no mass Extremities: normal range of motion 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 (3) Dysphagia (4) Hemorrhagic stroke (5) HTN (hypertension) Assessment & Plan: Continue norvasc and lopressor (6) Diabetes mellitus type II, controlled Assessment & Plan: Continue novolog sliding scale. (7) Renal failure (8) Left hemiparesis (9) Iron deficiency anemia (10) Altered mental status (11) Pneumonia Assessment & Plan: Bilateral. Continue levaquin, tigecycline meropenem and inh colistin per ID (12) CVA (cerebral vascular accident) Assessment & Plan: Acute basal ganglia (13) Acute and chronic respiratory failure (14) Acute encephalopathy (15) Chronic respiratory failure (16) Hyperkalemia Assessment & Plan: PRN Kayexalate-see nephrology note. Status: not improved Thaddeus Diaz MD Aug 03, 2017 17:56
[2017-08-03 20:00] VITALS: BP 166/92
[2017-08-03] MEDS ORDERED: NS 275ml ONE (21:02)
[2017-08-03] MEDS: Miralax 17gm pkt ORAL SCH (21:38)
--- NOTE | 2017-08-03 22:11 | Cardiology Progress Note ---
Assessment/Plan Status: stable Assessment/Plan -TTE reviewed, no wall motion abnormalities, normal LV function, moderate AR - stable -IV abx due to pulmonary infiltrates and positive culture - concerning for worsening CXR albeit clinically stable, wbc persistently elevated -Continue BP medications - hydralazine added -Defer cardiac cath at this time, patients conditions likely from pulmonary infection as opposed to pulseless v tachy -CTA with infarct - neuro consult, repeat CT in 1 week -Plavix -Statin -Placement Subjective Respiratory: Reports: no symptoms Gastrointestinal/Abdominal: Reports: no symptoms Genitourinary: Reports: no symptoms Subjective No acute events, stable on vent, Alert and responsive Renal function stable Vitals stable, feeds at goal, no residuals Blood culture positive for gram negative rods, WBC coming down Mild anemia Tolerating Feeds On soft restraints Objective Last 24 Hour Vital Signs Date Time Temp Pulse Resp B/P (MAP) Pulse Ox O2 Delivery O2 Flow Rate FiO2 08/03/17 21:38 166/92 08/03/17 21:38 76 166/92 08/03/17 20:00 97.7 76 20 166/92 100 Mechanical Ventilator 30 97.7 08/03/17 19:30 64 19 30 08/03/17 17:40 189/88 08/03/17 17:24 70 19 30 08/03/17 16:00 30 08/03/17 16:00 98.4 71 18 189/88 100 Mechanical Ventilator 30 98.4 08/03/17 15:22 64 08/03/17 15:09 72 25 30 08/03/17 13:09 162/89 08/03/17 13:05 70 22 30 08/03/17 12:24 98.4 68 26 162/89 99 Mechanical Ventilator 30 98.4 08/03/17 12:00 30 08/03/17 11:53 69 08/03/17 11:03 66 17 30 08/03/17 09:44 73 26 100 Mechanical Ventilator 30 08/03/17 09:30 75 18 100 Mechanical Ventilator 30 08/03/17 09:28 75 29 30 08/03/17 09:10 78 185/92 08/03/17 09:10 78 185/92 08/03/17 09:00 98.8 78 18 185/92 100 Mechanical Ventilator 30 98.8 08/03/17 08:00 30 08/03/17 07:44 67 08/03/17 07:24 75 23 30 08/03/17 05:43 168/97 08/03/17 05:01 75 24 30 08/03/17 04:00 98.0 77 24 168/97 95 Mechanical Ventilator 30 98.0 08/03/17 04:00 30 08/03/17 03:55 75 08/03/17 02:57 74 21 30 08/03/17 00:52 65 17 30 08/03/17 00:52 160/95 08/03/17 00:30 71 08/03/17 00:00 98.0 70 18 160/95 100 Mechanical Ventilator 30 98.0 08/02/17 22:58 61 16 30 08/02/17 22:10 187/88 General Appearance: no apparent distress, on vent EENT: PERRL/EOMI Neck: non-tender Rhythm: SB Cardiovascular: normal peripheral pulses Respiratory/Chest: chest wall non-tender Abdomen: normal bowel sounds Extremities: normal range of motion 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 Intake and Output 08/02/17 08/03/17 19:00 07:00 Intake Total 900 ml 755 ml Output Total 1800 ml 1650 ml Balance -900 ml -895 ml Intake Free Water 100 ml 60 ml IV Total 165 ml Tube Feeding 440 ml 480 ml Other 360 ml 50 ml Output Urine Total 1800 ml 1650 ml # Bowel Movements 4 Laboratory Tests Test 08/03/17 05:12 White Blood Count 11.1 K/UL (4.8-10.8) H Red Blood Count 3.01 M/UL (4.70-6.10) L Hemoglobin 9.1 G/DL (14.2-18.0) L Hematocrit 27.3 % (42.0-52.0) L Mean Corpuscular Volume 91 FL (80-99) Mean Corpuscular Hemoglobin 30.1 PG (27.0-31.0) Mean Corpuscular Hemoglobin Concent 33.2 G/DL (32.0-36.0) Red Cell Distribution Width 15.1 % (11.6-14.8) H Platelet Count 444 K/UL (150-450) Mean Platelet Volume 5.5 FL (6.5-10.1) L Neutrophils (%) (Auto) 74.2 % (45.0-75.0) Lymphocytes (%) (Auto) 16.0 % (20.0-45.0) L Monocytes (%) (Auto) 5.6 % (1.0-10.0) Eosinophils (%) (Auto) 3.2 % (0.0-3.0) H Basophils (%) (Auto) 1.1 % (0.0-2.0) Sodium Level 140 MMOL/L (136-145) Potassium Level 5.7 MMOL/L (3.5-5.1) H Chloride Level 109 MMOL/L (98-107) H Carbon Dioxide Level 21 MMOL/L (21-32) Anion Gap 10 mmol/L (5-15) Blood Urea Nitrogen 60 mg/dL (7-18) H Creatinine 2.3 MG/DL (0.55-1.30) H Estimat Glomerular Filtration Rate 29.6 mL/min (>60) Glucose Level 82 MG/DL (74-106) Calcium Level 8.5 MG/DL (8.5-10.1) Phosphorus Level 5.9 MG/DL (2.5-4.9) H Magnesium Level 1.8 MG/DL (1.8-2.4) Ferritin 941 NG/ML (8-388) H Total Bilirubin 0.4 MG/DL (0.2-1.0) Aspartate Amino Transf (AST/SGOT) 21 U/L (15-37) Alanine Aminotransferase (ALT/SGPT) 18 U/L (12-78) Alkaline Phosphatase 142 U/L (46-116) H Total Protein 7.9 G/DL (6.4-8.2) Albumin 1.7 G/DL (3.4-5.0) L Globulin 6.2 g/dL Albumin/Globulin Ratio 0.3 (1.0-2.7) L Renny Joy M.D. Aug 03, 2017 22:11
--- NOTE | 2017-08-03 23:19 | Consultation ---
History of Present Illness General Date patient seen: Aug 03, 2017 Chief Complaint: Altered Level of Consciousness Referring physician: ZEKE YUN Reason for Consultation: ABDOMINAL PAIN Present Illness HPI 56-year-old male with past medical history, anemia, history of the resident at [facility], was unresponsive. the pt is confused and pw waxing and waning of consciousness. the pt is having agitated and is in restraints. Allergies: Coded Allergies: No Known Allergies (Unverified , 07/26/17) Medication History Scheduled Amlodipine Besylate (Norvasc), 10 MG ORAL DAILY, (Reported) Clonidine (Catapres-Tts 1), 1 PATCH TDERMAL ONCE A WEEK, (Reported) Enoxaparin* (Lovenox*), 40 MG SUBQ DAILY, (Reported) Famotidine (Famotidine), 20 MG GT DAILY, (Reported) Folic Acid/Vitamin B Comp W-C (Maribell-Chemo Tablet), 0.8 MG GT DAILY, (Reported) Hydralazine Hcl* (Hydralazine Hcl*), 100 MG GT EVERY 8 HOURS, (Reported) Insulin Glargine (Lantus), 15 SUBQ BEDTIME, (Reported) Insulin Lispro (Humalog), 0 SUBQ Q6HR, (Reported) Metformin Hcl* (Metformin Hcl*), 850 MG GT Q12HR, (Reported) Metoprolol Tartrate* (Metoprolol Tartrate*), 50 MG GT EVERY 12 HOURS, (Reported) Scopolamine (Transderm-Scop), 1.5 MG TD Q72H, (Reported) Scheduled PRN Acetaminophen* (Acetaminophen*), 320 MG GT Q4H PRN for Mild Pain/Temp > 100.5, ( Reported) Tramadol Hcl* (Ultram*), 50 MG GT Q4HR PRN for For Pain, (Reported) Patient History Limited by: medical condition History Provided By: Medical Record, PMD Healthcare decision maker Resuscitation status Full Code Advanced Directive on File No Past Medical/Surgical History Past Medical/Surgical History: (1) Bilateral pulmonary contusion (2) Renal insufficiency (3) Chronic respiratory failure (4) Diabetes mellitus (5) Acute and chronic respiratory failure (6) CVA (cerebral vascular accident) (7) History of CVA (cerebrovascular accident) (8) Cardiac arrest (9) Pneumonia (10) Acute encephalopathy (11) Dysphagia (12) Renal failure (13) Iron deficiency anemia (14) Altered mental status (15) Hemorrhagic stroke (16) HTN (hypertension) (17) Diabetes mellitus type II, controlled (18) Ventilator dependence (19) Left hemiparesis (20) Tracheostomy care (21) Acute on chronic renal failure (22) Anemia (23) Hypoglycemia (24) Abdominal pain (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 (26) Accelerated hypertension (27) Nephrotic syndrome (28) Hyperkalemia Review of Systems Psychiatric: Reports: prior hx, anxiety, depressed feelings, emotional problems Physical Exam General Appearance: no apparent distress, lethargic, confused, agitated Last 24 Hour Vital Signs Date Time Temp Pulse Resp B/P (MAP) Pulse Ox O2 Delivery O2 Flow Rate FiO2 08/03/17 23:12 63 16 30 08/03/17 22:59 97.7 08/03/17 22:25 69 22 100 Mechanical Ventilator 30 08/03/17 22:10 64 23 99 Mechanical Ventilator 30 08/03/17 21:38 166/92 08/03/17 21:38 76 166/92 08/03/17 21:18 65 23 30 08/03/17 20:00 30 08/03/17 20:00 62 08/03/17 20:00 97.7 76 20 166/92 100 Mechanical Ventilator 30 97.7 08/03/17 19:30 64 19 30 08/03/17 17:40 189/88 08/03/17 17:24 70 19 30 08/03/17 16:00 30 08/03/17 16:00 98.4 71 18 189/88 100 Mechanical Ventilator 30 98.4 08/03/17 15:22 64 08/03/17 15:09 72 25 30 08/03/17 13:09 162/89 08/03/17 13:05 70 22 30 08/03/17 12:24 98.4 68 26 162/89 99 Mechanical Ventilator 30 98.4 08/03/17 12:00 30 08/03/17 11:53 69 08/03/17 11:03 66 17 30 08/03/17 09:44 73 26 100 Mechanical Ventilator 30 08/03/17 09:30 75 18 100 Mechanical Ventilator 30 08/03/17 09:28 75 29 30 08/03/17 09:10 78 185/92 08/03/17 09:10 78 185/92 08/03/17 09:00 98.8 78 18 185/92 100 Mechanical Ventilator 30 98.8 08/03/17 08:00 30 08/03/17 07:44 67 08/03/17 07:24 75 23 30 08/03/17 05:43 168/97 08/03/17 05:01 75 24 30 08/03/17 04:00 98.0 77 24 168/97 95 Mechanical Ventilator 30 98.0 08/03/17 04:00 30 08/03/17 03:55 75 08/03/17 02:57 74 21 30 08/03/17 00:52 65 17 30 08/03/17 00:52 160/95 08/03/17 00:30 71 08/03/17 00:00 98.0 70 18 160/95 100 Mechanical Ventilator 30 98.0 Intake and Output 08/02/17 08/03/17 19:00 07:00 Intake Total 900 ml 755 ml Output Total 1800 ml 1650 ml Balance -900 ml -895 ml Intake Free Water 100 ml 60 ml IV Total 165 ml Tube Feeding 440 ml 480 ml Other 360 ml 50 ml Output Urine Total 1800 ml 1650 ml # Bowel Movements 4 Laboratory Tests Test 08/03/17 05:12 White Blood Count 11.1 K/UL (4.8-10.8) H Red Blood Count 3.01 M/UL (4.70-6.10) L Hemoglobin 9.1 G/DL (14.2-18.0) L Hematocrit 27.3 % (42.0-52.0) L Mean Corpuscular Volume 91 FL (80-99) Mean Corpuscular Hemoglobin 30.1 PG (27.0-31.0) Mean Corpuscular Hemoglobin Concent 33.2 G/DL (32.0-36.0) Red Cell Distribution Width 15.1 % (11.6-14.8) H Platelet Count 444 K/UL (150-450) Mean Platelet Volume 5.5 FL (6.5-10.1) L Neutrophils (%) (Auto) 74.2 % (45.0-75.0) Lymphocytes (%) (Auto) 16.0 % (20.0-45.0) L Monocytes (%) (Auto) 5.6 % (1.0-10.0) Eosinophils (%) (Auto) 3.2 % (0.0-3.0) H Basophils (%) (Auto) 1.1 % (0.0-2.0) Sodium Level 140 MMOL/L (136-145) Potassium Level 5.7 MMOL/L (3.5-5.1) H Chloride Level 109 MMOL/L (98-107) H Carbon Dioxide Level 21 MMOL/L (21-32) Anion Gap 10 mmol/L (5-15) Blood Urea Nitrogen 60 mg/dL (7-18) H Creatinine 2.3 MG/DL (0.55-1.30) H Estimat Glomerular Filtration Rate 29.6 mL/min (>60) Glucose Level 82 MG/DL (74-106) Calcium Level 8.5 MG/DL (8.5-10.1) Phosphorus Level 5.9 MG/DL (2.5-4.9) H Magnesium Level 1.8 MG/DL (1.8-2.4) Ferritin 941 NG/ML (8-388) H Total Bilirubin 0.4 MG/DL (0.2-1.0) Aspartate Amino Transf (AST/SGOT) 21 U/L (15-37) Alanine Aminotransferase (ALT/SGPT) 18 U/L (12-78) Alkaline Phosphatase 142 U/L (46-116) H Total Protein 7.9 G/DL (6.4-8.2) Albumin 1.7 G/DL (3.4-5.0) L Globulin 6.2 g/dL Albumin/Globulin Ratio 0.3 (1.0-2.7) L Height (Feet): 5 Height (Inches): 6.00 Weight (Pounds): 164 Medications Current Medications Medications (Trade) Dose Ordered Sig/Johnathan Route PRN Reason Start Time Stop Time Status Last Admin Dose Admin Acetaminophen (Tylenol) 650 mg Q4H PRN ORAL FEVER 07/28/17 12:30 08/25/17 12:29 08/02/17 20:27 Amlodipine Besylate (Norvasc) 10 mg DAILY GT 07/29/17 09:00 08/27/17 08:59 08/03/17 09:10 Clonidine HCl (Catapres TTS-1) 1 patch ONCE A WEEK TDERMAL 08/01/17 09:00 08/31/17 08:59 08/01/17 09:06 Clonidine HCl (Catapres Tab) 0.1 mg Q4H PRN ORAL For High Blood Pressure 07/28/17 12:45 08/27/17 12:44 08/03/17 17:40 Colistimethate Sodium (Colistin *inhalation use only*) 150 mg Q12HR@10,22 INH 07/29/17 22:00 08/05/17 21:59 08/03/17 22:10 Dextrose (Dextrose 50%) 25 ml STAT PRN IV Hypoglycemia 07/28/17 12:30 08/27/17 12:29 Dextrose (Dextrose 50%) 50 ml STAT PRN IV Hypoglycemia 07/28/17 12:30 08/27/17 12:29 Docusate Sodium (Colace) 100 mg TWICE A DAY GT 07/28/17 18:00 08/27/17 17:59 08/03/17 17:23 Epoetin Kaiden (Procrit (for non ESRD use)) 5,000 units WED-WED-WED SUBQ 07/30/17 21:00 08/29/17 20:59 08/02/17 20:26 Heparin Sodium (Porcine) (Heparin 5000 units/ml) 5,000 units EVERY 12 HOURS SUBQ 07/28/17 21:00 08/25/17 20:59 08/03/17 21:39 Hydralazine HCl (Apresoline) 50 mg Q8HR GT 08/01/17 14:00 08/31/17 13:59 08/03/17 21:38 Insulin Aspart (NovoLOG) EVERY 6 HOURS SUBQ 07/31/17 00:00 08/30/17 00:00 08/03/17 13:10 Levofloxacin (Levaquin) 750 mg Q48H ORAL 07/28/17 17:00 08/08/17 16:59 08/03/17 16:04 Meropenem 1 gm/ Sodium Chloride 55 ml @ 110 mls/hr Q12H IVPB 07/28/17 17:00 08/08/17 16:59 08/03/17 16:03 Metoprolol Tartrate (Lopressor) 50 mg EVERY 12 HOURS GT 07/28/17 21:00 08/25/17 20:59 08/03/17 21:38 Morphine Sulfate (Morphine Sulfate) 2 mg Q4H PRN IVP For Pain 08/03/17 10:00 08/10/17 09:59 08/03/17 22:59 Ondansetron HCl (Zofran) 4 mg Q6H PRN IVP Nausea & Vomiting 07/28/17 12:30 08/25/17 12:29 Pantoprazole (Protonix) 40 mg DAILY IV 07/29/17 09:00 08/26/17 08:59 08/03/17 09:10 Polyethylene Glycol (Miralax) 17 gm BEDTIME ORAL 07/28/17 21:00 08/27/17 20:59 08/03/17 21:38 Polyethylene Glycol (Miralax) 17 gm DAILYPRN PRN ORAL Constipation 07/28/17 12:30 08/27/17 12:29 Sevelamer Carbonate (Renvela) 1,600 mg THREE TIMES A DAY NG 08/03/17 13:00 09/01/17 12:59 08/03/17 17:23 Tigecycline 50 mg/ Dextrose 110 ml @ 220 mls/hr Q12H IVPB 07/31/17 02:00 08/07/17 01:59 08/03/17 14:52 Assessment/Plan Assessment/Plan encephalopathy agitation -cont right arm restraints -zyprexa 5mg qhs Mohamud Culp M.D. Aug 03, 2017 23:19
[2017-08-04] VITALS (7 sets, daily range): BP systolic 152–185; BP diastolic 74–103
[2017-08-04] MEDS: Tigecycline 50 MG in D5W 110 ML IVPB SCH ×2 (01:43→15:05)
[2017-08-04] MEDS: Morphine Sulfate 2mg/ml Inj IVP PRN ×2 (03:11→20:37)
[2017-08-04] MEDS: NovoLOG Insulin Flexpen SUBQ SCH ×3 (05:28→17:02)
[2017-08-04] MEDS: Meropenem 1 GM in NS 55 ML IVPB SCH ×2 (05:29→17:05)
[2017-08-04] MEDS: HydrALAZINE 50mg tab GT SCH ×2 (05:29→13:38)
[2017-08-04 05:50] LABS: BASOPHILS % (AUTO) 1.5 % (0.0-2.0); EOSINOPHILS % (AUTO) 3.8 % (0.0-3.0); HEMOGLOBIN 9.5 G/DL (14.2-18.0); LYMPHOCYTES % (AUTO) 14.7 % (20.0-45.0); MEAN CORPUSCULAR VOLUME 91 FL (80-99); MONOCYTES % (AUTO) 7.4 % (1.0-10.0); NEUTROPHILS % (AUTO) 72.6 % (45.0-75.0); PLATELET COUNT 411 K/UL (150-450); RED BLOOD COUNT 3.09 M/UL (4.70-6.10); RED CELL DISTRIBUTION WIDTH 15.8 % (11.6-14.8); WHITE BLOOD COUNT 9.2 K/UL (4.8-10.8)
[2017-08-04 06:19] LABS: ALANINE AMINOTRANSFERASE 17 U/L (12-78); ALBUMIN 1.7 G/DL (3.4-5.0); ALBUMIN/GLOBULIN RATIO 0.3 (1.0-2.7); ALKALINE PHOSPHATASE 138 U/L (46-116); ANION GAP 11 mmol/L (5-15); ASPARTATE AMINO TRANSFERASE 20 U/L (15-37); BILIRUBIN,TOTAL 0.3 MG/DL (0.2-1.0); BLOOD UREA NITROGEN 59 mg/dL (7-18); CALCIUM 8.4 MG/DL (8.5-10.1); CARBON DIOXIDE 22 MMOL/L (21-32); CHLORIDE 108 MMOL/L (98-107); CREATININE 2.3 MG/DL (0.55-1.30); PHOSPHORUS 5.6 MG/DL (2.5-4.9); POTASSIUM 4.9 MMOL/L (3.5-5.1); SODIUM 140 MMOL/L (136-145)
--- NOTE | 2017-08-04 08:31 | Consultation ---
DATE OF CONSULTATION: 08/03/2017 NOTE: POOR AUDIO HEMATOLOGY/ONCOLOGY CONSULTATION CONSULTING PHYSICIAN: Cory Dixon M.D. REQUESTING PHYSICIAN: Siva Quinteros M.D. and . REASON FOR CONSULTATION: Evaluation of anemia. IDENTIFYING DATA: Dear Dr. Hills and DrSaud , The patient is a pleasant 56-year-old male with past medical history, which is significant for history of anemia, history of the resident at [facility], was unresponsive, seen by the RN, . EMT was called to further evaluate. The patient again does have history of hypertension, CVA, TIA, PA, CAD, hypertension. The patient presented with loss of consciousness again, compressions were begun, and the patient was given bag-valve mask was initiated by RN at [facility]. It was continued. Compressions were acute. The patient extremities noted. The patient presented nonverbal. CT scan concerning for asymmetrical densities along the insula, steen radiata, basal ganglia concerning for stroke and at this time, the patient continues to be . Hematology Service consulted given ongoing anemia. PAST MEDICAL HISTORY: As noted above. MEDICATIONS: Amlodipine, Lovenox, Lasix, Tradjenta, nitroglycerin, insulin, metoprolol and scopolamine patch. SOCIAL HISTORY: No alcohol, tobacco, or illicit drug use. REVIEW OF SYSTEMS: CONSTITUTIONAL: No fevers, chills, or night sweats. SKIN: No rashes, bumps, or itching. HEENT: No headache, hearing or vision changes. BREASTS: No lumps, pain, or discharge. PULMONARY: No cough, sputum, or shortness of breath. GASTROINTESTINAL: No nausea, vomiting, or diarrhea. GENITOURINARY: No dysuria, frequency, or urgency. MUSCULOSKELETAL: No muscle, joint swelling, or trauma. PHYSICAL EXAMINATION: VITAL SIGNS: Reviewed. GENERAL: No distress. LUNGS: Decreased breath sounds. Some crackles noted. CARDIOVASCULAR: Regular rate. No S3 or S4. ABDOMEN: Soft, nontender, and nondistended. EXTREMITIES: No cyanosis, swelling, or edema. LABORATORY AND DIAGNOSTIC DATA: WBC 11.1, hemoglobin 9.1, hematocrit 27 and platelet count 444,000. INR 1.1. Prothrombin time 10.3. Creatinine 2.3. Phosphorus 5.9. Alkaline phosphatase 142. Calcium 8. Anemia workup reviewed and percent saturation 75, and TIBC of 84. ASSESSMENT AND RECOMMENDATIONS: 1. Anemia due to underlying chronic disease. Continue to closely monitor for improvement. Ferritin has been ordered. Hemoglobin goal is above 7. KUB ordered shows no acute process. 2. Coagulopathy likely secondary to decreased p.o. intake. 3. Anemia due to underlying kidney disease. 4. Anemia of hemodilution. 5. Probable multidrug resistant organism pneumonia, gram negative rods. 6. Leukocytosis has since improved and has been seen by ID Service. 7. Left self improving. I appreciate consultation. Cory Dixon M.D. DR: ADÁN JOB#: [id number] CC:
--- NOTE | 2017-08-04 08:53 | General Progress Note ---
Assessment/Plan Status: stable Assessment/Plan # Anemia due to underlying chronic disease. --> Continue to closely monitor for improvement. Ferritin has been ordered. --> anemia w/u has been reviewed. Will trend daily. # Leukocytosis has since improved and has been seen by ID Service. --> wbc trending downwards # Coagulopathy likely secondary to decreased p.o. intake. # Anemia due to underlying kidney disease. # Anemia of hemodilution. # Probable multidrug resistant organism pneumonia, gram negative rods. Subjective Date patient seen: Aug 04, 2017 ROS Limited/Unobtainable: Yes Allergies: Coded Allergies: No Known Allergies (Unverified , 07/26/17) All Systems: reviewed and negative except above Subjective No acute events, stable on vent, Alert and responsive. Objective Last 24 Hour Vital Signs Date Time Temp Pulse Resp B/P (MAP) Pulse Ox O2 Delivery O2 Flow Rate FiO2 08/04/17 08:40 97.9 71 19 152/81 98 Mechanical Ventilator 30 97.9 08/04/17 08:00 30 08/04/17 07:41 58 08/04/17 07:22 62 16 30 08/04/17 05:29 185/103 08/04/17 05:16 71 18 30 08/04/17 04:00 30 08/04/17 04:00 77 08/04/17 04:00 97.5 70 26 185/103 98 Mechanical Ventilator 30 97.5 08/04/17 03:50 97.2 08/04/17 03:50 185/103 08/04/17 03:11 97.2 08/04/17 02:47 72 29 30 08/04/17 01:12 66 22 30 08/04/17 00:00 30 08/04/17 00:00 97.2 67 24 157/80 100 Mechanical Ventilator 30 97.2 08/04/17 00:00 62 08/03/17 23:12 63 16 30 08/03/17 22:59 97.7 08/03/17 22:25 69 22 100 Mechanical Ventilator 30 08/03/17 22:10 64 23 99 Mechanical Ventilator 30 08/03/17 21:38 166/92 08/03/17 21:38 76 166/92 08/03/17 21:18 65 23 30 08/03/17 20:00 30 6/26/18 20:00 62 08/03/17 20:00 97.7 76 20 166/92 100 Mechanical Ventilator 30 97.7 08/03/17 19:30 64 19 30 08/03/17 17:40 189/88 08/03/17 17:24 70 19 30 08/03/17 16:00 30 08/03/17 16:00 98.4 71 18 189/88 100 Mechanical Ventilator 30 98.4 08/03/17 15:22 64 08/03/17 15:09 72 25 30 08/03/17 13:09 162/89 08/03/17 13:05 70 22 30 08/03/17 12:24 98.4 68 26 162/89 99 Mechanical Ventilator 30 98.4 08/03/17 12:00 30 08/03/17 11:53 69 08/03/17 11:03 66 17 30 08/03/17 09:44 73 26 100 Mechanical Ventilator 30 08/03/17 09:30 75 18 100 Mechanical Ventilator 30 08/03/17 09:28 75 29 30 08/03/17 09:10 78 185/92 08/03/17 09:10 78 185/92 08/03/17 09:00 98.8 78 18 185/92 100 Mechanical Ventilator 30 98.8 Intake and Output 08/03/17 08/04/17 19:00 07:00 Intake Total 895 ml 530 ml Output Total 1700 ml Balance -805 ml 530 ml Intake Free Water 100 ml IV Total 165 ml Tube Feeding 480 ml 440 ml Other 150 ml 90 ml Output Urine Total 1700 ml # Bowel Movements 4 1 Laboratory Tests 08/04/17 04:47: White Blood Count 9.2, Red Blood Count 3.09L, Hemoglobin 9.5L, Hematocrit 28.0L , Mean Corpuscular Volume 91, Mean Corpuscular Hemoglobin 30.8, Mean Corpuscular Hemoglobin Concent 34.0, Red Cell Distribution Width 15.8H, Platelet Count 411, Mean Platelet Volume 6.0L, Neutrophils (%) (Auto) 72.6, Lymphocytes (%) (Auto) 14.7L, Monocytes (%) (Auto) 7.4, Eosinophils (%) (Auto) 3.8H, Basophils (%) (Auto) 1.5, Sodium Level 140, Potassium Level 4.9, Chloride Level 108H, Carbon Dioxide Level 22, Anion Gap 11, Blood Urea Nitrogen 59H, Creatinine 2.3H, Estimat Glomerular Filtration Rate 29.6, Glucose Level 97, Calcium Level 8.4L, Phosphorus Level 5.6H, Magnesium Level 1.7L, Total Bilirubin 0.3, Aspartate Amino Transf (AST/SGOT) 20, Alanine Aminotransferase ( ALT/SGPT) 17, Alkaline Phosphatase 138H, Total Protein 7.8, Albumin 1.7L, Globulin 6.1, Albumin/Globulin Ratio 0.3L Height (Feet): 5 Height (Inches): 6.00 Weight (Pounds): 159 General Appearance: no apparent distress EENT: PERRL/EOMI Neck: normal alignment Cardiovascular: normal peripheral pulses Respiratory/Chest: no respiratory distress Abdomen: soft Cory Dixon MD Aug 04, 2017 08:53
[2017-08-04] MEDS: Metoprolol Tartrate 50mg tab GT SCH ×2 (09:00→20:38)
[2017-08-04] MEDS: Docusate 100mg/10ml Liq GT SCH ×2 (09:08→17:05)
[2017-08-04] MEDS: Pantoprazole Inj IV SCH (09:09)
[2017-08-04] MEDS: Renvela 800mg Pkt NG SCH ×3 (09:09→17:05)
[2017-08-04] MEDS: Heparin 5000 units/ml inj SUBQ SCH ×2 (09:13→20:40)
--- NOTE | 2017-08-04 10:40 | GI Progress Note ---
Assessment/Plan Problems: (1) Abdominal pain ICD Codes: R10.9 - Unspecified abdominal pain SNOMED: 99095135 (2) Hypoglycemia ICD Codes: E16.2 - Hypoglycemia, unspecified SNOMED: 425982764 (3) Anemia ICD Codes: D64.9 - Anemia, unspecified SNOMED: 781313301 (4) Dysphagia ICD Codes: R13.10 - Dysphagia, unspecified SNOMED: 68541872, 797612318 (5) Diabetes mellitus ICD Codes: E11.9 - Type 2 diabetes mellitus without complications SNOMED: 22349124 Status: stable, unchanged Status Narrative Discussed with Dr. Edouard. Assessment/Plan KUB reviewed >> no acute process anemia work up reviewed >> most likely 2/2 to chronic disease OB stool negative GT dependent some abdominal bloating cdiff negative stool culture negative supportive care at this time simethicone prn for abdominal gas pain GTFs per RD turn q2 hours to promote GI motility prn transfusions bowel regime ppi abx per ID fu labs The patient was seen and examined at bedside and all new and available data was reviewed in the patients chart. I agree with the above findings, impression and plan. (Patient seen earlier today. Signature stamp does not reflect patient encounter time.). - David Edouard MD Subjective Subjective limited Objective Last 24 Hour Vital Signs Date Time Temp Pulse Resp B/P (MAP) Pulse Ox O2 Delivery O2 Flow Rate FiO2 08/04/17 09:09 71 152/81 08/04/17 09:00 57 152/81 08/04/17 08:49 67 20 30 08/04/17 08:40 97.9 71 19 152/81 98 Mechanical Ventilator 30 97.9 08/04/17 08:00 30 08/04/17 07:41 58 08/04/17 07:22 62 16 30 08/04/17 05:29 185/103 08/04/17 05:16 71 18 30 08/04/17 04:00 30 08/04/17 04:00 77 08/04/17 04:00 97.5 70 26 185/103 98 Mechanical Ventilator 30 97.5 08/04/17 03:50 97.2 08/04/17 03:50 185/103 08/04/17 03:11 97.2 08/04/17 02:47 72 29 30 08/04/17 01:12 66 22 30 08/04/17 00:00 30 08/04/17 00:00 97.2 67 24 157/80 100 Mechanical Ventilator 30 97.2 08/04/17 00:00 62 08/03/17 23:12 63 16 30 08/03/17 22:59 97.7 08/03/17 22:25 69 22 100 Mechanical Ventilator 30 08/03/17 22:10 64 23 99 Mechanical Ventilator 30 08/03/17 21:38 166/92 08/03/17 21:38 76 166/92 08/03/17 21:18 65 23 30 08/03/17 20:00 30 08/03/17 20:00 62 08/03/17 20:00 97.7 76 20 166/92 100 Mechanical Ventilator 30 97.7 08/03/17 19:30 64 19 30 08/03/17 17:40 189/88 08/03/17 17:24 70 19 30 08/03/17 16:00 30 08/03/17 16:00 98.4 71 18 189/88 100 Mechanical Ventilator 30 98.4 08/03/17 15:22 64 08/03/17 15:09 72 25 30 08/03/17 13:09 162/89 08/03/17 13:05 70 22 30 08/03/17 12:24 98.4 68 26 162/89 99 Mechanical Ventilator 30 98.4 08/03/17 12:00 30 08/03/17 11:53 69 08/03/17 11:03 66 17 30 Intake and Output 08/03/17 08/04/17 19:00 07:00 Intake Total 895 ml 530 ml Output Total 1700 ml Balance -805 ml 530 ml Intake Free Water 100 ml IV Total 165 ml Tube Feeding 480 ml 440 ml Other 150 ml 90 ml Output Urine Total 1700 ml # Bowel Movements 4 1 Laboratory Tests Test 08/04/17 04:47 White Blood Count 9.2 K/UL (4.8-10.8) Red Blood Count 3.09 M/UL (4.70-6.10) L Hemoglobin 9.5 G/DL (14.2-18.0) L Hematocrit 28.0 % (42.0-52.0) L Mean Corpuscular Volume 91 FL (80-99) Mean Corpuscular Hemoglobin 30.8 PG (27.0-31.0) Mean Corpuscular Hemoglobin Concent 34.0 G/DL (32.0-36.0) Red Cell Distribution Width 15.8 % (11.6-14.8) H Platelet Count 411 K/UL (150-450) Mean Platelet Volume 6.0 FL (6.5-10.1) L Neutrophils (%) (Auto) 72.6 % (45.0-75.0) Lymphocytes (%) (Auto) 14.7 % (20.0-45.0) L Monocytes (%) (Auto) 7.4 % (1.0-10.0) Eosinophils (%) (Auto) 3.8 % (0.0-3.0) H Basophils (%) (Auto) 1.5 % (0.0-2.0) Sodium Level 140 MMOL/L (136-145) Potassium Level 4.9 MMOL/L (3.5-5.1) Chloride Level 108 MMOL/L (98-107) H Carbon Dioxide Level 22 MMOL/L (21-32) Anion Gap 11 mmol/L (5-15) Blood Urea Nitrogen 59 mg/dL (7-18) H Creatinine 2.3 MG/DL (0.55-1.30) H Estimat Glomerular Filtration Rate 29.6 mL/min (>60) Glucose Level 97 MG/DL (74-106) Calcium Level 8.4 MG/DL (8.5-10.1) L Phosphorus Level 5.6 MG/DL (2.5-4.9) H Magnesium Level 1.7 MG/DL (1.8-2.4) L Total Bilirubin 0.3 MG/DL (0.2-1.0) Aspartate Amino Transf (AST/SGOT) 20 U/L (15-37) Alanine Aminotransferase (ALT/SGPT) 17 U/L (12-78) Alkaline Phosphatase 138 U/L (46-116) H Total Protein 7.8 G/DL (6.4-8.2) Albumin 1.7 G/DL (3.4-5.0) L Globulin 6.1 g/dL Albumin/Globulin Ratio 0.3 (1.0-2.7) L Height (Feet): 5 Height (Inches): 6.00 Weight (Pounds): 159 General Appearance: no apparent distress, alert Cardiovascular: normal rate Respiratory/Chest: normal breath sounds, no respiratory distress Abdominal Exam: normal bowel sounds, non tender, soft, other - mech vent Extremities: non-tender Erasto Toro NP Aug 04, 2017 10:40
[2017-08-04] MEDS: Colistin for inhalation INH SCH ×2 (11:04→22:06)
--- NOTE | 2017-08-04 11:14 | Pulmonolgy Critical Care Note ---
Critical Care - Asmt/Plan Problems: (1) MDR Acinetobacter baumannii infection (2) Pneumonia (3) Acute encephalopathy (4) Cardiac arrest (5) Acute and chronic respiratory failure (6) Diabetes mellitus (7) History of CVA (cerebrovascular accident) (8) CVA (cerebral vascular accident) Respiratory: monitor respiratory rate, adjust FIO2, CXR Cardiac: continue to monitor HR/BP Renal: F/U I&O Infectious Disease: check cultures, other - -Continue empiric Meropenem and Levaquin # 7 (abx d#11/21 ) for PNA, INH Colistin # 07/18- and IV Tigecycline d # 06/17- for MDR ABC Gastrointestinal: continue feedings/current rate Endocrine: monitor blood sugar, check HgA1C, continue sliding scale insulin Hematologic: monitor H/H, transfuse if hgb<8.5 Neurologic: PRN Ativan, keep patient comfortable Prophylaxis: Protonix Notes Reviewed: cardio Discussed with: nurses, consultants, rn field case managergravity manager - Objective Last 24 Hour Vital Signs Date Time Temp Pulse Resp B/P (MAP) Pulse Ox O2 Delivery O2 Flow Rate FiO2 08/04/17 09:09 71 152/81 08/04/17 09:00 57 152/81 08/04/17 08:49 67 20 30 08/04/17 08:40 97.9 71 19 152/81 98 Mechanical Ventilator 30 97.9 08/04/17 08:00 30 08/04/17 07:41 58 08/04/17 07:22 62 16 30 08/04/17 05:29 185/103 08/04/17 05:16 71 18 30 08/04/17 04:00 30 08/04/17 04:00 77 08/04/17 04:00 97.5 70 26 185/103 98 Mechanical Ventilator 30 97.5 08/04/17 03:50 97.2 08/04/17 03:50 185/103 08/04/17 03:11 97.2 08/04/17 02:47 72 29 30 08/04/17 01:12 66 22 30 08/04/17 00:00 30 08/04/17 00:00 97.2 67 24 157/80 100 Mechanical Ventilator 30 97.2 08/04/17 00:00 62 08/03/17 23:12 63 16 30 08/03/17 22:59 97.7 08/03/17 22:25 69 22 100 Mechanical Ventilator 30 08/03/17 22:10 64 23 99 Mechanical Ventilator 30 08/03/17 21:38 166/92 08/03/17 21:38 76 166/92 08/03/17 21:18 65 23 30 08/03/17 20:00 30 08/03/17 20:00 62 08/03/17 20:00 97.7 76 20 166/92 100 Mechanical Ventilator 30 97.7 08/03/17 19:30 64 19 30 08/03/17 17:40 189/88 08/03/17 17:24 70 19 30 08/03/17 16:00 30 08/03/17 16:00 98.4 71 18 189/88 100 Mechanical Ventilator 30 98.4 08/03/17 15:22 64 08/03/17 15:09 72 25 30 08/03/17 13:09 162/89 08/03/17 13:05 70 22 30 08/03/17 12:24 98.4 68 26 162/89 99 Mechanical Ventilator 30 98.4 08/03/17 12:00 30 08/03/17 11:53 69 Status: somnolent Condition: critical HEENT: atraumatic Neck: full ROM Heart: HR/BP stable Abdomen: soft, active bowel sounds Extremities: no C/C/E, edema Accucheck: 97 Critical Care - Subjective ROS Limited/Unobtainable: Yes Condition: critical EKG Rhythm: Sinus Rhythm FI02: 30 Vent Support Breath Rate: 16 Vent Support Mode: AC Vent Tidal Volume: 600 Sputum Amount: Small PEEP: 5.0 PIP: 26 Tube Feeding Amount: 40 I&O: Intake and Output 08/03/17 08/04/17 19:00 07:00 Intake Total 895 ml 530 ml Output Total 1700 ml Balance -805 ml 530 ml Intake Free Water 100 ml IV Total 165 ml Tube Feeding 480 ml 440 ml Other 150 ml 90 ml Output Urine Total 1700 ml # Bowel Movements 4 1 CXR: no changes Labs: Laboratory Tests Test 08/04/17 04:47 White Blood Count 9.2 K/UL (4.8-10.8) Red Blood Count 3.09 M/UL (4.70-6.10) L Hemoglobin 9.5 G/DL (14.2-18.0) L Hematocrit 28.0 % (42.0-52.0) L Mean Corpuscular Volume 91 FL (80-99) Mean Corpuscular Hemoglobin 30.8 PG (27.0-31.0) Mean Corpuscular Hemoglobin Concent 34.0 G/DL (32.0-36.0) Red Cell Distribution Width 15.8 % (11.6-14.8) H Platelet Count 411 K/UL (150-450) Mean Platelet Volume 6.0 FL (6.5-10.1) L Neutrophils (%) (Auto) 72.6 % (45.0-75.0) Lymphocytes (%) (Auto) 14.7 % (20.0-45.0) L Monocytes (%) (Auto) 7.4 % (1.0-10.0) Eosinophils (%) (Auto) 3.8 % (0.0-3.0) H Basophils (%) (Auto) 1.5 % (0.0-2.0) Sodium Level 140 MMOL/L (136-145) Potassium Level 4.9 MMOL/L (3.5-5.1) Chloride Level 108 MMOL/L (98-107) H Carbon Dioxide Level 22 MMOL/L (21-32) Anion Gap 11 mmol/L (5-15) Blood Urea Nitrogen 59 mg/dL (7-18) H Creatinine 2.3 MG/DL (0.55-1.30) H Estimat Glomerular Filtration Rate 29.6 mL/min (>60) Glucose Level 97 MG/DL (74-106) Calcium Level 8.4 MG/DL (8.5-10.1) L Phosphorus Level 5.6 MG/DL (2.5-4.9) H Magnesium Level 1.7 MG/DL (1.8-2.4) L Total Bilirubin 0.3 MG/DL (0.2-1.0) Aspartate Amino Transf (AST/SGOT) 20 U/L (15-37) Alanine Aminotransferase (ALT/SGPT) 17 U/L (12-78) Alkaline Phosphatase 138 U/L (46-116) H Total Protein 7.8 G/DL (6.4-8.2) Albumin 1.7 G/DL (3.4-5.0) L Globulin 6.1 g/dL Albumin/Globulin Ratio 0.3 (1.0-2.7) L Siva Quinteros MD Aug 04, 2017 11:14
--- NOTE | 2017-08-04 12:06 | General Progress Note ---
Assessment/Plan Assessment/Plan encephalopathy agitation -cont right arm restraints -zyprexa 5mg qhs Subjective Date patient seen: Aug 04, 2017 Neurologic/Psychiatric: Reports: anxiety Allergies: Coded Allergies: No Known Allergies (Unverified , 07/26/17) Objective Last 24 Hour Vital Signs Date Time Temp Pulse Resp B/P (MAP) Pulse Ox O2 Delivery O2 Flow Rate FiO2 08/04/17 11:10 64 16 100 Mechanical Ventilator 30 08/04/17 11:03 62 16 100 Mechanical Ventilator 30 08/04/17 11:03 62 16 30 08/04/17 09:09 71 152/81 08/04/17 09:00 57 152/81 08/04/17 08:49 67 20 30 08/04/17 08:40 97.9 71 19 152/81 98 Mechanical Ventilator 30 97.9 08/04/17 08:00 30 08/04/17 07:41 58 08/04/17 07:22 62 16 30 08/04/17 05:29 185/103 08/04/17 05:16 71 18 30 08/04/17 04:00 30 08/04/17 04:00 77 08/04/17 04:00 97.5 70 26 185/103 98 Mechanical Ventilator 30 97.5 08/04/17 03:50 97.2 08/04/17 03:50 185/103 08/04/17 03:11 97.2 08/04/17 02:47 72 29 30 08/04/17 01:12 66 22 30 08/04/17 00:00 30 08/04/17 00:00 97.2 67 24 157/80 100 Mechanical Ventilator 30 97.2 08/04/17 00:00 62 08/03/17 23:12 63 16 30 08/03/17 22:59 97.7 08/03/17 22:25 69 22 100 Mechanical Ventilator 30 08/03/17 22:10 64 23 99 Mechanical Ventilator 30 08/03/17 21:38 166/92 08/03/17 21:38 76 166/92 08/03/17 21:18 65 23 30 08/03/17 20:00 30 08/03/17 20:00 62 08/03/17 20:00 97.7 76 20 166/92 100 Mechanical Ventilator 30 97.7 08/03/17 19:30 64 19 30 08/03/17 17:40 189/88 08/03/17 17:24 70 19 30 08/03/17 16:00 30 08/03/17 16:00 98.4 71 18 189/88 100 Mechanical Ventilator 30 98.4 08/03/17 15:22 64 08/03/17 15:09 72 25 30 08/03/17 13:09 162/89 08/03/17 13:05 70 22 30 08/03/17 12:24 98.4 68 26 162/89 99 Mechanical Ventilator 30 98.4 Intake and Output 08/03/17 08/04/17 19:00 07:00 Intake Total 895 ml 530 ml Output Total 1700 ml Balance -805 ml 530 ml Intake Free Water 100 ml IV Total 165 ml Tube Feeding 480 ml 440 ml Other 150 ml 90 ml Output Urine Total 1700 ml # Bowel Movements 4 1 Laboratory Tests 08/04/17 04:47: White Blood Count 9.2, Red Blood Count 3.09L, Hemoglobin 9.5L, Hematocrit 28.0L , Mean Corpuscular Volume 91, Mean Corpuscular Hemoglobin 30.8, Mean Corpuscular Hemoglobin Concent 34.0, Red Cell Distribution Width 15.8H, Platelet Count 411, Mean Platelet Volume 6.0L, Neutrophils (%) (Auto) 72.6, Lymphocytes (%) (Auto) 14.7L, Monocytes (%) (Auto) 7.4, Eosinophils (%) (Auto) 3.8H, Basophils (%) (Auto) 1.5, Sodium Level 140, Potassium Level 4.9, Chloride Level 108H, Carbon Dioxide Level 22, Anion Gap 11, Blood Urea Nitrogen 59H, Creatinine 2.3H, Estimat Glomerular Filtration Rate 29.6, Glucose Level 97, Calcium Level 8.4L, Phosphorus Level 5.6H, Magnesium Level 1.7L, Total Bilirubin 0.3, Aspartate Amino Transf (AST/SGOT) 20, Alanine Aminotransferase ( ALT/SGPT) 17, Alkaline Phosphatase 138H, Total Protein 7.8, Albumin 1.7L, Globulin 6.1, Albumin/Globulin Ratio 0.3L Height (Feet): 5 Height (Inches): 6.00 Weight (Pounds): 159 General Appearance: lethargic, confused, mild distress, agitated Mohamud Culp M.D. Aug 04, 2017 12:05
--- NOTE | 2017-08-04 13:25 | Internal Med Progress Note ---
Subjective Date of Service: Aug 04, 2017 Physician Name Thaddeus Diaz Attending Physician Timothy Hills MD Current Medications Medications (Trade) Dose Ordered Sig/Johnathan Route PRN Reason Start Time Stop Time Status Last Admin Dose Admin Acetaminophen (Tylenol) 650 mg Q4H PRN ORAL FEVER 07/28/17 12:30 08/25/17 12:29 08/02/17 20:27 Amlodipine Besylate (Norvasc) 10 mg DAILY GT 07/29/17 09:00 08/27/17 08:59 08/04/17 09:09 Clonidine HCl (Catapres TTS-1) 1 patch ONCE A WEEK TDERMAL 08/01/17 09:00 08/31/17 08:59 08/01/17 09:06 Clonidine HCl (Catapres Tab) 0.1 mg Q4H PRN ORAL For High Blood Pressure 07/28/17 12:45 08/27/17 12:44 08/04/17 03:50 Colistimethate Sodium (Colistin *inhalation use only*) 150 mg Q12HR@ INH 07/29/17 22:00 08/05/17 21:59 08/04/17 11:04 Dextrose (Dextrose 50%) 25 ml STAT PRN IV Hypoglycemia 07/28/17 12:30 08/27/17 12:29 Dextrose (Dextrose 50%) 50 ml STAT PRN IV Hypoglycemia 07/28/17 12:30 08/27/17 12:29 Docusate Sodium (Colace) 100 mg TWICE A DAY GT 07/28/17 18:00 08/27/17 17:59 08/04/17 09:08 Epoetin Kaiden (Procrit (for non ESRD use)) 5,000 units WED-WED-WED SUBQ 07/30/17 21:00 08/29/17 20:59 08/02/17 20:26 Heparin Sodium (Porcine) (Heparin 5000 units/ml) 5,000 units EVERY 12 HOURS SUBQ 07/28/17 21:00 08/25/17 20:59 08/04/17 09:13 Hydralazine HCl (Apresoline) 50 mg Q8HR GT 08/01/17 14:00 08/31/17 13:59 08/04/17 05:29 Insulin Aspart (NovoLOG) EVERY 6 HOURS SUBQ 07/31/17 00:00 08/30/17 00:00 08/03/17 13:10 Levofloxacin (Levaquin) 750 mg Q48H ORAL 07/28/17 17:00 08/08/17 16:59 08/03/17 16:04 Meropenem 1 gm/ Sodium Chloride 55 ml @ 110 mls/hr Q12H IVPB 07/28/17 17:00 08/08/17 16:59 08/04/17 05:29 Metoprolol Tartrate (Lopressor) 50 mg EVERY 12 HOURS GT 07/28/17 21:00 08/25/17 20:59 08/03/17 21:38 Morphine Sulfate (Morphine Sulfate) 2 mg Q4H PRN IVP For Pain 08/03/17 10:00 08/10/17 09:59 08/04/17 03:11 Olanzapine (ZyPREXA) 2.5 mg BEDTIME ORAL 08/04/17 21:00 09/03/17 20:59 Ondansetron HCl (Zofran) 4 mg Q6H PRN IVP Nausea & Vomiting 07/28/17 12:30 08/25/17 12:29 Pantoprazole (Protonix) 40 mg DAILY IV 07/29/17 09:00 08/26/17 08:59 08/04/17 09:09 Polyethylene Glycol (Miralax) 17 gm BEDTIME ORAL 07/28/17 21:00 08/27/17 20:59 08/03/17 21:38 Polyethylene Glycol (Miralax) 17 gm DAILYPRN PRN ORAL Constipation 07/28/17 12:30 08/27/17 12:29 Sevelamer Carbonate (Renvela) 1,600 mg THREE TIMES A DAY NG 08/03/17 13:00 09/01/17 12:59 08/04/17 09:09 Tigecycline 50 mg/ Dextrose 110 ml @ 220 mls/hr Q12H IVPB 07/31/17 02:00 08/07/17 01:59 08/04/17 01:43 Allergies: Coded Allergies: No Known Allergies (Unverified , 07/26/17) ROS Limited/Unobtainable: Yes Subjective 56 YO Vent dependent M admitted with altered mental status. Now pneumonia and acute cerebral vascular accident. Cover for Int Med-Dr Hills. KENDY Objective Last Vital Signs Date Time Temp Pulse Resp B/P (MAP) Pulse Ox O2 Delivery O2 Flow Rate FiO2 08/04/17 13:11 65 16 30 08/04/17 12:13 98.1 165/85 99 Mechanical Ventilator 98.1 07/26/17 10:16 Laboratory Tests Test 08/04/17 04:47 White Blood Count 9.2 K/UL (4.8-10.8) Red Blood Count 3.09 M/UL (4.70-6.10) L Hemoglobin 9.5 G/DL (14.2-18.0) L Hematocrit 28.0 % (42.0-52.0) L Mean Corpuscular Volume 91 FL (80-99) Mean Corpuscular Hemoglobin 30.8 PG (27.0-31.0) Mean Corpuscular Hemoglobin Concent 34.0 G/DL (32.0-36.0) Red Cell Distribution Width 15.8 % (11.6-14.8) H Platelet Count 411 K/UL (150-450) Mean Platelet Volume 6.0 FL (6.5-10.1) L Neutrophils (%) (Auto) 72.6 % (45.0-75.0) Lymphocytes (%) (Auto) 14.7 % (20.0-45.0) L Monocytes (%) (Auto) 7.4 % (1.0-10.0) Eosinophils (%) (Auto) 3.8 % (0.0-3.0) H Basophils (%) (Auto) 1.5 % (0.0-2.0) Sodium Level 140 MMOL/L (136-145) Potassium Level 4.9 MMOL/L (3.5-5.1) Chloride Level 108 MMOL/L (98-107) H Carbon Dioxide Level 22 MMOL/L (21-32) Anion Gap 11 mmol/L (5-15) Blood Urea Nitrogen 59 mg/dL (7-18) H Creatinine 2.3 MG/DL (0.55-1.30) H Estimat Glomerular Filtration Rate 29.6 mL/min (>60) Glucose Level 97 MG/DL (74-106) Calcium Level 8.4 MG/DL (8.5-10.1) L Phosphorus Level 5.6 MG/DL (2.5-4.9) H Magnesium Level 1.7 MG/DL (1.8-2.4) L Total Bilirubin 0.3 MG/DL (0.2-1.0) Aspartate Amino Transf (AST/SGOT) 20 U/L (15-37) Alanine Aminotransferase (ALT/SGPT) 17 U/L (12-78) Alkaline Phosphatase 138 U/L (46-116) H Total Protein 7.8 G/DL (6.4-8.2) Albumin 1.7 G/DL (3.4-5.0) L Globulin 6.1 g/dL Albumin/Globulin Ratio 0.3 (1.0-2.7) L Intake and Output 08/03/17 08/04/17 19:00 07:00 Intake Total 895 ml 530 ml Output Total 1700 ml Balance -805 ml 530 ml Intake Free Water 100 ml IV Total 165 ml Tube Feeding 480 ml 440 ml Other 150 ml 90 ml Output Urine Total 1700 ml # Bowel Movements 4 1 Objective General Appearance: WD/WN, alert, moderate distress EENT: PERRL/EOMI, normal ENT inspection Neck: non-tender, normal alignment, supple Cardiovascular: normal peripheral pulses, normal rate, regular rhythm, no gallop/murmur, no JVD Respiratory/Chest: Tracheostomy; mech vent; respiratory distress, crackles/ rales, rhonchi - bilaterally, expiratory wheezing Abdomen: normal bowel sounds, non tender, soft, no organomegaly, no mass Extremities: normal range of motion 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 (3) Dysphagia (4) Hemorrhagic stroke (5) HTN (hypertension) Assessment & Plan: Continue norvasc and lopressor (6) Diabetes mellitus type II, controlled Assessment & Plan: Continue novolog sliding scale. (7) Renal failure (8) Left hemiparesis (9) Iron deficiency anemia (10) Altered mental status (11) Pneumonia Assessment & Plan: Bilateral. Continue levaquin, tigecycline meropenem and inh colistin per ID (12) CVA (cerebral vascular accident) Assessment & Plan: Acute basal ganglia (13) Acute and chronic respiratory failure (14) Acute encephalopathy (15) Chronic respiratory failure (16) Hyperkalemia Assessment & Plan: PRN Kayexalate-see nephrology note. Status: not improved Thaddeus Diaz MD Aug 04, 2017 13:25
--- NOTE | 2017-08-04 14:08 | Cardiology Progress Note ---
Assessment/Plan Status: stable Assessment/Plan -TTE reviewed, no wall motion abnormalities, normal LV function, moderate AR - stable -IV abx due to pulmonary infiltrates and positive culture - -Continue BP medications -Amlodipine, metoprolol, cardura added for increased control qHS -Defer cardiac cath at this time, patients conditions likely from pulmonary infection as opposed to pulseless v tachy -CTA with infarct - neuro consult, repeat CT in 1 week -Plavix -Statin -Placement Subjective Cardiovascular: Reports: no symptoms Respiratory: Reports: no symptoms Gastrointestinal/Abdominal: Reports: no symptoms Genitourinary: Reports: no symptoms Subjective No acute events, stable on vent, Alert and responsive Renal function stable Vitals stable, feeds at goal, no residuals Blood culture positive for gram negative rods, WBC coming down Mild anemia Tolerating Feeds Tolerating antibiotics On soft restraints Blood pressures elevated Objective Last 24 Hour Vital Signs Date Time Temp Pulse Resp B/P (MAP) Pulse Ox O2 Delivery O2 Flow Rate FiO2 08/04/17 13:38 165/85 08/04/17 13:11 65 16 30 08/04/17 12:13 98.1 58 20 165/85 99 Mechanical Ventilator 30 98.1 08/04/17 12:07 59 08/04/17 12:00 30 08/04/17 11:10 64 16 100 Mechanical Ventilator 30 08/04/17 11:03 62 16 100 Mechanical Ventilator 30 08/04/17 11:03 62 16 30 08/04/17 09:09 71 152/81 08/04/17 09:00 57 152/81 08/04/17 08:49 67 20 30 08/04/17 08:40 97.9 71 19 152/81 98 Mechanical Ventilator 30 97.9 08/04/17 08:00 30 08/04/17 07:41 58 08/04/17 07:22 62 16 30 08/04/17 05:29 185/103 08/04/17 05:16 71 18 30 08/04/17 04:00 30 08/04/17 04:00 77 08/04/17 04:00 97.5 70 26 185/103 98 Mechanical Ventilator 30 97.5 08/04/17 03:50 97.2 08/04/17 03:50 185/103 08/04/17 03:11 97.2 08/04/17 02:47 72 29 30 08/04/17 01:12 66 22 30 08/04/17 00:00 30 08/04/17 00:00 97.2 67 24 157/80 100 Mechanical Ventilator 30 97.2 08/04/17 00:00 62 08/03/17 23:12 63 16 30 08/03/17 22:59 97.7 08/03/17 22:25 69 22 100 Mechanical Ventilator 30 08/03/17 22:10 64 23 99 Mechanical Ventilator 30 08/03/17 21:38 166/92 08/03/17 21:38 76 166/92 08/03/17 21:18 65 23 30 08/03/17 20:00 30 08/03/17 20:00 62 08/03/17 20:00 97.7 76 20 166/92 100 Mechanical Ventilator 30 97.7 08/03/17 19:30 64 19 30 08/03/17 17:40 189/88 08/03/17 17:24 70 19 30 08/03/17 16:00 30 08/03/17 16:00 98.4 71 18 189/88 100 Mechanical Ventilator 30 98.4 08/03/17 15:22 64 08/03/17 15:09 72 25 30 General Appearance: no apparent distress EENT: PERRL/EOMI Neck: non-tender Cardiovascular: normal peripheral pulses Respiratory/Chest: chest wall non-tender Abdomen: normal bowel sounds Extremities: normal range of motion 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 Intake and Output 08/03/17 08/04/17 19:00 07:00 Intake Total 895 ml 530 ml Output Total 1700 ml Balance -805 ml 530 ml Intake Free Water 100 ml IV Total 165 ml Tube Feeding 480 ml 440 ml Other 150 ml 90 ml Output Urine Total 1700 ml # Bowel Movements 4 1 Laboratory Tests Test 08/04/17 04:47 White Blood Count 9.2 K/UL (4.8-10.8) Red Blood Count 3.09 M/UL (4.70-6.10) L Hemoglobin 9.5 G/DL (14.2-18.0) L Hematocrit 28.0 % (42.0-52.0) L Mean Corpuscular Volume 91 FL (80-99) Mean Corpuscular Hemoglobin 30.8 PG (27.0-31.0) Mean Corpuscular Hemoglobin Concent 34.0 G/DL (32.0-36.0) Red Cell Distribution Width 15.8 % (11.6-14.8) H Platelet Count 411 K/UL (150-450) Mean Platelet Volume 6.0 FL (6.5-10.1) L Neutrophils (%) (Auto) 72.6 % (45.0-75.0) Lymphocytes (%) (Auto) 14.7 % (20.0-45.0) L Monocytes (%) (Auto) 7.4 % (1.0-10.0) Eosinophils (%) (Auto) 3.8 % (0.0-3.0) H Basophils (%) (Auto) 1.5 % (0.0-2.0) Sodium Level 140 MMOL/L (136-145) Potassium Level 4.9 MMOL/L (3.5-5.1) Chloride Level 108 MMOL/L (98-107) H Carbon Dioxide Level 22 MMOL/L (21-32) Anion Gap 11 mmol/L (5-15) Blood Urea Nitrogen 59 mg/dL (7-18) H Creatinine 2.3 MG/DL (0.55-1.30) H Estimat Glomerular Filtration Rate 29.6 mL/min (>60) Glucose Level 97 MG/DL (74-106) Calcium Level 8.4 MG/DL (8.5-10.1) L Phosphorus Level 5.6 MG/DL (2.5-4.9) H Magnesium Level 1.7 MG/DL (1.8-2.4) L Total Bilirubin 0.3 MG/DL (0.2-1.0) Aspartate Amino Transf (AST/SGOT) 20 U/L (15-37) Alanine Aminotransferase (ALT/SGPT) 17 U/L (12-78) Alkaline Phosphatase 138 U/L (46-116) H Total Protein 7.8 G/DL (6.4-8.2) Albumin 1.7 G/DL (3.4-5.0) L Globulin 6.1 g/dL Albumin/Globulin Ratio 0.3 (1.0-2.7) L Renny Joy M.D. Aug 04, 2017 14:08
--- NOTE | 2017-08-04 14:30 | Nephrology Progress Note ---
Assessment/Plan Problem List: (1) Acute on chronic renal failure (2) Anemia (3) Hypoglycemia (4) Chronic respiratory failure (5) History of CVA (cerebrovascular accident) (6) Accelerated hypertension (7) Nephrotic syndrome Assessment WBCs lowering Renal failure Cr 2.3 Nephrotic syndrome likely Pre renal super imposed on renal Severe HypoAlbuminemia Sever Anemia Chronic vent / Trach. has PEG HypoKalemia 4+ Proteinuria Hypoglycemia HTN Plan kayexelate for high K when needed change feeding to nepro add epogen Add Hydralazine pulm support transfuse K IV Monitor renal parameters 24 H urine protein 5.4 gr protein DC planning Subjective ROS Limited/Unobtainable: Yes Objective Objective Last 24 Hour Vital Signs Date Time Temp Pulse Resp B/P (MAP) Pulse Ox O2 Delivery O2 Flow Rate FiO2 08/04/17 13:38 165/85 08/04/17 13:11 65 16 30 08/04/17 12:13 98.1 58 20 165/85 99 Mechanical Ventilator 30 98.1 08/04/17 12:07 59 08/04/17 12:00 30 08/04/17 11:10 64 16 100 Mechanical Ventilator 30 08/04/17 11:03 62 16 100 Mechanical Ventilator 30 08/04/17 11:03 62 16 30 08/04/17 09:09 71 152/81 08/04/17 09:00 57 152/81 08/04/17 08:49 67 20 30 08/04/17 08:40 97.9 71 19 152/81 98 Mechanical Ventilator 30 97.9 08/04/17 08:00 30 08/04/17 07:41 58 08/04/17 07:22 62 16 30 08/04/17 05:29 185/103 08/04/17 05:16 71 18 30 08/04/17 04:00 30 08/04/17 04:00 77 08/04/17 04:00 97.5 70 26 185/103 98 Mechanical Ventilator 30 97.5 08/04/17 03:50 97.2 08/04/17 03:50 185/103 08/04/17 03:11 97.2 08/04/17 02:47 72 29 30 08/04/17 01:12 66 22 30 08/04/17 00:00 30 08/04/17 00:00 97.2 67 24 157/80 100 Mechanical Ventilator 30 97.2 08/04/17 00:00 62 08/03/17 23:12 63 16 30 08/03/17 22:59 97.7 08/03/17 22:25 69 22 100 Mechanical Ventilator 30 08/03/17 22:10 64 23 99 Mechanical Ventilator 30 08/03/17 21:38 166/92 08/03/17 21:38 76 166/92 08/03/17 21:18 65 23 30 08/03/17 20:00 30 08/03/17 20:00 62 08/03/17 20:00 97.7 76 20 166/92 100 Mechanical Ventilator 30 97.7 08/03/17 19:30 64 19 30 08/03/17 17:40 189/88 08/03/17 17:24 70 19 30 08/03/17 16:00 30 08/03/17 16:00 98.4 71 18 189/88 100 Mechanical Ventilator 30 98.4 08/03/17 15:22 64 08/03/17 15:09 72 25 30 Intake and Output 08/03/17 08/04/17 19:00 07:00 Intake Total 895 ml 530 ml Output Total 1700 ml Balance -805 ml 530 ml Intake Free Water 100 ml IV Total 165 ml Tube Feeding 480 ml 440 ml Other 150 ml 90 ml Output Urine Total 1700 ml # Bowel Movements 4 1 Current Medications Medications (Trade) Dose Ordered Sig/Johnathan Route PRN Reason Start Time Stop Time Status Last Admin Dose Admin Acetaminophen (Tylenol) 650 mg Q4H PRN ORAL FEVER 07/28/17 12:30 08/25/17 12:29 08/02/17 20:27 Amlodipine Besylate (Norvasc) 10 mg DAILY GT 07/29/17 09:00 08/27/17 08:59 08/04/17 09:09 Clonidine HCl (Catapres TTS-1) 1 patch ONCE A WEEK TDERMAL 08/01/17 09:00 08/31/17 08:59 08/01/17 09:06 Clonidine HCl (Catapres Tab) 0.1 mg Q4H PRN ORAL For High Blood Pressure 07/28/17 12:45 08/27/17 12:44 08/04/17 03:50 Colistimethate Sodium (Colistin *inhalation use only*) 150 mg Q12HR@10,22 INH 6/21/18 22:00 08/05/17 21:59 08/04/17 11:04 Dextrose (Dextrose 50%) 25 ml STAT PRN IV Hypoglycemia 07/28/17 12:30 08/27/17 12:29 Dextrose (Dextrose 50%) 50 ml STAT PRN IV Hypoglycemia 07/28/17 12:30 08/27/17 12:29 Docusate Sodium (Colace) 100 mg TWICE A DAY GT 07/28/17 18:00 08/27/17 17:59 08/04/17 09:08 Doxazosin Mesylate (Cardura) 2 mg BEDTIME ORAL 08/04/17 21:00 09/03/17 20:59 Epoetin Kaiden (Procrit (for non ESRD use)) 5,000 units WED-WED-WED SUBQ 07/30/17 21:00 08/29/17 20:59 08/02/17 20:26 Heparin Sodium (Porcine) (Heparin 5000 units/ml) 5,000 units EVERY 12 HOURS SUBQ 07/28/17 21:00 08/25/17 20:59 08/04/17 09:13 Hydralazine HCl (Apresoline) 50 mg Q8HR GT 08/01/17 14:00 08/31/17 13:59 08/04/17 13:38 Insulin Aspart (NovoLOG) EVERY 6 HOURS SUBQ 07/31/17 00:00 08/30/17 00:00 08/04/17 13:41 Levofloxacin (Levaquin) 750 mg Q48H ORAL 07/28/17 17:00 08/08/17 16:59 08/03/17 16:04 Meropenem 1 gm/ Sodium Chloride 55 ml @ 110 mls/hr Q12H IVPB 07/28/17 17:00 08/08/17 16:59 08/04/17 05:29 Metoprolol Tartrate (Lopressor) 50 mg EVERY 12 HOURS GT 07/28/17 21:00 08/25/17 20:59 08/03/17 21:38 Morphine Sulfate (Morphine Sulfate) 2 mg Q4H PRN IVP For Pain 08/03/17 10:00 08/10/17 09:59 08/04/17 03:11 Olanzapine (ZyPREXA) 2.5 mg BEDTIME ORAL 08/04/17 21:00 09/03/17 20:59 Ondansetron HCl (Zofran) 4 mg Q6H PRN IVP Nausea & Vomiting 07/28/17 12:30 08/25/17 12:29 Pantoprazole (Protonix) 40 mg DAILY IV 07/29/17 09:00 08/26/17 08:59 08/04/17 09:09 Polyethylene Glycol (Miralax) 17 gm BEDTIME ORAL 07/28/17 21:00 08/27/17 20:59 08/03/17 21:38 Polyethylene Glycol (Miralax) 17 gm DAILYPRN PRN ORAL Constipation 07/28/17 12:30 08/27/17 12:29 Sevelamer Carbonate (Renvela) 1,600 mg THREE TIMES A DAY NG 08/03/17 13:00 09/01/17 12:59 08/04/17 13:38 Tigecycline 50 mg/ Dextrose 110 ml @ 220 mls/hr Q12H IVPB 07/31/17 02:00 08/07/17 01:59 08/04/17 01:43 Laboratory Tests 08/04/17 04:47: White Blood Count 9.2, Red Blood Count 3.09L, Hemoglobin 9.5L, Hematocrit 28.0L , Mean Corpuscular Volume 91, Mean Corpuscular Hemoglobin 30.8, Mean Corpuscular Hemoglobin Concent 34.0, Red Cell Distribution Width 15.8H, Platelet Count 411, Mean Platelet Volume 6.0L, Neutrophils (%) (Auto) 72.6, Lymphocytes (%) (Auto) 14.7L, Monocytes (%) (Auto) 7.4, Eosinophils (%) (Auto) 3.8H, Basophils (%) (Auto) 1.5, Sodium Level 140, Potassium Level 4.9, Chloride Level 108H, Carbon Dioxide Level 22, Anion Gap 11, Blood Urea Nitrogen 59H, Creatinine 2.3H, Estimat Glomerular Filtration Rate 29.6, Glucose Level 97, Calcium Level 8.4L, Phosphorus Level 5.6H, Magnesium Level 1.7L, Total Bilirubin 0.3, Aspartate Amino Transf (AST/SGOT) 20, Alanine Aminotransferase ( ALT/SGPT) 17, Alkaline Phosphatase 138H, Total Protein 7.8, Albumin 1.7L, Globulin 6.1, Albumin/Globulin Ratio 0.3L Height (Feet): 5 Height (Inches): 6.00 Weight (Pounds): 159 General Appearance: no apparent distress Neck: limited range of motion Cardiovascular: normal rate Respiratory/Chest: decreased breath sounds Abdomen: soft Objective no change FRED VEGA Aug 04, 2017 14:30
--- NOTE | 2017-08-04 17:35 | Infectious Diseases Prog Note ---
Assessment/Plan Assessment/Plan Assessment: Probable MDRO PNA- worsenened, now improving- r/o legionella 07/29 Scx: MDR ABC -CXR 07/30:Improved but still extensive bilateral diffuse interstitial and airspace infiltrates versus edema, over 2 days -CXR 07/28: Over 2 days, interim worsening of bilateral diffuse interstitial and airspace infiltrates versus edema -CXR: Cardiomegaly with bilateral interstitial and patchy airspace opacities.Findings may be related to CHF/pulmonary edema however superimposed pneumonia not entirely excluded. -sp cx GNR MDR A. baumanni (I Levo, Minocycline; S Colistin, Polymixin B and Tygeclcine); E. aerogenes probable AMP c (S cefepime, Meropenem, Genta) -legionella ag urine neg Leukocytosis, resolved -no fever -u/a wbc 5-10; repeat neg -Cdiff neg Lactic acidosis, SP Acute CVA -CT head: asymmetric densities in the right insula, steen radiata, and basal ganglia concerning for acute infarct. DM2 HTN OR/CAD anemia CVA/TIA/hemorrhagic stroke w/ L side hemiparesis CKD IV, Cr imprivng resp failure Trach/vent dependant dysphagia s/p PEG non verbal SNF resident Plan: -Continue empiric Meropenem (abx d#12/22 ) INH Colistin # /-14 and IV Tigecycline d # 07/18-14 for MDR ABC PNA -d/c Levaquin #8 -07/28 SP IV Vancomycin #3, Cefepime #3 -Monitor CBC/BMP, temperatures -aspiration precautions -Trach/peg care -CXR am Subjective Allergies: Coded Allergies: No Known Allergies (Unverified , 07/26/17) Subjective afebrile leukocytosis resolved Fio2 30% Objective Vital Signs Last 24 Hour Vital Signs Date Time Temp Pulse Resp B/P (MAP) Pulse Ox O2 Delivery O2 Flow Rate FiO2 08/04/17 16:51 67 16 30 08/04/17 16:00 30 08/04/17 16:00 82 08/04/17 15:53 97.8 59 20 158/74 99 Mechanical Ventilator 30 97.8 08/04/17 15:01 66 16 30 08/04/17 13:38 165/85 08/04/17 13:11 65 16 30 08/04/17 12:13 98.1 58 20 165/85 99 Mechanical Ventilator 30 98.1 08/04/17 12:07 59 08/04/17 12:00 30 08/04/17 11:10 64 16 100 Mechanical Ventilator 30 08/04/17 11:03 62 16 100 Mechanical Ventilator 30 08/04/17 11:03 62 16 30 08/04/17 09:09 71 152/81 08/04/17 09:00 57 152/81 08/04/17 08:49 67 20 30 08/04/17 08:40 97.9 71 19 152/81 98 Mechanical Ventilator 30 97.9 08/04/17 08:00 30 08/04/17 07:41 58 08/04/17 07:22 62 16 30 08/04/17 05:29 185/103 08/04/17 05:16 71 18 30 08/04/17 04:00 30 08/04/17 04:00 77 08/04/17 04:00 97.5 70 26 185/103 98 Mechanical Ventilator 30 97.5 08/04/17 03:50 97.2 08/04/17 03:50 185/103 08/04/17 03:11 97.2 08/04/17 02:47 72 29 30 08/04/17 01:12 66 22 30 08/04/17 00:00 30 08/04/17 00:00 97.2 67 24 157/80 100 Mechanical Ventilator 30 97.2 08/04/17 00:00 62 08/03/17 23:12 63 16 30 08/03/17 22:59 97.7 08/03/17 22:25 69 22 100 Mechanical Ventilator 30 08/03/17 22:10 64 23 99 Mechanical Ventilator 30 08/03/17 21:38 166/92 08/03/17 21:38 76 166/92 08/03/17 21:18 65 23 30 08/03/17 20:00 30 08/03/17 20:00 62 08/03/17 20:00 97.7 76 20 166/92 100 Mechanical Ventilator 30 97.7 08/03/17 19:30 64 19 30 08/03/17 17:40 189/88 Height (Feet): 5 Height (Inches): 6.00 Weight (Pounds): 159 Objective GENERAL APPEARANCE: A well-developed, well-nourished, male, who was intubated and sedated. HEENT: Eyes, pupils are equal and responsive to light and accommodation. Extraocular movements are intact. NECK: Supple without lymphadenopathy. There is a tracheostomy tube present. CARDIOVASCULAR: Regular rhythm rate. S1, S2 normal without murmurs, rubs, or gallops. ABDOMEN: Soft, nontender, and nondistended. Positive bowel sounds. No evidence of hepatosplenomegaly. Currently, no rebound or guarding noted. There is presence of a G-tube placement noted. LUNGS: Coarse breath sounds bilaterally without wheezes or rales. NEUROLOGIC: The patient has a left flaccid hemiparesis. Laboratory Tests Test 08/04/17 04:47 White Blood Count 9.2 K/UL (4.8-10.8) Red Blood Count 3.09 M/UL (4.70-6.10) L Hemoglobin 9.5 G/DL (14.2-18.0) L Hematocrit 28.0 % (42.0-52.0) L Mean Corpuscular Volume 91 FL (80-99) Mean Corpuscular Hemoglobin 30.8 PG (27.0-31.0) Mean Corpuscular Hemoglobin Concent 34.0 G/DL (32.0-36.0) Red Cell Distribution Width 15.8 % (11.6-14.8) H Platelet Count 411 K/UL (150-450) Mean Platelet Volume 6.0 FL (6.5-10.1) L Neutrophils (%) (Auto) 72.6 % (45.0-75.0) Lymphocytes (%) (Auto) 14.7 % (20.0-45.0) L Monocytes (%) (Auto) 7.4 % (1.0-10.0) Eosinophils (%) (Auto) 3.8 % (0.0-3.0) H Basophils (%) (Auto) 1.5 % (0.0-2.0) Sodium Level 140 MMOL/L (136-145) Potassium Level 4.9 MMOL/L (3.5-5.1) Chloride Level 108 MMOL/L (98-107) H Carbon Dioxide Level 22 MMOL/L (21-32) Anion Gap 11 mmol/L (5-15) Blood Urea Nitrogen 59 mg/dL (7-18) H Creatinine 2.3 MG/DL (0.55-1.30) H Estimat Glomerular Filtration Rate 29.6 mL/min (>60) Glucose Level 97 MG/DL (74-106) Calcium Level 8.4 MG/DL (8.5-10.1) L Phosphorus Level 5.6 MG/DL (2.5-4.9) H Magnesium Level 1.7 MG/DL (1.8-2.4) L Total Bilirubin 0.3 MG/DL (0.2-1.0) Aspartate Amino Transf (AST/SGOT) 20 U/L (15-37) Alanine Aminotransferase (ALT/SGPT) 17 U/L (12-78) Alkaline Phosphatase 138 U/L (46-116) H Total Protein 7.8 G/DL (6.4-8.2) Albumin 1.7 G/DL (3.4-5.0) L Globulin 6.1 g/dL Albumin/Globulin Ratio 0.3 (1.0-2.7) L Current Medications Medications (Trade) Dose Ordered Sig/Johnathan Route PRN Reason Start Time Stop Time Status Last Admin Dose Admin Acetaminophen (Tylenol) 650 mg Q4H PRN ORAL FEVER 07/28/17 12:30 08/25/17 12:29 08/02/17 20:27 Amlodipine Besylate (Norvasc) 10 mg DAILY GT 07/29/17 09:00 08/27/17 08:59 08/04/17 09:09 Clonidine HCl (Catapres TTS-1) 1 patch ONCE A WEEK TDERMAL 08/01/17 09:00 08/31/17 08:59 08/01/17 09:06 Clonidine HCl (Catapres Tab) 0.1 mg Q4H PRN ORAL For High Blood Pressure 07/28/17 12:45 08/27/17 12:44 08/04/17 03:50 Colistimethate Sodium (Colistin *inhalation use only*) 150 mg Q12HR@10,22 INH 07/29/17 22:00 08/05/17 21:59 08/04/17 11:04 Dextrose (Dextrose 50%) 25 ml STAT PRN IV Hypoglycemia 07/28/17 12:30 08/27/17 12:29 Dextrose (Dextrose 50%) 50 ml STAT PRN IV Hypoglycemia 07/28/17 12:30 08/27/17 12:29 Docusate Sodium (Colace) 100 mg TWICE A DAY GT 07/28/17 18:00 08/27/17 17:59 08/04/17 17:05 Doxazosin Mesylate (Cardura) 2 mg BEDTIME ORAL 08/04/17 21:00 09/03/17 20:59 Epoetin Kaiden (Procrit (for non ESRD use)) 5,000 units WED-WED-WED SUBQ 07/30/17 21:00 08/29/17 20:59 08/02/17 20:26 Heparin Sodium (Porcine) (Heparin 5000 units/ml) 5,000 units EVERY 12 HOURS SUBQ 07/28/17 21:00 08/25/17 20:59 08/04/17 09:13 Hydralazine HCl (Apresoline) 50 mg Q8HR GT 08/01/17 14:00 08/31/17 13:59 08/04/17 13:38 Insulin Aspart (NovoLOG) EVERY 6 HOURS SUBQ 07/31/17 00:00 08/30/17 00:00 08/04/17 13:41 Levofloxacin (Levaquin) 750 mg Q48H ORAL 07/28/17 17:00 08/08/17 16:59 08/03/17 16:04 Meropenem 1 gm/ Sodium Chloride 55 ml @ 110 mls/hr Q12H IVPB 07/28/17 17:00 08/08/17 16:59 08/04/17 17:05 Metoprolol Tartrate (Lopressor) 50 mg EVERY 12 HOURS GT 07/28/17 21:00 08/25/17 20:59 08/03/17 21:38 Morphine Sulfate (Morphine Sulfate) 2 mg Q4H PRN IVP For Pain 08/03/17 10:00 08/10/17 09:59 08/04/17 03:11 Olanzapine (ZyPREXA) 2.5 mg BEDTIME ORAL 08/04/17 21:00 09/03/17 20:59 Ondansetron HCl (Zofran) 4 mg Q6H PRN IVP Nausea & Vomiting 07/28/17 12:30 08/25/17 12:29 Pantoprazole (Protonix) 40 mg DAILY IV 6/21/18 09:00 08/26/17 08:59 08/04/17 09:09 Polyethylene Glycol (Miralax) 17 gm BEDTIME ORAL 07/28/17 21:00 08/27/17 20:59 08/03/17 21:38 Polyethylene Glycol (Miralax) 17 gm DAILYPRN PRN ORAL Constipation 07/28/17 12:30 08/27/17 12:29 Sevelamer Carbonate (Renvela) 1,600 mg THREE TIMES A DAY NG 08/03/17 13:00 09/01/17 12:59 08/04/17 17:05 Tigecycline 50 mg/ Dextrose 110 ml @ 220 mls/hr Q12H IVPB 07/31/17 02:00 08/07/17 01:59 08/04/17 15:05 Jessica Estrella M.D. Aug 04, 2017 17:35
[2017-08-04] MEDS: Miralax 17gm pkt ORAL SCH (20:38)
[2017-08-04] MEDS ORDERED: Doxazosin 4mg tab ORAL SCH (21:00)
[2017-08-04] MEDS ORDERED: OLANZapine 2.5mg tab ORAL SCH (21:00)
[2017-08-04] MEDS: Epogen (for non ESRD use) SUBQ SCH (21:13)
--- NOTE | 2017-08-05 11:14 | Discharge Summary ---
Discharge Summary Discharge Summary _ DATE OF ADMISSION: 07/26/2017 DATE OF DISCHARGE: 08/04/2017 ATTENDING: Dr. Timothy Hills CONSULTANTS: Dr. Siva Joy BRIEF HOSPITAL COURSE: Patient is a 56-year-old male, resident of [facility], was transferred to [facility] due to altered mental status. He has medical history significant for respiratory failure on chronic trach and vent dependence, dysphagia, hypertension, diabetes mellitus type 2, hemorrhagic stroke, diabetes nephropathy, left hemiparesis, chronic renal failure, iron deficiency anemia. Per EMS, [facility] as patient was reported to have no pulse, however, when they arrived patient had a pulse and was undergoing CPR. On arrival at ED, vitals were stable. He became hypoglycemic with critically low blood sugar, he was given D50. Blood work showed anemia with hemoglobin of 7, hematocrit 21. There was leukocytosis with WBC of 15, lactic acid was 3.7. Creatinine was elevated to 2.9, BUN was 70. Troponin was negative. EKG was in normal sinus rhythm. Chest x-ray showed diffuse bilateral patchy opacities. Tracheostomy tube in place. Head CT showed asymmetric densities on the right insula, steen radiata and basal ganglia concerning suspicious for acute infarct. There was no evidence of midline shift or acute intracranial hemorrhage. He was then admitted to ICU for evaluation of altered mental status possibly secondary to acute stroke. He was continued on antihypertensives Lopressor and amlodipine. Echocardiogram showed ejection fraction of 55-60% there was no wall motion abnormalities, moderate AR. He was given Plavix and statin. Defer cardiac catheterization this time. Hydralazine was later added for blood pressure support. He had elevated kidney function, workup showed 24-hour urine more than 5 g of protein. Patient has likely prerenal acute superimposed on chronic renal failure. He had anemia and received 1 unit packed RBC blood transfusion. Stool OB was negative. He was eventually started on Procrit. Venous duplex was negative for DVT. KUB was negative. He was continued on G-tube feeding. He had episodes of hyperkalemia and was given kayexalate. NG tube feeding was changed to Nepro. Anemia workup done showed anemia was due to underlying chronic disease. He had leukocytosis and was started empirically on vancomycin and cefepime. Repeat chest x-ray showed worsening pneumonia. He had continued leukocytosis. Stool C. difficile was negative. Urine Legionella was negative. Sputum culture with growth of MDR A. baumanni and E. aerogenes probable AMP. Vancomycin was discontinued. Cefepime was switched to meropenem and Levaquin. He was also given inhaled colistin and IV tigecycline. Patient was agitated and confused. He had waxing and waning of consciousness. He was placed on right soft wrist restraints. He was given Zyprexa. Leukocytosis resolved. He was afebrile. He was eventually discharged back to [facility]. FINAL DIAGNOSES: Acute and old CVA with left hemiparesis Acute on chronic respiratory failure Acute encephalopathy Probable MDRO pneumonia Hyperkalemia Anemia of chronic disease Acute on chronic renal failure Diabetes mellitus type 2 Hypertension Dysphagia status post PEG Nephrotic syndrome Acute anemia requiring blood transfusion Hypoglycemia Proteinuria DISPOSITION: Patient was discharged back to [facility]. I have been assigned to dictate discharge summary on this account, and I was not involved in the patient's management. Bessie Hayward NP Aug 05, 2017 11:13
== END 2017-08-04 22:30 | DRG 45 ==
LOC: EDBD 06:03 → EMR 06:34 → 2W 06:39 → EDBEDREQ 07:57 → ENRESERV 09:00 → EDBEDREQ 09:03 → ICU 09:07 → 2W 07-28 12:08
PROC: 5A1955Z Respiratory Ventilation, Greater than 96 Consecutive Hours (ICD-10-PCS; principal; 2017-07-26)
PROC: 30253N1 (ICD-10-PCS; 2017-07-26)
DX: I63.9 Cerebral infarction, unspecified (principal); J96.20 Acute and chronic respiratory failure, unspecified whether with hypoxia or hypercapnia; I46.9 Cardiac arrest, cause unspecified; Z99.11 Dependence on respirator [ventilator] status; G93.40 Encephalopathy, unspecified; J15.6 Pneumonia due to other Gram-negative bacteria; Z93.0 Tracheostomy status; N17.9 Acute kidney failure, unspecified; N18.4 Chronic kidney disease, stage 4 (severe); D68.9 Coagulation defect, unspecified; R13.10 Dysphagia, unspecified; Z93.1 Gastrostomy status; I12.9 Hypertensive chronic kidney disease with stage 1 through stage 4 chronic kidney disease, or unspecified chronic kidney disease; E08.22 Diabetes mellitus due to underlying condition with diabetic chronic kidney disease; E11.649 Type 2 diabetes mellitus with hypoglycemia without coma; I69.154 Hemiplegia and hemiparesis following nontraumatic intracerebral hemorrhage affecting left non-dominant side; D50.9 Iron deficiency anemia, unspecified; I25.2 Old myocardial infarction; I25.10 Atherosclerotic heart disease of native coronary artery without angina pectoris; E88.09 Other disorders of plasma-protein metabolism, not elsewhere classified; E87.6 Hypokalemia; Z78.1 Physical restraint status; R10.9 Unspecified abdominal pain
CPT/HCPCS: 36415; 36600; 70450; 71045; 74018; 80048; 80053; 80061; 80069; 80202; 81001; 81003; 81050; 82164; 82270; 82378; 82550; 82553; 82607; 82728; 82746; 82803; 82962; 82977; 83036; 83540; 83550; 83605; 83615; 83690; 83735; 83880; 84100; 84132; 84133; 84156; 84300; 84443; 84484; 84550; 85007; 85025; 85044; 85060; 85610; 85651; 85730; 86140; 86850; 86900; 86901; 86920; 87040; 87045; 87070; 87081; 87181; 87205; 87324; 89050; 93005; 93306; 93970; 93971; 94002; 94003; 94640; 99291; J1815

== ENCOUNTER 2017-08-08 01:01 | Emergency (ER) | payer MEDICAID ==
[~2017-08-08] VITALS: Ht 172.7 cm; Wt 63.5 kg
[~2017-08-08 01:01] MED LIST: ACETAMINOP160 MG/51 GT; CATAPRES TTS-1 PATCH TDERMAL; FAMOTIDINE20 MG GT; HUMALOG100 UNIT/4 SUBQ; HYDRALAZINE HC100 MG GT; LANTUS SOL100 UNIT/1 SUBQ; LOVENOX10 M4 SUBQ; METFORMIN HCL850 M1 GT; METOPROLOL TART50 M1 GT; NORVASC10 MG ORAL; RENA-VITE TABL0.8 M1 GT; TRAMADOL HCL50 MG GT; TRANSDERM-SCOP1.5 MG TD
[2017-08-08 01:10] VITALS: BP 129/81
--- NOTE | 2017-08-08 01:35 | Emergency Room Report ---
History of Present Illness General Chief Complaint: Malfunctioning Gastric Tube Source: Medical Record, EMS Present Illness HPI This is a 56-year-old male with a history of CVA resulting in the dependent respiratory failure. He has a tracheostomy and a feeding tube. He was sent in here with chief complaint of G-tube dislodgment. He has accidentally pulled out. No other complaint. Unable to get any history from this patient. History is from the halfway note and EMS. Allergies: Coded Allergies: No Known Allergies (Unverified , 07/26/17) Patient History Past Medical History: see triage record, old chart reviewed Past Surgical History: other Pertinent Family History: none Social History: Denies: smoking Immunizations: other Reviewed Nursing Documentation: PMH: Agreed; PSxH: Agreed Nursing Documentation-PMH Past Medical History: No History, Except For Hx Cardiac Problems: Yes - Cardiac arrest, Hypertensive Nephrosclerosis, Anemia , Hyperkalemia Hx Hypertension: Yes Hx COPD: No - Chronic Resp. failure, Trach. dependent, PNA Hx Diabetes: Yes - Hypoglycemia Hx Cancer: No Hx Gastrointestinal Problems: Yes - Dysphagia Hx Dialysis: No - Nephropathy, CKD History Of Psychiatric Problem: Yes - Major Depressive Disorder Hx Neurological Problems: Yes - left hemiparesis Hx Cerebrovascular Accident: Yes - Hemorrhagic, Encephalopathy, Left hemiparesis Review of Systems Eye: Denies: eye pain, blurred vision ENT: Denies: ear pain, nose congestion, throat swelling Respiratory: Denies: cough, shortness of breath Cardiovascular: Denies: chest pain, palpitations Gastrointestinal: Denies: abdominal pain, diarrhea, nausea, vomiting Musculoskeletal: Denies: back pain, joint pain Skin: Denies: rash Neurological: Denies: headache, numbness Endocrine: Denies: increased thirst, increased urine Hematologic/Lymphatic: Denies: easy bruising All Other Systems: negative except mentioned in HPI Physical Exam Vital Signs Date Time Temp Pulse Resp B/P (MAP) Pulse Ox O2 Delivery O2 Flow Rate FiO2 08/08/17 00:55 98.0 82 16 132/83 98 Room Air 98.1 vitals normal Sp02 EP Interpretation: reviewed, normal General Appearance: well appearing, no apparent distress, alert Head: normocephalic, atraumatic Eyes: bilateral eye PERRL, bilateral eye EOMI ENT: hearing grossly normal, normal pharynx Neck: full range of motion, supple, no meningismus, tracheotomy - lots of secretion in the trach Respiratory: chest non-tender, lungs clear, normal breath sounds Cardiovascular #1: regular rate, rhythm, no murmur Gastrointestinal: normal bowel sounds, non tender, no mass, no organomegaly, no bruit, non-distended, other - G-tube stoma intact Musculoskeletal: back normal, other - left-sided jose c-paralysis, chronic Psychiatric: mood/affect normal Skin: warm/dry Procedures Additional Procedure Procedure Narrative Procedure: G-tube placement Indication: G-tube dislodgment Description: I placed an 18 Italian G-tube under sterile condition. Balloon inflated. No complications. Patient tolerated procedure without a problem. Medical Decision Making Diagnostic Impression: Primary Impression: Malfunction of gastrostomy tube ER Course Patient presents with dislodgment of his G-tube. Replaced without a problem. location. A lot of secretion was suctioned out from the tracheostomy. He is breathing better now. Oxidation 100% with blow-by oxygen. [facility] Other [facility]-Ray Diagnostic Results Other X-Ray Diagnostic Results : X-Ray ordered: KUB # of Views/Limited Vs Complete: 1 View Indication: Other - G-tube placement EP Interpretation: Yes Interpretation: no dislocation, no soft tissue swelling, nonspecific bowel gas, other - contrast and stomach. No extravasation. no free air Impression: Other - Gtube in good position Last Vital Signs Date Time Temp Pulse Resp B/P (MAP) Pulse Ox O2 Delivery O2 Flow Rate FiO2 08/08/17 00:55 98.0 82 16 132/83 98 Room Air 98.1 Status: improved Disposition: [facility] SN[facility] Condition: Stable Referrals: NOT CHOSEN IPA/,REFERRING (PCP) Patient Instructions: Gastrostomy Tube Home Guide, Adult Additional Instructions: Follow-up with your doctor as needed. Suction tracheostomy as needed. Return if worse. ANN RUVALCABA M.D. Aug 08, 2017 01:35
[2017-08-08 01:57] VITALS: BP 129/81
--- NOTE | 2017-08-08 02:21 | Diagnostic Imaging Report ---
EXAM: XR Abdomen, 2 Views CLINICAL HISTORY: TUBE PLCMT TECHNIQUE: Frontal view of the abdomen/pelvis with upright view of the abdomen. COMPARISON: No relevant prior studies available. FINDINGS: Intraperitoneal space: No free air. Gastrointestinal tract: Unremarkable. No dilation. Bones/joints: Unremarkable. Tubes, lines and devices: Gastric tube in the stomach. IMPRESSION: Gastric tube in the stomach.
== END 2017-08-08 01:57 ==
LOC: EDBD 01:01 → EMR 01:15
DX: K94.23 Gastrostomy malfunction (principal); Y83.3 Surgical operation with formation of external stoma as the cause of abnormal reaction of the patient, or of later complication, without mention of misadventure at the time of the procedure; Y92.129 Unspecified place in nursing home as the place of occurrence of the external cause; Z93.0 Tracheostomy status; J96.10 Chronic respiratory failure, unspecified whether with hypoxia or hypercapnia; I69.354 Hemiplegia and hemiparesis following cerebral infarction affecting left non-dominant side; I12.9 Hypertensive chronic kidney disease with stage 1 through stage 4 chronic kidney disease, or unspecified chronic kidney disease; N18.9 Chronic kidney disease, unspecified; F32.9 Major depressive disorder, single episode, unspecified; E11.9 Type 2 diabetes mellitus without complications
CPT/HCPCS: 74018; 99284

== ENCOUNTER 2017-08-12 16:57 | Emergency (ER) | payer MEDICAID ==
[~2017-08-12] VITALS: Ht 177.8 cm; Wt 68.0 kg
[2017-08-12 16:57] VITALS: BP 151/86
[2017-08-12 17:11] VITALS: BP 160/81
--- NOTE | 2017-08-12 17:30 | Emergency Room Report ---
History of Present Illness General Chief Complaint: Malfunctioning Gastric Tube Source: EMS Present Illness HPI Here for G tube replacement. Unknown how it became dislodged. Had 18 georgian, this is in a plastic bag and nothing is in the patient's site. L hemiparesis. No reported fevers or vomiting. No cough reported. History limited by underlying diseases. Allergies: Coded Allergies: No Known Allergies (Unverified , 07/26/17) Patient History Limited by: medical condition Past Medical History: see triage record Past Surgical History: other - g tube Social History: Denies: smoking, alcohol use, drug use Social History Narrative snf Reviewed Nursing Documentation: PMH: Agreed; PSxH: Agreed Nursing Documentation-PMH Past Medical History: No History, Except For Hx Cardiac Problems: Yes - Anemia. Cardiac arrest. Hx Hypertension: Yes - hypoglycemia Hx Diabetes: Yes Hx Cancer: No Hx Gastrointestinal Problems: Yes - GERD. Gtube. Dysphagia Hx Dialysis: No - Nephropathy, CKD Hx Neurological Problems: Yes - schizophrenia Hx Cerebrovascular Accident: Yes - left side weakness Review of Systems All Other Systems: limited Physical Exam Vital Signs Date Time Temp Pulse Resp B/P (MAP) Pulse Ox O2 Delivery O2 Flow Rate FiO2 08/12/17 16:37 97.8 73 18 151/86 99 Trach Collar 2.0 97.9 Sp02 EP Interpretation: reviewed, normal General Appearance: no apparent distress, alert, other, Chronically Ill Head: normocephalic, atraumatic Eyes: bilateral eye normal inspection, bilateral eye PERRL ENT: hearing grossly normal, normal voice, moist mucus membranes Neck: full range of motion, supple Respiratory: lungs clear, no respiratory distress, speaking full sentences Cardiovascular #1: regular rate, rhythm, no edema Cardiovascular #2: 2+ radial (L) Gastrointestinal: normal inspection, normal bowel sounds, non tender, other - G tube site present, no inflammation, scaphoid Musculoskeletal: other - contractures L Neurologic: alert, motor weakness - L hemiparesis R motor strength full Psychiatric: mood/affect normal - striking out at examiner Skin: no rash Procedures Additional Procedure Procedure Narrative Attempt 18 - 12. Able to pass 12 fr with min difficulty. Medical Decision Making Diagnostic Impression: Primary Impression: G tube replacement Additional Impression: Malfunction of gastrostomy tube ER Course Patient with dislodged G tube. Needs replacement. Not febrile or tachycardic. Unable to re-insert original size. Finally able to pass 12 georgian. Abd film with contrast in stomach, no leakage. Patient stable for outpatient observation and treatment. Other X-Ray Diagnostic Results Other X-Ray Diagnostic Results : # of Views/Limited Vs Complete: 1 View Indication: Other EP Interpretation: Yes Interpretation: nonspecific bowel gas, no sbo, other - G tube in stomach without leakage Impression: Other Electronically Signed by: Electronically signed by Renny Chavez MD Last Vital Signs Date Time Temp Pulse Resp B/P (MAP) Pulse Ox O2 Delivery O2 Flow Rate FiO2 08/12/17 19:30 97.9 73 18 154/79 100 Trach Collar 2.0 97.9 Status: improved Disposition: [facility] SN[facility] Condition: Improved Renny Chavez M.D. Aug 12, 2017 17:30
[2017-08-12 19:15] VITALS: BP 154/81
[2017-08-12 19:30] VITALS: BP 154/79
--- NOTE | 2017-08-13 11:27 | Diagnostic Imaging Report ---
Indication: Gastrostomy check Comparison: 08/08/2017 Single view of the abdomen obtained Findings: Partial image of the upper abdomen showing gastrostomy projected over the stomach. There is contrast material within the stomach. No extravasation of contrast seen. IMPRESSION: Unremarkable gastrostomy
== END 2017-08-12 19:40 ==
LOC: EDBD 16:57 → EMR 17:00
DX: K94.23 Gastrostomy malfunction (principal); Y83.3 Surgical operation with formation of external stoma as the cause of abnormal reaction of the patient, or of later complication, without mention of misadventure at the time of the procedure; Z43.1 Encounter for attention to gastrostomy; E11.9 Type 2 diabetes mellitus without complications; I69.354 Hemiplegia and hemiparesis following cerebral infarction affecting left non-dominant side; K21.9 Gastro-esophageal reflux disease without esophagitis; R13.10 Dysphagia, unspecified
CPT/HCPCS: 74018; 99283

== ENCOUNTER 2017-08-20 14:36 | Inpatient (IN) | payer MEDICAID ==
[~2017-08-20] VITALS: Ht 165.1 cm; Wt 70.3 kg
[~2017-08-20 14:36] MED LIST changes: +NORVASC10 MG GT; -NORVASC10 MG ORAL
--- NOTE | 2017-08-20 15:08 | Emergency Room Report ---
History of Present Illness General Chief Complaint: Malfunctioning Gastric Tube Source: Patient, Medical Record Present Illness HPI Patient is a 56-year-old male sent from his care center after pulling out his G- tube earlier today approximately 11:00. It is unclear how long the G-tube is been in however review of records here shows that the patient had a G-tube as of July 09. The long-term apparently attempted to replace the G-tube unsuccessful. They stated that the stoma closed. The patient has no specific complaint at this time. Allergies: Coded Allergies: No Known Allergies (Unverified , 07/26/17) Patient History Past Medical History: see triage record Pertinent Family History: none Social History: Denies: smoking, alcohol use, drug use Nursing Documentation-[facility] Past Medical History: No History, Except For Hx Cardiac Problems: Yes - Anemia. Cardiac arrest. Hx Hypertension: Yes - hypoglycemia Hx Diabetes: Yes Hx Cancer: No Hx Gastrointestinal Problems: Yes - GERD. Gtube. Dysphagia Hx Dialysis: No - Nephropathy, CKD Hx Neurological Problems: Yes - schizophrenia Hx Cerebrovascular Accident: Yes - left side weakness Review of Systems Constitutional: Denies: no symptoms, see HPI, chills, sweats, fever, malaise, weakness, other Eye: Denies: no symptoms, see HPI, eye pain, blurred vision, tearing, double vision, nose pain, nose congestion, acuity changes, discharge, other ENT: Denies: no symptoms, see HPI, ear pain, ear discharge, nose pain, nose congestion, throat pain, throat swelling, mouth pain, hearing loss, nasal discharge, other Cardiovascular: Denies: no symptoms, see HPI, chest pain, edema, palpitations, syncope, PND, other Gastrointestinal: Reports: see HPI Musculoskeletal: Denies: no symptoms, see HPI, back pain, gout, joint pain, joint swelling, muscle pain, muscle stiffness, other Skin: Denies: no symptoms, see HPI, rash, change in color, change in hair/nails , dryness, lesions, other Physical Exam Vital Signs Date Time Temp Pulse Resp B/P (MAP) Pulse Ox O2 Delivery O2 Flow Rate FiO2 08/20/17 14:33 97.5 74 18 154/84 97 Room Air 97.5 Sp02 EP Interpretation: reviewed, normal General Appearance: no apparent distress, alert, GCS 15, non-toxic Head: normocephalic, atraumatic ENT: hearing grossly normal, normal pharynx, no angioedema, normal voice, other - trach in place Respiratory: chest non-tender, lungs clear, normal breath sounds, speaking full sentences Cardiovascular #1: regular rate, rhythm, no edema Gastrointestinal: normal bowel sounds, non tender, soft, non-distended, no guarding, no rebound, other - G-tube site clean and dry Neurologic: alert, oriented x3, responsive Skin: normal inspection, normal color Procedures Additional Procedure Procedure Narrative I attempted under sterile conditions to replace the G-tube using both an 18 and a 12 Taiwanese. However, I was unable to pass the tube as the stoma does appear to be closed. Medical Decision Making Diagnostic Impression: Primary Impression: Malfunction of gastrostomy tube ER Course After unsuccessful attempts to pass both an 18 and 12 Taiwanese G-tube I will admit the patient to the hospital since he will not be able to tolerate by mouth secondary to his prior CVA and dysphagia. Laboratory Tests Test 08/20/17 15:13 White Blood Count 7.9 K/UL (4.8-10.8) Red Blood Count 4.33 M/UL (4.70-6.10) L Hemoglobin 12.7 G/DL (14.2-18.0) L Hematocrit 39.7 % (42.0-52.0) L Mean Corpuscular Volume 92 FL (80-99) Mean Corpuscular Hemoglobin 29.4 PG (27.0-31.0) Mean Corpuscular Hemoglobin Concent 32.0 G/DL (32.0-36.0) Red Cell Distribution Width 15.7 % (11.6-14.8) H Platelet Count 394 K/UL (150-450) Mean Platelet Volume 5.7 FL (6.5-10.1) L Neutrophils (%) (Auto) 60.5 % (45.0-75.0) Lymphocytes (%) (Auto) 22.2 % (20.0-45.0) Monocytes (%) (Auto) 7.8 % (1.0-10.0) Eosinophils (%) (Auto) 8.2 % (0.0-3.0) H Basophils (%) (Auto) 1.3 % (0.0-2.0) Prothrombin Time 10.5 SEC (9.30-11.50) Prothrombin Time INR 1.0 (0.9-1.1) Sodium Level 134 MMOL/L (136-145) L Potassium Level 4.6 MMOL/L (3.5-5.1) Chloride Level 101 MMOL/L (98-107) Carbon Dioxide Level 25 MMOL/L (21-32) Anion Gap 8 mmol/L (5-15) Blood Urea Nitrogen 57 mg/dL (7-18) H Creatinine 2.4 MG/DL (0.55-1.30) H Estimate Glomerular Filtration Rate 28.1 mL/min (>60) Glucose Level 108 MG/DL (74-106) H Calcium Level 9.0 MG/DL (8.5-10.1) Total Bilirubin 0.3 MG/DL (0.2-1.0) Aspartate Amino Transferase (AST) 17 U/L (15-37) Alanine Aminotransferase (ALT) 27 U/L (12-78) Alkaline Phosphatase 163 U/L (46-116) H Total Protein 8.6 G/DL (6.4-8.2) H Albumin 2.3 G/DL (3.4-5.0) L Globulin 6.3 g/dL Last Vital Signs Date Time Temp Pulse Resp B/P (MAP) Pulse Ox O2 Delivery O2 Flow Rate FiO2 08/20/17 14:33 97.5 74 18 154/84 97 Room Air 97.5 Disposition: ADMITTED INPATIENT Condition: Stable Cesar Lowery MD Aug 20, 2017 15:08
[2017-08-20 15:18] VITALS: BP 154/84
[2017-08-20 15:29] LABS: BASOPHILS % (AUTO) 1.3 % (0.0-2.0); EOSINOPHILS % (AUTO) 8.2 % (0.0-3.0); HEMATOCRIT 39.7 % (42.0-52.0); HEMOGLOBIN 12.7 G/DL (14.2-18.0); LYMPHOCYTES % (AUTO) 22.2 % (20.0-45.0); MEAN CORPUSCULAR VOLUME 92 FL (80-99); MONOCYTES % (AUTO) 7.8 % (1.0-10.0); NEUTROPHILS % (AUTO) 60.5 % (45.0-75.0); PLATELET COUNT 394 K/UL (150-450); RED BLOOD COUNT 4.33 M/UL (4.70-6.10); RED CELL DISTRIBUTION WIDTH 15.7 % (11.6-14.8); WHITE BLOOD COUNT 7.9 K/UL (4.8-10.8)
[2017-08-20 15:44] LABS: ANION GAP 8 mmol/L (5-15); BLOOD UREA NITROGEN 57 mg/dL (7-18); CARBON DIOXIDE 25 MMOL/L (21-32); CHLORIDE 101 MMOL/L (98-107); CREATININE 2.4 MG/DL (0.55-1.30); POTASSIUM 4.6 MMOL/L (3.5-5.1); SODIUM 134 MMOL/L (136-145)
[2017-08-20 15:49] LABS: ALKALINE PHOSPHATASE 163 U/L (46-116); BILIRUBIN,TOTAL 0.3 MG/DL (0.2-1.0)
[2017-08-20] MEDS ORDERED: CATAPRES0.1 MG ORAL (15:58)
[2017-08-20 16:01] LABS: ALANINE AMINOTRANSFERASE 27 U/L (12-78); ALBUMIN 2.3 G/DL (3.4-5.0); ASPARTATE AMINO TRANSFERASE 17 U/L (15-37)
[2017-08-20] MEDS ORDERED: DOXAZOSIN MESYLA1 MG GT (16:03)
[2017-08-20] MEDS ORDERED: HEPARIN SO5000 UNIT2 SUBQ (16:03)
[2017-08-20] MEDS ORDERED: MIRALAX17 G2 GT (16:03)
[2017-08-20] MEDS ORDERED: ZOFRAN ODT8 MG GT (16:03)
[2017-08-20] MEDS ORDERED: PROTONIX40 MG GT (16:03)
[2017-08-20] MEDS ORDERED: EPOGEN20000 UNI1 SUBQ (16:03)
[2017-08-20] MEDS ORDERED: LORazepam Inj 2mg/ml 1ml IV PRN (17:15)
[2017-08-20] MEDS ORDERED: Miralax 17gm pkt ORAL PRN (17:15)
[2017-08-20] MEDS ORDERED: Albuterol/Ipratropium 3ml neb HHN PRN (17:15)
[2017-08-20 17:48] LABS: CREATINE KINASE 29 U/L (26-308)
[2017-08-20 20:00] VITALS: BP 171/102
[2017-08-20] MEDS ORDERED: Vancomycin 1.5 GM/D5W 250ML IVPB ONE (20:00)
--- NOTE | 2017-08-20 20:08 | History & Physical ---
History and Physical History & Physicial Dictated for Int Med-Dr Hills no. [id number]. Thaddeus Diaz MD Aug 20, 2017 20:08
[2017-08-20] MEDS: Metoprolol Tartrate 50mg tab GT SCH (20:53)
[2017-08-20] MEDS: Heparin 5000 units/ml inj SUBQ SCH (20:55)
[2017-08-20] MEDS: NovoLOG Insulin Flexpen SUBQ SCH ×2 (20:55→21:00)
[2017-08-21] VITALS: BP 158/99
--- NOTE | 2017-08-21 00:01 | History and Physical Report ---
DATE OF ADMISSION: 08/20/2017 CHIEF COMPLAINT: The patient is a 56-year-old male, presents with chief complaint of malfunctioning G-tube. HISTORY OF PRESENT ILLNESS: The patient was admitted to [facility] from 07/26/2017 to . Please see history and physical and discharge summary dictated at that time. The patient is resident of [facility]. According to staff at [facility], the patient pulled his gastrostomy tube out. The patient presented to [facility] with chief complaint of replacement of gastrostomy tube. REVIEW OF SYSTEMS: Unable to assess secondary to the patient's mental status. PAST MEDICAL HISTORY: Significant for: 1. Dysphagia, status post PEG placement. 2. Respiratory failure, chronic tracheostomy dependent. 3. Hypertension. 4. Type 2 diabetes. 5. History of hemorrhagic stroke. 6. Diabetic nephropathy. 7. Left hemiparesis. 8. Chronic renal failure. 9. Iron deficiency anemia. PAST SURGICAL HISTORY: Significant for: 1. Tracheostomy placement. 2. Gastrostomy tube placement. CURRENT MEDICATIONS: 1. Norvasc 10 mg per G-tube daily. 2. Clonidine 0.1 mg per G-tube q.4 h. p.r.n. 3. Clonidine TTS 1 patch applied weekly. 4. Doxazosin 2 mg per G-tube daily. 5. Lovenox 40 mg subcutaneously daily. 6. Erythropoietin 20,000 units subcutaneously three times weekly. 7. Pepcid 20 mg per G-tube daily. 8. Folic acid per G-tube daily. 9. Hydralazine 50 mg per G-tube q.8 h. 10. Lantus insulin 15 units subcutaneously nightly. 11. Lispro sliding scale. 12. Metformin 850 mg per G-tube q.12 h. 13. Metoprolol 50 mg per G-tube q.12 h. 14. Protonix 40 mg per G-tube daily. 15. Scopolamine patch applied q.72 h. 16. Tramadol 50 mg per G-tube q.4 h. p.r.n. ALLERGIES: No known drug allergies. SOCIAL HISTORY: The patient is . The patient is a resident of [facility]. The patient denies tobacco or alcohol use. PHYSICAL EXAMINATION: VITAL SIGNS: Temperature 97.5, respirations 18, pulse 74, and blood pressure 154/84. GENERAL: The patient is a well-nourished and well-nourished thin appearing male, in no apparent distress. HEENT: Pupils are equal and responsive to light and accommodation. Extraocular movements are intact. NECK: Supple without lymphadenopathy. There is presence of tracheostomy tube. CARDIOVASCULAR: Regular rhythm and rate. S1 and S2 normal without murmurs, rubs, or gallops. ABDOMEN: Soft, nontender, and nondistended. Positive bowel sounds. No evidence of hepatosplenomegaly. Currently, no rebound or guarding noted. There is a gastrostomy tube in place. EXTREMITIES: Negative for clubbing, cyanosis, or edema. RECTAL/GENITAL: Deferred. NEUROLOGICAL: Cranial nerves II through XII are grossly intact without focal deficits. Motor strength is 5/5 bilaterally intact. Deep tendon reflexes are 2+ plantar. LABORATORY STUDIES: WBC 7.9, hemoglobin 12.7, hematocrit 39.7, and platelets 394,000. Sodium 134, potassium 4.6, chloride 101, CO2 25, BUN 57, creatinine 2.4, and glucose 108. ASSESSMENT: This is a 56-year-old male, 1. Gastrostomy tube malfunction. 2. Diabetes type 2. 3. Tracheostomy dependence. 4. Hemorrhagic stroke. 5. Hypertension. 6. Renal failure. 7. Left hemiparesis. TREATMENT: 1. Gastrostomy tube malfunction. A Gastroenterology consultation has been obtained with Dr. David Edouard. We will follow recommendations of Gastroenterology. 2. Diabetes type 2. Continue Lantus and Humalog sliding scale as above. 3. Tracheostomy dependent respiratory failure. A Pulmonary consultation has been obtained with Dr. Siva Quinteros. 4. History of hemorrhagic stroke/left hemiparesis. 5. Hypertension. Continue hydralazine and clonidine as above. 6. Renal failure. A Nephrology consultation is pending with Dr. Huang. Thaddeus Diaz M.D. DR: JOE JOB#: [id number] CC:
[2017-08-21] MEDS ORDERED: EPOGEN10000 UNIT SUBQ (03:01)
[2017-08-21] MEDS ORDERED: RENVELA0.8 GM ORAL (03:01)
[2017-08-21] MEDS ORDERED: MIRALAX17 G2 ORAL (03:01)
[2017-08-21 04:00] VITALS: BP 174/101
[2017-08-21 04:28] LABS: BASOPHILS % (AUTO) 0.9 % (0.0-2.0); EOSINOPHILS % (AUTO) 5.4 % (0.0-3.0); HEMATOCRIT 41.4 % (42.0-52.0); HEMOGLOBIN 13.3 G/DL (14.2-18.0); LYMPHOCYTES % (AUTO) 21.6 % (20.0-45.0); MEAN CORPUSCULAR VOLUME 92 FL (80-99); MONOCYTES % (AUTO) 4.1 % (1.0-10.0); NEUTROPHILS % (AUTO) 68.1 % (45.0-75.0); PLATELET COUNT 388 K/UL (150-450); RED BLOOD COUNT 4.51 M/UL (4.70-6.10); RED CELL DISTRIBUTION WIDTH 15.8 % (11.6-14.8); WHITE BLOOD COUNT 9.7 K/UL (4.8-10.8)
[2017-08-21 04:41] LABS: ANION GAP 8 mmol/L (5-15); BLOOD UREA NITROGEN 54 mg/dL (7-18); CALCIUM 9.2 MG/DL (8.5-10.1); CARBON DIOXIDE 25 MMOL/L (21-32); CHLORIDE 102 MMOL/L (98-107); CREATININE 2.3 MG/DL (0.55-1.30); POTASSIUM 4.7 MMOL/L (3.5-5.1); SODIUM 135 MMOL/L (136-145)
[2017-08-21 04:43] LABS: ALBUMIN 2.5 G/DL (3.4-5.0); ANION GAP 7 mmol/L (5-15); BLOOD UREA NITROGEN 55 mg/dL (7-18); CALCIUM 9.2 MG/DL (8.5-10.1); CARBON DIOXIDE 25 MMOL/L (21-32); CHLORIDE 102 MMOL/L (98-107); CREATININE 2.3 MG/DL (0.55-1.30); PHOSPHORUS 5.3 MG/DL (2.5-4.9); POTASSIUM 4.3 MMOL/L (3.5-5.1); SODIUM 134 MMOL/L (136-145)
[2017-08-21] MEDS: NovoLOG Insulin Flexpen SUBQ SCH ×4 (05:57→21:00)
[2017-08-21 07:15] LABS: APPEARANCE,URINE CLEAR; BILIRUBIN, URINE NEGATIVE (NEGATIVE); COLOR,URINE PALE YELLOW; GLUCOSE, URINE (UA) NEGATIVE (NEGATIVE); KETONES,URINE NEGATIVE (NEGATIVE); LEUKOCYTE ESTERASE ,URINE NEGATIVE (NEGATIVE); NITRITE,URINE NEGATIVE (NEGATIVE); PH,URINE 6.5 (4.5-8.0); PROTEIN,URINE 4+ (NEGATIVE); UROBILINOGEN,URINE NORMAL MG/DL (0.0-1.0)
[2017-08-21 08:00] VITALS: BP 151/83
[2017-08-21] MEDS: Metoprolol Tartrate 50mg tab GT SCH ×3 (09:00→20:40)
[2017-08-21] MEDS: Doxazosin 1mg Tab GT SCH ×2 (09:00→15:41)
[2017-08-21] MEDS: Pantoprazole Inj IV SCH (10:30)
[2017-08-21] MEDS: Heparin 5000 units/ml inj SUBQ SCH ×2 (10:37→20:41)
--- NOTE | 2017-08-21 11:50 | Consultation ---
Consult Note Consult Note [id number] Doe Burt MD Aug 21, 2017 11:50
[2017-08-21 12:00] VITALS: BP 173/103
--- NOTE | 2017-08-21 15:12 | Diagnostic Imaging Report ---
History: TUBE PLCMT Exam: XR ABDOMEN single image Comparison: IMPRESSION: Nasogastric tube tip distal stomach.
[2017-08-21] MEDS ORDERED: NS 275ml ONE (15:23)
[2017-08-21] MEDS ORDERED: Tubing IV Secondary IV ONE (15:23)
[2017-08-21] MEDS: Morphine Sulfate 4mg/ml Inj IVP PRN (15:41)
[2017-08-21 16:00] VITALS: BP 154/87
--- NOTE | 2017-08-21 17:20 | General Progress Note ---
Assessment/Plan Assessment/Plan GI CONSULT Dictated GT site completely closed Will arrange for a new GT placement Wednesday Thank you Balbina Hagan MD Subjective Allergies: Coded Allergies: No Known Allergies (Unverified , 07/26/17) Objective Last 24 Hour Vital Signs Date Time Temp Pulse Resp B/P (MAP) Pulse Ox O2 Delivery O2 Flow Rate FiO2 08/21/17 15:41 90 173/103 08/21/17 15:41 90 173/103 08/21/17 12:00 Room Air 08/21/17 12:00 97.9 90 19 173/103 (126) 95 97.9 08/21/17 11:34 173/103 08/21/17 09:00 88 174/101 08/21/17 09:00 88 174/101 08/21/17 08:04 Trach Collar 6.0 28 08/21/17 08:04 99 Trach Collar 6.0 28 08/21/17 08:00 97.8 89 19 151/83 (105) 95 97.8 08/21/17 08:00 89 08/21/17 08:00 Room Air 08/21/17 04:00 97.5 88 19 174/101 (125) 95 97.5 08/21/17 04:00 6.0 28 08/21/17 04:00 88 08/21/17 04:00 Room Air 08/21/17 01:00 98 Trach Collar 6.0 28 08/21/17 01:00 Trach Collar 6.0 28 08/21/17 01:00 6.0 28 08/21/17 00:00 97.5 87 19 158/99 (118) 95 97.5 08/21/17 00:00 Room Air 08/21/17 00:00 84 08/20/17 20:53 83 171/102 08/20/17 20:00 80 08/20/17 20:00 97.3 83 20 171/102 (125) 99 97.3 08/20/17 20:00 Room Air 08/20/17 19:00 Room Air 08/20/17 18:57 97.5 18 154/84 97 Room Air 97.5 08/20/17 18:45 80 Intake and Output 08/20/17 08/21/17 19:00 07:00 Intake Total 50 ml 1300 ml Output Total 300 ml Balance 50 ml 1000 ml Intake Oral 0 ml IV Total 50 ml 1300 ml Output Urine Total 300 ml Laboratory Tests 08/21/17 03:19: White Blood Count 9.7, Red Blood Count 4.51L, Hemoglobin 13.3L, Hematocrit 41.4L , Mean Corpuscular Volume 92, Mean Corpuscular Hemoglobin 29.5, Mean Corpuscular Hemoglobin Concent 32.1, Red Cell Distribution Width 15.8H, Platelet Count 388, Mean Platelet Volume 5.4L, Neutrophils (%) (Auto) 68.1, Lymphocytes (%) (Auto) 21.6, Monocytes (%) (Auto) 4.1, Eosinophils (%) (Auto) 5.4H, Basophils (%) (Auto) 0.9, Sodium Level 135L, Potassium Level 4.7, Chloride Level 102, Carbon Dioxide Level 25, Anion Gap 8, Blood Urea Nitrogen 54H, Creatinine 2.3H, Estimat Glomerular Filtration Rate 29.6, Glucose Level 136H, Calcium Level 9.2, Phosphorus Level 5.3H, Albumin 2.5L 08/21/17 06:00: Urine Color Pale yellow, Urine Appearance Clear, Urine pH 6.5, Urine Specific [place] 1.005, Urine Protein 4+H, Urine Glucose (UA) Negative, Urine Ketones Negative, Urine Occult Blood Negative, Urine Nitrite Negative, Urine Bilirubin Negative, Urine Urobilinogen Normal, Urine Leukocyte Esterase Negative, Urine RBC 0-2H, Urine WBC 0-2, Urine Squamous Epithelial Cells Occasional, Urine Bacteria Occasional, Urine Eosinophils None seen, Urine Random Sodium 49, Urine Potassium Timed 13 Height (Feet): 5 Height (Inches): 6.00 Weight (Pounds): 160 Mary Hagan MD Aug 21, 2017 17:20
--- NOTE | 2017-08-21 17:50 | Internal Med Progress Note ---
Subjective Date of Service: Aug 21, 2017 Physician Name Thaddeus Diaz Attending Physician Timothy Hills MD Current Medications Medications (Trade) Dose Ordered Sig/Johnathan Route PRN Reason Start Time Stop Time Status Last Admin Dose Admin Acetaminophen (Tylenol) 650 mg Q4H PRN ORAL FEVER 08/20/17 17:15 09/19/17 17:14 Albuterol/ Ipratropium (Albuterol/ Ipratropium) 3 ml Q4H PRN HHN Shortness of Breath 08/20/17 17:15 08/25/17 17:14 Amlodipine Besylate (Norvasc) 10 mg DAILY GT 08/21/17 09:00 09/20/17 08:59 08/21/17 15:41 Clonidine HCl (Catapres TTS-1) 1 patch QWEEK TDERMAL 08/21/17 11:30 09/20/17 11:29 08/21/17 11:34 Dextrose (Dextrose 50%) 25 ml STAT PRN IV Hypoglycemia 08/20/17 17:15 09/19/17 17:14 Dextrose (Dextrose 50%) 50 ml STAT PRN IV Hypoglycemia 08/20/17 17:15 09/19/17 17:14 Doxazosin Mesylate (Cardura) 2 mg DAILY GT 08/21/17 09:00 09/20/17 08:59 08/21/17 15:41 Heparin Sodium (Porcine) (Heparin 5000 units/ml) 5,000 units EVERY 12 HOURS SUBQ 08/20/17 21:00 09/19/17 20:59 08/21/17 10:37 Insulin Aspart (NovoLOG) BEFORE MEALS AND HS SUBQ 08/20/17 21:00 09/19/17 20:59 Lorazepam (Ativan 2mg/ml 1ml) 2 mg Q2H PRN IV For Anxiety 08/20/17 17:15 08/27/17 17:14 Metoprolol Tartrate (Lopressor) 50 mg EVERY 12 HOURS GT 08/20/17 21:00 09/19/17 20:59 08/21/17 15:41 Morphine Sulfate (Morphine Sulfate) 4 mg Q4H PRN IVP Severe Pain (Pain Scale 7-10) 08/20/17 17:15 08/27/17 17:14 08/21/17 15:41 Ondansetron HCl (Zofran) 4 mg Q6H PRN IVP Nausea & Vomiting 08/20/17 17:15 09/19/17 17:14 08/21/17 10:30 Pantoprazole (Protonix) 40 mg DAILY IV 08/21/17 09:00 09/20/17 08:59 08/21/17 10:30 Polyethylene Glycol (Miralax) 17 gm DAILYPRN PRN ORAL Constipation 08/20/17 17:15 09/19/17 17:14 Sodium Chloride 1,000 ml @ 100 mls/hr Q10H IV 08/20/17 17:30 09/19/17 17:29 08/21/17 15:43 Vancomycin HCl (Vanco rx to dose) 1 ea DAILY PRN MISC PER RX PROTOCOL 08/20/17 18:30 09/19/17 18:29 Allergies: Coded Allergies: No Known Allergies (Unverified , 07/26/17) ROS Limited/Unobtainable: Yes Subjective 56 YO M admitted with gastrostomy tube malfunction. Await new gastrostomy tube placement on Wednesday, August 23, 2017. Cover for Int Med-Dr Hills Objective Last Vital Signs Date Time Temp Pulse Resp B/P (MAP) Pulse Ox O2 Delivery O2 Flow Rate FiO2 08/21/17 15:41 90 173/103 08/21/17 12:00 Room Air 08/21/17 12:00 97.9 19 95 97.9 08/21/17 08:04 6.0 28 General Appearance: WD/WN, no apparent distress, alert EENT: PERRL/EOMI, normal ENT inspection Neck: non-tender, normal alignment, supple, other - Tracheostomy Cardiovascular: normal peripheral pulses, normal rate, regular rhythm, no gallop/murmur, no JVD Respiratory/Chest: chest wall non-tender, lungs clear, normal breath sounds, no respiratory distress, no accessory muscle use Abdomen: normal bowel sounds, non tender, soft, no organomegaly, no mass Extremities: normal range of motion Neurologic: chute operator II-XII grossly normal, no motor/sensory deficits Skin: normal pigmentation, warm/dry Laboratory Tests Test 08/21/17 03:19 08/21/17 06:00 White Blood Count 9.7 K/UL (4.8-10.8) Red Blood Count 4.51 M/UL (4.70-6.10) L Hemoglobin 13.3 G/DL (14.2-18.0) L Hematocrit 41.4 % (42.0-52.0) L Mean Corpuscular Volume 92 FL (80-99) Mean Corpuscular Hemoglobin 29.5 PG (27.0-31.0) Mean Corpuscular Hemoglobin Concent 32.1 G/DL (32.0-36.0) Red Cell Distribution Width 15.8 % (11.6-14.8) H Platelet Count 388 K/UL (150-450) Mean Platelet Volume 5.4 FL (6.5-10.1) L Neutrophils (%) (Auto) 68.1 % (45.0-75.0) Lymphocytes (%) (Auto) 21.6 % (20.0-45.0) Monocytes (%) (Auto) 4.1 % (1.0-10.0) Eosinophils (%) (Auto) 5.4 % (0.0-3.0) H Basophils (%) (Auto) 0.9 % (0.0-2.0) Sodium Level 135 MMOL/L (136-145) L Potassium Level 4.7 MMOL/L (3.5-5.1) Chloride Level 102 MMOL/L (98-107) Carbon Dioxide Level 25 MMOL/L (21-32) Anion Gap 8 mmol/L (5-15) Blood Urea Nitrogen 54 mg/dL (7-18) H Creatinine 2.3 MG/DL (0.55-1.30) H Estimat Glomerular Filtration Rate 29.6 mL/min (>60) Glucose Level 136 MG/DL (74-106) H Calcium Level 9.2 MG/DL (8.5-10.1) Phosphorus Level 5.3 MG/DL (2.5-4.9) H Albumin 2.5 G/DL (3.4-5.0) L Urine Color Pale yellow Urine Appearance Clear Urine pH 6.5 (4.5-8.0) Urine Specific [place] 1.005 (1.005-1.035) Urine Protein 4+ (NEGATIVE) H Urine Glucose (UA) Negative (NEGATIVE) Urine Ketones Negative (NEGATIVE) Urine Occult Blood Negative (NEGATIVE) Urine Nitrite Negative (NEGATIVE) Urine Bilirubin Negative (NEGATIVE) Urine Urobilinogen Normal MG/DL (0.0-1.0) Urine Leukocyte Esterase Negative (NEGATIVE) Urine RBC 0-2 /HPF (0 - 0) H Urine WBC 0-2 /HPF (0 - 0) Urine Squamous Epithelial Cells Occasional /LPF Urine Bacteria Occasional /HPF (NONE) Urine Eosinophils None seen Urine Random Sodium 49 mmol/L (20-110) Urine Potassium Timed 13 mmol/L (12-62) Intake and Output 08/20/17 08/21/17 19:00 07:00 Intake Total 50 ml 1300 ml Output Total 300 ml Balance 50 ml 1000 ml Intake Oral 0 ml IV Total 50 ml 1300 ml Output Urine Total 300 ml Assessment/Plan Problem List: (1) Malfunction of gastrostomy tube Assessment & Plan: New gastrostomy tube placement on Wednesday, August 23, 2017-see GI note. (2) Diabetes mellitus type II, controlled Assessment & Plan: Continue novolog sliding scale. (3) Tracheostomy care (4) Left hemiparesis (5) Hemorrhagic stroke (6) HTN (hypertension) Assessment & Plan: continue norvasc and lopressor (7) Renal failure (8) Agitated Assessment & Plan: Pulled gastrostomy tube out. Soft wrist restraints. Status: not improved Thaddeus Diaz MD Aug 21, 2017 17:50
[2017-08-21 20:00] VITALS: BP 153/87
[2017-08-21] MEDS ORDERED: Vancomycin 1 GM in D5W 275 ML IV SCH (23:00)
--- NOTE | 2017-08-21 23:01 | Consultation ---
DATE OF CONSULTATION: 08/21/2017 INFECTIOUS DISEASE CONSULTATION CONSULTING PHYSICIAN: Doe Burt M.D. REFERRING PHYSICIANS: 1. Siva Quinteros M.D. 2. Timothy Hills M.D. REASON FOR CONSULTATION: Evaluation of the patient for possible sepsis and G-tube site infection. HISTORY OF PRESENT ILLNESS: The patient is a 56-year-old male with multiple medical problems as listed below, who was admitted to this medical center after the patient's G-tube was removed in a intermediate. The patient was transferred here for placement of G-tube. At the time of admission, the patient is somewhat confused and not able to provide information. History is gathered through review of chart and speaking to staff. PAST MEDICAL HISTORY: 1. Dysphagia status post percutaneous endoscopic gastrostomy tube placement. 2. History of status post trach placement. 3. Hypertension. 4. Diabetes. 5. History of hemorrhagic stroke. 6. Left hemiparesis. 7. History of chronic renal failure. 8. History of anemia. MEDICATIONS: Off of antibiotics. ALLERGIES: No known drug allergies. SOCIAL HISTORY: The patient lives in a intermediate. FAMILY HISTORY: Unavailable. REVIEW OF SYSTEMS: Unobtainable. PHYSICAL EXAMINATION: VITAL SIGNS: Temperature 97.9, blood pressure 132/103, respiratory rate 18, and pulse 86. HEENT: No pale conjunctivae. No icterus. NECK: No lymphadenopathy. Trach in place. CHEST: Coarse breathing sounds. HEART: S1 and S2. ABDOMEN: Soft. PEG tube site, mild erythema. No evidence of cellulitis or drainage. It does not appear to be tender. EXTREMITIES: No cyanosis. NEUROLOGIC: Awake. LABORATORY DATA: White blood cells 9.7, hemoglobin 13, and platelets 388,000. UA unremarkable. BUN 54 and creatinine 2.3. ALT and AST are unremarkable. Alkaline phosphatase 163. ASSESSMENT: The patient is a 56-year-old male with multiple medical problems, who needs a percutaneous endoscopic gastrostomy tube placement. 1. The patient is afebrile. 2. Normal white blood cells. 3. No evidence of gastrostomy tube site cellulitis. PLAN: 1. We will monitor the patient off of antibiotics. 2. Monitor CBC and BMP. 3. Monitor cultures. 4. We will follow GI recommendations. Doe Burt M.D. DR: BUD JOB#: [id number] CC:
[2017-08-22] VITALS: BP 154/82
--- NOTE | 2017-08-22 03:31 | Consultation ---
DATE OF CONSULTATION: 08/21/2017 GASTROENTEROLOGY CONSULTATION CONSULTING PHYSICIAN: Mary Hagan M.D. CHIEF COMPLAINT: I was asked to see this patient for evaluation of feeding tube placement. HISTORY OF PRESENT ILLNESS: The patient is an unfortunate 56-year-old man who is a long-term subacute care facility resident, who was brought in after his gastrostomy tube was dislodged, but it was placed in the gastrostomy tract and therefore, this morning when I examined him, the gastrostomy site appeared to be worn, completely closed, and no opening to replace it. The patient is unable to provide any history and therefore, most of the information is only available from the chart. Family is not available at this time for discussion. PAST MEDICAL HISTORY: History of dysphagia, status post gastrostomy tube placement, respiratory failure, chronic tracheostomy tube dependent, hypertension, type 2 diabetes, stroke, diabetic nephropathy, acute renal failure, iron deficiency anemia, gastrostomy, and tracheostomy. MEDICATIONS: See chart list for details. ALLERGIES: None. FAMILY HISTORY: Noncontributory. SOCIAL HISTORY: The patient is and a [facility]term pen[facility]iary resident without any history of smoking or drinking at this time. REVIEW OF SYSTEMS: Otherwise negative. PHYSICAL EXAMINATION: GENERAL: Debilitated man, seen in his room. HEENT: Normocephalic and atraumatic. Sclerae anicteric. Oropharynx clear. NECK: Supple. CHEST: Clear to auscultation. CARDIOVASCULAR: Regular rate. ABDOMEN: Soft. There is a gastrostomy site, which is closed. EXTREMITIES: Reveal contractures. NEUROLOGIC: Notable for stroke and nonresponsive state. LABORATORY DATA: As noted. ASSESSMENT: This patient presents with gastrostomy tube site, which is completely closed and cannot be salvaged. The patient will likely need to undergo a new gastrostomy tube placement on Wednesday. For the time being, I will place a nasogastric tube and feed the patient until a gastrostomy tube can be placed. RECOMMENDATIONS: Per above discussion and per orders written in the chart. Thank you for asking me to participate in the care of this patient. Payman Khorrami, M.D. DR: GEN JOB#: [id number] CC:
[2017-08-22 04:00] VITALS: BP 154/77
[2017-08-22 05:56] LABS: BASOPHILS % (AUTO) 1.6 % (0.0-2.0); EOSINOPHILS % (AUTO) 5.3 % (0.0-3.0); HEMATOCRIT 39.4 % (42.0-52.0); HEMOGLOBIN 13.1 G/DL (14.2-18.0); LYMPHOCYTES % (AUTO) 22.3 % (20.0-45.0); MEAN CORPUSCULAR VOLUME 91 FL (80-99); MONOCYTES % (AUTO) 7.2 % (1.0-10.0); NEUTROPHILS % (AUTO) 63.6 % (45.0-75.0); PLATELET COUNT 354 K/UL (150-450); RED BLOOD COUNT 4.31 M/UL (4.70-6.10); RED CELL DISTRIBUTION WIDTH 15.8 % (11.6-14.8); WHITE BLOOD COUNT 7.4 K/UL (4.8-10.8)
[2017-08-22 06:04] LABS: ANION GAP 12 mmol/L (5-15); BLOOD UREA NITROGEN 46 mg/dL (7-18); CALCIUM 8.7 MG/DL (8.5-10.1); CARBON DIOXIDE 20 MMOL/L (21-32); CHLORIDE 107 MMOL/L (98-107); CREATININE 2.1 MG/DL (0.55-1.30); POTASSIUM 4.2 MMOL/L (3.5-5.1); SODIUM 139 MMOL/L (136-145)
[2017-08-22] MEDS: NovoLOG Insulin Flexpen SUBQ SCH ×4 (07:00→22:08)
[2017-08-22 08:00] VITALS: BP 151/65
[2017-08-22] MEDS: Pantoprazole Inj IV SCH (10:29)
[2017-08-22] MEDS: Heparin 5000 units/ml inj SUBQ SCH ×2 (10:32→22:08)
[2017-08-22 12:00] VITALS: BP 159/85
--- NOTE | 2017-08-22 14:34 | General Progress Note ---
Assessment/Plan Assessment/Plan Assessment - dysphagia - s/p GT - dislodged Recommendations - NGT feeds - PEG in am (need to contact family for consent) Subjective Allergies: Coded Allergies: No Known Allergies (Unverified , 07/26/17) Subjective NAD tolerating NGT feeds message left for family to call back re PEG Objective Last 24 Hour Vital Signs Date Time Temp Pulse Resp B/P (MAP) Pulse Ox O2 Delivery O2 Flow Rate FiO2 08/22/17 13:03 98 Trach Collar 6.0 28 08/22/17 13:03 Trach Collar 6.0 28 08/22/17 12:00 Room Air 08/22/17 08:00 97.7 75 21 151/65 (93) 99 97.7 08/22/17 07:45 98 Trach Collar 6.0 28 08/22/17 07:45 Trach Collar 6.0 28 08/22/17 04:00 Room Air 08/22/17 04:00 97.0 74 20 154/77 (102) 99 97.0 08/22/17 04:00 74 08/22/17 00:46 Trach Collar 6.0 28 08/22/17 00:46 93 Trach Collar 6.0 28 08/22/17 00:00 68 08/22/17 00:00 97.5 73 20 154/82 (106) 99 97.5 08/22/17 00:00 Room Air 08/21/17 20:40 77 153/87 08/21/17 20:00 76 08/21/17 20:00 97.9 77 20 153/87 (109) 100 97.9 08/21/17 20:00 Room Air 08/21/17 19:55 Trach Collar 6.0 28 08/21/17 19:55 93 Trach Collar 6.0 28 08/21/17 16:11 97.9 08/21/17 16:00 84 08/21/17 16:00 97.6 84 18 154/87 (109) 95 97.6 08/21/17 16:00 Room Air 08/21/17 15:41 90 173/103 08/21/17 15:41 90 173/103 Intake and Output 08/21/17 08/22/17 19:00 07:00 Intake Total 940 ml 1610 ml Output Total 1500 ml 300 ml Balance -560 ml 1310 ml Free Water 100 ml IV Total 900 ml 1190 ml Tube Feeding 40 ml 320 ml Output Urine Total 1500 ml 300 ml Laboratory Tests 08/22/17 03:25: White Blood Count 7.4, Red Blood Count 4.31L, Hemoglobin 13.1L, Hematocrit 39.4L , Mean Corpuscular Volume 91, Mean Corpuscular Hemoglobin 30.3, Mean Corpuscular Hemoglobin Concent 33.1, Red Cell Distribution Width 15.8H, Platelet Count 354, Mean Platelet Volume 5.5L, Neutrophils (%) (Auto) 63.6, Lymphocytes (%) (Auto) 22.3, Monocytes (%) (Auto) 7.2, Eosinophils (%) (Auto) 5.3H, Basophils (%) (Auto) 1.6, Sodium Level 139, Potassium Level 4.2, Chloride Level 107, Carbon Dioxide Level 20L, Anion Gap 12, Blood Urea Nitrogen 46H, Creatinine 2.1H, Estimat Glomerular Filtration Rate 32.8, Glucose Level 82, Calcium Level 8.7, Random Vancomycin Level 17.5 Height (Feet): 5 Height (Inches): 6.00 Weight (Pounds): 160 Objective WDWN NCAT (+) Trach CTA RRR soft ND NT no edema OBS Mary Hagan MD Aug 22, 2017 14:34
[2017-08-22 16:00] VITALS: BP 112/68
--- NOTE | 2017-08-22 16:22 | General Progress Note ---
Progress Note Progress Note [id number] full consult dictated thanks Denia Ogden MD Aug 22, 2017 16:22
--- NOTE | 2017-08-22 16:28 | Internal Med Progress Note ---
Subjective Date of Service: Aug 22, 2017 Physician Name Thaddeus Diaz Attending Physician Timothy Hills MD Current Medications Medications (Trade) Dose Ordered Sig/Johnathan Route PRN Reason Start Time Stop Time Status Last Admin Dose Admin Acetaminophen (Tylenol) 650 mg Q4H PRN ORAL FEVER 08/20/17 17:15 09/19/17 17:14 08/21/17 23:16 Albuterol/ Ipratropium (Albuterol/ Ipratropium) 3 ml Q4H PRN HHN Shortness of Breath 08/20/17 17:15 08/25/17 17:14 Amlodipine Besylate (Norvasc) 10 mg DAILY GT 08/21/17 09:00 09/20/17 08:59 08/21/17 15:41 Clonidine HCl (Catapres TTS-1) 1 patch QWEEK TDERMAL 08/21/17 11:30 09/20/17 11:29 08/21/17 11:34 Dextrose (Dextrose 50%) 25 ml STAT PRN IV Hypoglycemia 08/20/17 17:15 09/19/17 17:14 Dextrose (Dextrose 50%) 50 ml STAT PRN IV Hypoglycemia 08/20/17 17:15 09/19/17 17:14 Doxazosin Mesylate (Cardura) 2 mg DAILY GT 08/21/17 09:00 09/20/17 08:59 08/21/17 15:41 Heparin Sodium (Porcine) (Heparin 5000 units/ml) 5,000 units EVERY 12 HOURS SUBQ 08/20/17 21:00 09/19/17 20:59 08/22/17 10:32 Insulin Aspart (NovoLOG) BEFORE MEALS AND HS SUBQ 08/20/17 21:00 09/19/17 20:59 08/22/17 07:00 Lorazepam (Ativan 2mg/ml 1ml) 2 mg Q2H PRN IV For Anxiety 08/20/17 17:15 08/27/17 17:14 Metoprolol Tartrate (Lopressor) 50 mg EVERY 12 HOURS GT 08/20/17 21:00 09/19/17 20:59 08/21/17 20:40 Morphine Sulfate (Morphine Sulfate) 4 mg Q4H PRN IVP Severe Pain (Pain Scale 7-10) 08/20/17 17:15 08/27/17 17:14 08/21/17 15:41 Ondansetron HCl (Zofran) 4 mg Q6H PRN IVP Nausea & Vomiting 08/20/17 17:15 09/19/17 17:14 08/21/17 10:30 Pantoprazole (Protonix) 40 mg DAILY IV 08/21/17 09:00 09/20/17 08:59 08/22/17 10:29 Polyethylene Glycol (Miralax) 17 gm DAILYPRN PRN ORAL Constipation 08/20/17 17:15 09/19/17 17:14 08/21/17 23:16 Sodium Chloride 1,000 ml @ 100 mls/hr Q10H IV 08/20/17 17:30 09/19/17 17:29 08/22/17 10:29 Allergies: Coded Allergies: No Known Allergies (Unverified , 07/26/17) ROS Limited/Unobtainable: Yes Subjective 56 YO M admitted with gastrostomy tube malfunction. Await new gastrostomy tube placement on Wednesday, August 23, 2017. Cover for Int Med-Dr Hills Objective Last Vital Signs Date Time Temp Pulse Resp B/P (MAP) Pulse Ox O2 Delivery O2 Flow Rate FiO2 08/22/17 16:00 Room Air 08/22/17 16:00 79 08/22/17 13:03 98 6.0 28 08/22/17 12:00 97.7 21 159/85 (109) 97.7 Laboratory Tests Test 08/22/17 03:25 White Blood Count 7.4 K/UL (4.8-10.8) Red Blood Count 4.31 M/UL (4.70-6.10) L Hemoglobin 13.1 G/DL (14.2-18.0) L Hematocrit 39.4 % (42.0-52.0) L Mean Corpuscular Volume 91 FL (80-99) Mean Corpuscular Hemoglobin 30.3 PG (27.0-31.0) Mean Corpuscular Hemoglobin Concent 33.1 G/DL (32.0-36.0) Red Cell Distribution Width 15.8 % (11.6-14.8) H Platelet Count 354 K/UL (150-450) Mean Platelet Volume 5.5 FL (6.5-10.1) L Neutrophils (%) (Auto) 63.6 % (45.0-75.0) Lymphocytes (%) (Auto) 22.3 % (20.0-45.0) Monocytes (%) (Auto) 7.2 % (1.0-10.0) Eosinophils (%) (Auto) 5.3 % (0.0-3.0) H Basophils (%) (Auto) 1.6 % (0.0-2.0) Sodium Level 139 MMOL/L (136-145) Potassium Level 4.2 MMOL/L (3.5-5.1) Chloride Level 107 MMOL/L (98-107) Carbon Dioxide Level 20 MMOL/L (21-32) L Anion Gap 12 mmol/L (5-15) Blood Urea Nitrogen 46 mg/dL (7-18) H Creatinine 2.1 MG/DL (0.55-1.30) H Estimat Glomerular Filtration Rate 32.8 mL/min (>60) Glucose Level 82 MG/DL (74-106) Calcium Level 8.7 MG/DL (8.5-10.1) Random Vancomycin Level 17.5 ug/mL Microbiology Date/Time Source Procedure Growth Status 08/21/17 11:26 Sputum Gram Stain - Final Resulted 08/21/17 11:26 Sputum Sputum Culture Pending Resulted 08/20/17 16:50 Nasal Nares MRSA Culture - Final NO METHICILLIN RESISTANT STAPH AUREUS... Complete 08/20/17 16:50 Rectum VRE Culture - Final Enterococcus Faecium - Vre Resulted 08/20/17 16:50 Rectum Pending Resulted Intake and Output 08/21/17 08/22/17 19:00 07:00 Intake Total 940 ml 1610 ml Output Total 1500 ml 300 ml Balance -560 ml 1310 ml Free Water 100 ml IV Total 900 ml 1190 ml Tube Feeding 40 ml 320 ml Output Urine Total 1500 ml 300 ml Objective General Appearance: WD/WN, no apparent distress, alert EENT: PERRL/EOMI, normal ENT inspection Neck: non-tender, normal alignment, supple, other - Tracheostomy Cardiovascular: normal peripheral pulses, normal rate, regular rhythm, no gallop/murmur, no JVD Respiratory/Chest: chest wall non-tender, lungs clear, normal breath sounds, no respiratory distress, no accessory muscle use Abdomen: normal bowel sounds, non tender, soft, no organomegaly, no mass Extremities: normal range of motion 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 (2) Diabetes mellitus type II, controlled Assessment & Plan: Continue novolog sliding scale. (3) Tracheostomy care Assessment & Plan: See pulmonary note. (4) Left hemiparesis (5) Hemorrhagic stroke (6) HTN (hypertension) Assessment & Plan: continue norvasc and lopressor (7) Renal failure (8) Agitated Assessment & Plan: Pulled gastrostomy tube out. Soft wrist restraints. Status: not improved Thaddeus Diaz MD Aug 22, 2017 16:28
[2017-08-22] MEDS ORDERED: Sterile Water Irrig 1000ml IRRIG ONE (16:30)
[2017-08-22 20:00] VITALS: BP 165/55
[2017-08-22] MEDS: Metoprolol Tartrate 50mg tab GT SCH (22:08)
--- NOTE | 2017-08-22 23:30 | Consultation ---
DATE OF CONSULTATION: 08/22/2017 NEPHROLOGY CONSULTATION CONSULTING PHYSICIAN: Denia Ogden M.D. REFERRING PHYSICIAN: Thaddeus Diaz M.D. REASON FOR CONSULTATION: Acute versus chronic renal failure. HISTORY OF PRESENT ILLNESS: The patient is an unfortunate 56-year-old male with past medical history significant for history of trach and PEG. He was found to have dislodge of his PEG and was consequently sent to emergency room at [facility] for evaluation. The patient found to have an elevation in BUN and creatinine, abnormal renal function and electrolytes. I was called for management of renal disease and electrolyte imbalance. Unfortunately, the patient is unable to provide me with meaningful history for me, so most of my history was obtained through the information from the report from the group home and ER visit. PAST MEDICAL HISTORY: 1. Diabetes. 2. Diabetic neuropathy. 3. Diabetic nephropathy. 4. History of stroke. 5. History of respiratory failure. 6. History of trach placement. 7. History of PEG placement. 8. History of chronic kidney disease, baseline creatinine is unknown. MEDICATIONS: Reconciliation was reviewed. ALLERGIES: No known drug allergies. FAMILY HISTORY: Noncontributory. SOCIAL HISTORY: The patient is a group home resident. There is no history of current history of tobacco, alcohol, or drug use. REVIEW OF SYSTEMS: Unable to obtain due to the patient's condition and mental status. PHYSICAL EXAMINATION: VITAL SIGNS: The patient has temperature of 98 degrees, blood pressure of 154/77, pulse rate of 74, respiratory rate of 18. HEAD AND NECK: No JVP. No LAD. Trach is in place. Extraocular movement intact. Pupils are reactive to light and accommodation. LUNGS: Decreased breathing sound on the both sides. CARDIAC: Regular rate and rhythm. S1, S2. No murmur. No rub. ABDOMEN: Soft, nontender, and nondistended. EXTREMITIES: No edema. No clubbing. No cyanosis. LABORATORY AND DIAGNOSTIC DATA: On admission, the patient had WBC count of 7.4, hemoglobin of 13, hematocrit 39, platelet count of 354,000. Chemistry reveals sodium 139, potassium 4.2, chloride 107, bicarbonate 20, BUN was 46, and creatinine dropped from 2.4 to 2.1. AST, ALT within normal limit. UA revealed specific gravity of 1.005, rbc 0 to 2, wbc 0 to 2, protein 4+, is negative. ASSESSMENT: 1. Acute renal failure. The etiology of acute renal failure is ATN, dehydration versus obstructive uropathy. 2. Chronic kidney disease, most probably due to diabetic nephropathy with 4+ proteinuria. 3. Dislodged G-tube. 4. Diabetes. 5. Hypertension. PLAN: Plan for the patient is to obtain random urine protein/creatinine ratio to calculate the proteinuria, check the urine sodium and creatinine to calculate fractional excretion of sodium, ultrasound of the kidney to evaluate the kidney size, scan the bladder, continue with current antihypertensive medication, monitor renal function and electrolytes closely. Again, I would like to thank Dr. Diaz for allowing me to participate in the care of this patient. Denia Ogden M.D. DR: Erika JOB#: [id number] CC:
[2017-08-23] VITALS (10 sets, daily range): BP systolic 142–163; BP diastolic 78–94
[2017-08-23 04:08] LABS: ANION GAP 11 mmol/L (5-15); BLOOD UREA NITROGEN 36 mg/dL (7-18); CALCIUM 8.3 MG/DL (8.5-10.1); CARBON DIOXIDE 20 MMOL/L (21-32); CHLORIDE 111 MMOL/L (98-107); CREATININE 1.9 MG/DL (0.55-1.30); POTASSIUM 4.6 MMOL/L (3.5-5.1); SODIUM 142 MMOL/L (136-145)
[2017-08-23 04:09] LABS: BASOPHILS % (AUTO) 0.8 % (0.0-2.0); EOSINOPHILS % (AUTO) 3.1 % (0.0-3.0); HEMATOCRIT 37.2 % (42.0-52.0); HEMOGLOBIN 12.6 G/DL (14.2-18.0); LYMPHOCYTES % (AUTO) 18.2 % (20.0-45.0); MEAN CORPUSCULAR VOLUME 94 FL (80-99); PLATELET COUNT 166 K/UL (150-450); RED BLOOD COUNT 3.94 M/UL (4.70-6.10); RED CELL DISTRIBUTION WIDTH 17.1 % (11.6-14.8); WHITE BLOOD COUNT 10.3 K/UL (4.8-10.8)
[2017-08-23] MEDS: NovoLOG Insulin Flexpen SUBQ SCH ×4 (05:46→20:33)
[2017-08-23] MEDS ORDERED: ceFAZolin sod 1 GM in D5W 55 ML IVPB PRN (06:00)
--- NOTE | 2017-08-23 06:30 | Pre-Procedure Note/Attestation ---
Pre-Procedure Note/Attestation Complete Prior to Procedure Planned Procedure: not applicable Procedure Narrative: egd/peg Indications for Procedure Pre-Operative Diagnosis: dysphagia Attestation I attest that I discussed the nature of the procedure; its benefits; risks and complications; and alternatives (and the risks and benefits of such alternatives ), prior to the procedure, with the patient (or the patient's legal manufacturer's service representative). I attest that, if there was a reasonable possibility of needing a blood transfusion, the patient (or the patient's legal manufacturer's service representative) was given the [facility] Services standardized written summary, pursuant to the Kurt Johanny Blood Safety Act ([place] Health and Safety Code # 1645, as amended). I attest that I re-evaluated the patient just prior to the surgery and that there has been no change in the patient's H&P, except as documented below: David Edouard MD Aug 23, 2017 06:30
[2017-08-23] MEDS ORDERED: LR 1000ml 1,000 ML IVLG SCH (07:11)
--- NOTE | 2017-08-23 07:11 | Anethesia Preoperative Eval ---
Anesthesia Pre-op PMH/ROS General Date of Evaluation: Aug 23, 2017 Time of Evaluation: 07:34 Anesthesiologist: Hortensia ASA Score: ASA 4 Mallampati Score Class I : Soft palate, uvula, fauces, pillars visible Class II: Soft palate, uvula, fauces visible Class III: Soft palate, base of uvula visible Class IV: Only hard plate visible Mallampati Classification: Class III Surgeon: Silke Diagnosis: Abd Pain Surgical Procedure: EGD/PEG Anesthesia History: none Family History: no anesthesia problems Allergies: Coded Allergies: No Known Allergies (Unverified , 07/26/17) Medications: see eMAR Past Medical History Cardiovascular: Reports: HTN, CAD - Cardiac Arrest, arrhythmia - Pacemaker Pulmonary: Reports: asthma, COPD, other - Ventilatory Failure, Trach Gastrointestinal/Genitourinary: Reports: GERD, CRI, ESRD - Dialysis Neurologic/Psychiatric: Reports: dementia - AMS, CVA, other - Schizophrenia Endocrine: Reports: DM Hematology/Immune: Reports: anemia PSxH Narrative: PEG Anesthesia Pre-op Phys. Exam Physician Exam Last Vital Signs Date Time Temp Pulse Resp B/P (MAP) Pulse Ox O2 Delivery O2 Flow Rate FiO2 08/23/17 04:00 Room Air 08/23/17 04:00 97.9 74 20 143/83 (103) 100 97.9 08/23/17 00:35 6.0 28 Constitutional: NAD Neurologic: CN 2-12 intact Cardiovascular: RRR Respiratory: CTA Gastrointestinal: S/NT/ND Airway Exam Mallampati Score: Class III MO: limited ROM: limited Teeth: missing Anesthesia Pre-op A/P Labs Hematology Test 08/23/17 03:00 White Blood Count 10.3 K/UL (4.8-10.8) Red Blood Count 3.94 M/UL (4.70-6.10) L Hemoglobin 12.6 G/DL (14.2-18.0) L Hematocrit 37.2 % (42.0-52.0) L Mean Corpuscular Volume 94 FL (80-99) Mean Corpuscular Hemoglobin 31.9 PG (27.0-31.0) H Mean Corpuscular Hemoglobin Concent 33.8 G/DL (32.0-36.0) Red Cell Distribution Width 17.1 % (11.6-14.8) H Platelet Count 166 K/UL (150-450) # Mean Platelet Volume 6.0 FL (6.5-10.1) L Neutrophils (%) (Auto) 72.0 % (45.0-75.0) Lymphocytes (%) (Auto) 18.2 % (20.0-45.0) L Monocytes (%) (Auto) 6.0 % (1.0-10.0) Eosinophils (%) (Auto) 3.1 % (0.0-3.0) H Basophils (%) (Auto) 0.8 % (0.0-2.0) Chemistry Test 08/23/17 03:00 Sodium Level 142 MMOL/L (136-145) Potassium Level 4.6 MMOL/L (3.5-5.1) Chloride Level 111 MMOL/L (98-107) H Carbon Dioxide Level 20 MMOL/L (21-32) L Anion Gap 11 mmol/L (5-15) Blood Urea Nitrogen 36 mg/dL (7-18) H Creatinine 1.9 MG/DL (0.55-1.30) H Estimat Glomerular Filtration Rate 36.9 mL/min (>60) Glucose Level 97 MG/DL (74-106) Calcium Level 8.3 MG/DL (8.5-10.1) L Risk Assessment & Plan Assessment: ASA 4 Plan: GA Status Change Before Surgery: Flex Rich MD Aug 23, 2017 07:11
[2017-08-23] MEDS ORDERED: oxyCODONE HCL/Acetaminophen 5/325mg ORAL PRN (07:15)
[2017-08-23] MEDS ORDERED: fentaNYL 100 mcg/2 mL IV PRN (07:15)
[2017-08-23] MEDS ORDERED: Norco 5mg/325mg tab ORAL PRN (07:15)
[2017-08-23] MEDS ORDERED: DiphenhydrAMINE 50mg/ml Inj IVP PRN (07:15)
[2017-08-23] MEDS ORDERED: HYDROcodone/Acetamin 7.5/325 tab ORAL PRN (07:15)
[2017-08-23] MEDS ORDERED: LORazepam Inj 2mg/ml 1ml IV PRN (07:15)
[2017-08-23] MEDS ORDERED: Metoclopramide 10mg/2ml Inj IVP PRN (07:15)
[2017-08-23] MEDS ORDERED: Midazolam 2mg/2ml Inj IVP PRN (07:15)
[2017-08-23] MEDS ORDERED: Hydromorphone 0.5mg/0.5ml inj IVP PRN (07:15)
[2017-08-23] MEDS ORDERED: Atropine Inj 1mg/10ml Syr IV PRN (07:15)
--- NOTE | 2017-08-23 07:19 | Immediate Post-Op Evaluation ---
Immediate Post-Op Evalulation Immediate Post-Op Evalulation Procedure: EGD/PEG Date of Evaluation: Aug 23, 2017 Time of Evaluation: 08:28 IV Fluids: 200 LR Blood Products: 0 Estimated Blood Loss: 2 Urinary Output: 0 Blood Pressure Systolic: 142 Blood Pressure Diastolic: 78 Pulse Rate: 66 Respiratory Rate: 16 O2 Sat by Pulse Oximetry: 100 Temperature (Fahrenheit): 97.8 Pain Score (1-10): 0 Nausea: No Vomiting: No Complications 0 Patient Status: awake, reacts, patent, none Hydration Status: adequate Dru Gram Ancef IV Given Within 1 Hr of Incision: Yes Time Given: 07:41 Flex Bazan MD Aug 23, 2017 07:19
--- NOTE | 2017-08-23 07:20 | 48 Hour Post Anesthesia Eval ---
Post Anesthesia Evaluation Procedure: EGD/PEG Date of Evaluation: Aug 23, 2017 Time of Evaluation: 10:43 Blood Pressure Systolic: 141 0: 79 Pulse Rate: 67 Respiratory Rate: 18 Temperature (Fahrenheit): 98.2 O2 Sat by Pulse Oximetry: 100 Airway: patent Nausea: No Vomiting: No Pain Intensity: 0 Hydration Status: adequate Cardiopulmonary Status: Stable Mental Status/LOC: patient returned to baseline Follow-up Care/Observations: 0 Post-Anesthesia Complications: 0 Follow-up care needed: N/A Flex Bazan MD Aug 23, 2017 07:20
[2017-08-23] MEDS ORDERED: Lidocaine 1% MPF 10mg/ml 5ml ONE (07:30)
[2017-08-23] MEDS ORDERED: Midazolam 2mg/2ml Inj ONE (07:30)
[2017-08-23] MEDS ORDERED: Propofol 200mg/20ml IV ONE (07:30)
[2017-08-23] MEDS ORDERED: LR 1000ml ONE (07:30)
[2017-08-23] MEDS ORDERED: NS 500ML IVPB ONE (07:40)
--- NOTE | 2017-08-23 07:50 | Nephrology Progress Note ---
Assessment/Plan Assessment 1. Acute renal failure. The etiology of acute renal failure is ATN, dehydration versus obstructive uropathy. 2. Chronic kidney disease, most probably due to diabetic nephropathy with 4+ proteinuria. 3. Dislodged G-tube. 4. Diabetes. 5. Hypertension. Plan plan continue current iv monitoring renal function replace electrolyte as need it avoid NSAID Subjective Constitutional: Reports: no symptoms HEENT: Reports: no symptoms Genitourinary: Reports: no symptoms Neurologic/Psychiatric: Reports: no symptoms Subjective s/p peg placement Objective Objective Last 24 Hour Vital Signs Date Time Temp Pulse Resp B/P (MAP) Pulse Ox O2 Delivery O2 Flow Rate FiO2 08/23/17 07:33 99 Trach Collar 6.0 28 08/23/17 07:33 T-piece 6.0 28 08/23/17 04:00 Room Air 08/23/17 04:00 97.9 74 20 143/83 (103) 100 97.9 08/23/17 04:00 66 08/23/17 00:35 99 Trach Collar 6.0 28 08/23/17 00:35 T-piece 6.0 28 08/23/17 00:00 98.2 77 20 153/88 (109) 100 98.2 08/23/17 00:00 Room Air 08/22/17 22:08 92 165/55 08/22/17 20:00 97.9 92 20 165/55 (91) 100 97.9 08/22/17 20:00 Room Air 08/22/17 20:00 96 08/22/17 19:15 T-piece 6.0 28 08/22/17 19:15 100 Trach Collar 6.0 28 08/22/17 16:00 Room Air 08/22/17 16:00 98.5 74 21 112/68 (83) 99 98.5 08/22/17 16:00 79 08/22/17 13:03 98 Trach Collar 6.0 28 08/22/17 13:03 Trach Collar 6.0 28 08/22/17 12:00 97.7 76 21 159/85 (109) 99 97.7 08/22/17 12:00 Room Air 08/22/17 12:00 76 08/22/17 08:00 75 08/22/17 08:00 97.7 75 21 151/65 (93) 99 97.7 Intake and Output 08/22/17 08/23/17 19:00 07:00 Intake Total 1240 ml 190 ml Output Total 650 ml Balance 590 ml 190 ml Free Water 100 ml 30 ml IV Total 800 ml Tube Feeding 340 ml 160 ml Output Urine Total 650 ml # Bowel Movements 1 Laboratory Tests 08/22/17 19:25: Urine Eosinophils None seen, Urine Random Creatinine [Pending], Urine Random Microalbumin [Pending], Urine Random Total Protein 499H, Urine Random Sodium 66 , Urine Creatinine 63.4, Urine Microalbumin/Creatinine Ratio [Pending] 08/23/17 03:00: White Blood Count 10.3, Red Blood Count 3.94L, Hemoglobin 12.6L, Hematocrit 37.2L, Mean Corpuscular Volume 94, Mean Corpuscular Hemoglobin 31.9H, Mean Corpuscular Hemoglobin Concent 33.8, Red Cell Distribution Width 17.1H, Platelet Count 166#, Mean Platelet Volume 6.0L, Neutrophils (%) (Auto) 72.0, Lymphocytes (%) (Auto) 18.2L, Monocytes (%) (Auto) 6.0, Eosinophils (%) (Auto) 3.1H, Basophils (%) (Auto) 0.8, Sodium Level 142, Potassium Level 4.6, Chloride Level 111H, Carbon Dioxide Level 20L, Anion Gap 11, Blood Urea Nitrogen 36H, Creatinine 1.9H, Estimat Glomerular Filtration Rate 36.9, Glucose Level 97, Calcium Level 8.3L Height (Feet): 5 Height (Inches): 5.00 Weight (Pounds): 155 Neck: pain on motion Objective HEAD AND NECK: No JVP. No LAD. Trach is in place. Extraocular movement intact. Pupils are reactive to light and accommodation. LUNGS: Decreased breathing sound on the both sides. CARDIAC: Regular rate and rhythm. S1, S2. No murmur. No rub. ABDOMEN: Soft, nontender, and nondistended. EXTREMITIES: No edema. No clubbing. No cyanosis. Denia Ogden MD Aug 23, 2017 07:50
[2017-08-23] MEDS ORDERED: cefOXitin 1gm Inj IVP SCH (08:00)
--- NOTE | 2017-08-23 08:06 | Endoscopy Procedure Note ---
Endoscopy Procedure Note General Indication for Procedure: dysphagia Procedures Performed: EGD, PEG Operative Findings/Diagnosis: same Specimen: yes Pt Tolerated Procedure Well: Yes Estimated Blood Loss: none Anesthesia Anesthesiologist: arturo Anesthesia: MAC Inserted Devices Implant(s) used?: No GI Core Measures 50 yrs or older w/o bx or poly: Not Applicable 10yrs. F/U not recommended: Not Applicable David Edouard MD Aug 23, 2017 08:06
--- NOTE | 2017-08-23 10:07 | Pulmonolgy Critical Care Note ---
Critical Care - Asmt/Plan Problems: (1) Malfunction of gastrostomy tube (2) Chronic respiratory failure (3) Diabetes mellitus (4) Acute on chronic renal failure (5) Left hemiparesis (6) Tracheostomy care (7) History of CVA (cerebrovascular accident) Respiratory: monitor respiratory rate, adjust FIO2, CXR Cardiac: continue to monitor HR/BP Renal: F/U I&O, keep IV fluid Infectious Disease: check cultures Gastrointestinal: continue feedings/current rate Endocrine: check TSH Hematologic: monitor H/H Neurologic: PRN Ativan Affect: PRN ativan Prophylaxis: Protonix Notes Reviewed: cardio, 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, manager of caseorder processing manager - Objective Last 24 Hour Vital Signs Date Time Temp Pulse Resp B/P (MAP) Pulse Ox O2 Delivery O2 Flow Rate FiO2 08/23/17 08:40 98.0 72 16 154/84 100 Venturi Mask 15 55 98.0 08/23/17 08:32 68 17 151/84 100 Venturi Mask 15 55 08/23/17 08:27 66 19 149/80 100 Venturi Mask 15 55 08/23/17 08:23 208.8 67 18 100 08/23/17 08:22 97.8 66 16 142/78 97 Venturi Mask 15 55 97.8 08/23/17 08:00 Room Air 08/23/17 08:00 74 08/23/17 07:33 99 Trach Collar 6.0 28 08/23/17 07:33 T-piece 6.0 28 08/23/17 04:00 Room Air 08/23/17 04:00 97.9 74 20 143/83 (103) 100 97.9 08/23/17 04:00 66 08/23/17 00:35 99 Trach Collar 6.0 28 08/23/17 00:35 T-piece 6.0 28 08/23/17 00:00 98.2 77 20 153/88 (109) 100 98.2 08/23/17 00:00 Room Air 08/22/17 22:08 92 165/55 08/22/17 20:00 97.9 92 20 165/55 (91) 100 97.9 08/22/17 20:00 Room Air 08/22/17 20:00 96 08/22/17 19:15 T-piece 6.0 28 08/22/17 19:15 100 Trach Collar 6.0 28 08/22/17 16:00 Room Air 08/22/17 16:00 98.5 74 21 112/68 (83) 99 98.5 08/22/17 16:00 79 08/22/17 13:03 98 Trach Collar 6.0 28 08/22/17 13:03 Trach Collar 6.0 28 08/22/17 12:00 97.7 76 21 159/85 (109) 99 97.7 08/22/17 12:00 Room Air 08/22/17 12:00 76 Status: awake Condition: critical, improving HEENT: atraumatic Neck: full ROM Lungs: clear Heart: HR/BP stable Abdomen: soft, active bowel sounds Extremities: no C/C/E Decubiti: location Micro: Microbiology Date/Time Source Procedure Growth Status 08/21/17 11:26 Sputum Gram Stain - Final Resulted 08/21/17 11:26 Sputum Culture - Preliminary Gram Negative Bacillus 1 Gram Negative Bacillus 2 Resulted 08/20/17 16:50 Nasal Nares MRSA Culture - Final NO METHICILLIN RESISTANT STAPH AUREUS... Complete 08/20/17 16:50 Rectum VRE Culture - Final Enterococcus Faecium - Vre Resulted 08/20/17 16:50 Rectum - Preliminary Resulted 08/20/17 16:50 Rectum - Preliminary Resulted Accucheck: 94 Critical Care - Subjective ROS Limited/Unobtainable: Yes Condition: critical, improving FI02: 55 Tube Feeding Amount: 40 I&O: Intake and Output 08/22/17 08/23/17 19:00 07:00 Intake Total 1240 ml 190 ml Output Total 650 ml Balance 590 ml 190 ml Free Water 100 ml 30 ml IV Total 800 ml Tube Feeding 340 ml 160 ml Output Urine Total 650 ml # Bowel Movements 1 Labs: Laboratory Tests Test 08/22/17 19:25 08/23/17 03:00 Urine Eosinophils None seen Urine Random Creatinine Pending Urine Random Microalbumin Pending Urine Random Total Protein 499 MG/DL (< 11.9) H Urine Random Sodium 66 mmol/L (20-110) Urine Creatinine 63.4 MG/DL (30.0-125.0) Urine Microalbumin/Creatinine Ratio Pending White Blood Count 10.3 K/UL (4.8-10.8) Red Blood Count 3.94 M/UL (4.70-6.10) L Hemoglobin 12.6 G/DL (14.2-18.0) L Hematocrit 37.2 % (42.0-52.0) L Mean Corpuscular Volume 94 FL (80-99) Mean Corpuscular Hemoglobin 31.9 PG (27.0-31.0) H Mean Corpuscular Hemoglobin Concent 33.8 G/DL (32.0-36.0) Red Cell Distribution Width 17.1 % (11.6-14.8) H Platelet Count 166 K/UL (150-450) # Mean Platelet Volume 6.0 FL (6.5-10.1) L Neutrophils (%) (Auto) 72.0 % (45.0-75.0) Lymphocytes (%) (Auto) 18.2 % (20.0-45.0) L Monocytes (%) (Auto) 6.0 % (1.0-10.0) Eosinophils (%) (Auto) 3.1 % (0.0-3.0) H Basophils (%) (Auto) 0.8 % (0.0-2.0) Sodium Level 142 MMOL/L (136-145) Potassium Level 4.6 MMOL/L (3.5-5.1) Chloride Level 111 MMOL/L (98-107) H Carbon Dioxide Level 20 MMOL/L (21-32) L Anion Gap 11 mmol/L (5-15) Blood Urea Nitrogen 36 mg/dL (7-18) H Creatinine 1.9 MG/DL (0.55-1.30) H Estimat Glomerular Filtration Rate 36.9 mL/min (>60) Glucose Level 97 MG/DL (74-106) Calcium Level 8.3 MG/DL (8.5-10.1) L Siva Quinteros MD Aug 23, 2017 10:07
[2017-08-23] MEDS: Heparin 5000 units/ml inj SUBQ SCH ×2 (10:29→20:49)
[2017-08-23] MEDS: Doxazosin 1mg Tab GT SCH (10:31)
[2017-08-23] MEDS: Pantoprazole Inj IV SCH (10:31)
[2017-08-23] MEDS: Metoprolol Tartrate 50mg tab GT SCH ×2 (10:32→20:33)
--- NOTE | 2017-08-23 11:06 | Infectious Diseases Prog Note ---
Assessment/Plan Assessment/Plan ASSESSMENT: The patient is a 56-year-old male with multiple medical problems, who needs a percutaneous endoscopic gastrostomy tube placement. 1. The patient is afebrile. 2. Normal white blood cells. 3. No evidence of gastrostomy tube site cellulitis. -. Dysphagia status post percutaneous endoscopic gastrostomy tube placement. -. History of status post trach placement. -. Hypertension. -. Diabetes. -. History of hemorrhagic stroke. -. Left hemiparesis. -. History of chronic renal failure. -. History of anemia. PLAN: 1. We will monitor the patient off of antibiotics unless infiltrates/ consolidation in the CXR 2. Monitor CBC and BMP. 3. Monitor cultures. 4. GI f/u 5. f/u cxr 6. aspiration precautions, wound care per hosp protocol Discussed with RN Subjective Allergies: Coded Allergies: No Known Allergies (Unverified , 07/26/17) Subjective afebrile no leukocytosis s/p GT replacement this am, now on VM Objective Vital Signs Last 24 Hour Vital Signs Date Time Temp Pulse Resp B/P (MAP) Pulse Ox O2 Delivery O2 Flow Rate FiO2 08/23/17 10:33 84 157/94 08/23/17 10:32 84 157/94 08/23/17 09:00 98.2 84 24 157/94 (115) 99 98.2 08/23/17 08:40 98.0 72 16 154/84 100 Venturi Mask 15 55 98.0 08/23/17 08:32 68 17 151/84 100 Venturi Mask 15 55 08/23/17 08:27 66 19 149/80 100 Venturi Mask 15 55 08/23/17 08:23 208.8 67 18 100 08/23/17 08:22 97.8 66 16 142/78 97 Venturi Mask 15 55 97.8 08/23/17 08:00 Room Air 08/23/17 08:00 74 08/23/17 07:33 99 Trach Collar 6.0 28 08/23/17 07:33 T-piece 6.0 28 08/23/17 04:00 Room Air 08/23/17 04:00 97.9 74 20 143/83 (103) 100 97.9 08/23/17 04:00 66 08/23/17 00:35 99 Trach Collar 6.0 28 08/23/17 00:35 T-piece 6.0 28 08/23/17 00:00 98.2 77 20 153/88 (109) 100 98.2 08/23/17 00:00 Room Air 08/22/17 22:08 92 165/55 08/22/17 20:00 97.9 92 20 165/55 (91) 100 97.9 08/22/17 20:00 Room Air 08/22/17 20:00 96 08/22/17 19:15 T-piece 6.0 28 08/22/17 19:15 100 Trach Collar 6.0 28 08/22/17 16:00 Room Air 08/22/17 16:00 98.5 74 21 112/68 (83) 99 98.5 08/22/17 16:00 79 08/22/17 13:03 98 Trach Collar 6.0 28 08/22/17 13:03 Trach Collar 6.0 28 08/22/17 12:00 97.7 76 21 159/85 (109) 99 97.7 08/22/17 12:00 Room Air 08/22/17 12:00 76 Height (Feet): 5 Height (Inches): 5.00 Weight (Pounds): 155 Objective HEENT: No pale conjunctivae. No icterus. NECK: No lymphadenopathy. Trach in place. CHEST: Coarse breathing sounds. HEART: S1 and S2. ABDOMEN: Soft. PEG tube site, mild erythema. No evidence of cellulitis or drainage. It does not appear to be tender.; now s/p new GT placement, bandages in place EXTREMITIES: No cyanosis. NEUROLOGIC: Awake. Microbiology Date/Time Source Procedure Growth Status 08/21/17 11:26 Sputum Gram Stain - Final Resulted 08/21/17 11:26 Sputum Culture - Preliminary Gram Negative Bacillus 1 Gram Negative Bacillus 2 Resulted 08/20/17 16:50 Nasal Nares MRSA Culture - Final NO METHICILLIN RESISTANT STAPH AUREUS... Complete 08/20/17 16:50 Rectum VRE Culture - Final Enterococcus Faecium - Vre Resulted 08/20/17 16:50 Rectum - Preliminary Resulted 08/20/17 16:50 Rectum - Preliminary Resulted Laboratory Tests Test 08/22/17 19:25 08/23/17 03:00 Urine Eosinophils None seen Urine Random Creatinine Pending Urine Random Microalbumin Pending Urine Random Total Protein 499 MG/DL (< 11.9) H Urine Random Sodium 66 mmol/L (20-110) Urine Creatinine 63.4 MG/DL (30.0-125.0) Urine Microalbumin/Creatinine Ratio Pending White Blood Count 10.3 K/UL (4.8-10.8) Red Blood Count 3.94 M/UL (4.70-6.10) L Hemoglobin 12.6 G/DL (14.2-18.0) L Hematocrit 37.2 % (42.0-52.0) L Mean Corpuscular Volume 94 FL (80-99) Mean Corpuscular Hemoglobin 31.9 PG (27.0-31.0) H Mean Corpuscular Hemoglobin Concent 33.8 G/DL (32.0-36.0) Red Cell Distribution Width 17.1 % (11.6-14.8) H Platelet Count 166 K/UL (150-450) # Mean Platelet Volume 6.0 FL (6.5-10.1) L Neutrophils (%) (Auto) 72.0 % (45.0-75.0) Lymphocytes (%) (Auto) 18.2 % (20.0-45.0) L Monocytes (%) (Auto) 6.0 % (1.0-10.0) Eosinophils (%) (Auto) 3.1 % (0.0-3.0) H Basophils (%) (Auto) 0.8 % (0.0-2.0) Sodium Level 142 MMOL/L (136-145) Potassium Level 4.6 MMOL/L (3.5-5.1) Chloride Level 111 MMOL/L (98-107) H Carbon Dioxide Level 20 MMOL/L (21-32) L Anion Gap 11 mmol/L (5-15) Blood Urea Nitrogen 36 mg/dL (7-18) H Creatinine 1.9 MG/DL (0.55-1.30) H Estimat Glomerular Filtration Rate 36.9 mL/min (>60) Glucose Level 97 MG/DL (74-106) Calcium Level 8.3 MG/DL (8.5-10.1) L Current Medications Medications (Trade) Dose Ordered Sig/Johnathan Route PRN Reason Start Time Stop Time Status Last Admin Dose Admin Acetaminophen (Tylenol) 650 mg Q4H PRN ORAL FEVER 08/20/17 17:15 09/19/17 17:14 08/21/17 23:16 Albuterol/ Ipratropium (Albuterol/ Ipratropium) 3 ml Q4H PRN HHN Shortness of Breath 08/20/17 17:15 08/25/17 17:14 Amlodipine Besylate (Norvasc) 10 mg DAILY GT 08/21/17 09:00 09/20/17 08:59 08/23/17 10:33 Clonidine HCl (Catapres TTS-1) 1 patch QWEEK TDERMAL 08/21/17 11:30 09/20/17 11:29 08/21/17 11:34 Dextrose (Dextrose 50%) 25 ml STAT PRN IV Hypoglycemia 08/20/17 17:15 09/19/17 17:14 Dextrose (Dextrose 50%) 50 ml STAT PRN IV Hypoglycemia 08/20/17 17:15 09/19/17 17:14 Diphenhydramine HCl (Benadryl) 25 mg Q15M PRN IVP Itching 08/23/17 07:15 08/23/17 16:00 Doxazosin Mesylate (Cardura) 2 mg DAILY GT 08/21/17 09:00 09/20/17 08:59 08/23/17 10:31 Heparin Sodium (Porcine) (Heparin 5000 units/ml) 5,000 units EVERY 12 HOURS SUBQ 08/20/17 21:00 09/19/17 20:59 08/23/17 10:29 Insulin Aspart (NovoLOG) BEFORE MEALS AND HS SUBQ 08/20/17 21:00 09/19/17 20:59 08/22/17 22:08 Lactated Ringer's 1,000 ml @ 10 mls/hr Q24H IVLG 08/23/17 07:11 08/23/17 16:00 Lorazepam (Ativan 2mg/ml 1ml) 2 mg Q2H PRN IV For Anxiety 08/20/17 17:15 08/27/17 17:14 Metoprolol Tartrate (Lopressor) 50 mg EVERY 12 HOURS GT 08/20/17 21:00 09/19/17 20:59 08/23/17 10:32 Midazolam HCl (Versed 2mg/2ml vial) 1 mg Q15M PRN IVP For Anxiety 08/23/17 07:15 08/23/17 16:00 Morphine Sulfate (Morphine Sulfate) 4 mg Q4H PRN IVP Severe Pain (Pain Scale 7-10) 08/20/17 17:15 08/27/17 17:14 08/21/17 15:41 Pantoprazole (Protonix) 40 mg DAILY IV 08/21/17 09:00 09/20/17 08:59 08/23/17 10:31 Polyethylene Glycol (Miralax) 17 gm DAILYPRN PRN ORAL Constipation 08/20/17 17:15 09/19/17 17:14 08/21/17 23:16 Sodium Chloride 1,000 ml @ 100 mls/hr Q10H IV 08/20/17 17:30 09/19/17 17:29 08/23/17 05:46 Jessica Estrella M.D. Aug 23, 2017 11:06
--- NOTE | 2017-08-23 15:28 | Diagnostic Imaging Report ---
Indication: Dyspnea Technique: One view of the chest Comparison: 08/02/2017 Findings: Interim resolution of previously demonstrated interstitial congestive changes. Lungs and pleural spaces are currently clear. The heart is upper limits normal in size. There is a tracheostomy. There is a gastrostomy Impression: No acute process
--- NOTE | 2017-08-23 18:41 | Internal Med Progress Note ---
Subjective Date of Service: Aug 23, 2017 Physician Name Thaddeus Diaz Attending Physician Timothy Hills MD Current Medications Medications (Trade) Dose Ordered Sig/Johnathan Route PRN Reason Start Time Stop Time Status Last Admin Dose Admin Acetaminophen (Tylenol) 650 mg Q4H PRN ORAL FEVER 08/20/17 17:15 09/19/17 17:14 08/21/17 23:16 Albuterol/ Ipratropium (Albuterol/ Ipratropium) 3 ml Q4H PRN HHN Shortness of Breath 08/20/17 17:15 08/25/17 17:14 Amlodipine Besylate (Norvasc) 10 mg DAILY GT 08/21/17 09:00 09/20/17 08:59 08/23/17 10:33 Clonidine HCl (Catapres TTS-1) 1 patch QWEEK TDERMAL 08/21/17 11:30 09/20/17 11:29 08/21/17 11:34 Dextrose (Dextrose 50%) 25 ml STAT PRN IV Hypoglycemia 08/20/17 17:15 09/19/17 17:14 Dextrose (Dextrose 50%) 50 ml STAT PRN IV Hypoglycemia 08/20/17 17:15 09/19/17 17:14 Doxazosin Mesylate (Cardura) 2 mg DAILY GT 08/21/17 09:00 09/20/17 08:59 08/23/17 10:31 Heparin Sodium (Porcine) (Heparin 5000 units/ml) 5,000 units EVERY 12 HOURS SUBQ 08/20/17 21:00 09/19/17 20:59 08/23/17 10:29 Insulin Aspart (NovoLOG) BEFORE MEALS AND HS SUBQ 08/20/17 21:00 09/19/17 20:59 08/22/17 22:08 Lorazepam (Ativan 2mg/ml 1ml) 2 mg Q2H PRN IV For Anxiety 08/20/17 17:15 08/27/17 17:14 Metoprolol Tartrate (Lopressor) 50 mg EVERY 12 HOURS GT 08/20/17 21:00 18 20:59 08/23/17 10:32 Morphine Sulfate (Morphine Sulfate) 4 mg Q4H PRN IVP Severe Pain (Pain Scale 7-10) 08/20/17 17:15 08/27/17 17:14 08/21/17 15:41 Pantoprazole (Protonix) 40 mg DAILY IV 08/21/17 09:00 09/20/17 08:59 08/23/17 10:31 Polyethylene Glycol (Miralax) 17 gm DAILYPRN PRN ORAL Constipation 08/20/17 17:15 09/19/17 17:14 08/21/17 23:16 Sodium Chloride 1,000 ml @ 100 mls/hr Q10H IV 08/20/17 17:30 09/19/17 17:29 08/23/17 15:30 Allergies: Coded Allergies: No Known Allergies (Unverified , 07/26/17) ROS Limited/Unobtainable: Yes Subjective 56 YO M admitted with gastrostomy tube malfunction. S/P EGD with PEG placement on Wednesday, August 23, 2017. Cover for Int Med-Dr Reinier LARRY Objective Last Vital Signs Date Time Temp Pulse Resp B/P (MAP) Pulse Ox O2 Delivery O2 Flow Rate FiO2 08/23/17 16:00 80 08/23/17 16:00 Room Air 08/23/17 16:00 98.1 24 159/89 (112) 99 98.1 08/23/17 12:45 6.0 28 Laboratory Tests Test 08/22/17 19:25 08/23/17 03:00 Urine Eosinophils None seen Urine Random Creatinine Pending Urine Random Microalbumin Pending Urine Random Total Protein 499 MG/DL (< 11.9) H Urine Random Sodium 66 mmol/L (20-110) Urine Creatinine 63.4 MG/DL (30.0-125.0) Urine Microalbumin/Creatinine Ratio Pending White Blood Count 10.3 K/UL (4.8-10.8) Red Blood Count 3.94 M/UL (4.70-6.10) L Hemoglobin 12.6 G/DL (14.2-18.0) L Hematocrit 37.2 % (42.0-52.0) L Mean Corpuscular Volume 94 FL (80-99) Mean Corpuscular Hemoglobin 31.9 PG (27.0-31.0) H Mean Corpuscular Hemoglobin Concent 33.8 G/DL (32.0-36.0) Red Cell Distribution Width 17.1 % (11.6-14.8) H Platelet Count 166 K/UL (150-450) # Mean Platelet Volume 6.0 FL (6.5-10.1) L Neutrophils (%) (Auto) 72.0 % (45.0-75.0) Lymphocytes (%) (Auto) 18.2 % (20.0-45.0) L Monocytes (%) (Auto) 6.0 % (1.0-10.0) Eosinophils (%) (Auto) 3.1 % (0.0-3.0) H Basophils (%) (Auto) 0.8 % (0.0-2.0) Sodium Level 142 MMOL/L (136-145) Potassium Level 4.6 MMOL/L (3.5-5.1) Chloride Level 111 MMOL/L (98-107) H Carbon Dioxide Level 20 MMOL/L (21-32) L Anion Gap 11 mmol/L (5-15) Blood Urea Nitrogen 36 mg/dL (7-18) H Creatinine 1.9 MG/DL (0.55-1.30) H Estimat Glomerular Filtration Rate 36.9 mL/min (>60) Glucose Level 97 MG/DL (74-106) Calcium Level 8.3 MG/DL (8.5-10.1) L Microbiology Date/Time Source Procedure Growth Status 08/21/17 11:26 Sputum Gram Stain - Final Resulted 08/21/17 11:26 Sputum Culture - Preliminary Gram Negative Bacillus 1 Gram Negative Bacillus 2 Resulted Intake and Output 08/22/17 08/23/17 19:00 07:00 Intake Total 1240 ml 190 ml Output Total 650 ml Balance 590 ml 190 ml Free Water 100 ml 30 ml IV Total 800 ml Tube Feeding 340 ml 160 ml Output Urine Total 650 ml # Bowel Movements 1 Objective General Appearance: WD/WN, no apparent distress, alert EENT: PERRL/EOMI, normal ENT inspection Neck: non-tender, normal alignment, supple, other - Tracheostomy Cardiovascular: normal peripheral pulses, normal rate, regular rhythm, no gallop/murmur, no JVD Respiratory/Chest: chest wall non-tender, lungs clear, normal breath sounds, no respiratory distress, no accessory muscle use Abdomen: normal bowel sounds, non tender, soft, no organomegaly, no mass Extremities: normal range of motion Neurologic: 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 (2) Diabetes mellitus type II, controlled Assessment & Plan: Continue novolog sliding scale. (3) Tracheostomy care Assessment & Plan: See pulmonary note. (4) Left hemiparesis (5) Hemorrhagic stroke (6) HTN (hypertension) Assessment & Plan: continue norvasc and lopressor (7) Renal failure (8) Agitated Assessment & Plan: Pulled gastrostomy tube out. Soft wrist restraints. Status: progressing Assessment/Plan Discharge planning: [facility] Thaddeus Diaz MD Aug 23, 2017 18:41
--- NOTE | 2017-08-23 23:00 | Procedure Note ---
DATE OF PROCEDURE: 08/23/2017 SURGEON: David Edouard M.D. ANESTHESIOLOGIST: Flex Bazan M.D. PROCEDURE: Upper endoscopy with PEG placement. INSTRUMENT: Olympus adult flexible upper endoscope. INDICATION: Dysphagia and failure to thrive. REASON FOR PROCEDURE: The procedure, risks, benefits, and possible consequences, including hemorrhage, aspiration, perforation and infection, and alternative treatments, were explained to the patient/legal guardian by Dr. David Edouard and the patient/legal guardian understood and accepted these risks. DESCRIPTION OF PROCEDURE: After informed consent was obtained and the patient was adequately sedated, Olympus upper endoscope was advanced from the mouth into the second portion of duodenum and retroflexion was performed in the stomach. The patient has diffuse gastritis. Random biopsy from antrum and body was obtained to rule out H. pylori infection. Then, under endoscopic guidance and under sterile condition, a 20-Yemeni pull type of G-tube was successfully placed in the epigastric area. The distance from the tip of the tube to skin was about 2.5 cm in size. The patient tolerated procedure very well without any complication. SUMMARY OF FINDINGS: 1. Gastritis, status post biopsy. 2. Status post successful PEG placement. RECOMMENDATIONS: Abdominal binder. Elevated head of bed at all times. G-tube flush. G-tube care. Start tube feeding later today. The patient received a dose of antibiotics prior to this procedure. I want to thank Dr. Hills, for this kind referral. David Edouard M.D. DR: KRISTI JOB#: [id number] CC: Timothy Hills M.D.; Fax#: [phone]
[2017-08-24] VITALS (7 sets, daily range): BP systolic 142–177; BP diastolic 76–95
[2017-08-24] MEDS: Morphine Sulfate 4mg/ml Inj IVP PRN ×2 (00:40→06:13)
[2017-08-24 04:39] LABS: BASOPHILS % (AUTO) 0.8 % (0.0-2.0); EOSINOPHILS % (AUTO) 0.7 % (0.0-3.0); HEMATOCRIT 36.7 % (42.0-52.0); HEMOGLOBIN 11.9 G/DL (14.2-18.0); MEAN CORPUSCULAR VOLUME 93 FL (80-99); MONOCYTES % (AUTO) 5.3 % (1.0-10.0); NEUTROPHILS % (AUTO) 78.2 % (45.0-75.0); PLATELET COUNT 265 K/UL (150-450); RED BLOOD COUNT 3.94 M/UL (4.70-6.10); RED CELL DISTRIBUTION WIDTH 16.7 % (11.6-14.8); WHITE BLOOD COUNT 10.9 K/UL (4.8-10.8)
[2017-08-24 05:17] LABS: PHOSPHORUS 3.9 MG/DL (2.5-4.9)
[2017-08-24 05:23] LABS: ALANINE AMINOTRANSFERASE 22 U/L (12-78); ALBUMIN 2.1 G/DL (3.4-5.0); ALBUMIN/GLOBULIN RATIO 0.4 (1.0-2.7); ALKALINE PHOSPHATASE 141 U/L (46-116); ANION GAP 10 mmol/L (5-15); ASPARTATE AMINO TRANSFERASE 22 U/L (15-37); BILIRUBIN,TOTAL 0.3 MG/DL (0.2-1.0); BLOOD UREA NITROGEN 31 mg/dL (7-18); CALCIUM 8.2 MG/DL (8.5-10.1); CARBON DIOXIDE 20 MMOL/L (21-32); CHLORIDE 114 MMOL/L (98-107); CREATININE 1.9 MG/DL (0.55-1.30); POTASSIUM 4.3 MMOL/L (3.5-5.1); SODIUM 144 MMOL/L (136-145)
[2017-08-24] MEDS: NovoLOG Insulin Flexpen SUBQ SCH ×4 (05:55→21:00)
--- NOTE | 2017-08-24 07:55 | Nephrology Progress Note ---
Assessment/Plan Assessment 1. Acute renal failure. The etiology of acute renal failure is ATN, dehydration versus obstructive uropathy. 2. Chronic kidney disease, most probably due to diabetic nephropathy with 4+ proteinuria. 3. Dislodged G-tube. 4. Diabetes. 5. Hypertension. Plan plan continue current iv monitoring renal function replace electrolyte as need it avoid NSAID Subjective Subjective s/p peg placement Objective Objective Last 24 Hour Vital Signs Date Time Temp Pulse Resp B/P (MAP) Pulse Ox O2 Delivery O2 Flow Rate FiO2 08/24/17 07:21 98 Trach Collar 6.0 28 08/24/17 07:21 T-piece 6.0 28 08/24/17 06:45 97.7 08/24/17 04:00 Trach Collar 6.0 08/24/17 04:00 97.7 86 20 177/85 (115) 99 97.7 08/24/17 04:00 84 08/24/17 00:37 98 Trach Collar 6.0 28 08/24/17 00:37 T-piece 6.0 28 08/24/17 00:00 Trach Collar 6.0 08/24/17 00:00 98.7 84 20 167/83 (111) 96 98.7 08/24/17 00:00 83 08/23/17 20:33 92 163/86 08/23/17 20:00 Trach Collar 6.0 08/23/17 20:00 92 08/23/17 20:00 98.6 92 20 163/86 (111) 99 98.6 08/23/17 19:04 T-piece 6.0 28 08/23/17 19:04 99 Trach Collar 6.0 28 08/23/17 16:00 80 08/23/17 16:00 Room Air 08/23/17 16:00 98.1 85 24 159/89 (112) 99 98.1 08/23/17 12:45 98 Trach Collar 6.0 28 08/23/17 12:45 T-piece 6.0 28 08/23/17 12:00 98.6 75 20 145/83 (103) 97 98.6 08/23/17 12:00 84 08/23/17 12:00 Room Air 08/23/17 10:33 84 157/94 08/23/17 10:32 84 157/94 7/16/18 09:00 98.2 84 24 157/94 (115) 99 98.2 08/23/17 08:40 98.0 72 16 154/84 100 Venturi Mask 15 55 98.0 08/23/17 08:32 68 17 151/84 100 Venturi Mask 15 55 08/23/17 08:27 66 19 149/80 100 Venturi Mask 15 55 08/23/17 08:23 208.8 67 18 100 08/23/17 08:22 97.8 66 16 142/78 97 Venturi Mask 15 55 97.8 08/23/17 08:00 Room Air 08/23/17 08:00 74 Intake and Output 08/23/17 08/24/17 19:00 07:00 Intake Total 1520 ml 1690 ml Output Total 1000 ml 350 ml Balance 520 ml 1340 ml Free Water 50 ml IV Total 1350 ml 1100 ml Tube Feeding 170 ml 480 ml Other 60 ml Output Urine Total 1000 ml 350 ml # Bowel Movements 2 1 Laboratory Tests 08/24/17 03:35: White Blood Count 10.9H, Red Blood Count 3.94L, Hemoglobin 11.9L, Hematocrit 36.7L, Mean Corpuscular Volume 93, Mean Corpuscular Hemoglobin 30.1, Mean Corpuscular Hemoglobin Concent 32.4, Red Cell Distribution Width 16.7H, Platelet Count 265#, Mean Platelet Volume 5.4L, Neutrophils (%) (Auto) 78.2H, Lymphocytes (%) (Auto) 15.0L, Monocytes (%) (Auto) 5.3, Eosinophils (%) (Auto) 0.7, Basophils (%) (Auto) 0.8, Sodium Level 144, Potassium Level 4.3, Chloride Level 114H, Carbon Dioxide Level 20L, Anion Gap 10, Blood Urea Nitrogen 31H, Creatinine 1.9H, Estimat Glomerular Filtration Rate 36.9, Glucose Level 123H, Calcium Level 8.2L, Phosphorus Level 3.9, Magnesium Level 2.4, Total Bilirubin 0.3, Aspartate Amino Transf (AST/SGOT) 22, Alanine Aminotransferase (ALT/SGPT) 22, Alkaline Phosphatase 141H, Pro-B-Type Natriuretic Peptide 9066H, Total Protein 7.9, Albumin 2.1L, Globulin 5.8, Albumin/Globulin Ratio 0.4L Height (Feet): 5 Height (Inches): 5.00 Weight (Pounds): 155 Objective HEAD AND NECK: No JVP. No LAD. Trach is in place. Extraocular movement intact. Pupils are reactive to light and accommodation. LUNGS: Decreased breathing sound on the both sides. CARDIAC: Regular rate and rhythm. S1, S2. No murmur. No rub. ABDOMEN: Soft, nontender, and nondistended. EXTREMITIES: No edema. No clubbing. No cyanosis. Denia Ogden MD Aug 24, 2017 07:55
[2017-08-24] MEDS: Metoprolol Tartrate 50mg tab GT SCH ×2 (09:22→20:33)
[2017-08-24] MEDS: Doxazosin 1mg Tab GT SCH (09:23)
[2017-08-24] MEDS: Pantoprazole Inj IV SCH (09:23)
[2017-08-24] MEDS: Heparin 5000 units/ml inj SUBQ SCH ×2 (09:32→20:34)
--- NOTE | 2017-08-24 09:49 | Pulmonolgy Critical Care Note ---
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: nurses Critical Care - Objective Last 24 Hour Vital Signs Date Time Temp Pulse Resp B/P (MAP) Pulse Ox O2 Delivery O2 Flow Rate FiO2 08/24/17 09:22 80 176/95 08/24/17 09:22 80 176/95 08/24/17 08:00 98.4 80 20 176/95 (122) 100 98.4 08/24/17 07:21 98 Trach Collar 6.0 28 08/24/17 07:21 T-piece 6.0 28 08/24/17 06:45 97.7 08/24/17 04:00 Trach Collar 6.0 08/24/17 04:00 97.7 86 20 177/85 (115) 99 97.7 08/24/17 04:00 84 08/24/17 00:37 98 Trach Collar 6.0 28 08/24/17 00:37 T-piece 6.0 28 08/24/17 00:00 Trach Collar 6.0 08/24/17 00:00 98.7 84 20 167/83 (111) 96 98.7 08/24/17 00:00 83 08/23/17 20:33 92 163/86 08/23/17 20:00 Trach Collar 6.0 08/23/17 20:00 92 08/23/17 20:00 98.6 92 20 163/86 (111) 99 98.6 08/23/17 19:04 T-piece 6.0 28 08/23/17 19:04 99 Trach Collar 6.0 28 08/23/17 16:00 80 08/23/17 16:00 Room Air 08/23/17 16:00 98.1 85 24 159/89 (112) 99 98.1 08/23/17 12:45 98 Trach Collar 6.0 28 08/23/17 12:45 T-piece 6.0 28 08/23/17 12:00 98.6 75 20 145/83 (103) 97 98.6 08/23/17 12:00 84 08/23/17 12:00 Room Air 08/23/17 10:33 84 157/94 08/23/17 10:32 84 157/94 Status: somnolent Condition: critical HEENT: atraumatic Lungs: clear Heart: HR/BP stable Abdomen: soft, active bowel sounds, feeding tube Extremities: no C/C/E, edema Micro: Microbiology Date/Time Source Procedure Growth Status 08/21/17 11:26 Sputum Gram Stain - Final Resulted 08/21/17 11:26 Sputum Culture - Preliminary A.baumanii Complx - Mdr Enterobacter Aerogenes Resulted Accucheck: 130 Critical Care - Subjective ROS Limited/Unobtainable: No Condition: critical EKG Rhythm: Sinus Rhythm FI02: 28 Tube Feeding Amount: 60 I&O: Intake and Output 08/23/17 08/24/17 19:00 07:00 Intake Total 1520 ml 1690 ml Output Total 1000 ml 350 ml Balance 520 ml 1340 ml Free Water 50 ml IV Total 1350 ml 1100 ml Tube Feeding 170 ml 480 ml Other 60 ml Output Urine Total 1000 ml 350 ml # Bowel Movements 2 1 Labs: Laboratory Tests Test 08/24/17 03:35 White Blood Count 10.9 K/UL (4.8-10.8) H Red Blood Count 3.94 M/UL (4.70-6.10) L Hemoglobin 11.9 G/DL (14.2-18.0) L Hematocrit 36.7 % (42.0-52.0) L Mean Corpuscular Volume 93 FL (80-99) Mean Corpuscular Hemoglobin 30.1 PG (27.0-31.0) Mean Corpuscular Hemoglobin Concent 32.4 G/DL (32.0-36.0) Red Cell Distribution Width 16.7 % (11.6-14.8) H Platelet Count 265 K/UL (150-450) # Mean Platelet Volume 5.4 FL (6.5-10.1) L Neutrophils (%) (Auto) 78.2 % (45.0-75.0) H Lymphocytes (%) (Auto) 15.0 % (20.0-45.0) L Monocytes (%) (Auto) 5.3 % (1.0-10.0) Eosinophils (%) (Auto) 0.7 % (0.0-3.0) Basophils (%) (Auto) 0.8 % (0.0-2.0) Sodium Level 144 MMOL/L (136-145) Potassium Level 4.3 MMOL/L (3.5-5.1) Chloride Level 114 MMOL/L (98-107) H Carbon Dioxide Level 20 MMOL/L (21-32) L Anion Gap 10 mmol/L (5-15) Blood Urea Nitrogen 31 mg/dL (7-18) H Creatinine 1.9 MG/DL (0.55-1.30) H Estimat Glomerular Filtration Rate 36.9 mL/min (>60) Glucose Level 123 MG/DL (74-106) H Calcium Level 8.2 MG/DL (8.5-10.1) L Phosphorus Level 3.9 MG/DL (2.5-4.9) Magnesium Level 2.4 MG/DL (1.8-2.4) Total Bilirubin 0.3 MG/DL (0.2-1.0) Aspartate Amino Transf (AST/SGOT) 22 U/L (15-37) Alanine Aminotransferase (ALT/SGPT) 22 U/L (12-78) Alkaline Phosphatase 141 U/L (46-116) H Pro-B-Type Natriuretic Peptide 9066 pg/mL (0-125) H Total Protein 7.9 G/DL (6.4-8.2) Albumin 2.1 G/DL (3.4-5.0) L Globulin 5.8 g/dL Albumin/Globulin Ratio 0.4 (1.0-2.7) L Siva Quinteros MD Aug 24, 2017 09:49
--- NOTE | 2017-08-24 12:19 | Infectious Diseases Prog Note ---
Assessment/Plan Assessment/Plan ASSESSMENT: The patient is a 56-year-old male with multiple medical problems, who needs a percutaneous endoscopic gastrostomy tube placement. 1. The patient is afebrile. 2. Mild leukocytosis- likely reactive to recent procedure -sp cx MDR ABC (I Genta, levo), E. 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 No evidence of gastrostomy tube site cellulitis. -. Dysphagia status post percutaneous endoscopic gastrostomy tube placement. -s/p replacement 08/23 -. History of status post trach placement. -. Hypertension. -. Diabetes. -. History of hemorrhagic stroke. -. Left hemiparesis. -. History of chronic renal failure. -. History of anemia. VRE colonized PLAN: 1. We will monitor the patient off of antibiotics unless febrile, worsening WBC , increased O2 and/or infiltrates on CXR 2. Monitor CBC and BMP. 3. Monitor cultures. 4. GI f/u 5. aspiration precautions, wound care per hosp protocol Discussed with RN Subjective Allergies: Coded Allergies: No Known Allergies (Unverified , 07/26/17) Subjective afebrile mild leukocytosis CXR no acute disease Objective Vital Signs Last 24 Hour Vital Signs Date Time Temp Pulse Resp B/P (MAP) Pulse Ox O2 Delivery O2 Flow Rate FiO2 08/24/17 09:22 80 176/95 08/24/17 09:22 80 176/95 08/24/17 08:00 77 08/24/17 08:00 98.4 80 20 176/95 (122) 100 98.4 08/24/17 07:21 98 Trach Collar 6.0 28 08/24/17 07:21 T-piece 6.0 28 08/24/17 06:45 97.7 08/24/17 04:00 Trach Collar 6.0 08/24/17 04:00 97.7 86 20 177/85 (115) 99 97.7 08/24/17 04:00 84 08/24/17 00:37 98 Trach Collar 6.0 28 08/24/17 00:37 T-piece 6.0 28 08/24/17 00:00 Trach Collar 6.0 08/24/17 00:00 98.7 84 20 167/83 (111) 96 98.7 08/24/17 00:00 83 08/23/17 20:33 92 163/86 08/23/17 20:00 Trach Collar 6.0 08/23/17 20:00 92 08/23/17 20:00 98.6 92 20 163/86 (111) 99 98.6 08/23/17 19:04 T-piece 6.0 28 08/23/17 19:04 99 Trach Collar 6.0 28 08/23/17 16:00 80 08/23/17 16:00 Room Air 08/23/17 16:00 98.1 85 24 159/89 (112) 99 98.1 08/23/17 12:45 98 Trach Collar 6.0 28 08/23/17 12:45 T-piece 6.0 28 Height (Feet): 5 Height (Inches): 5.00 Weight (Pounds): 155 Objective HEENT: No pale conjunctivae. No icterus. NECK: No lymphadenopathy. Trach in place. CHEST: Coarse breathing sounds. HEART: S1 and S2. ABDOMEN: Soft. PEG tube site, mild erythema. No evidence of cellulitis or drainage. It does not appear to be tender.; now s/p new GT placement, bandages in place EXTREMITIES: No cyanosis. NEUROLOGIC: Awake. Laboratory Tests Test 08/24/17 03:35 White Blood Count 10.9 K/UL (4.8-10.8) H Red Blood Count 3.94 M/UL (4.70-6.10) L Hemoglobin 11.9 G/DL (14.2-18.0) L Hematocrit 36.7 % (42.0-52.0) L Mean Corpuscular Volume 93 FL (80-99) Mean Corpuscular Hemoglobin 30.1 PG (27.0-31.0) Mean Corpuscular Hemoglobin Concent 32.4 G/DL (32.0-36.0) Red Cell Distribution Width 16.7 % (11.6-14.8) H Platelet Count 265 K/UL (150-450) # Mean Platelet Volume 5.4 FL (6.5-10.1) L Neutrophils (%) (Auto) 78.2 % (45.0-75.0) H Lymphocytes (%) (Auto) 15.0 % (20.0-45.0) L Monocytes (%) (Auto) 5.3 % (1.0-10.0) Eosinophils (%) (Auto) 0.7 % (0.0-3.0) Basophils (%) (Auto) 0.8 % (0.0-2.0) Sodium Level 144 MMOL/L (136-145) Potassium Level 4.3 MMOL/L (3.5-5.1) Chloride Level 114 MMOL/L (98-107) H Carbon Dioxide Level 20 MMOL/L (21-32) L Anion Gap 10 mmol/L (5-15) Blood Urea Nitrogen 31 mg/dL (7-18) H Creatinine 1.9 MG/DL (0.55-1.30) H Estimat Glomerular Filtration Rate 36.9 mL/min (>60) Glucose Level 123 MG/DL (74-106) H Calcium Level 8.2 MG/DL (8.5-10.1) L Phosphorus Level 3.9 MG/DL (2.5-4.9) Magnesium Level 2.4 MG/DL (1.8-2.4) Total Bilirubin 0.3 MG/DL (0.2-1.0) Aspartate Amino Transf (AST/SGOT) 22 U/L (15-37) Alanine Aminotransferase (ALT/SGPT) 22 U/L (12-78) Alkaline Phosphatase 141 U/L (46-116) H Pro-B-Type Natriuretic Peptide 9066 pg/mL (0-125) H Total Protein 7.9 G/DL (6.4-8.2) Albumin 2.1 G/DL (3.4-5.0) L Globulin 5.8 g/dL Albumin/Globulin Ratio 0.4 (1.0-2.7) L Current Medications Medications (Trade) Dose Ordered Sig/Johnathan Route PRN Reason Start Time Stop Time Status Last Admin Dose Admin Acetaminophen (Tylenol) 650 mg Q4H PRN ORAL FEVER 08/20/17 17:15 09/19/17 17:14 08/21/17 23:16 Albuterol/ Ipratropium (Albuterol/ Ipratropium) 3 ml Q4H PRN HHN Shortness of Breath 08/20/17 17:15 7/18/18 17:14 Amlodipine Besylate (Norvasc) 10 mg DAILY GT 08/21/17 09:00 09/20/17 08:59 08/24/17 09:22 Clonidine HCl (Catapres TTS-1) 1 patch QWEEK TDERMAL 08/21/17 11:30 09/20/17 11:29 08/21/17 11:34 Dextrose (Dextrose 50%) 25 ml STAT PRN IV Hypoglycemia 08/20/17 17:15 09/19/17 17:14 Dextrose (Dextrose 50%) 50 ml STAT PRN IV Hypoglycemia 08/20/17 17:15 09/19/17 17:14 Doxazosin Mesylate (Cardura) 2 mg DAILY GT 08/21/17 09:00 09/20/17 08:59 08/24/17 09:23 Heparin Sodium (Porcine) (Heparin 5000 units/ml) 5,000 units EVERY 12 HOURS SUBQ 08/20/17 21:00 09/19/17 20:59 08/24/17 09:32 Insulin Aspart (NovoLOG) BEFORE MEALS AND HS SUBQ 08/20/17 21:00 09/19/17 20:59 08/24/17 12:09 Lorazepam (Ativan 2mg/ml 1ml) 2 mg Q2H PRN IV For Anxiety 08/20/17 17:15 08/27/17 17:14 Metoprolol Tartrate (Lopressor) 50 mg EVERY 12 HOURS GT 08/20/17 21:00 09/19/17 20:59 08/24/17 09:22 Morphine Sulfate (Morphine Sulfate) 4 mg Q4H PRN IVP Severe Pain (Pain Scale 7-10) 08/20/17 17:15 08/27/17 17:14 08/24/17 06:13 Pantoprazole (Protonix) 40 mg DAILY IV 08/21/17 09:00 09/20/17 08:59 08/24/17 09:23 Polyethylene Glycol (Miralax) 17 gm DAILYPRN PRN ORAL Constipation 08/20/17 17:15 09/19/17 17:14 08/21/17 23:16 Sodium Chloride 1,000 ml @ 100 mls/hr Q10H IV 08/20/17 17:30 09/19/17 17:29 08/24/17 12:09 Jessica Estrella M.D. Aug 24, 2017 12:19
--- NOTE | 2017-08-24 14:08 | Diagnostic Imaging Report ---
Indication:Elevated Bun and Creatinine. Technique: Grayscale and duplex Doppler imaging of the kidneys performed. Comparison: None Findings: The kidneys are echogenic but normal in size. There is a small cyst in the left kidney measuring about 1 cm. The left kidney is 12 cm. The right kidney is 13.6 cm in length. IVC is unremarkable. The bladder is moderately distended 188 cc the prevoid volume. IMPRESSION: Medical renal disease.
--- NOTE | 2017-08-24 15:04 | GI Progress Note ---
Assessment/Plan Problems: (1) Dysphagia ICD Codes: R13.10 - Dysphagia, unspecified SNOMED: 39872515, 754366901 (2) Iron deficiency anemia ICD Codes: D50.9 - Iron deficiency anemia, unspecified SNOMED: 12223068 (3) Altered mental status ICD Codes: R41.82 - Altered mental status, unspecified SNOMED: 850339021 (4) Ventilator dependence ICD Codes: Z99.11 - Dependence on respirator [ventilator] status SNOMED: 934359489 (5) Malfunction of gastrostomy tube ICD Codes: K94.23 - Gastrostomy malfunction SNOMED: 298271962 (6) History of CVA (cerebrovascular accident) ICD Codes: Z86.73 - Personal history of transient ischemic attack (TIA), and cerebral infarction without residual deficits SNOMED: 052728338 Status: stable Status Narrative Discussed with Dr. Edouard. Assessment/Plan SUMMARY OF FINDINGS: 1. Gastritis, status post biopsy. 2. Status post successful PEG placement. RECOMMENDATIONS: okay for DC per GI standpoint Abdominal binder. Elevated head of bed at all times. G-tube flush. G-tube care. Start tube feeding later today. supportive care Subjective Subjective limited Objective Last 24 Hour Vital Signs Date Time Temp Pulse Resp B/P (MAP) Pulse Ox O2 Delivery O2 Flow Rate FiO2 08/24/17 14:39 99 Trach Collar 6.0 28 08/24/17 14:39 T-piece 6.0 28 08/24/17 12:00 93 08/24/17 12:00 Trach Collar 6.0 08/24/17 12:00 98.6 71 20 156/76 (102) 100 98.6 08/24/17 09:22 80 176/95 08/24/17 09:22 80 176/95 08/24/17 08:00 77 08/24/17 08:00 98.4 80 20 176/95 (122) 100 98.4 08/24/17 08:00 Trach Collar 6.0 08/24/17 07:21 98 Trach Collar 6.0 28 08/24/17 07:21 T-piece 6.0 28 08/24/17 06:45 97.7 08/24/17 04:00 Trach Collar 6.0 08/24/17 04:00 97.7 86 20 177/85 (115) 99 97.7 08/24/17 04:00 84 08/24/17 00:37 98 Trach Collar 6.0 28 08/24/17 00:37 T-piece 6.0 28 08/24/17 00:00 Trach Collar 6.0 08/24/17 00:00 98.7 84 20 167/83 (111) 96 98.7 08/24/17 00:00 83 08/23/17 20:33 92 163/86 08/23/17 20:00 Trach Collar 6.0 08/23/17 20:00 92 08/23/17 20:00 98.6 92 20 163/86 (111) 99 98.6 08/23/17 19:04 T-piece 6.0 28 08/23/17 19:04 99 Trach Collar 6.0 28 08/23/17 16:00 80 08/23/17 16:00 Room Air 08/23/17 16:00 98.1 85 24 159/89 (112) 99 98.1 Intake and Output 08/23/17 08/24/17 19:00 07:00 Intake Total 1520 ml 1690 ml Output Total 1000 ml 350 ml Balance 520 ml 1340 ml Free Water 50 ml IV Total 1350 ml 1100 ml Tube Feeding 170 ml 480 ml Other 60 ml Output Urine Total 1000 ml 350 ml # Bowel Movements 2 1 Laboratory Tests Test 08/24/17 03:35 White Blood Count 10.9 K/UL (4.8-10.8) H Red Blood Count 3.94 M/UL (4.70-6.10) L Hemoglobin 11.9 G/DL (14.2-18.0) L Hematocrit 36.7 % (42.0-52.0) L Mean Corpuscular Volume 93 FL (80-99) Mean Corpuscular Hemoglobin 30.1 PG (27.0-31.0) Mean Corpuscular Hemoglobin Concent 32.4 G/DL (32.0-36.0) Red Cell Distribution Width 16.7 % (11.6-14.8) H Platelet Count 265 K/UL (150-450) # Mean Platelet Volume 5.4 FL (6.5-10.1) L Neutrophils (%) (Auto) 78.2 % (45.0-75.0) H Lymphocytes (%) (Auto) 15.0 % (20.0-45.0) L Monocytes (%) (Auto) 5.3 % (1.0-10.0) Eosinophils (%) (Auto) 0.7 % (0.0-3.0) Basophils (%) (Auto) 0.8 % (0.0-2.0) Sodium Level 144 MMOL/L (136-145) Potassium Level 4.3 MMOL/L (3.5-5.1) Chloride Level 114 MMOL/L (98-107) H Carbon Dioxide Level 20 MMOL/L (21-32) L Anion Gap 10 mmol/L (5-15) Blood Urea Nitrogen 31 mg/dL (7-18) H Creatinine 1.9 MG/DL (0.55-1.30) H Estimat Glomerular Filtration Rate 36.9 mL/min (>60) Glucose Level 123 MG/DL (74-106) H Calcium Level 8.2 MG/DL (8.5-10.1) L Phosphorus Level 3.9 MG/DL (2.5-4.9) Magnesium Level 2.4 MG/DL (1.8-2.4) Total Bilirubin 0.3 MG/DL (0.2-1.0) Aspartate Amino Transf (AST/SGOT) 22 U/L (15-37) Alanine Aminotransferase (ALT/SGPT) 22 U/L (12-78) Alkaline Phosphatase 141 U/L (46-116) H Pro-B-Type Natriuretic Peptide 9066 pg/mL (0-125) H Total Protein 7.9 G/DL (6.4-8.2) Albumin 2.1 G/DL (3.4-5.0) L Globulin 5.8 g/dL Albumin/Globulin Ratio 0.4 (1.0-2.7) L Height (Feet): 5 Height (Inches): 5.00 Weight (Pounds): 155 General Appearance: WD/WN, no apparent distress, alert Cardiovascular: normal rate Respiratory/Chest: normal breath sounds, no respiratory distress Abdominal Exam: normal bowel sounds, non tender, soft, GT site - c/d/i Extremities: normal range of motion, non-tender Erasto Toro NP Aug 24, 2017 15:04
--- NOTE | 2017-08-24 18:48 | Internal Med Progress Note ---
Subjective Physician Name Thaddeus Diaz Attending Physician Timothy Hills MD Current Medications Medications (Trade) Dose Ordered Sig/Johnathan Route PRN Reason Start Time Stop Time Status Last Admin Dose Admin Acetaminophen (Tylenol) 650 mg Q4H PRN ORAL FEVER 08/20/17 17:15 09/19/17 17:14 08/21/17 23:16 Albuterol/ Ipratropium (Albuterol/ Ipratropium) 3 ml Q4H PRN HHN Shortness of Breath 08/20/17 17:15 08/25/17 17:14 Amlodipine Besylate (Norvasc) 10 mg DAILY GT 08/21/17 09:00 09/20/17 08:59 08/24/17 09:22 Clonidine HCl (Catapres TTS-1) 1 patch QWEEK TDERMAL 08/21/17 11:30 09/20/17 11:29 08/21/17 11:34 Dextrose (Dextrose 50%) 25 ml STAT PRN IV Hypoglycemia 08/20/17 17:15 09/19/17 17:14 Dextrose (Dextrose 50%) 50 ml STAT PRN IV Hypoglycemia 08/20/17 17:15 09/19/17 17:14 Doxazosin Mesylate (Cardura) 2 mg DAILY GT 08/21/17 09:00 09/20/17 08:59 08/24/17 09:23 Heparin Sodium (Porcine) (Heparin 5000 units/ml) 5,000 units EVERY 12 HOURS SUBQ 08/20/17 21:00 09/19/17 20:59 08/24/17 09:32 Insulin Aspart (NovoLOG) BEFORE MEALS AND HS SUBQ 08/20/17 21:00 09/19/17 20:59 08/24/17 12:09 Lorazepam (Ativan 2mg/ml 1ml) 2 mg Q2H PRN IV For Anxiety 08/20/17 17:15 08/27/17 17:14 Metoprolol Tartrate (Lopressor) 50 mg EVERY 12 HOURS GT 08/20/17 21:00 18 20:59 08/24/17 09:22 Morphine Sulfate (Morphine Sulfate) 4 mg Q4H PRN IVP Severe Pain (Pain Scale 7-10) 08/20/17 17:15 08/27/17 17:14 08/24/17 06:13 Pantoprazole (Protonix) 40 mg DAILY IV 08/21/17 09:00 09/20/17 08:59 08/24/17 09:23 Polyethylene Glycol (Miralax) 17 gm DAILYPRN PRN ORAL Constipation 08/20/17 17:15 09/19/17 17:14 08/21/17 23:16 Sodium Chloride 1,000 ml @ 100 mls/hr Q10H IV 08/20/17 17:30 09/19/17 17:29 08/24/17 12:09 Allergies: Coded Allergies: No Known Allergies (Unverified , 07/26/17) ROS Limited/Unobtainable: Yes Subjective 56 YO M admitted with gastrostomy tube malfunction. S/P EGD with PEG placement on Wednesday, August 23, 2017. Cover for Int Med-Dr Reinier LARRY Objective Last Vital Signs Date Time Temp Pulse Resp B/P (MAP) Pulse Ox O2 Delivery O2 Flow Rate FiO2 08/24/17 16:08 Trach Collar 6.0 08/24/17 16:00 98.7 76 19 146/84 (104) 98 98.7 08/24/17 14:39 28 Laboratory Tests Test 08/24/17 03:35 White Blood Count 10.9 K/UL (4.8-10.8) H Red Blood Count 3.94 M/UL (4.70-6.10) L Hemoglobin 11.9 G/DL (14.2-18.0) L Hematocrit 36.7 % (42.0-52.0) L Mean Corpuscular Volume 93 FL (80-99) Mean Corpuscular Hemoglobin 30.1 PG (27.0-31.0) Mean Corpuscular Hemoglobin Concent 32.4 G/DL (32.0-36.0) Red Cell Distribution Width 16.7 % (11.6-14.8) H Platelet Count 265 K/UL (150-450) # Mean Platelet Volume 5.4 FL (6.5-10.1) L Neutrophils (%) (Auto) 78.2 % (45.0-75.0) H Lymphocytes (%) (Auto) 15.0 % (20.0-45.0) L Monocytes (%) (Auto) 5.3 % (1.0-10.0) Eosinophils (%) (Auto) 0.7 % (0.0-3.0) Basophils (%) (Auto) 0.8 % (0.0-2.0) Sodium Level 144 MMOL/L (136-145) Potassium Level 4.3 MMOL/L (3.5-5.1) Chloride Level 114 MMOL/L (98-107) H Carbon Dioxide Level 20 MMOL/L (21-32) L Anion Gap 10 mmol/L (5-15) Blood Urea Nitrogen 31 mg/dL (7-18) H Creatinine 1.9 MG/DL (0.55-1.30) H Estimat Glomerular Filtration Rate 36.9 mL/min (>60) Glucose Level 123 MG/DL (74-106) H Calcium Level 8.2 MG/DL (8.5-10.1) L Phosphorus Level 3.9 MG/DL (2.5-4.9) Magnesium Level 2.4 MG/DL (1.8-2.4) Total Bilirubin 0.3 MG/DL (0.2-1.0) Aspartate Amino Transf (AST/SGOT) 22 U/L (15-37) Alanine Aminotransferase (ALT/SGPT) 22 U/L (12-78) Alkaline Phosphatase 141 U/L (46-116) H Pro-B-Type Natriuretic Peptide 9066 pg/mL (0-125) H Total Protein 7.9 G/DL (6.4-8.2) Albumin 2.1 G/DL (3.4-5.0) L Globulin 5.8 g/dL Albumin/Globulin Ratio 0.4 (1.0-2.7) L Intake and Output 08/23/17 08/24/17 19:00 07:00 Intake Total 1520 ml 1690 ml Output Total 1000 ml 350 ml Balance 520 ml 1340 ml Free Water 50 ml IV Total 1350 ml 1100 ml Tube Feeding 170 ml 480 ml Other 60 ml Output Urine Total 1000 ml 350 ml # Bowel Movements 2 1 Objective General Appearance: WD/WN, no apparent distress, alert EENT: PERRL/EOMI, normal ENT inspection Neck: non-tender, normal alignment, supple, other - Tracheostomy Cardiovascular: normal peripheral pulses, normal rate, regular rhythm, no gallop/murmur, no JVD Respiratory/Chest: chest wall non-tender, lungs clear, normal breath sounds, no respiratory distress, no accessory muscle use Abdomen: normal bowel sounds, non tender, soft, no organomegaly, no mass Extremities: normal range of motion Neurologic: dental surgery doctor II-XII grossly normal, no motor/sensory deficits Skin: normal pigmentation, warm/dry Assessment/Plan Problem List: (1) Malfunction of gastrostomy tube Assessment & Plan: S/P EGD and PEG placement on Wednesday, August 23, 2017-see GI note. (2) Diabetes mellitus type II, controlled Assessment & Plan: Continue novolog sliding scale. (3) Tracheostomy care Assessment & Plan: See pulmonary note. (4) Left hemiparesis (5) Hemorrhagic stroke (6) HTN (hypertension) Assessment & Plan: continue norvasc and lopressor (7) Renal failure (8) Agitated Assessment & Plan: Pulled gastrostomy tube out. Soft wrist restraints. Assessment/Plan Discharge planning: [facility] Thaddeus Diaz MD Aug 24, 2017 18:48
[2017-08-24] MEDS ORDERED: Tubing IV Secondary IV ONE (21:59)
--- NOTE | 2017-08-26 14:59 | Discharge Summary ---
Discharge Summary Discharge Summary _ DATE OF ADMISSION: 08/20/2017 DATE OF DISCHARGE: 08/24/2017 REASON FOR ADMISSION: 56 years old male with past medical history significant for dysphagia ,G-tube, history of CVA with left hemiparesis, gastrostomy tube, chronic kidney disease, schizophrenia, hypertension, diabetes, chronic respiratory failure with tracheostomy status , was sent to emergency room after he pulled out his gastrostomy tube at the facility. Upon evaluation vital signs were stable Laboratory workup revealed no leukocytosis, mild anemia with hemoglobin 12.7 and hematocrit 39.7 BUN 57 creatinine 2.4 were consistent with known history of chronic kidney disease Patient admitted with diagnosis of malfunctioning gastrostomy tube , diabetes mellitus type 2, tracheostomy dependent, h history of hemorrhagic stroke, hypertension, chronic kidney disease, CONSULTANTS: pulmonary Dr. Quinteros ID specialist Dr. Burt GI specialist Dr Edouard lipcoat sprayer Dr. Ogden [facility]: Patient admitted. GI consult was requested. Patient subsequently undergone on 08/23 EGD with successful placement of gastrostomy tube. EGD revealed gastritis, status post biopsy. Biopsy of stomach antrum revealed chronic gastritis, no evidence of Helicobacter infection. GI specialist closely followed . Abdominal binder applied after procedure. Head of bed was elevated at all times. Strict aspiration /reflux precautions were maintained. G-tube site care provided. Later after the procedure, the patient started on G-tube feeding and was able to tolerate it. Hemoglobin and hematocrit were closely monitored with goal to keep hemoglobin above 7; hemoglobin and hematocrit remained at baseline. Blood sugar was managed with sliding scale of insulin and Levemir. Tracheostomy care provided. Supplemental oxygen titrated as needed to keep pulse oximetry above 92%. Pulmonary toilet provided as needed. Tree Driller closely followed. Chest x-ray revealed no acute cardiopulmonary pathology. Sputum culture revealed Acinetobacter MDR Enterobacter. No evidence of infection , no fever, no leukocytosis, no respiratory symptoms. Likely colonization. Blood pressure was managed with calcium channel reji, beta reji and clonidine patch. Infectious disease doctor followed. Patient was afebrile Urinalysis was negative. Chest x-ray revealed no acute coronary pulmonary pathology. No evidence of G-tube site cellulitis. Infectious disease doctor recommended to keep patient off antibiotics unless febrile, worsening leukocytosis , increased oxygen demand and / or infiltrates on chest x-ray. Production Line Manager closely followed . Patient had chronic kidney disease , most likely secondary to diabetic nephropathy , since urinalysis revealed +4 proteinuria. Patient also had acute renal failure on chronic renal failure . According to lipcoat sprayer etiology of acute renal failure was most likely acute tubular necrosis versus dehydration versus obstructive uropathy. Urine studies were done s pr lipcoat sprayer. Random total urine protein 4929 . Renal ultrasound revealed evidence of medical renal disease. Electrolytes and renal parameters were closely monitored, electrolytes were corrected as needed. Nephrotoxins were avoided. Creatinine from initial 2.4 down to 1.9. Supportive care provided Pain management was addressed . Patient clinically improved ,tolerated G-tube feeding, and was stable for discharge to subacute longterm facility for continuation of care. FINAL DIAGNOSES: Malfunctioning G-tube s/p EGD with PEG placement Gastritis Dysphagia Chronic respiratory failure with tracheostomy status Acute on chronic renal failure History of CVA with left side hemiparesis Anemia Diabetes mellitus Hypertension DISCHARGE MEDICATIONS: See Medication Reconciliation list. DISCHARGE INSTRUCTIONS: [patient was discharged to subacute longterm facility. Follow up with medical doctor and geodetic surveyor at the facility. I have been assigned to dictate discharge summary for this account. I was not involved in the patient's management. Mary Jaffe [employer] CAKE DECORATOR Aug 26, 2017 14:59
== END 2017-08-24 22:00 | DRG 252 ==
LOC: EDBD 14:36 → EMR 16:32 → 4W 16:33 → EDBEDREQ 16:51 → 2W 18:10
PROC: 0DB78ZX Excision of Stomach, Pylorus, Via Natural or Artificial Opening Endoscopic, Diagnostic (ICD-10-PCS; 2017-08-23)
PROC: 0DH63UZ Insertion of Feeding Device into Stomach, Percutaneous Approach (ICD-10-PCS; principal; 2017-08-23 07:55)
PROC: 0DB68ZX Excision of Stomach, Via Natural or Artificial Opening Endoscopic, Diagnostic (ICD-10-PCS; 2017-08-23 07:55)
DX: K94.23 Gastrostomy malfunction (principal); N17.0 Acute kidney failure with tubular necrosis; Z99.11 Dependence on respirator [ventilator] status; Z43.0 Encounter for attention to tracheostomy; I69.354 Hemiplegia and hemiparesis following cerebral infarction affecting left non-dominant side; R13.10 Dysphagia, unspecified; J96.10 Chronic respiratory failure, unspecified whether with hypoxia or hypercapnia; E11.22 Type 2 diabetes mellitus with diabetic chronic kidney disease; Y83.3 Surgical operation with formation of external stoma as the cause of abnormal reaction of the patient, or of later complication, without mention of misadventure at the time of the procedure; I12.9 Hypertensive chronic kidney disease with stage 1 through stage 4 chronic kidney disease, or unspecified chronic kidney disease; N18.9 Chronic kidney disease, unspecified; R62.7 Adult failure to thrive; D50.9 Iron deficiency anemia, unspecified; K29.50 Unspecified chronic gastritis without bleeding
CPT/HCPCS: 36415; 71045; 74018; 76770; 80048; 80053; 80069; 80202; 81001; 82043; 82044; 82550; 82570; 82962; 83735; 83880; 84100; 84133; 84300; 84550; 85025; 85610; 87070; 87081; 87181; 87205; 89050; 93970; 94003; 94150; 94760; 99285; J1815; J2250; J2405